=== PATIENT | male | born 1960 | race Hispanic/Latino ===

== ENCOUNTER 2018-08-02 15:19 | Emergency (ER) | payer BC ==
[2018-08-02] MEDS ORDERED: Ketorolac Tromethamine 30 MG/ML VIAL ONE (16:12)
[2018-08-02 16:43] LABS: #Eosinphils 0.1 thou/uL (0.0-0.7); #Lymphocytes 1.2 thou/uL (1.20-3.40); #Monocytes 0.7 thou/uL (0.11-0.59); #Neutrophils 8.4 thou/uL (1.40-6.50); %Basophils 0.1 % (0.0-1.0); %Lymphocytes 11.5 % (21.0-51.0); %Monocytes 6.5 % (0.0-10.0); %Neutrophils 80.9 % (42.0-75.0); Hemoglobin 13.2 g/dL (14.0-18.0); Mean Corpuscular HGB CONC 32.8 g/dL (32.0-36.0); Mean Corpuscular Hemoglobin 28.1 pg (27.0-31.0); Mean Corpuscular Volume 85.8 fL (78.0-98.0); Mean Platelet Volume 7.9 fL (7.4-10.4); Platelet Count 251 thou/uL (130-400); RBC Distribution Width 14.3 % (11.5-14.5); White Blood Cell (WBC) Count 10.4 thou/uL (4.8-10.8)
[2018-08-02 17:05] LABS: ALT (SGPT) 15 U/L (8-55); AST (SGOT) 19 U/L (5-34); Albumin 4.5 g/dL (3.5-5.0); Alkaline Phosphatase 66 U/L (40-150); Anion Gap 15 mmol/L (10-20); BUN (Urea Nitrogen) 20 mg/dL (8.4-25.7); Bilirubin, Total 0.8 mg/dL (0.2-1.2); CK (CPK) 136 U/L (30-200); Calc. Creatinine Clearance 0 mL/min (70-130); Calcium 9.5 mg/dL (7.8-10.44); Carbon Dioxide 22 mmol/L (22-29); Chloride 102 mmol/L (98-107); Estimated GFR-MDRD 44; Globulin 3.3 g/dL (2.4-3.5); Glucose 175 mg/dL (70-105); Protein, Total 7.8 g/dL (6.0-8.3); Sodium 134 mmol/L (136-145)
== END 2018-08-02 19:10 | disposition home or self-care (01) ==
LOC: ERS 15:19
DX: E86.0 Dehydration (principal); R25.2 Cramp and spasm; E11.9 Type 2 diabetes mellitus without complications; I10 Essential (primary) hypertension; Z79.899 Other long term (current) drug therapy; E78.00 Pure hypercholesterolemia, unspecified
CPT/HCPCS: 80053; 82550; 83605; 85025; 96361; 96374; J1885

== ENCOUNTER 2020-02-11 09:40 | Inpatient (IN) | payer BC ==
[2020-02-11] MEDS ORDERED: Dexamethasone 4 mg/ml Vial ONE (10:17)
[2020-02-11] MEDS ORDERED: Acetaminophen 500 MG TAB ONE (10:17)
[2020-02-11] MEDS ORDERED: Azithromycin 500 MG VIAL ONE (10:17)
[2020-02-11 10:29] LABS: #Monocytes 0.4 thou/uL (0.11-0.59); #Neutrophils 7.6 thou/uL (1.40-6.50); %Basophils 0.1 % (0.0-1.0); %Eosinophils 0.1 % (0.0-10.0); %Lymphocytes 10.9 % (21.0-51.0); %Monocytes 4.9 % (0.0-10.0); Hemoglobin 14.7 g/dL (14.0-18.0); Mean Corpuscular HGB CONC 30.6 g/dL (32.0-36.0); Mean Corpuscular Hemoglobin 26.5 pg (27.0-31.0); Mean Corpuscular Volume 86.4 fL (78.0-98.0); Mean Platelet Volume 8.3 fL (7.4-10.4); Platelet Count 301 thou/uL (130-400); RBC Distribution Width 14.2 % (11.5-14.5); Red Blood Cell (RBC) Count 5.57 mill/uL (4.70-6.10)
[2020-02-11 10:43] LABS: Actual Bicarbonate (HCO3a) 14.9 mEq/L (22-28); Analyzer IN Cardio ER; Base Excess (BEa) -7.2 mEq/L (-2.0 to +3.0); Calcium, Ionized (arterial) 1.12 mmol/L (1.12-1.30); Carboxyhemoglobin (COHb) 0.5 gm% (0.0-3.0); Hemoglobin (Hb) 13.7 g/dL (14.0-18.0); O2 Tension (PaO2), arterial 69.9 mmHg (> 80.0); Potassium - ABG Lab 4.01 mmol/L (3.70-5.30); pH, Arterial 7.44 (7.35-7.45)
[2020-02-11] MEDS ORDERED: Diltiazem 125 MG in Sodium Chloride 0.9% 100 ML IVPB SCH ×2 (10:45→15:30)
[2020-02-11 10:48] LABS: CO2 Tension 22.6 mmHg (35.0-45.0)
[2020-02-11 10:49] LABS: Puncture Site RRA
[2020-02-11 11:00] LABS: ALT (SGPT) 29 U/L (8-55); AST (SGOT) 27 U/L (5-34); Albumin 4.4 g/dL (3.4-4.8); Alkaline Phosphatase 65 U/L (40-110); Anion Gap 23 mmol/L (10-20); BUN (Urea Nitrogen) 26 mg/dL (8.4-25.7); Calc. Creatinine Clearance 0 mL/min (70-130); Calcium 9.6 mg/dL (7.8-10.44); Carbon Dioxide 19 mmol/L (23-31); Chloride 95 mmol/L (98-107); Globulin 4.3 g/dL (2.4-3.5); Glucose 174 mg/dL (80-115); Potassium 4.3 mmol/L (3.5-5.1); Protein, Total 8.7 g/dL (5.8-8.1); Sodium 133 mmol/L (136-145)
--- NOTE | 2020-02-11 11:06 | RAD ---
XR Chest 1 View Portable History: Chest pain Comparison: None. Findings: Scattered perihilar and peripheral airspace opacities. No pneumothorax. No effusion. Heart size upper limits of normal. No acute osseous abnormality. Impression: Commonly reported imaging findings of COVID-19 pneumonia.
[2020-02-11 13:45] LABS: Lactic Acid 1.1 mmol/L (0.5-2.2)
[2020-02-11 13:54] LABS: Troponin I 0.021 ng/mL (< 0.028)
[2020-02-11] MEDS ORDERED: Ondansetron PF 4 MG/2 ML Vial IVP PRN (15:29)
[2020-02-11] MEDS ORDERED: HYDROcodone/Acetaminophen 5/325 mg Tablet PO PRN ×2 (15:29)
[2020-02-11] MEDS ORDERED: Ondansetron ODT 4 MG TAB PO PRN (15:29)
[2020-02-11] MEDS ORDERED: Senokot S 8.6-50 MG TAB PO PRN (15:29)
[2020-02-11] MEDS ORDERED: Acetaminophen 650 MG Suppository PR PRN (15:29)
[2020-02-11] MEDS ORDERED: Dextrose 5% in Water 1,000 ML IV PRN (15:36)
[2020-02-11] MEDS ORDERED: Dextrose 50% Abboject 50 ML SYRINGE SLOW IVP PRN (15:36)
[2020-02-11] MEDS: Sodium Chloride 0.9% 1,000 ML IV SCH (16:12)
[2020-02-11] MEDS ORDERED: REMDESIVIR (EUA) 200 MG in Sodium Chloride 0.9% 250 ML 210 ML IV SCH (16:30)
[2020-02-11 16:40] LABS: Troponin I Less than 0.010 ng/mL (< 0.028)
[2020-02-11] MEDS: HumaLOG 300 UNITS/3 ML VIAL SC PRN ×2 (16:46→20:38)
--- NOTE | 2020-02-11 17:12 | HP ---
PRIMARY CARE PHYSICIAN: Tres Piper MD CHIEF COMPLAINT: Cough and muscle cramps of the chest and abdomen. HISTORY OF PRESENT ILLNESS: This is a 59-year-old male, mostly English-speaking. I did interview using the motorized squad captain phone. The patient reports that for the past 8 to 10 days he has had cough and fever. Eight days ago, he was seen at an outside emergency room and reports having a positive COVID test. He reports the cough has been progressive since then, not productive. He has been having spasms and cramps of his lower rib cage and his abdomen. This eventually got so bad he came to the emergency room. In the ER, he was found to be in severe respiratory distress with O2 saturations in 80s. He was put on oxygen at first and later increased to high-flow oxygen with good response of his O2 saturations. He was also found to be severely tachycardic, heart rate of 150. EKG was done showing sinus tachycardia. He was given a liter of fluid and then eventually given some diltiazem, which improved his rate down to the low 100s running about 100 right now. Repeat EKG did confirm sinus tachycardia. The patient did have an elevated lactic acid. This resolved after his fluids given in the emergency room. He has also had noted to have acute kidney failure with a creatinine of 1.5. The patient is now on the floor and with stabilized vital signs, currently on a Cardizem drip at 10 mg/hour. REVIEW OF SYSTEMS: CONSTITUTIONAL: See HPI. EYES: No double vision or blurred vision. ENT: No congestion, drainage, or sore throat. CARDIOVASCULAR: No chest pain. No palpitations or racing heart. PULMONARY: See HPI. No wheezing or chest tightness. He denies any shortness of breath in spite of having an objectively visualized respiratory distress on arrival in the emergency room. Currently, he is breathing easily on high-flow oxygen. GASTROINTESTINAL: Abdominal cramps as per HPI. No other abdominal pain. No nausea or vomiting. No diarrhea or constipation. GENITOURINARY: No dysuria or hematuria. MUSCULOSKELETAL: See HPI. No extremity muscle aches or joint pains. SKIN: No rashes or lesions noted. NEUROLOGIC: No numbness, tingling, or focal weakness. PAST MEDICAL HISTORY: 1. Diabetes mellitus type 2, on oral hypoglycemics only. 2. Hypertension. 3. Hyperlipidemia. PAST SURGICAL HISTORY: None. SOCIAL HISTORY: No tobacco, alcohol, or illicit drug use. He does live with his and children. He is a full code. Should he be incapacitated, his would be his medical decision maker. FAMILY HISTORY: No significant family medical history per the patient. ALLERGIES: NO KNOWN DRUG ALLERGIES. CURRENT MEDICATIONS: Obtained from patient's by the nurse. 1. Simvastatin 20 mg at night. 2. Aspirin 325 mg daily. 3. Lisinopril 10 mg daily. 4. Pioglitazone/metformin 15/850 mg one tablet twice a day. PHYSICAL EXAMINATION: VITAL SIGNS: Blood pressure 120/65, pulse 110, respirations about 25 breaths per minute on my exam, O2 saturation 98% on high-flow O2, 34% FiO2 at 35 L/min, temperature 98.8. GENERAL: This is a well-developed, well-nourished male, in no acute distress. HEENT: Pupils equal, round, and reactive to light. Oropharynx clear without lesions, erythema, or exudate. NECK: Supple. No lymphadenopathy. No thyroid nodules or enlargement. No JVD. HEART: Mildly tachycardic, regular rhythm. No murmurs, rubs, or gallops. LUNGS: Clear to auscultation bilaterally. No wheezes, crackles, or rhonchi. No increased work of breathing. Mild tachypnea. ABDOMEN: Soft, nontender to palpation. Normoactive bowel sounds. No hepatosplenomegaly or other masses. EXTREMITIES: No clubbing, cyanosis, or edema. SKIN: No rashes or lesions noted. NEUROLOGIC: The patient moves all extremities equally. No facial droop. PSYCHIATRIC: Alert and oriented x3. Normal mood and affect. LABORATORY DATA: CBC within normal limits. Arterial blood gas initially showed a pH of 7.44, pCO2 of 22, and PO2 of 69. Complete metabolic panel is notable for a sodium of 133, chloride of 95, carbon dioxide of 19, anion gap 23, BUN of 26, creatinine of 1.51, glucose of 174; the rest was normal. Lactic acid was initially 3.6, down to 1.1 after a liter of fluids. Troponin was negative x2. Third one pending. Brain natriuretic peptide was less than 10. IMAGING DATA: Chest x-ray, I did review the chest x-ray done in the emergency room along with the radiologist's report. It does show bilateral perihilar and peripheral interstitial infiltrates consistent with a COVID pneumonia picture. EKG, I did review the EKGs done in the emergency room. They did show sinus tachycardia initially 150 beats per minute down to 110 milliseconds with left axis deviation, no other significant abnormalities. ASSESSMENT: 1. COVID pneumonia. We will put the patient on dexamethasone 6 mg daily for at least 10 days. We will also put him on twice a day Lovenox and will start remdesivir due to his comorbidities and severity of his infection. His creatinine should be adequate for tolerate the remdesivir, especially now that he has had hydration. 2. Acute respiratory failure with hypoxia. We will continue high-flow oxygen and titrate as needed. 3. Diabetes mellitus type 2. We will resume the patient's home medications and will put on a mild sliding scale with fingerstick blood sugars before breakfast and at bedtime. We can start him on some long-acting insulin if should he need it once he is on the steroids. 4. Hypertension, resume the patient's home blood pressure medications. 5. Sinus tachycardia. The patient currently on diltiazem drip. We will see if we can decrease this once he is well hydrated enough, this is likely a response to his hypoxia and significant infection. Should it persist in spite of good hydration and fever control. We will need to get Cardiology involved. We will reassess that in the morning. 6. Acute renal failure. We will recheck after fluids. We will put him on 100 mL of normal saline for hour right now. 7. Deep venous thrombosis prophylaxis. The patient is on Lovenox. 8. Gastrointestinal prophylaxis. The patient on Pepcid twice a day. 9. Hyperlipidemia. We will start the patient on atorvastatin daily. 10. Code status. The patient is a full code. Should he incapacitated, his would be his medical decision maker. Job ID: [id number]
[2020-02-11] MEDS: Enoxaparin Sodium 40 MG/0.4 ML SYRINGE SC SCH (20:24)
[2020-02-11] MEDS: metFORMIN 850 MG TAB PO SCH (20:25)
[2020-02-11] MEDS: Famotidine 20 MG TAB PO SCH (20:25)
[2020-02-11] MEDS: Atorvastatin Calcium 10 MG TAB PO SCH (20:25)
[2020-02-11] MEDS: Pioglitazone HCl 15 MG TAB PO SCH (20:25)
[2020-02-12] MEDS: Sodium Chloride 0.9% 1,000 ML IV SCH ×3 (02:38→21:34)
[2020-02-12 05:22] LABS: #Lymphocytes 0.8 thou/uL (1.20-3.40); #Monocytes 0.7 thou/uL (0.11-0.59); #Neutrophils 8.4 thou/uL (1.40-6.50); %Basophils 0.2 % (0.0-1.0); %Lymphocytes 7.9 % (21.0-51.0); %Monocytes 7.5 % (0.0-10.0); %Neutrophils 84.4 % (42.0-75.0); Hemoglobin 12.6 g/dL (14.0-18.0); Mean Corpuscular HGB CONC 33.2 g/dL (32.0-36.0); Mean Corpuscular Hemoglobin 28.1 pg (27.0-31.0); Mean Corpuscular Volume 84.6 fL (78.0-98.0); Mean Platelet Volume 8.4 fL (7.4-10.4); Platelet Count 271 thou/uL (130-400); White Blood Cell (WBC) Count 9.9 thou/uL (4.8-10.8)
[2020-02-12 05:44] LABS: ALT (SGPT) 24 U/L (8-55); AST (SGOT) 23 U/L (5-34); Albumin 3.3 g/dL (3.4-4.8); Alkaline Phosphatase 51 U/L (40-110); Anion Gap 17 mmol/L (10-20); BUN (Urea Nitrogen) 24 mg/dL (8.4-25.7); Bilirubin, Total 0.6 mg/dL (0.2-1.2); Calc. Creatinine Clearance 102 mL/min (70-130); Calcium 8.5 mg/dL (7.8-10.44); Carbon Dioxide 18 mmol/L (23-31); Chloride 107 mmol/L (98-107); Globulin 3.3 g/dL (2.4-3.5); Glucose 160 mg/dL (80-115); Potassium 4.5 mmol/L (3.5-5.1); Protein, Total 6.6 g/dL (5.8-8.1); Sodium 137 mmol/L (136-145)
--- NOTE | 2020-02-12 07:41 | PDOC.HOSPP ---
- Subjective Encounter Date: 02/12/20 Encounter Time: 09:50 Subjective: Patient with some cramps of chest and abdominal wall earlier that caused him to pause breathing and sats went down to 80s, but quickly back up once cramp resolved. Sating well on 5L O2 this AM, off the high flow. Persistent cough. - Objective Vital Signs & Weight: Vital Signs (12 hours) Temp Pulse Resp BP Pulse Ox 02/12/20 04:17 97.8 F 86 28 H 126/60 92 L 02/12/20 04:00 98.3 F 90 20 120/71 95 02/12/20 03:21 95 02/12/20 00:42 98.0 F 78 22 H 122/62 95 02/11/20 20:01 100 02/11/20 20:00 98.9 F 93 20 107/55 L 100 Weight Weight 176 lb 8 oz I&O: 02/11/20 02/12/20 02/13/20 06:59 06:59 06:59 Intake Total 2075 Output Total 1700 Balance 375 Result Diagrams: 02/12/20 04:49 02/12/20 04:49 Additional Labs: Accuchecks 02/11/20 02/11/20 20:30 16:21 POC Glucose 255 H 211 H Hospitalist ROS - Review of Systems Constitutional: denies: fever, chills Respiratory: reports: cough. denies: shortness of breath Cardiovascular: denies: chest pain, palpitations Gastrointestinal: denies: nausea, vomiting, abdominal pain - Medication Medications: Active Medications Generic Name Dose Route Start Last Admin Trade Name Freq PRN Reason Stop Dose Admin Atorvastatin Calcium 10 mg 02/11/20 21:00 02/11/20 20:25 Atorvastatin Calcium 10 Mg Tab PO 10 mg HS EMELI Administration Enoxaparin Sodium 40 mg 02/11/20 21:00 02/11/20 20:24 Enoxaparin Sodium 40 Mg/0.4 Ml Syringe SC 40 mg 0900,2100 EMELI Administration Famotidine 20 mg 02/11/20 21:00 02/11/20 20:25 Famotidine 20 Mg Tab PO 20 mg BID EMELI Administration Diltiazem HCl 125 mg/ Sodium 125 mls @ 10 mls/hr 02/11/20 15:30 02/11/20 22:09 Chloride IVPB 125 mls INF EMELI Administration Protocol 10 MG/HR Sodium Chloride 1,000 mls @ 100 mls/hr 02/11/20 15:45 02/12/20 02:38 Normal Saline 0.9% IV 1,000 mls .Q10H EMELI Administration Insulin Human Lispro 0 units 02/11/20 15:36 02/11/20 16:46 Humalog 300 Units/3 Ml Vial SC 3 units .MILD SLIDING SCALE PRN Administration Mild Correctional Scale Insulin Human Lispro 0 units 02/11/20 15:36 02/11/20 20:38 Humalog 300 Units/3 Ml Vial SC 3 unit .BEDTIME SLIDING SC PRN Administration Bedtime Correctional Scale Metformin HCl 850 mg 02/11/20 21:00 02/11/20 20:25 Metformin 850 Mg Tab PO 850 mg BID EMELI Administration Pioglitazone HCl 15 mg 02/11/20 21:00 02/11/20 20:25 Pioglitazone Hcl 15 Mg Tab PO 15 mg BID EMELI Administration - Exam General Appearance: NAD, awake alert ENT: moist mucosa Heart: RRR, no murmur, no gallops, no rubs Respiratory: no wheezes, no ronchi, normal chest expansion, no tachypnea Respiratory - other findings: rales worse on right than left Gastrointestinal: soft, non-tender, non-distended, normal bowel sounds Psychiatric: normal affect, normal behavior, A&O x 3 Hosp A/P (1) Pneumonia due to COVID-19 virus Code(s): U07.1 - COVID-19; J12.89 - OTHER VIRAL PNEUMONIA Status: Acute (2) Acute respiratory failure with hypoxia Code(s): J96.01 - ACUTE RESPIRATORY FAILURE WITH HYPOXIA Status: Acute (3) Sinus tachycardia Code(s): R00.0 - TACHYCARDIA, UNSPECIFIED Status: Acute (4) Diabetes mellitus type 2 in nonobese Code(s): E11.9 - TYPE 2 DIABETES MELLITUS WITHOUT COMPLICATIONS Status: Chronic (5) Acute renal failure Status: Resolved (6) HTN (hypertension) Code(s): I10 - ESSENTIAL (PRIMARY) HYPERTENSION Status: Chronic - Plan Patient on dexamethasone 6mg daily, Remdesivir, Lovenox BID since 02/11/2020. Off the high flow oxygen this morning. Blood sugars running a bit high on the steroids. Will add small amount of daily long acting insulin if sliding scale not adequate to keep under control. Sinus tachycardia controlled with diltiazem drip. No other arrhythmias. Will try converting to oral medication. Give dose of Metoprolol and decrease drip 30 minutes later. DVT Proph: Lovenox BID GI Proph: Pepcid BID
[2020-02-12] MEDS: Pioglitazone HCl 15 MG TAB PO SCH ×2 (09:49→21:12)
[2020-02-12] MEDS: Famotidine 20 MG TAB PO SCH ×2 (09:49→21:12)
[2020-02-12] MEDS: Aspirin 325 MG TAB PO SCH (09:49)
[2020-02-12] MEDS: metFORMIN 850 MG TAB PO SCH ×2 (09:49→21:12)
[2020-02-12] MEDS: Lisinopril 10 MG TAB PO SCH (09:49)
[2020-02-12] MEDS: Dexamethasone 4 MG TAB PO SCH (09:50)
[2020-02-12] MEDS: Enoxaparin Sodium 40 MG/0.4 ML SYRINGE SC SCH ×2 (09:52→21:13)
[2020-02-12] MEDS ORDERED: Metoprolol Tartrate 25 MG TAB PO SCH (10:00)
[2020-02-12] MEDS: REMDESIVIR (EUA) 100 MG in Sodium Chloride 0.9% 250 ML 230 ML IV SCH (16:47)
[2020-02-12] MEDS: HumaLOG 300 UNITS/3 ML VIAL SC PRN ×2 (16:47→21:15)
[2020-02-12] MEDS ORDERED: Albuterol Sulfate 1.25 MG/3 ML NEB NEB PRN (19:25)
[2020-02-12] MEDS: Metoprolol Tartrate 25 MG TAB PO SCH (21:12)
[2020-02-12] MEDS: Atorvastatin Calcium 10 MG TAB PO SCH (21:13)
[2020-02-12] MEDS: Guaifenesin DM 100-10/5 ML UDCUP PO PRN (21:32)
[2020-02-13] MEDS: Guaifenesin DM 100-10/5 ML UDCUP PO PRN ×2 (04:03→21:10)
[2020-02-13] MEDS: Albuterol 200 PUFF (6.7GM INHALER) INH PRN ×2 (04:04→21:24)
[2020-02-13 04:39] LABS: #Lymphocytes 0.9 thou/uL (1.20-3.40); #Monocytes 0.9 thou/uL (0.11-0.59); #Neutrophils 12.9 thou/uL (1.40-6.50); %Basophils 0.1 % (0.0-1.0); %Eosinophils 0.1 % (0.0-10.0); %Neutrophils 87.8 % (42.0-75.0); Hemoglobin 13.3 g/dL (14.0-18.0); Mean Corpuscular HGB CONC 32.1 g/dL (32.0-36.0); Mean Corpuscular Hemoglobin 27.7 pg (27.0-31.0); Mean Corpuscular Volume 86.4 fL (78.0-98.0); Mean Platelet Volume 8.1 fL (7.4-10.4); Platelet Count 347 thou/uL (130-400); RBC Distribution Width 14.3 % (11.5-14.5); White Blood Cell (WBC) Count 14.7 thou/uL (4.8-10.8)
[2020-02-13] MEDS ORDERED: ALPRAZolam 0.5 MG TAB PO SCH (05:00)
[2020-02-13 05:08] LABS: Anion Gap 16 mmol/L (10-20); BUN (Urea Nitrogen) 24 mg/dL (8.4-25.7); Calc. Creatinine Clearance 105 mL/min (70-130); Calcium 8.7 mg/dL (7.8-10.44); Carbon Dioxide 15 mmol/L (23-31); Chloride 111 mmol/L (98-107); Glucose 190 mg/dL (80-115); Potassium 4.8 mmol/L (3.5-5.1); Sodium 137 mmol/L (136-145)
[2020-02-13] MEDS: HumaLOG 300 UNITS/3 ML VIAL SC PRN ×3 (07:00→21:25)
[2020-02-13] MEDS: Metoprolol Tartrate 25 MG TAB PO SCH ×2 (08:35→20:59)
[2020-02-13] MEDS: Famotidine 20 MG TAB PO SCH ×2 (08:35→20:57)
[2020-02-13] MEDS: metFORMIN 850 MG TAB PO SCH ×2 (08:35→20:58)
[2020-02-13] MEDS: Dexamethasone 4 MG TAB PO SCH (08:36)
[2020-02-13] MEDS: Pioglitazone HCl 15 MG TAB PO SCH ×2 (08:36→20:57)
[2020-02-13] MEDS: Lisinopril 10 MG TAB PO SCH (08:36)
[2020-02-13] MEDS: Aspirin 325 MG TAB PO SCH (08:36)
[2020-02-13] MEDS: Enoxaparin Sodium 40 MG/0.4 ML SYRINGE SC SCH ×2 (08:37→20:59)
[2020-02-13] MEDS: Sodium Chloride 0.9% 1,000 ML IV SCH (08:54)
[2020-02-13 11:18] LABS: ALT (SGPT) 22 U/L (8-55); AST (SGOT) 27 U/L (5-34); Albumin 3.3 g/dL (3.4-4.8); Alkaline Phosphatase 60 U/L (40-110); Bilirubin, Direct 0.2 mg/dL (0.1-0.3); Bilirubin, Total 0.5 mg/dL (0.2-1.2); Protein, Total 6.5 g/dL (5.8-8.1)
--- NOTE | 2020-02-13 11:27 | PDOC.HOSPP ---
- Subjective Encounter Date: 02/13/20 Encounter Time: 08:15 Subjective: Last night patient was saturating low, he was started on high flow oxygen, otherwise patient is doing okay, with exertion his oxygen saturation drops, he has no fever, - Objective Vital Signs & Weight: Vital Signs (12 hours) Temp Pulse Resp BP Pulse Ox 02/13/20 08:00 98.5 F 74 28 H 145/78 H 100 02/13/20 03:21 98.0 F 80 30 H 144/74 H 90 L 02/12/20 23:43 98.3 F 72 20 149/78 H 92 L Weight Admit Weight 176 lb 8 oz Weight 176 lb 8 oz I&O: 02/12/20 02/13/20 02/14/20 06:59 06:59 06:59 Intake Total 2075 1950 Output Total 1700 1190 Balance 375 760 Result Diagrams: 02/13/20 04:23 02/13/20 04:23 Additional Labs: Accuchecks 02/13/20 02/12/20 02/12/20 06:00 21:02 16:34 POC Glucose 209 H 295 H 254 H 02/12/20 11:30 POC Glucose 136 H EKG Reviewed by me: Yes Hospitalist ROS - Review of Systems ENT: denies: ear pain, ear discharge, nose pain, nose discharge, nose congestion, mouth pain, mouth swelling, throat pain, throat swelling, other Respiratory: reports: shortness of breath, SOB with excertion. denies: cough, dry, hemoptysis, pleuritic pain, sputum, wheezing, other Cardiovascular: denies: chest pain, palpitations, orthopnea, paroxysmal noc. dyspnea, edema, light headedness, other Gastrointestinal: denies: nausea, vomiting, abdominal pain, diarrhea, constipation, melena, hematochezia, other Genitourinary: denies: dysuria, frequency, incontinence, hematuria, retention, other Musculoskeletal: denies: neck pain, shoulder pain, arm pain, back pain, hand pain, leg pain, foot pain, other - Medication Medications: Active Medications Generic Name Dose Route Start Last Admin Trade Name Freq PRN Reason Stop Dose Admin Albuterol Sulfate 1 puff 02/12/20 19:42 02/13/20 04:04 Albuterol 200 Puff (6.7gm Inhaler) INH 1 puff Q8H PRN Administration Wheezing Aspirin 325 mg 02/12/20 09:00 02/13/20 08:36 Aspirin 325 Mg Tab PO 325 mg DAILY EMELI Administration Atorvastatin Calcium 10 mg 02/11/20 21:00 02/12/20 21:13 Atorvastatin Calcium 10 Mg Tab PO 10 mg HS EMELI Administration Dexamethasone 6 mg 02/12/20 08:00 02/13/20 08:36 Dexamethasone 4 Mg Tab PO 6 mg QAM-WM EMELI Administration Enoxaparin Sodium 40 mg 02/11/20 21:00 02/13/20 08:37 Enoxaparin Sodium 40 Mg/0.4 Ml Syringe SC 40 mg 0900,2100 EMELI Administration Famotidine 20 mg 02/11/20 21:00 02/13/20 08:35 Famotidine 20 Mg Tab PO 20 mg BID EMELI Administration Guaifenesin/Dextromethorphan 15 ml 02/11/20 15:29 02/13/20 04:03 Guaifenesin Dm 100-10/5 Ml Udcup PO 15 ml Q4H PRN Administration Cough Sodium Chloride 1,000 mls @ 100 mls/hr 02/11/20 15:45 02/13/20 08:54 Normal Saline 0.9% IV 1,000 mls .Q10H EMELI Administration Remdesivir 100 mg/ Sodium 250 mls @ 250 mls/hr 02/12/20 16:00 02/12/20 16:47 Chloride IV 02/15/20 16:59 250 mls 1600 EMELI Administration Insulin Human Lispro 0 units 02/11/20 15:36 02/13/20 07:00 Humalog 300 Units/3 Ml Vial SC 3 units .MILD SLIDING SCALE PRN Administration Mild Correctional Scale Insulin Human Lispro 0 units 02/11/20 15:36 02/12/20 21:15 Humalog 300 Units/3 Ml Vial SC 3 unit .BEDTIME SLIDING SC PRN Administration Bedtime Correctional Scale Lisinopril 10 mg 02/12/20 09:00 02/13/20 08:36 Lisinopril 10 Mg Tab PO 10 mg DAILY EMELI Administration Metformin HCl 850 mg 02/11/20 21:00 02/13/20 08:35 Metformin 850 Mg Tab PO 850 mg BID EMELI Administration Metoprolol Tartrate 25 mg 02/12/20 21:00 02/13/20 08:35 Metoprolol Tartrate 25 Mg Tab PO 25 mg BID EMELI Administration Pioglitazone HCl 15 mg 02/11/20 21:00 02/13/20 08:36 Pioglitazone Hcl 15 Mg Tab PO 15 mg BID EMELI Administration - Exam General Appearance: NAD, awake alert Eye: PERRL, anicteric sclera ENT: normocephalic atraumatic, no oropharyngeal lesions Neck: supple, symmetric, no JVD Heart: RRR, no murmur, no gallops, no rubs Respiratory: no wheezes, no ronchi Respiratory - other findings: Coarse basilar rales Gastrointestinal: soft, non-tender, non-distended, normal bowel sounds Extremities: no cyanosis, no clubbing, no edema Skin: normal turgor, no lesions Neurological: no focal deficits Musculoskeletal: normal tone, normal strength Psychiatric: normal affect, normal behavior Hosp A/P (1) Acute respiratory failure with hypoxia Code(s): J96.01 - ACUTE RESPIRATORY FAILURE WITH HYPOXIA Status: Acute (2) Pneumonia due to COVID-19 virus Code(s): U07.1 - COVID-19; J12.89 - OTHER VIRAL PNEUMONIA Status: Acute (3) Sinus tachycardia Code(s): R00.0 - TACHYCARDIA, UNSPECIFIED Status: Acute (4) Diabetes mellitus type 2 in nonobese Code(s): E11.9 - TYPE 2 DIABETES MELLITUS WITHOUT COMPLICATIONS Status: Chronic (5) HTN (hypertension) Code(s): I10 - ESSENTIAL (PRIMARY) HYPERTENSION Status: Chronic (6) Acute renal failure Status: Resolved - Plan old records reviewed/req, respiratory therapy, DVT proph w/lovenox Discontinue IV fluid Give Lasix 40 mg IV one-time dose Continue remdesivir to finish complete course Medication reviewed and continue provide symptomatic and supportive care Wean off high flow oxygen as tolerated
[2020-02-13] MEDS ORDERED: Zolpidem Tartrate 5 MG TAB PO PRN (11:28)
[2020-02-13] MEDS ORDERED: Labetalol HCl 100 MG/20 ML VIAL SLOW IVP PRN (11:28)
[2020-02-13] MEDS ORDERED: Loperamide HCl 2 MG CAP PO PRN (11:28)
[2020-02-13] MEDS ORDERED: Cepastat Lozenges 1 LOZ PO PRN (11:28)
[2020-02-13] MEDS ORDERED: Sodium Chloride 0.65% Nasal 44 ML BOT EA NARE PRN (11:28)
[2020-02-13] MEDS ORDERED: Loratadine 10 MG TAB PO PRN (11:28)
[2020-02-13] MEDS ORDERED: Calcium Carbonate 500 MG ChewTAB PO PRN (11:28)
[2020-02-13] MEDS ORDERED: GUAIFENESIN SF SOLN 200 MG/10 ML UDCUP PO PRN (11:28)
[2020-02-13] MEDS ORDERED: Bisacodyl 10 MG SUPP PR PRN (11:28)
[2020-02-13] MEDS ORDERED: Furosemide 40 MG/4 ML VIAL SLOW IVP SCH (11:30)
[2020-02-13] MEDS: Benzonatate 100 MG CAP PO PRN (12:59)
[2020-02-13] MEDS: REMDESIVIR (EUA) 100 MG in Sodium Chloride 0.9% 250 ML 230 ML IV SCH (15:56)
[2020-02-13] MEDS: Atorvastatin Calcium 10 MG TAB PO SCH ×3 (20:59→21:05)
[2020-02-14 04:58] LABS: #Lymphocytes 0.6 thou/uL (1.20-3.40); #Monocytes 0.8 thou/uL (0.11-0.59); #Neutrophils 11.3 thou/uL (1.40-6.50); %Eosinophils 0.1 % (0.0-10.0); %Lymphocytes 4.9 % (21.0-51.0); Hemoglobin 12.8 g/dL (14.0-18.0); Mean Corpuscular HGB CONC 32.7 g/dL (32.0-36.0); Mean Corpuscular Hemoglobin 27.7 pg (27.0-31.0); Mean Corpuscular Volume 84.8 fL (78.0-98.0); Platelet Count 353 thou/uL (130-400); RBC Distribution Width 14.1 % (11.5-14.5); White Blood Cell (WBC) Count 12.7 thou/uL (4.8-10.8)
[2020-02-14 05:23] LABS: ALT (SGPT) 22 U/L (8-55); AST (SGOT) 21 U/L (5-34); Albumin 3.1 g/dL (3.4-4.8); Alkaline Phosphatase 55 U/L (40-110); Anion Gap 16 mmol/L (10-20); BUN (Urea Nitrogen) 32 mg/dL (8.4-25.7); Bilirubin, Total 0.5 mg/dL (0.2-1.2); CRP (Inflammatory) 5.79 mg/dL (= or < 0.5); Calc. Creatinine Clearance 84 mL/min (70-130); Calcium 8.7 mg/dL (7.8-10.44); Carbon Dioxide 20 mmol/L (23-31); Chloride 106 mmol/L (98-107); Globulin 3.3 g/dL (2.4-3.5); Glucose 223 mg/dL (80-115); Potassium 4.5 mmol/L (3.5-5.1); Protein, Total 6.4 g/dL (5.8-8.1); Sodium 137 mmol/L (136-145)
[2020-02-14] MEDS: HumaLOG 300 UNITS/3 ML VIAL SC PRN ×4 (06:22→21:11)
[2020-02-14] MEDS: Enoxaparin Sodium 40 MG/0.4 ML SYRINGE SC SCH ×2 (09:08→21:03)
[2020-02-14] MEDS: Famotidine 20 MG TAB PO SCH ×2 (09:09→21:02)
[2020-02-14] MEDS: Pioglitazone HCl 15 MG TAB PO SCH ×2 (09:09→21:02)
[2020-02-14] MEDS: Aspirin 325 MG TAB PO SCH (09:09)
[2020-02-14] MEDS: Metoprolol Tartrate 25 MG TAB PO SCH ×2 (09:09→21:02)
[2020-02-14] MEDS: Dexamethasone 4 MG TAB PO SCH (09:09)
[2020-02-14] MEDS: Lisinopril 10 MG TAB PO SCH (09:09)
[2020-02-14] MEDS: Albuterol 200 PUFF (6.7GM INHALER) INH PRN (09:44)
--- NOTE | 2020-02-14 10:10 | PDOC.HOSPP ---
- Subjective Encounter Date: 02/14/20 Encounter Time: 07:00 Subjective: Patient seen and examined bedside today, I spoke with the patient by using language line phone and plan of care discussed with the patient in detail and answered all his questions, patient is still on high flow oxygen, patient does not have any particular symptoms like nausea vomiting but he feels shortness of breath and weakness whenever he exerts himself. - Objective Vital Signs & Weight: Vital Signs (12 hours) Temp Pulse Resp BP Pulse Ox 02/14/20 09:15 98.6 F 82 22 H 143/79 H 94 L 02/14/20 04:53 98.1 F 71 42 H 130/64 91 L 02/14/20 01:24 97.8 F 71 27 H 133/74 100 Weight Admit Weight 176 lb 8 oz Weight 176 lb 8 oz I&O: 02/13/20 02/14/20 02/15/20 06:59 06:59 06:59 Intake Total 1950 650 Output Total 1190 2100 Balance 760 -1450 Result Diagrams: 02/14/20 04:41 02/14/20 04:41 Additional Labs: Accuchecks 02/13/20 02/13/20 02/13/20 19:49 16:01 11:35 POC Glucose 339 H 343 H 175 H EKG Reviewed by me: Yes Hospitalist ROS - Review of Systems Constitutional: reports: weakness, malaise Eyes: denies: pain, vision change, conjunctivae inflammation, eyelid inflammation, redness, other ENT: denies: ear pain, ear discharge, nose pain, nose discharge, nose congestion, mouth pain, mouth swelling, throat pain, throat swelling, other Respiratory: reports: shortness of breath, SOB with excertion. denies: cough, dry, hemoptysis, pleuritic pain, sputum, wheezing, other Cardiovascular: denies: chest pain, palpitations, orthopnea, paroxysmal noc. dyspnea, edema, light headedness, other Gastrointestinal: denies: nausea, vomiting, abdominal pain, diarrhea, constipation, melena, hematochezia, other Genitourinary: denies: dysuria, frequency, incontinence, hematuria, retention, other Musculoskeletal: denies: neck pain, shoulder pain, arm pain, back pain, hand pain, leg pain, foot pain, other - Medication Medications: Active Medications Generic Name Dose Route Start Last Admin Trade Name Freq PRN Reason Stop Dose Admin Albuterol Sulfate 1 puff 02/12/20 19:42 02/14/20 09:44 Albuterol 200 Puff (6.7gm Inhaler) INH 1 puff Q8H PRN Administration Wheezing Aspirin 325 mg 02/12/20 09:00 02/14/20 09:09 Aspirin 325 Mg Tab PO 325 mg DAILY EMELI Administration Atorvastatin Calcium 10 mg 02/11/20 21:00 02/13/20 20:59 Atorvastatin Calcium 10 Mg Tab PO 10 mg HS EMELI Administration Atorvastatin Calcium 10 mg 02/13/20 21:00 02/13/20 21:05 Atorvastatin Calcium 10 Mg Tab PO Not Given HS EMELI Benzonatate 100 mg 02/13/20 11:28 02/13/20 12:59 Benzonatate 100 Mg Cap PO 100 mg Q6H PRN Administration Cough Dexamethasone 6 mg 02/12/20 08:00 02/14/20 09:09 Dexamethasone 4 Mg Tab PO 6 mg QAM-WM EMELI Administration Enoxaparin Sodium 40 mg 02/11/20 21:00 02/14/20 09:08 Enoxaparin Sodium 40 Mg/0.4 Ml Syringe SC 40 mg 0900,2100 EMELI Administration Famotidine 20 mg 02/11/20 21:00 02/14/20 09:09 Famotidine 20 Mg Tab PO 20 mg BID MEELI Administration Guaifenesin/Dextromethorphan 15 ml 02/11/20 15:29 02/13/20 21:10 Guaifenesin Dm 100-10/5 Ml Udcup PO 15 ml Q4H PRN Administration Cough Remdesivir 100 mg/ Sodium 250 mls @ 250 mls/hr 02/12/20 16:00 02/13/20 15:56 Chloride IV 02/15/20 16:59 250 mls 1600 EMELI Administration Insulin Human Lispro 0 units 02/11/20 15:36 02/14/20 06:22 Humalog 300 Units/3 Ml Vial SC 3 units .MILD SLIDING SCALE PRN Administration Mild Correctional Scale Insulin Human Lispro 0 units 02/11/20 15:36 02/13/20 21:25 Humalog 300 Units/3 Ml Vial SC 4 unit .BEDTIME SLIDING SC PRN Administration Bedtime Correctional Scale Lisinopril 10 mg 02/12/20 09:00 02/14/20 09:09 Lisinopril 10 Mg Tab PO 10 mg DAILY EMELI Administration Metformin HCl 850 mg 02/11/20 21:00 02/13/20 20:58 Metformin 850 Mg Tab PO 850 mg BID EMELI Administration Metoprolol Tartrate 25 mg 02/12/20 21:00 02/14/20 09:09 Metoprolol Tartrate 25 Mg Tab PO 25 mg BID EMELI Administration Pioglitazone HCl 15 mg 02/11/20 21:00 02/14/20 09:09 Pioglitazone Hcl 15 Mg Tab PO 15 mg BID EMELI Administration - Exam General Appearance: NAD, awake alert Eye: PERRL, anicteric sclera ENT: normocephalic atraumatic, no oropharyngeal lesions, moist mucosa Neck: supple, symmetric, no JVD, no thyromegaly Heart: RRR, no murmur, no gallops, no rubs Respiratory: no tachypnea Respiratory - other findings: Slightly reduced air entry but no obvious rales or wheezing Gastrointestinal: soft, non-tender, non-distended, normal bowel sounds Extremities: no clubbing, no edema Skin: normal turgor, no lesions Neurological: no focal deficits Musculoskeletal: normal tone, normal strength Psychiatric: normal affect, normal behavior, A&O x 3 Hosp A/P (1) Acute respiratory failure with hypoxia Code(s): J96.01 - ACUTE RESPIRATORY FAILURE WITH HYPOXIA Status: Acute (2) Pneumonia due to COVID-19 virus Code(s): U07.1 - COVID-19; J12.89 - OTHER VIRAL PNEUMONIA Status: Acute (3) Sinus tachycardia Code(s): R00.0 - TACHYCARDIA, UNSPECIFIED Status: Resolved (4) Diabetes mellitus type 2 in nonobese Code(s): E11.9 - TYPE 2 DIABETES MELLITUS WITHOUT COMPLICATIONS Status: Chronic (5) HTN (hypertension) Code(s): I10 - ESSENTIAL (PRIMARY) HYPERTENSION Status: Chronic (6) Acute renal failure Status: Resolved - Plan old records reviewed/req, respiratory therapy, DVT proph w/lovenox Overall patient is doing better, continue high flow oxygen and every day try to make him sit in chair and try to wean off oxygen as tolerated, his inflammatory markers gradually improving, his blood sugar is elevated that is related with the steroid, will continue insulin as per sliding scale, patient will finish complete course of remdesivir therapy, his vitals are stable, I have reviewed his medication and continue provide symptomatic and supportive care
[2020-02-14] MEDS: Benzonatate 100 MG CAP PO PRN ×2 (12:30→21:02)
[2020-02-14] MEDS: metFORMIN 850 MG TAB PO SCH ×2 (12:30→21:03)
[2020-02-14] MEDS: REMDESIVIR (EUA) 100 MG in Sodium Chloride 0.9% 250 ML 230 ML IV SCH (16:47)
[2020-02-14] MEDS: Atorvastatin Calcium 10 MG TAB PO SCH (21:02)
[2020-02-15] MEDS: Atorvastatin Calcium 10 MG TAB PO SCH ×2 (05:10→20:01)
[2020-02-15] MEDS: HumaLOG 300 UNITS/3 ML VIAL SC PRN ×4 (06:22→20:09)
[2020-02-15] MEDS: Dexamethasone 4 MG TAB PO SCH (08:00)
[2020-02-15] MEDS: Lisinopril 10 MG TAB PO SCH (08:01)
[2020-02-15] MEDS: Famotidine 20 MG TAB PO SCH ×2 (08:01→20:00)
[2020-02-15] MEDS: Aspirin 325 MG TAB PO SCH (08:01)
[2020-02-15] MEDS: Pioglitazone HCl 15 MG TAB PO SCH ×2 (08:01→20:00)
[2020-02-15] MEDS: Metoprolol Tartrate 25 MG TAB PO SCH ×2 (08:01→20:00)
[2020-02-15] MEDS: metFORMIN 850 MG TAB PO SCH ×2 (08:01→20:00)
[2020-02-15] MEDS: Enoxaparin Sodium 40 MG/0.4 ML SYRINGE SC SCH ×2 (08:02→20:01)
--- NOTE | 2020-02-15 09:19 | PDOC.HOSPP ---
- Subjective Encounter Date: 02/15/20 Encounter Time: 07:00 Subjective: Patient seen and examined bedside today, patient is still on high flow oxygen, patient will finish his remdesivir therapy today, no fever, on exertion his oxygen saturation drops, - Objective Vital Signs & Weight: Vital Signs (12 hours) Temp Pulse Resp BP BP Pulse Ox 02/15/20 08:00 98.4 F 78 32 H 131/73 95 02/15/20 04:36 94 L 02/15/20 03:54 98.0 F 72 148/79 H 02/14/20 23:42 98.5 F 75 28 H 131/77 94 L Weight Admit Weight 176 lb 8 oz Weight 176 lb 8 oz I&O: 02/14/20 02/15/20 02/16/20 06:59 06:59 06:59 Intake Total 650 1000 Output Total 2100 1052 Balance -1450 -52 Result Diagrams: 02/14/20 04:41 02/14/20 04:41 Additional Labs: Accuchecks 02/15/20 02/14/20 02/14/20 06:04 19:40 16:53 POC Glucose 220 H 275 H 273 H 02/14/20 11:18 POC Glucose 202 H EKG Reviewed by me: Yes Hospitalist ROS - Review of Systems Constitutional: reports: weakness Eyes: denies: pain, vision change, conjunctivae inflammation, eyelid inflammation, redness, other ENT: denies: ear pain, ear discharge, nose pain, nose discharge, nose congestion, mouth pain, mouth swelling, throat pain, throat swelling, other Respiratory: reports: cough, shortness of breath, SOB with excertion. denies: dry, hemoptysis, pleuritic pain, sputum, wheezing, other Cardiovascular: denies: chest pain, palpitations, orthopnea, paroxysmal noc. dyspnea, edema, light headedness, other Gastrointestinal: denies: nausea, vomiting, abdominal pain, diarrhea, constipation, melena, hematochezia, other Genitourinary: denies: dysuria, frequency, incontinence, hematuria, retention, other Musculoskeletal: denies: neck pain, shoulder pain, arm pain, back pain, hand pain, leg pain, foot pain, other - Medication Medications: Active Medications Generic Name Dose Route Start Last Admin Trade Name Freq PRN Reason Stop Dose Admin Hydrocodone Bitart/Acetaminophen 1 tab 02/11/20 15:29 02/15/20 04:20 Hydrocodone/Acetaminophen 5/325 Mg Tablet PO 1 tab Q4H PRN Administration Moderate Pain (4-6) Albuterol Sulfate 1 puff 02/12/20 19:42 02/14/20 09:44 Albuterol 200 Puff (6.7gm Inhaler) INH 1 puff Q8H PRN Administration Wheezing Aspirin 325 mg 02/12/20 09:00 02/15/20 08:01 Aspirin 325 Mg Tab PO 325 mg DAILY EMELI Administration Atorvastatin Calcium 10 mg 02/13/20 21:00 02/15/20 05:10 Atorvastatin Calcium 10 Mg Tab PO Not Given HS EMELI Benzonatate 100 mg 02/13/20 11:28 02/14/20 21:02 Benzonatate 100 Mg Cap PO 100 mg Q6H PRN Administration Cough Dexamethasone 6 mg 02/12/20 08:00 02/15/20 08:00 Dexamethasone 4 Mg Tab PO 6 mg QAM-WM EMELI Administration Enoxaparin Sodium 40 mg 02/11/20 21:00 02/15/20 08:02 Enoxaparin Sodium 40 Mg/0.4 Ml Syringe SC 40 mg 0900,2100 EMELI Administration Famotidine 20 mg 02/11/20 21:00 02/15/20 08:01 Famotidine 20 Mg Tab PO 20 mg BID EMELI Administration Guaifenesin 200 mg 02/13/20 11:28 02/14/20 21:04 Diabetic Tussin 200 Mg/10 Ml Udcup PO 200 mg Q4H PRN Administration Cough Guaifenesin/Dextromethorphan 15 ml 02/11/20 15:29 02/13/20 21:10 Guaifenesin Dm 100-10/5 Ml Udcup PO 15 ml Q4H PRN Administration Cough Remdesivir 100 mg/ Sodium 250 mls @ 250 mls/hr 02/12/20 16:00 02/14/20 16:47 Chloride IV 02/15/20 16:59 250 mls 1600 EMELI Administration Insulin Human Lispro 0 units 02/11/20 15:36 02/15/20 06:22 Humalog 300 Units/3 Ml Vial SC 3 units .MILD SLIDING SCALE PRN Administration Mild Correctional Scale Insulin Human Lispro 0 units 02/11/20 15:36 02/13/20 21:25 Humalog 300 Units/3 Ml Vial SC 4 unit .BEDTIME SLIDING SC PRN Administration Bedtime Correctional Scale Lisinopril 10 mg 02/12/20 09:00 02/15/20 08:01 Lisinopril 10 Mg Tab PO 10 mg DAILY EMELI Administration Metformin HCl 850 mg 02/11/20 21:00 02/15/20 08:01 Metformin 850 Mg Tab PO 850 mg BID EMELI Administration Metoprolol Tartrate 25 mg 02/12/20 21:00 02/15/20 08:01 Metoprolol Tartrate 25 Mg Tab PO 25 mg BID EMELI Administration Pioglitazone HCl 15 mg 02/11/20 21:00 02/15/20 08:01 Pioglitazone Hcl 15 Mg Tab PO 15 mg BID EMELI Administration - Exam General Appearance: NAD, awake alert Eye: PERRL, anicteric sclera ENT: normocephalic atraumatic, no oropharyngeal lesions Neck: supple, symmetric, no JVD, no thyromegaly Heart: RRR, no murmur, no gallops, no rubs Respiratory: no wheezes, no rales, no ronchi Respiratory - other findings: Air entry reduced at base but no obvious rhonchi or rales Gastrointestinal: soft, non-tender, non-distended, normal bowel sounds Extremities: no clubbing, no edema Skin: normal turgor, no lesions Neurological: no focal deficits Musculoskeletal: normal tone, normal strength Psychiatric: normal affect, normal behavior Hosp A/P (1) Acute respiratory failure with hypoxia Code(s): J96.01 - ACUTE RESPIRATORY FAILURE WITH HYPOXIA Status: Acute (2) Pneumonia due to COVID-19 virus Code(s): U07.1 - COVID-19; J12.89 - OTHER VIRAL PNEUMONIA Status: Acute (3) Sinus tachycardia Code(s): R00.0 - TACHYCARDIA, UNSPECIFIED Status: Resolved (4) Diabetes mellitus type 2 in nonobese Code(s): E11.9 - TYPE 2 DIABETES MELLITUS WITHOUT COMPLICATIONS Status: Chronic (5) HTN (hypertension) Code(s): I10 - ESSENTIAL (PRIMARY) HYPERTENSION Status: Chronic (6) Acute renal failure Status: Resolved - Plan old records reviewed/req, plan discussed w/ family, respiratory therapy, DVT proph w/lovenox Today patient will finish his remdesivir therapy, will try to wean off oxygen as tolerated, ambulate as tolerated, make him sit in chair every day, tomorrow we will repeat routine laboratory parameters, medication reviewed and continue provide symptomatic and supportive care, plan of care addressed with language line. Discussed with the patient's daughter and updated about current condition
[2020-02-15] MEDS: Benzonatate 100 MG CAP PO PRN (11:45)
[2020-02-15] MEDS: REMDESIVIR (EUA) 100 MG in Sodium Chloride 0.9% 250 ML 230 ML IV SCH (16:27)
[2020-02-16 05:06] LABS: #Lymphocytes 0.9 thou/uL (1.20-3.40); #Monocytes 0.8 thou/uL (0.11-0.59); #Neutrophils 12.9 thou/uL (1.40-6.50); %Basophils 0.1 % (0.0-1.0); %Eosinophils 0.2 % (0.0-10.0); %Lymphocytes 6.2 % (21.0-51.0); %Monocytes 5.5 % (0.0-10.0); Hemoglobin 13.4 g/dL (14.0-18.0); Mean Corpuscular HGB CONC 32.2 g/dL (32.0-36.0); Mean Corpuscular Volume 83.9 fL (78.0-98.0); Mean Platelet Volume 8.1 fL (7.4-10.4); Platelet Count 450 thou/uL (130-400); Red Blood Cell (RBC) Count 4.97 mill/uL (4.70-6.10); White Blood Cell (WBC) Count 14.7 thou/uL (4.8-10.8)
[2020-02-16 05:30] LABS: ALT (SGPT) 80 U/L (8-55); AST (SGOT) 31 U/L (5-34); Albumin 3.2 g/dL (3.4-4.8); Alkaline Phosphatase 71 U/L (40-110); Anion Gap 19 mmol/L (10-20); BUN (Urea Nitrogen) 32 mg/dL (8.4-25.7); Bilirubin, Total 0.7 mg/dL (0.2-1.2); CRP (Inflammatory) 2.28 mg/dL (= or < 0.5); Calc. Creatinine Clearance 91 mL/min (70-130); Calcium 8.7 mg/dL (7.8-10.44); Carbon Dioxide 18 mmol/L (23-31); Chloride 103 mmol/L (98-107); Globulin 3.3 g/dL (2.4-3.5); Glucose 215 mg/dL (80-115); Potassium 4.9 mmol/L (3.5-5.1); Protein, Total 6.5 g/dL (5.8-8.1); Sodium 135 mmol/L (136-145)
[2020-02-16] MEDS: HumaLOG 300 UNITS/3 ML VIAL SC PRN ×4 (06:05→21:03)
[2020-02-16] MEDS: Dexamethasone 4 MG TAB PO SCH (09:33)
[2020-02-16] MEDS: Enoxaparin Sodium 40 MG/0.4 ML SYRINGE SC SCH ×2 (09:34→21:04)
[2020-02-16] MEDS: Famotidine 20 MG TAB PO SCH ×2 (09:34→21:02)
[2020-02-16] MEDS: Aspirin 325 MG TAB PO SCH (09:34)
[2020-02-16] MEDS: Lisinopril 10 MG TAB PO SCH (09:34)
[2020-02-16] MEDS: metFORMIN 850 MG TAB PO SCH ×2 (09:35→21:03)
[2020-02-16] MEDS: Pioglitazone HCl 15 MG TAB PO SCH ×2 (09:35→21:02)
[2020-02-16] MEDS: Metoprolol Tartrate 25 MG TAB PO SCH ×2 (09:35→21:02)
[2020-02-16] MEDS: Acetaminophen 325 MG TAB PO PRN ×2 (10:07→15:47)
--- NOTE | 2020-02-16 10:30 | RAD ---
PORTABLE CHEST: HISTORY: Followup COVID pneumonia. COMPARISON: 02/11/2020 exam. FINDINGS: Bilateral lung infiltrates are again noted. Changes appear slightly more confluent. IMPRESSION: Worsening bilateral lung infiltrates. POS: HAY
--- NOTE | 2020-02-16 10:49 | EKG ---
Test Reason : Blood Pressure : / mmHG Vent. Rate : 151 BPM Atrial Rate : 151 BPM P-R Int : 138 ms QRS Dur : 068 ms QT Int : 244 ms P-R-T Axes : 034 -65 054 degrees QTc Int : 386 ms Sinus tachycardia Left axis deviation Inferior infarct , age undetermined Anterolateral infarct , age undetermined Abnormal ECG Confirmed by BLAISE GUIDRY, VANDA Gonzalez ([id number]), material expeditor ETTA MAKI ([id number] on 02/16/2020 10:49:12 AM Referred By: Confirmed By:VANDA WELSH MD
--- NOTE | 2020-02-16 10:49 | EKG ---
Test Reason : Blood Pressure : / mmHG Vent. Rate : 112 BPM Atrial Rate : 112 BPM P-R Int : 138 ms QRS Dur : 070 ms QT Int : 326 ms P-R-T Axes : 020 -46 027 degrees QTc Int : 444 ms Sinus tachycardia Left axis deviation Inferior infarct , age undetermined Abnormal ECG #2 Confirmed by BLAISE GUIDRY, VANDA Gonzalez ([id number]), health editor ETTA MAKI ([id number]) on 02/16/2020 10:49:39 AM Referred By: Confirmed By:VANDA WELSH MD
[2020-02-16] MEDS ORDERED: Dexamethasone 4 mg/ml Vial SLOW IVP SCH (13:00)
[2020-02-16] MEDS: Vancomycin 1 GM in Premix Bag 1 BAG IVPB SCH (13:35)
[2020-02-16] MEDS ORDERED: Piperacillin/Tazobactam 3.375 GM in Sodium Chloride 0.9% 100 ML IVPB SCH (14:00)
[2020-02-16] MEDS: Piperacillin/Tazobactam 3.375 GM in Sodium Chloride 0.9% 100 ML IVPB SCH ×2 (15:41→21:00)
[2020-02-16] MEDS: Albuterol 200 PUFF (6.7GM INHALER) INH PRN (15:42)
[2020-02-16] MEDS: Guaifenesin DM 100-10/5 ML UDCUP PO PRN (15:47)
--- NOTE | 2020-02-16 20:19 | PDOC.HOSPP ---
- Subjective Encounter Date: 02/16/20 Encounter Time: 14:00 Subjective: F/u: COVID The patient states he still has a cough. It is yellow in color. He states he has a little cough, no chest pain. He still feels short of breath ambulating - Objective Vital Signs & Weight: Vital Signs (12 hours) Temp Pulse Resp BP Pulse Ox 02/16/20 12:07 95 02/16/20 11:16 98.3 F 94 28 H 112/72 99 Weight Admit Weight 176 lb 8 oz Weight 176 lb 8 oz I&O: 02/15/20 02/16/20 02/17/20 06:59 06:59 06:59 Intake Total 1000 400 Output Total 1052 1400 Balance -52 -1000 Result Diagrams: 02/16/20 04:48 02/16/20 04:48 Additional Labs: Accuchecks 02/16/20 02/16/20 02/16/20 17:43 11:14 05:43 POC Glucose 380 H 178 H 204 H Hospitalist ROS - Review of Systems Constitutional: denies: chills - Medication Medications: Active Medications Generic Name Dose Route Start Last Admin Trade Name Freq PRN Reason Stop Dose Admin Acetaminophen 650 mg 02/11/20 15:29 02/16/20 15:47 Acetaminophen 325 Mg Tab PO 650 mg Q4H PRN Administration Headache/Fever/Mild Pain (1-3) Hydrocodone Bitart/Acetaminophen 1 tab 02/11/20 15:29 02/15/20 04:20 Hydrocodone/Acetaminophen 5/325 Mg Tablet PO 1 tab Q4H PRN Administration Moderate Pain (4-6) Albuterol Sulfate 1 puff 02/12/20 19:42 02/16/20 15:42 Albuterol 200 Puff (6.7gm Inhaler) INH 1 puff Q8H PRN Administration Wheezing Aspirin 325 mg 02/12/20 09:00 02/16/20 09:34 Aspirin 325 Mg Tab PO 325 mg DAILY EMELI Administration Atorvastatin Calcium 10 mg 02/13/20 21:00 02/15/20 20:01 Atorvastatin Calcium 10 Mg Tab PO 10 mg HS EMELI Administration Benzonatate 100 mg 02/13/20 11:28 02/15/20 11:45 Benzonatate 100 Mg Cap PO 100 mg Q6H PRN Administration Cough Enoxaparin Sodium 40 mg 02/11/20 21:00 02/16/20 09:34 Enoxaparin Sodium 40 Mg/0.4 Ml Syringe SC 40 mg 0900,2100 EMELI Administration Famotidine 20 mg 02/11/20 21:00 02/16/20 09:34 Famotidine 20 Mg Tab PO 20 mg BID EMELI Administration Guaifenesin 200 mg 02/13/20 11:28 02/14/20 21:04 Diabetic Tussin 200 Mg/10 Ml Udcup PO 200 mg Q4H PRN Administration Cough Guaifenesin/Dextromethorphan 15 ml 02/11/20 15:29 02/16/20 15:47 Guaifenesin Dm 100-10/5 Ml Udcup PO 15 ml Q4H PRN Administration Cough Vancomycin HCl 1 gm/ Device 200 mls @ 200 mls/hr 02/16/20 13:00 02/16/20 13:35 IVPB 200 mls 0100,1300 EMELI Administration Piperacillin Sod/Tazobactam 100 mls @ 200 mls/hr 02/16/20 15:00 02/16/20 15:41 Sod 3.375 gm/ Sodium Chloride IVPB 100 mls 0300,0900,1500,2100 EMELI Administration Insulin Human Lispro 0 units 02/11/20 15:36 02/16/20 18:47 Humalog 300 Units/3 Ml Vial SC 6 units .MILD SLIDING SCALE PRN Administration Mild Correctional Scale Insulin Human Lispro 0 units 02/11/20 15:36 02/15/20 20:09 Humalog 300 Units/3 Ml Vial SC 3 unit .BEDTIME SLIDING SC PRN Administration Bedtime Correctional Scale Lisinopril 10 mg 02/12/20 09:00 02/16/20 09:34 Lisinopril 10 Mg Tab PO 10 mg DAILY EMELI Administration Metformin HCl 850 mg 02/11/20 21:00 02/16/20 09:35 Metformin 850 Mg Tab PO 850 mg BID EMELI Administration Metoprolol Tartrate 25 mg 02/12/20 21:00 02/16/20 09:35 Metoprolol Tartrate 25 Mg Tab PO 25 mg BID EMELI Administration Pioglitazone HCl 15 mg 02/11/20 21:00 02/16/20 09:35 Pioglitazone Hcl 15 Mg Tab PO 15 mg BID EMELI Administration - Exam General Appearance: NAD, awake alert Eye: PERRL, anicteric sclera ENT: normocephalic atraumatic, no oropharyngeal lesions Neck: no JVD Heart: RRR, no murmur, no gallops, no rubs Respiratory - other findings: diminished lungs bilaterally Gastrointestinal: soft, non-tender, non-distended, normal bowel sounds, no palpable masses, no hepatomegaly, no splenomegaly, no bruit Extremities: no cyanosis, no clubbing, no edema Skin: normal turgor, no lesions, no rashes Hosp A/P - Plan Chest X ray 02/10: Scattered peripheral and perihilar opacities. Chest Xray 02/15: worsening bilateral lung infiltrates This 59-year-old male with a past medical history of diabetes who presented with fever, tachycardia, shortness of breath. He was found to have bilateral opacities consistent with Covid pneumonia. Acute hypoxic respiratory failure secondary to Covid pneumonia - the patient is still on high flow oxygen. Chest X ray today shows worsening pneumonia and WBC increased to 14. Will order vancomycin and zosyn - patient has been here for five days. Will order remdesivir due to normal k idney and liver function. Will order convalescent plasma as well - continue IV steroids Type II diabetes - continue home meds. Will order lantus 8 units qhs since blood sugar > 300 Hypertension - controlled - continue lisinopril Anemia - Hb 13. 4, will monitor
[2020-02-16] MEDS: Dexamethasone 4 mg/ml Vial SLOW IVP SCH (21:01)
[2020-02-16] MEDS: Atorvastatin Calcium 10 MG TAB PO SCH (21:02)
[2020-02-16] MEDS: Insulin Glargine 8 UNITS in Pre-Filled Syringe 1 EACH SC SCH (21:03)
[2020-02-16] MEDS ORDERED: REMDESIVIR (EUA) 200 MG in Sodium Chloride 0.9% 250 ML 210 ML IV SCH (22:00)
[2020-02-17] MEDS: Vancomycin 1 GM in Premix Bag 1 BAG IVPB SCH ×2 (00:38→12:58)
[2020-02-17] MEDS: Piperacillin/Tazobactam 3.375 GM in Sodium Chloride 0.9% 100 ML IVPB SCH ×4 (03:21→21:55)
[2020-02-17] MEDS: HumaLOG 300 UNITS/3 ML VIAL SC PRN ×4 (05:45→21:55)
[2020-02-17] MEDS: Aspirin 325 MG TAB PO SCH (08:05)
[2020-02-17] MEDS: Enoxaparin Sodium 40 MG/0.4 ML SYRINGE SC SCH ×2 (08:06→21:54)
[2020-02-17] MEDS: Famotidine 20 MG TAB PO SCH ×2 (08:06→21:54)
[2020-02-17] MEDS: Lisinopril 10 MG TAB PO SCH (08:06)
[2020-02-17] MEDS: metFORMIN 850 MG TAB PO SCH ×2 (08:06→21:54)
[2020-02-17] MEDS: Metoprolol Tartrate 25 MG TAB PO SCH ×2 (08:07→21:54)
[2020-02-17] MEDS: Pioglitazone HCl 15 MG TAB PO SCH ×2 (08:07→21:54)
[2020-02-17] MEDS: Acetaminophen 325 MG TAB PO PRN (08:08)
[2020-02-17] MEDS: Guaifenesin DM 100-10/5 ML UDCUP PO PRN (08:09)
[2020-02-17 09:42] LABS: Hemoglobin 12.8 g/dL (14.0-18.0); Mean Corpuscular HGB CONC 33.5 g/dL (32.0-36.0); Mean Corpuscular Hemoglobin 28.2 pg (27.0-31.0); Mean Platelet Volume 8.1 fL (7.4-10.4); Platelet Count 449 thou/uL (130-400); RBC Distribution Width 13.9 % (11.5-14.5); Red Blood Cell (RBC) Count 4.54 mill/uL (4.70-6.10)
--- NOTE | 2020-02-17 12:42 | PDOC.HOSPP ---
- Subjective Encounter Date: 02/17/20 Encounter Time: 11:30 Subjective: F/u:COVID The patient still has fatigue ambulating but slightly improved. His cough has improved slightly. It is still slightly productive. No chest pain - Objective Vital Signs & Weight: Vital Signs (12 hours) Temp Pulse Pulse Resp BP BP Pulse Ox 02/17/20 12:00 98 F 83 24 H 113/61 100 02/17/20 08:09 97.7 F 89 22 H 131/75 93 L 02/17/20 04:00 94 L 02/17/20 03:15 96.9 F L 78 22 H 107/59 L 02/17/20 02:20 97.6 F 79 22 H 117/59 L 02/17/20 02:05 97.6 F 71 20 111/57 L Weight Admit Weight 176 lb 8 oz Weight 176 lb 8 oz I&O: 02/16/20 02/17/20 02/18/20 06:59 06:59 06:59 Intake Total 400 800 Output Total 1400 450 Balance -1000 350 Result Diagrams: 02/17/20 09:34 02/16/20 04:48 Additional Labs: Accuchecks 02/17/20 02/16/20 02/16/20 04:30 20:54 17:43 POC Glucose 246 H 312 H 380 H Hospitalist ROS - Review of Systems Constitutional: denies: fever, chills - Medication Medications: Active Medications Generic Name Dose Route Start Last Admin Trade Name Freq PRN Reason Stop Dose Admin Acetaminophen 650 mg 02/11/20 15:29 02/17/20 08:08 Acetaminophen 325 Mg Tab PO 650 mg Q4H PRN Administration Headache/Fever/Mild Pain (1-3) Hydrocodone Bitart/Acetaminophen 1 tab 02/11/20 15:29 02/15/20 04:20 Hydrocodone/Acetaminophen 5/325 Mg Tablet PO 1 tab Q4H PRN Administration Moderate Pain (4-6) Albuterol Sulfate 1 puff 02/12/20 19:42 02/16/20 15:42 Albuterol 200 Puff (6.7gm Inhaler) INH 1 puff Q8H PRN Administration Wheezing Aspirin 325 mg 02/12/20 09:00 02/17/20 08:05 Aspirin 325 Mg Tab PO 325 mg DAILY EMELI Administration Atorvastatin Calcium 10 mg 02/13/20 21:00 12/19/20 21:02 Atorvastatin Calcium 10 Mg Tab PO 10 mg HS EMELI Administration Benzonatate 100 mg 02/13/20 11:28 02/15/20 11:45 Benzonatate 100 Mg Cap PO 100 mg Q6H PRN Administration Cough Dexamethasone 6 mg 02/16/20 21:00 02/16/20 21:01 Dexamethasone 4 Mg/Ml Vial SLOW IVP 6 mg 2099 EMELI Administration Enoxaparin Sodium 40 mg 02/11/20 21:00 02/17/20 08:06 Enoxaparin Sodium 40 Mg/0.4 Ml Syringe SC 40 mg 0900,2099 EMELI Administration Famotidine 20 mg 02/11/20 21:00 02/17/20 08:06 Famotidine 20 Mg Tab PO 20 mg BID EMELI Administration Guaifenesin 200 mg 02/13/20 11:28 02/14/20 21:04 Diabetic Tussin 200 Mg/10 Ml Udcup PO 200 mg Q4H PRN Administration Cough Guaifenesin/Dextromethorphan 15 ml 02/11/20 15:29 02/17/20 08:09 Guaifenesin Dm 100-10/5 Ml Udcup PO 15 ml Q4H PRN Administration Cough Vancomycin HCl 1 gm/ Device 200 mls @ 200 mls/hr 02/16/20 13:00 02/17/20 00:38 IVPB 200 mls 0100,1300 EMELI Administration Piperacillin Sod/Tazobactam 100 mls @ 200 mls/hr 02/16/20 15:00 02/17/20 08:07 Sod 3.375 gm/ Sodium Chloride IVPB 100 mls 0300,0900,1500,2100 EMELI Administration Insulin Glargine 8 units/ 0.08 mls @ 0 mls/hr 02/16/20 21:00 02/16/20 21:03 Miscellaneous Medication SC 0.08 mls HS EMELI Administration Insulin Human Lispro 0 units 02/11/20 15:36 02/17/20 05:45 Humalog 300 Units/3 Ml Vial SC 3 units .MILD SLIDING SCALE PRN Administration Mild Correctional Scale Insulin Human Lispro 0 units 02/11/20 15:36 02/16/20 21:03 Humalog 300 Units/3 Ml Vial SC 4 unit .BEDTIME SLIDING SC PRN Administration Bedtime Correctional Scale Lisinopril 10 mg 02/12/20 09:00 02/17/20 08:06 Lisinopril 10 Mg Tab PO 10 mg DAILY EMELI Administration Metformin HCl 850 mg 02/11/20 21:00 02/17/20 08:06 Metformin 850 Mg Tab PO 850 mg BID EMELI Administration Metoprolol Tartrate 25 mg 02/12/20 21:00 02/17/20 08:07 Metoprolol Tartrate 25 Mg Tab PO 25 mg BID EMELI Administration Pioglitazone HCl 15 mg 02/11/20 21:00 02/17/20 08:07 Pioglitazone Hcl 15 Mg Tab PO 15 mg BID EMELI Administration - Exam General Appearance: NAD, awake alert Eye: PERRL, anicteric sclera ENT: normocephalic atraumatic, no oropharyngeal lesions Neck: no JVD Heart: RRR, no murmur, no gallops, no rubs Respiratory: no wheezes, no rales, no ronchi Respiratory - other findings: diminished breath sounds. Excessive cough while taking a deep breath Gastrointestinal: soft, non-tender, non-distended, normal bowel sounds Extremities: no cyanosis, no clubbing, no edema Skin: normal turgor, no lesions, no rashes Hosp A/P - Plan Chest X ray 02/10: Scattered peripheral and perihilar opacities. Chest Xray 02/15: worsening bilateral lung infiltrates This 59-year-old male with a past medical history of diabetes who presented with fever, tachycardia, shortness of breath. He was found to have bilateral opacities consistent with Covid pneumonia. Acute hypoxic respiratory failure secondary to Covid pneumonia - the patient is still on high flow oxygen. Chest X ray today shows worsening pneumonia and WBC increased to 18. Continue vanc and zosyn and steroids - obtain sputum culture. Check CTA chest - patient completed five days of remdesivir and received plasma yesterday. Will repeat chest Xray tomorrow Leukocytosis - worsening up to 18. Continue vanc and zosyn. Check sputum culture and CT chest Type II diabetes - continue lantus Hypertension - controlled - continue lisinopril Anemia - Hb 12. 8, will monitor
[2020-02-17] MEDS ORDERED: Furosemide 40 MG/4 ML VIAL SLOW IVP SCH (14:30)
[2020-02-17] MEDS ORDERED: REMDESIVIR (EUA) 100 MG in Sodium Chloride 0.9% 250 ML 230 ML IV SCH (21:15)
[2020-02-17] MEDS: Dexamethasone 4 mg/ml Vial SLOW IVP SCH (21:53)
[2020-02-17] MEDS: Atorvastatin Calcium 10 MG TAB PO SCH (21:54)
[2020-02-17] MEDS: Insulin Glargine 8 UNITS in Pre-Filled Syringe 1 EACH SC SCH (21:55)
[2020-02-18] MEDS: Vancomycin 1 GM in Premix Bag 1 BAG IVPB SCH ×2 (01:12→12:29)
[2020-02-18] MEDS: Piperacillin/Tazobactam 3.375 GM in Sodium Chloride 0.9% 100 ML IVPB SCH ×4 (03:34→21:50)
[2020-02-18 04:48] LABS: Mean Corpuscular HGB CONC 31.2 g/dL (32.0-36.0); Mean Corpuscular Hemoglobin 26.3 pg (27.0-31.0); Mean Corpuscular Volume 84.5 fL (78.0-98.0); Platelet Count 465 thou/uL (130-400); RBC Distribution Width 14.3 % (11.5-14.5); Red Blood Cell (RBC) Count 4.95 mill/uL (4.70-6.10); White Blood Cell (WBC) Count 13.4 thou/uL (4.8-10.8)
[2020-02-18 05:07] LABS: Anion Gap 18 mmol/L (10-20); BUN (Urea Nitrogen) 29 mg/dL (8.4-25.7); Calc. Creatinine Clearance 84 mL/min (70-130); Calcium 8.7 mg/dL (7.8-10.44); Carbon Dioxide 18 mmol/L (23-31); Chloride 101 mmol/L (98-107); Glucose 295 mg/dL (80-115); Potassium 5.3 mmol/L (3.5-5.1); Sodium 132 mmol/L (136-145)
[2020-02-18] MEDS: HumaLOG 300 UNITS/3 ML VIAL SC PRN ×4 (05:35→21:42)
[2020-02-18] MEDS: Aspirin 325 MG TAB PO SCH (08:22)
[2020-02-18] MEDS: Enoxaparin Sodium 40 MG/0.4 ML SYRINGE SC SCH ×2 (08:22→21:52)
[2020-02-18] MEDS: Famotidine 20 MG TAB PO SCH ×2 (08:23→21:51)
[2020-02-18] MEDS: Lisinopril 10 MG TAB PO SCH (08:23)
[2020-02-18] MEDS: Pioglitazone HCl 15 MG TAB PO SCH ×2 (08:24→21:51)
[2020-02-18] MEDS: Acetaminophen 325 MG TAB PO PRN (08:24)
[2020-02-18] MEDS: metFORMIN 850 MG TAB PO SCH ×2 (08:24→21:51)
[2020-02-18] MEDS: Metoprolol Tartrate 25 MG TAB PO SCH ×2 (08:24→21:51)
[2020-02-18] MEDS: Guaifenesin DM 100-10/5 ML UDCUP PO PRN (08:25)
[2020-02-18] MEDS: Albuterol 200 PUFF (6.7GM INHALER) INH PRN (09:05)
--- NOTE | 2020-02-18 13:52 | PDOC.HOSPP ---
- Subjective Encounter Date: 02/18/20 Encounter Time: 09:45 Subjective: F/u : COVID The patient is still short of breath and has a mild cough. He is still on high flow nasal cannula saturating 100% - Objective Vital Signs & Weight: Vital Signs (12 hours) Temp Pulse Resp BP BP Pulse Ox 02/18/20 11:04 97.6 F 77 20 113/65 100 02/18/20 07:46 100 02/18/20 04:00 92 28 H 119/72 100 02/18/20 01:58 92 30 H 100 Weight Admit Weight 176 lb 8 oz Weight 176 lb 8 oz I&O: 02/17/20 02/18/20 02/19/20 06:59 06:59 06:59 Intake Total 800 700 Output Total 450 700 Balance 350 0 Result Diagrams: 02/18/20 04:21 02/18/20 04:21 Additional Labs: Accuchecks 02/18/20 02/17/20 02/17/20 11:02 20:49 16:21 POC Glucose 223 H 260 H 252 H 02/17/20 02/15/20 10:55 20:08 POC Glucose 209 H 299 H Hospitalist ROS - Review of Systems Constitutional: denies: fever, chills - Medication Medications: Active Medications Generic Name Dose Route Start Last Admin Trade Name Freq PRN Reason Stop Dose Admin Acetaminophen 650 mg 02/11/20 15:29 02/18/20 08:24 Acetaminophen 325 Mg Tab PO 650 mg Q4H PRN Administration Headache/Fever/Mild Pain (1-3) Hydrocodone Bitart/Acetaminophen 1 tab 02/11/20 15:29 02/15/20 04:20 Hydrocodone/Acetaminophen 5/325 Mg Tablet PO 1 tab Q4H PRN Administration Moderate Pain (4-6) Albuterol Sulfate 1 puff 02/12/20 19:42 02/18/20 09:05 Albuterol 200 Puff (6.7gm Inhaler) INH 1 puff Q8H PRN Administration Wheezing Aspirin 325 mg 02/12/20 09:00 02/18/20 08:22 Aspirin 325 Mg Tab PO 325 mg DAILY EMELI Administration Atorvastatin Calcium 10 mg 02/13/20 21:00 02/17/20 21:54 Atorvastatin Calcium 10 Mg Tab PO 10 mg HS EMELI Administration Benzonatate 100 mg 02/13/20 11:28 02/15/20 11:45 Benzonatate 100 Mg Cap PO 100 mg Q6H PRN Administration Cough Dexamethasone 6 mg 02/16/20 21:00 02/17/20 21:53 Dexamethasone 4 Mg/Ml Vial SLOW IVP 6 mg 2100 EMELI Administration Enoxaparin Sodium 40 mg 02/11/20 21:00 02/18/20 08:22 Enoxaparin Sodium 40 Mg/0.4 Ml Syringe SC 40 mg 0900,2100 EMELI Administration Famotidine 20 mg 02/11/20 21:00 02/18/20 08:23 Famotidine 20 Mg Tab PO 20 mg BID EMELI Administration Guaifenesin 200 mg 02/13/20 11:28 02/14/20 21:04 Diabetic Tussin 200 Mg/10 Ml Udcup PO 200 mg Q4H PRN Administration Cough Guaifenesin/Dextromethorphan 15 ml 02/11/20 15:29 02/18/20 08:25 Guaifenesin Dm 100-10/5 Ml Udcup PO 15 ml Q4H PRN Administration Cough Vancomycin HCl 1 gm/ Device 200 mls @ 200 mls/hr 02/16/20 13:00 02/18/20 12:29 IVPB 200 mls 0100,1300 EMELI Administration Piperacillin Sod/Tazobactam 100 mls @ 200 mls/hr 02/16/20 15:00 02/18/20 08:24 Sod 3.375 gm/ Sodium Chloride IVPB 100 mls 0300,0900,1500,2100 EMELI Administration Insulin Glargine 8 units/ 0.08 mls @ 0 mls/hr 02/16/20 21:00 02/17/20 21:55 Miscellaneous Medication SC 0.08 mls HS EMELI Administration Insulin Human Lispro 0 units 02/11/20 15:36 02/18/20 12:30 Humalog 300 Units/3 Ml Vial SC 3 units .MILD SLIDING SCALE PRN Administration Mild Correctional Scale Insulin Human Lispro 0 units 02/11/20 15:36 02/17/20 21:55 Humalog 300 Units/3 Ml Vial SC 3 unit .BEDTIME SLIDING SC PRN Administration Bedtime Correctional Scale Metformin HCl 850 mg 02/11/20 21:00 02/18/20 08:24 Metformin 850 Mg Tab PO 850 mg BID EMELI Administration Metoprolol Tartrate 25 mg 02/12/20 21:00 02/18/20 08:24 Metoprolol Tartrate 25 Mg Tab PO 25 mg BID EMELI Administration Pioglitazone HCl 15 mg 02/11/20 21:00 02/18/20 08:24 Pioglitazone Hcl 15 Mg Tab PO 15 mg BID EMELI Administration - Exam General Appearance: NAD, awake alert Eye: PERRL, anicteric sclera ENT: normocephalic atraumatic, no oropharyngeal lesions Neck: no JVD Heart: RRR, no murmur, no gallops, no rubs Respiratory: CTAB, no wheezes, no rales, no ronchi Gastrointestinal: soft, non-tender, non-distended, normal bowel sounds Extremities: no cyanosis, no clubbing, no edema Skin: normal turgor, no lesions, no rashes Neurological: cranial nerve grossly intact, normal sensation to touch, no weakness Hosp A/P - Plan Chest X ray 02/10: Scattered peripheral and perihilar opacities. Chest Xray 02/15: worsening bilateral lung infiltrates Sputum culture: saliva culture This 59-year-old male with a past medical history of diabetes who presented with fever, tachycardia, shortness of breath. He was found to have bilateral opacities consistent with Covid pneumonia. Acute hypoxic respiratory failure secondary to Covid pneumonia - the patient is still on high flow oxygen. Chest X ray today shows worsening pneumonia and WBC increased to 18. He was started on vancomycin and zosyn and WBC has improved to 13. He was given IV lasix 02/16. He received convalescent plasma 02/15 and finished a course of remdesivir - will repeat chest X ray today to evaluate for improvement. Hyponatremia - sodium down to 132. Possibly was from lasix. Will repeat BMP Hyperkalemia - potassium 5.3, will discontinue lisinopril and give kayexelate and repeat BMP Protein Calorie Malnutrition - will order PPN per dietary recommendations Hypertension - continue metoprolol , hold lisinopril due to hyperkalemia Anemia - Hb 13.0
--- NOTE | 2020-02-18 14:18 | RAD ---
Portable frontal chest radiograph: 02/18/2020 COMPARISON: 02/16/2020 HISTORY: Covid pneumonia FINDINGS: There is no pneumothorax seen. There is stable extensive interstitial opacity with superimp osed groundglass alveolar opacity with a perihilar/bibasilar predominance, left greater than right. Heart and mediastinal contours are stable. IMPRESSION: Stable interstitial and alveolar opacity as above.
[2020-02-18] MEDS ORDERED: Amino Acids 4.25 %/Dextrose 5% 2,000 ML IV SCH (15:30)
[2020-02-18 17:02] LABS: Anion Gap 16 mmol/L (10-20); BUN (Urea Nitrogen) 33 mg/dL (8.4-25.7); Calc. Creatinine Clearance 92 mL/min (70-130); Calcium 8.7 mg/dL (7.8-10.44); Carbon Dioxide 20 mmol/L (23-31); Chloride 102 mmol/L (98-107); Glucose 171 mg/dL (80-115); Potassium 4.3 mmol/L (3.5-5.1); Sodium 134 mmol/L (136-145)
[2020-02-18] MEDS: Insulin Glargine 8 UNITS in Pre-Filled Syringe 1 EACH SC SCH (21:42)
[2020-02-18] MEDS: Atorvastatin Calcium 10 MG TAB PO SCH (21:51)
[2020-02-18] MEDS: Dexamethasone 4 mg/ml Vial SLOW IVP SCH (21:52)
[2020-02-19 01:27] LABS: Vancomycin, Trough 10.9 ug/mL
[2020-02-19] MEDS: Vancomycin 1 GM in Premix Bag 1 BAG IVPB SCH (01:32)
[2020-02-19] MEDS: Piperacillin/Tazobactam 3.375 GM in Sodium Chloride 0.9% 100 ML IVPB SCH ×4 (02:35→21:09)
[2020-02-19 05:13] LABS: Hemoglobin 12.7 g/dL (14.0-18.0); Mean Corpuscular HGB CONC 33.4 g/dL (32.0-36.0); Mean Corpuscular Hemoglobin 28.7 pg (27.0-31.0); Mean Corpuscular Volume 85.8 fL (78.0-98.0); Mean Platelet Volume 8.2 fL (7.4-10.4); Platelet Count 392 thou/uL (130-400); RBC Distribution Width 13.9 % (11.5-14.5); Red Blood Cell (RBC) Count 4.43 mill/uL (4.70-6.10); White Blood Cell (WBC) Count 10.3 thou/uL (4.8-10.8)
[2020-02-19 05:35] LABS: Anion Gap 16 mmol/L (10-20); BUN (Urea Nitrogen) 29 mg/dL (8.4-25.7); Calc. Creatinine Clearance 97 mL/min (70-130); Calcium 8.5 mg/dL (7.8-10.44); Carbon Dioxide 19 mmol/L (23-31); Chloride 99 mmol/L (98-107); Glucose 334 mg/dL (80-115); Potassium 5.3 mmol/L (3.5-5.1); Sodium 129 mmol/L (136-145)
[2020-02-19] MEDS: HumaLOG 300 UNITS/3 ML VIAL SC PRN ×2 (05:54→12:47)
[2020-02-19] MEDS: Sodium Chloride 0.9% 1,000 ML IV SCH ×2 (09:04→21:30)
[2020-02-19] MEDS: metFORMIN 850 MG TAB PO SCH ×2 (09:05→21:09)
[2020-02-19] MEDS: Enoxaparin Sodium 40 MG/0.4 ML SYRINGE SC SCH ×2 (09:05→21:08)
[2020-02-19] MEDS: Metoprolol Tartrate 25 MG TAB PO SCH ×2 (09:05→21:09)
[2020-02-19] MEDS: Pioglitazone HCl 15 MG TAB PO SCH ×2 (09:05→21:09)
[2020-02-19] MEDS: Aspirin 325 MG TAB PO SCH (09:05)
[2020-02-19] MEDS: Famotidine 20 MG TAB PO SCH ×2 (09:05→21:08)
[2020-02-19] MEDS: Vancomycin HCl 1.25 GM in Sodium Chloride 0.9% 250 ML 250 ML IVPB SCH (12:46)
--- NOTE | 2020-02-19 14:40 | PDOC.HOSPP ---
- Subjective Encounter Date: 02/19/20 Encounter Time: 10:00 Subjective: F/u: COVID THe patient still is short of breath and weak. Physical therapy worked with him and he desaturated to 87% while standing on the high flow nasal cannula Hyponatremia -sodium was 129. The patient stated he was hungry. Apparently he did not have a diet ordered. He denied nausea/vomiting or diarrhea - Objective Vital Signs & Weight: Vital Signs (12 hours) Temp Pulse Pulse Pulse Resp BP BP 02/19/20 11:57 97.6 F 80 30 H 02/19/20 10:35 75 74 126/73 123/68 02/19/20 09:18 98.6 F 83 24 H 02/19/20 03:08 97.9 F 87 24 H BP BP Pulse Ox Pulse Ox Pulse Ox 02/19/20 11:57 121/62 97 02/19/20 10:35 98 94 L 02/19/20 09:18 115/72 92 L 02/19/20 03:08 110/61 98 Weight Admit Weight 176 lb 8 oz Weight 176 lb 8 oz I&O: 02/18/20 02/19/20 02/20/20 06:59 06:59 06:59 Intake Total 700 2290 Output Total 700 1400 Balance 0 890 Result Diagrams: 02/19/20 04:27 02/19/20 04:27 Additional Labs: Accuchecks 02/19/20 02/18/20 02/18/20 11:56 21:30 17:21 POC Glucose 213 H 254 H 206 H Hospitalist ROS - Review of Systems Constitutional: denies: fever, chills - Medication Medications: Active Medications Generic Name Dose Route Start Last Admin Trade Name Freq PRN Reason Stop Dose Admin Acetaminophen 650 mg 02/11/20 15:29 02/18/20 08:24 Acetaminophen 325 Mg Tab PO 650 mg Q4H PRN Administration Headache/Fever/Mild Pain (1-3) Hydrocodone Bitart/Acetaminophen 1 tab 02/11/20 15:29 02/15/20 04:20 Hydrocodone/Acetaminophen 5/325 Mg Tablet PO 1 tab Q4H PRN Administration Moderate Pain (4-6) Albuterol Sulfate 1 puff 02/12/20 19:42 02/18/20 09:05 Albuterol 200 Puff (6.7gm Inhaler) INH 1 puff Q8H PRN Administration Wheezing Aspirin 325 mg 02/12/20 09:00 02/19/20 09:05 Aspirin 325 Mg Tab PO 325 mg DAILY EMELI Administration Atorvastatin Calcium 10 mg 02/13/20 21:00 02/18/20 21:51 Atorvastatin Calcium 10 Mg Tab PO 10 mg HS EMELI Administration Benzonatate 100 mg 02/13/20 11:28 02/15/20 11:45 Benzonatate 100 Mg Cap PO 100 mg Q6H PRN Administration Cough Dexamethasone 6 mg 02/16/20 21:00 02/18/20 21:52 Dexamethasone 4 Mg/Ml Vial SLOW IVP 6 mg 2099 EMELI Administration Enoxaparin Sodium 40 mg 02/11/20 21:00 02/19/20 09:05 Enoxaparin Sodium 40 Mg/0.4 Ml Syringe SC 40 mg 0900,2099 EMELI Administration Famotidine 20 mg 02/11/20 21:00 02/19/20 09:05 Famotidine 20 Mg Tab PO 20 mg BID EMELI Administration Guaifenesin 200 mg 02/13/20 11:28 02/14/20 21:04 Diabetic Tussin 200 Mg/10 Ml Udcup PO 200 mg Q4H PRN Administration Cough Guaifenesin/Dextromethorphan 15 ml 02/11/20 15:29 02/18/20 08:25 Guaifenesin Dm 100-10/5 Ml Udcup PO 15 ml Q4H PRN Administration Cough Piperacillin Sod/Tazobactam 100 mls @ 200 mls/hr 02/16/20 15:00 02/19/20 09:03 Sod 3.375 gm/ Sodium Chloride IVPB 100 mls 0300,0900,1500,2100 EMELI Administration Insulin Glargine 8 units/ 0.08 mls @ 0 mls/hr 02/16/20 21:00 02/18/20 21:42 Miscellaneous Medication SC 0.08 mls HS EMELI Administration Amino Acids/Dextrose 2,000 mls @ 75 mls/hr 02/18/20 15:30 02/18/20 15:55 Clinimix 4.25%-5% IV 2,000 mls INF EMELI Administration Vancomycin HCl 1.25 gm/ Sodium 250 mls @ 166.667 mls/hr 02/19/20 13:00 02/19/20 12:46 Chloride IVPB 250 mls 0100,1300 EMELI Administration Sodium Chloride 1,000 mls @ 75 mls/hr 02/19/20 08:15 02/19/20 09:04 Normal Saline 0.9% IV 1,000 mls .[id number] EMELI Administration Insulin Human Lispro 0 units 02/11/20 15:36 02/19/20 12:47 Humalog 300 Units/3 Ml Vial SC 3 units .MILD SLIDING SCALE PRN Administration Mild Correctional Scale Insulin Human Lispro 0 units 02/11/20 15:36 02/18/20 21:42 Humalog 300 Units/3 Ml Vial SC 3 unit .BEDTIME SLIDING SC PRN Administration Bedtime Correctional Scale Metformin HCl 850 mg 02/11/20 21:00 02/19/20 09:05 Metformin 850 Mg Tab PO 850 mg BID EMELI Administration Metoprolol Tartrate 25 mg 02/12/20 21:00 02/19/20 09:05 Metoprolol Tartrate 25 Mg Tab PO 25 mg BID EMELI Administration Pioglitazone HCl 15 mg 02/11/20 21:00 02/19/20 09:05 Pioglitazone Hcl 15 Mg Tab PO 15 mg BID EMELI Administration - Exam General Appearance: NAD, awake alert Eye: PERRL, anicteric sclera ENT: normocephalic atraumatic, no oropharyngeal lesions Neck: no JVD Heart: RRR, no murmur, no gallops, no rubs Respiratory - other findings: diminished breath sounds bilaterally Gastrointestinal: soft, non-tender, non-distended, normal bowel sounds, no palpable masses Extremities: no cyanosis, no clubbing, no edema Hosp A/P - Plan Chest X ray 02/10: Scattered peripheral and perihilar opacities. Chest Xray 02/15: worsening bilateral lung infiltrates Sputum culture: saliva culture Chest Xray 02/17: stable bilateral opacities This 59-year-old male with a past medical history of diabetes who presented with fever, tachycardia, shortness of breath. He was found to have bilateral opacities consistent with Covid pneumonia. Acute hypoxic respiratory failure secondary to Covid pneumonia - the patient is still on high flow oxygen. Chest X ray today shows worsening pneumonia and WBC increased to 18. He was started on vancomycin and zosyn and WBC has improved to 10. He was given IV lasix 02/16. He received convalescent plasma 02/15 and finished a course of remdesivir - repeat chest X ray 02/17 is stable - continue supportive care and IV vancomycin and zosyn Hyponatremia - sodium down to 129. Started diet. Started IV fluids Hyperkalemia - potassium 5.3 still. Hydrate with fluids and order diet and recheck BMP in am . Lisinopril was discontinued Protein Calorie Malnutrition - continue PPn Hypertension - continue metoprolol , hold lisinopril due to hyperkalemia Anemia - Hb 13.0
[2020-02-19 20:31] LABS: Actual Bicarbonate (HCO3a) 17.8 mEq/L (22-28); Base Excess (BEa) -4.4 mEq/L (-2.0 to +3.0); CO2 Tension 26.3 mmHg (35.0-45.0); Calcium, Ionized (arterial) 1.21 mmol/L (1.12-1.30); Carboxyhemoglobin (COHb) 1.1 gm% (0.0-3.0); Hemoglobin (Hb) 14.9 g/dL (14.0-18.0); Potassium - ABG Lab 3.91 mmol/L (3.70-5.30); pH, Arterial 7.45 (7.35-7.45)
[2020-02-19 20:34] LABS: O2 Tension (PaO2), arterial 47.8 mmHg (> 80.0)
[2020-02-19 20:35] LABS: ALV-art Gradient 575.285 mmHg (0-20); Puncture Site RRA
--- NOTE | 2020-02-19 20:46 | PDOC.EVN ---
Event Note - Event Note Event Note: Nursing called. Patient tachycardic 140s, tachypneic 40s, hypoxic mid 80s on High flow NC. Appears more somnolent. He is on LMWH. Ordered EKG, ABG stat. Likely need Bipap.
[2020-02-19] MEDS: Atorvastatin Calcium 10 MG TAB PO SCH (21:08)
[2020-02-19] MEDS: Dexamethasone 4 mg/ml Vial SLOW IVP SCH (21:08)
[2020-02-19] MEDS: Insulin Glargine 8 UNITS in Pre-Filled Syringe 1 EACH SC SCH (21:10)
[2020-02-19] MEDS ORDERED: Lorazepam 2 MG/ML VIAL SLOW IVP SCH (23:00)
[2020-02-20] MEDS: Vancomycin HCl 1.25 GM in Sodium Chloride 0.9% 250 ML 250 ML IVPB SCH ×2 (00:09→12:29)
[2020-02-20] MEDS: Piperacillin/Tazobactam 3.375 GM in Sodium Chloride 0.9% 100 ML IVPB SCH ×4 (02:26→20:29)
[2020-02-20 04:06] LABS: Anion Gap 15 mmol/L (10-20); BUN (Urea Nitrogen) 21 mg/dL (8.4-25.7); Calc. Creatinine Clearance 105 mL/min (70-130); Calcium 8.2 mg/dL (7.8-10.44); Carbon Dioxide 16 mmol/L (23-31); Chloride 105 mmol/L (98-107); Glucose 229 mg/dL (80-115); Potassium 5.2 mmol/L (3.5-5.1); Sodium 131 mmol/L (136-145)
[2020-02-20] MEDS: HumaLOG 300 UNITS/3 ML VIAL SC PRN ×2 (06:35→09:30)
[2020-02-20] MEDS: Enoxaparin Sodium 40 MG/0.4 ML SYRINGE SC SCH ×2 (07:55→20:30)
[2020-02-20] MEDS: Aspirin 325 MG TAB PO SCH (07:55)
[2020-02-20] MEDS: Famotidine 20 MG TAB PO SCH ×2 (07:55→20:29)
[2020-02-20] MEDS: Metoprolol Tartrate 25 MG TAB PO SCH ×2 (07:55→20:30)
[2020-02-20] MEDS: Pioglitazone HCl 15 MG TAB PO SCH ×2 (07:55→20:29)
[2020-02-20] MEDS: metFORMIN 850 MG TAB PO SCH ×2 (09:16→20:30)
[2020-02-20 10:13] LABS: Hemoglobin 11.1 g/dL (14.0-18.0); Mean Corpuscular HGB CONC 32.2 g/dL (32.0-36.0); Mean Corpuscular Hemoglobin 27.8 pg (27.0-31.0); Mean Corpuscular Volume 86.2 fL (78.0-98.0); Mean Platelet Volume 7.7 fL (7.4-10.4); Platelet Count 351 thou/uL (130-400); RBC Distribution Width 13.8 % (11.5-14.5); Red Blood Cell (RBC) Count 3.99 mill/uL (4.70-6.10); White Blood Cell (WBC) Count 13.1 thou/uL (4.8-10.8)
[2020-02-20] MEDS: Sodium Chloride 0.9% 1,000 ML IV SCH (12:29)
--- NOTE | 2020-02-20 15:37 | PDOC.HOSPP ---
- Subjective Encounter Date: 02/20/20 Encounter Time: 12:30 Subjective: F/u: COVID The patient was transferred to the ICU. He was placed on BIPAP overnight. He has no change in his symptoms, cough is the same amount. He is comfortably laying in be. He has diminished appetite. Denies diarrhea - Objective Vital Signs & Weight: Vital Signs (12 hours) Temp Pulse Resp Pulse Ox 02/20/20 15:25 78 21 H 99 02/20/20 08:10 71 22 H 99 02/20/20 07:44 97 02/20/20 07:00 99.8 F H 02/20/20 04:00 98.0 F Weight Admit Weight 176 lb 8 oz Weight 176 lb 8 oz Most Recent Monitor Data Heart Rate from ECG 77 NIBP 117/62 NIBP BP-Mean 80 Respiration from ECG 22 SpO2 98 I&O: 02/19/20 02/20/20 02/21/20 06:59 06:59 06:59 Intake Total 2290 2485.25 340 Output Total 1400 1400 200 Balance 890 1085.25 140 Result Diagrams: 02/20/20 09:59 02/20/20 03:17 Additional Labs: Accuchecks 02/20/20 02/20/20 02/19/20 09:24 06:23 21:19 POC Glucose 220 H 240 H 202 H 02/19/20 16:27 POC Glucose 168 H Hospitalist ROS - Medication Medications: Active Medications Generic Name Dose Route Start Last Admin Trade Name Freq PRN Reason Stop Dose Admin Acetaminophen 650 mg 02/11/20 15:29 02/18/20 08:24 Acetaminophen 325 Mg Tab PO 650 mg Q4H PRN Administration Headache/Fever/Mild Pain (1-3) Hydrocodone Bitart/Acetaminophen 1 tab 02/11/20 15:29 02/15/20 04:20 Hydrocodone/Acetaminophen 5/325 Mg Tablet PO 1 tab Q4H PRN Administration Moderate Pain (4-6) Albuterol Sulfate 1 puff 02/12/20 19:42 02/18/20 09:05 Albuterol 200 Puff (6.7gm Inhaler) INH 1 puff Q8H PRN Administration Wheezing Aspirin 325 mg 02/12/20 09:00 02/20/20 07:55 Aspirin 325 Mg Tab PO 325 mg DAILY EMELI Administration Atorvastatin Calcium 10 mg 02/13/20 21:00 02/19/20 21:08 Atorvastatin Calcium 10 Mg Tab PO 10 mg HS EMELI Administration Benzonatate 100 mg 02/13/20 11:28 02/15/20 11:45 Benzonatate 100 Mg Cap PO 100 mg Q6H PRN Administration Cough Dexamethasone 6 mg 02/16/20 21:00 02/19/20 21:08 Dexamethasone 4 Mg/Ml Vial SLOW IVP 6 mg 2100 EMELI Administration Enoxaparin Sodium 40 mg 02/11/20 21:00 02/20/20 07:55 Enoxaparin Sodium 40 Mg/0.4 Ml Syringe SC 40 mg 0900,2100 EMELI Administration Famotidine 20 mg 02/11/20 21:00 02/20/20 07:55 Famotidine 20 Mg Tab PO 20 mg BID EMELI Administration Guaifenesin 200 mg 02/13/20 11:28 02/14/20 21:04 Diabetic Tussin 200 Mg/10 Ml Udcup PO 200 mg Q4H PRN Administration Cough Guaifenesin/Dextromethorphan 15 ml 02/11/20 15:29 02/18/20 08:25 Guaifenesin Dm 100-10/5 Ml Udcup PO 15 ml Q4H PRN Administration Cough Piperacillin Sod/Tazobactam 100 mls @ 200 mls/hr 02/16/20 15:00 02/20/20 13:48 Sod 3.375 gm/ Sodium Chloride IVPB 100 mls 0300,0900,1500,2100 EMELI Administration Amino Acids/Dextrose 2,000 mls @ 75 mls/hr 02/18/20 15:30 02/18/20 15:55 Clinimix 4.25%-5% IV 2,000 mls INF EMELI Administration Vancomycin HCl 1.25 gm/ Sodium 250 mls @ 166.667 mls/hr 02/19/20 13:00 02/20/20 12:29 Chloride IVPB 250 mls 0100,1300 EMELI Administration Sodium Chloride 1,000 mls @ 75 mls/hr 02/19/20 08:15 02/20/20 12:29 Normal Saline 0.9% IV 1,000 mls .[id number] EMELI Administration Insulin Human Lispro 0 units 02/11/20 15:36 02/20/20 09:30 Humalog 300 Units/3 Ml Vial SC 3 units .MILD SLIDING SCALE PRN Administration Mild Correctional Scale Insulin Human Lispro 0 units 02/11/20 15:36 02/18/20 21:42 Humalog 300 Units/3 Ml Vial SC 3 unit .BEDTIME SLIDING SC PRN Administration Bedtime Correctional Scale Metformin HCl 850 mg 02/11/20 21:00 02/20/20 09:16 Metformin 850 Mg Tab PO 850 mg BID EMELI Administration Metoprolol Tartrate 25 mg 02/12/20 21:00 02/20/20 07:55 Metoprolol Tartrate 25 Mg Tab PO 25 mg BID EMELI Administration Pioglitazone HCl 15 mg 02/11/20 21:00 02/20/20 07:55 Pioglitazone Hcl 15 Mg Tab PO 15 mg BID EMELI Administration - Exam General Appearance: NAD, awake alert Eye: PERRL, anicteric sclera ENT: normocephalic atraumatic, no oropharyngeal lesions Neck: no JVD Heart: RRR, no murmur, no gallops, no rubs Respiratory: CTAB, no wheezes, no rales, no ronchi Respiratory - other findings: on BIPAP Gastrointestinal: soft, non-tender, non-distended, normal bowel sounds Extremities: no cyanosis, no clubbing, no edema Skin: normal turgor, no lesions, no rashes Neurological: cranial nerve grossly intact, normal sensation to touch, no weakness Musculoskeletal: normal tone, normal strength, no muscle wasting Psychiatric: normal affect, normal behavior, A&O x 3 Hosp A/P - Plan Chest X ray 02/10: Scattered peripheral and perihilar opacities. Chest Xray 02/15: worsening bilateral lung infiltrates Sputum culture: saliva culture Chest Xray 02/17: stable bilateral opacities This 59-year-old male with a past medical history of diabetes who presented with fever, tachycardia, shortness of breath. He was found to have bilateral opacities consistent with Covid pneumonia. Acute hypoxic respiratory failure secondary to Covid pneumonia - the patient is now on BIPAP. He received remdesivir and convalescent plasma 02/15. Started on Iv vanc and zosyn 02/15 due to worsening bilateral pneumonia noted on chest Xray 02/15 - repeat chest Xray 02/17 is stable. Will repeat chest Xray today since WBC up to 13.1 Hyponatremia - sodium improved to 131. Continue IV fluids Hyperkalemia - potassium improved to 5.2. Continue IV fluids, likely dehydration Protein Calorie Malnutrition - discontinued PPN since started on a diet Hypertension - continue metoprolol , hold lisinopril due to hyperkalemia Anemia - Hb 11.1
--- NOTE | 2020-02-20 17:43 | CON ---
DATE OF CONSULTATION: 02/20/2020 HISTORY OF PRESENT ILLNESS: Mr. Garrison is Croatian-speaking male who presented on 02/10 with 7 to 10 days of cough and fever. Eight days prior to admission, he had a positive COVID test, which had been on 02 of February. He subsequently was admitted here on the . He was transferred to the ICU with BiPAP apparently yesterday evening. We were consulted this morning. PAST MEDICAL HISTORY: Obtained from medical records since he has BiPAP on and is a Croatian-speaking. 1. He has history of diabetes. 2. Hypertension. 3. Lipid disorder. SOCIAL HISTORY: He is a nonsmoker and nondrinker. Does not use drugs. FAMILY HISTORY: Negative for lung disease in early age. REVIEW OF SYSTEMS: Cannot really accurately be obtained at this time. PHYSICAL EXAMINATION: VITAL SIGNS: Heart rates in the 70s, blood pressure 97/64, respiratory rates in the 20s, and oximetry in the high 90s. HEENT: Pupils are reactive. Sclerae are anicteric. NECK: Without lymphadenopathy. LUNGS: Clear anteriorly. HEART: Regular rhythm. ABDOMEN: Soft. EXTREMITIES: Without edema. NEUROLOGIC: Grossly nonfocal. DIAGNOSTIC STUDIES: Chest x-ray shows bilateral infiltrates, consistent with COVID pneumonia. IMPRESSION: Pneumonia. PLAN: Continue supportive care. TIME SPENT: 70-minute consult, 50% of the time was spent on the unit coordinating care. Job ID: [id number] MTDD
[2020-02-20] MEDS: Atorvastatin Calcium 10 MG TAB PO SCH (20:29)
[2020-02-20] MEDS: Dexamethasone 4 mg/ml Vial SLOW IVP SCH (20:30)
[2020-02-20] MEDS: Insulin Glargine 11 UNITS in Pre-Filled Syringe 1 EACH SC SCH (20:31)
--- NOTE | 2020-02-20 20:32 | EKG ---
Test Reason : TACHY Blood Pressure : / mmHG Vent. Rate : 142 BPM Atrial Rate : 142 BPM P-R Int : 136 ms QRS Dur : 076 ms QT Int : 258 ms P-R-T Axes : 037 031 045 degrees QTc Int : 396 ms Sinus tachycardia Anterolateral infarct , age undetermined Abnormal ECG When compared with ECG of 11-FEB-2020 11:36, QRS axis Shifted right Anterior infarct is now Present Anterolateral infarct is now Present Criteria for Inferior infarct are no longer Present Confirmed by AVE GUIDRY, DR. Jovel ([id number]) on 02/20/2020 8:32:29 PM Referred By: ELLIOTT Confirmed By:DR. Med DORADO MD
[2020-02-21 00:37] LABS: Vancomycin, Trough 11.7 ug/mL
[2020-02-21] MEDS: Vancomycin 1.5 GRAM/300 ML BAG 1.5 GM in Premix Bag 1 BAG IVPB SCH ×2 (01:23→12:06)
[2020-02-21] MEDS: Piperacillin/Tazobactam 3.375 GM in Sodium Chloride 0.9% 100 ML IVPB SCH ×4 (03:32→22:05)
[2020-02-21 03:51] LABS: Hemoglobin 11.1 g/dL (14.0-18.0); Mean Corpuscular HGB CONC 33.4 g/dL (32.0-36.0); Mean Corpuscular Hemoglobin 28.2 pg (27.0-31.0); Mean Corpuscular Volume 84.4 fL (78.0-98.0); Mean Platelet Volume 7.6 fL (7.4-10.4); Platelet Count 332 thou/uL (130-400); RBC Distribution Width 13.9 % (11.5-14.5); Red Blood Cell (RBC) Count 3.94 mill/uL (4.70-6.10); White Blood Cell (WBC) Count 14.3 thou/uL (4.8-10.8)
[2020-02-21 04:14] LABS: Anion Gap 14 mmol/L (10-20); BUN (Urea Nitrogen) 17 mg/dL (8.4-25.7); Calc. Creatinine Clearance 108 mL/min (70-130); Calcium 8.3 mg/dL (7.8-10.44); Carbon Dioxide 19 mmol/L (23-31); Chloride 106 mmol/L (98-107); Glucose 135 mg/dL (80-115); Potassium 4.8 mmol/L (3.5-5.1); Sodium 134 mmol/L (136-145)
[2020-02-21] MEDS: Aspirin 325 MG TAB PO SCH (07:38)
[2020-02-21] MEDS: Famotidine 20 MG TAB PO SCH ×2 (07:38→20:03)
[2020-02-21] MEDS: Pioglitazone HCl 15 MG TAB PO SCH ×2 (07:38→20:04)
[2020-02-21] MEDS: Metoprolol Tartrate 25 MG TAB PO SCH ×2 (07:38→20:04)
[2020-02-21] MEDS: Enoxaparin Sodium 40 MG/0.4 ML SYRINGE SC SCH ×2 (07:42→20:04)
[2020-02-21] MEDS: Sodium Chloride 0.9% 1,000 ML IV SCH ×2 (07:43→14:58)
--- NOTE | 2020-02-21 07:53 | RAD ---
Portable frontal chest radiograph: 02/21/2020 COMPARISON: 02/18/2020 HISTORY: Evaluate for improvement in pneumonia, evaluate pulmonary status, Covid pneumonia FINDINGS: There is extensive prominent interstitial and alveolar opacities bilaterally, most prominen t within the lung bases, left greater than right. No pneumothorax is evident. Heart and mediastinal contours are stable. IMPRESSION: Extensive interstitial and alveolar/groundglass opacities, consistent with Covid pneumoni a, not significantly changed.
[2020-02-21] MEDS: metFORMIN 850 MG TAB PO SCH ×2 (08:51→22:02)
--- NOTE | 2020-02-21 11:29 | PRG ---
DATE OF SERVICE: 02/21/2020 SUBJECTIVE: The patient remains on BiPAP. He is calm, had no acute complaints. OBJECTIVE: VITAL SIGNS: Temperature is 99.6 with no fever overnight, pulse 68, blood pressure 108/60, and O2 saturation 99% on 70% oxygen through the BiPAP. Total intake was 2079, output 2100. HEENT: Unremarkable. NECK: No adenopathy or JVD. LUNGS: Poor air movement. CARDIAC: S1 and S2 regular. ABDOMEN: Soft and obese. EXTREMITIES: No edema. LABORATORY DATA: White blood cell count 14.3, hematocrit 33.2, and platelet count 332. D-dimer 0.8. Sodium 134, potassium 4.8, chloride 106, CO2 of 19, BUN 17, creatinine 0.8, and glucose 135. IMAGING DATA: His chest x-ray shows bilateral infiltrates. ASSESSMENT: 1. COVID-19 pneumonia. 2. Acute hypoxic respiratory failure requiring BiPAP. PLAN: 1. Continue BiPAP and wean FiO2 as tolerated. 2. The patient has been placed on empiric antibiotics by the Hospitalist Group. I would not run these any more than seven days. 3. The patient is continuing dexamethasone and anticoagulation. We will continue to follow with you. Job ID: [id number]
--- NOTE | 2020-02-21 16:43 | PDOC.HOSPP ---
- Subjective Encounter Date: 02/21/20 Encounter Time: 12:00 Subjective: F/u: COVID The patient has been wearing his BIPAP he states since yesterday and has not eaten since yesterday. He has no change in symptoms, reports dry cough His FiO2 is being gradually weaned by the nursing - Objective Vital Signs & Weight: Vital Signs (12 hours) Temp Pulse Resp Pulse Ox 02/21/20 07:59 76 25 H 99 02/21/20 07:08 96 02/21/20 07:00 99.6 F Weight Admit Weight 176 lb 8 oz Weight 176 lb 8 oz Most Recent Monitor Data Heart Rate from ECG 73 NIBP 120/66 NIBP BP-Mean 84 Respiration from ECG 28 SpO2 93 I&O: 02/20/20 02/21/20 02/22/20 06:59 06:59 06:59 Intake Total 2485.25 2789 250 Output Total 1400 2100 800 Balance 1085.25 689 550 Result Diagrams: 02/21/20 03:41 02/21/20 03:41 Additional Labs: Accuchecks 02/21/20 02/21/20 02/20/20 15:04 09:51 20:51 POC Glucose 108 H 165 H 104 H 02/20/20 02/20/20 14:24 14:22 POC Glucose 69 L 68 L Hospitalist ROS - Review of Systems Constitutional: denies: fever, chills - Medication Medications: Active Medications Generic Name Dose Route Start Last Admin Trade Name Freq PRN Reason Stop Dose Admin Acetaminophen 650 mg 02/11/20 15:29 02/18/20 08:24 Acetaminophen 325 Mg Tab PO 650 mg Q4H PRN Administration Headache/Fever/Mild Pain (1-3) Albuterol Sulfate 1 puff 02/12/20 19:42 02/18/20 09:05 Albuterol 200 Puff (6.7gm Inhaler) INH 1 puff Q8H PRN Administration Wheezing Aspirin 325 mg 02/12/20 09:00 02/21/20 07:38 Aspirin 325 Mg Tab PO 325 mg DAILY EMELI Administration Atorvastatin Calcium 10 mg 02/13/20 21:00 02/20/20 20:29 Atorvastatin Calcium 10 Mg Tab PO 10 mg HS EMELI Administration Benzonatate 100 mg 02/13/20 11:28 02/15/20 11:45 Benzonatate 100 Mg Cap PO 100 mg Q6H PRN Administration Cough Dexamethasone 6 mg 02/16/20 21:00 02/20/20 20:30 Dexamethasone 4 Mg/Ml Vial SLOW IVP 6 mg 2100 EMELI Administration Enoxaparin Sodium 40 mg 02/11/20 21:00 02/21/20 07:42 Enoxaparin Sodium 40 Mg/0.4 Ml Syringe SC 40 mg 0900,2100 EMELI Administration Famotidine 20 mg 02/11/20 21:00 02/21/20 07:38 Famotidine 20 Mg Tab PO 20 mg BID EMELI Administration Guaifenesin 200 mg 02/13/20 11:28 02/14/20 21:04 Diabetic Tussin 200 Mg/10 Ml Udcup PO 200 mg Q4H PRN Administration Cough Guaifenesin/Dextromethorphan 15 ml 02/11/20 15:29 02/18/20 08:25 Guaifenesin Dm 100-10/5 Ml Udcup PO 15 ml Q4H PRN Administration Cough Piperacillin Sod/Tazobactam 100 mls @ 200 mls/hr 02/16/20 15:00 02/21/20 15:00 Sod 3.375 gm/ Sodium Chloride IVPB 100 mls 0300,0900,1500,2100 EMELI Administration Amino Acids/Dextrose 2,000 mls @ 75 mls/hr 02/18/20 15:30 02/18/20 15:55 Clinimix 4.25%-5% IV 2,000 mls INF EMELI Administration Sodium Chloride 1,000 mls @ 75 mls/hr 02/19/20 08:15 02/21/20 14:58 Normal Saline 0.9% IV 1,000 mls .[id number] EMELI Administration Insulin Glargine 11 units/ 0.11 mls @ 0 mls/hr 02/20/20 21:00 02/20/20 20:31 Miscellaneous Medication SC 0.11 mls HS EMELI Administration Vancomycin HCl 1.5 gm/ Device 300 mls @ 200 mls/hr 02/21/20 01:00 02/21/20 12:06 IVPB 300 mls 0100,1300 EMELI Administration Insulin Human Lispro 0 units 02/11/20 15:36 02/20/20 09:30 Humalog 300 Units/3 Ml Vial SC 3 units .MILD SLIDING SCALE PRN Administration Mild Correctional Scale Insulin Human Lispro 0 units 02/11/20 15:36 02/18/20 21:42 Humalog 300 Units/3 Ml Vial SC 3 unit .BEDTIME SLIDING SC PRN Administration Bedtime Correctional Scale Metformin HCl 850 mg 02/11/20 21:00 02/21/20 08:51 Metformin 850 Mg Tab PO 850 mg BID EMELI Administration Metoprolol Tartrate 25 mg 02/12/20 21:00 02/21/20 07:38 Metoprolol Tartrate 25 Mg Tab PO 25 mg BID EMELI Administration Pioglitazone HCl 15 mg 02/11/20 21:00 02/21/20 07:38 Pioglitazone Hcl 15 Mg Tab PO 15 mg BID EMELI Administration - Exam General Appearance: NAD, awake alert General - other findings: on BIPAP Eye: PERRL, anicteric sclera ENT: normocephalic atraumatic, no oropharyngeal lesions Neck: no JVD Heart: RRR, no murmur, no gallops, no rubs Respiratory: CTAB, no wheezes, no rales, no ronchi Gastrointestinal: soft, non-tender, non-distended, normal bowel sounds Extremities: no cyanosis, no clubbing, no edema Skin: normal turgor, no lesions, no rashes Hosp A/P - Plan Chest X ray 02/10: Scattered peripheral and perihilar opacities. Chest Xray 02/15: worsening bilateral lung infiltrates Sputum culture: saliva culture Chest Xray 02/17: stable bilateral opacities Chest X ray 02/19: bilateral opacities This 59-year-old male with a past medical history of diabetes who presented with fever, tachycardia, shortness of breath. He was found to have bilateral opacities consistent with Covid pneumonia. Acute hypoxic respiratory failure secondary to Covid pneumonia - the patient is now on BIPAP. He received remdesivir and convalescent plasma 02/15. Started on Iv vanc and zosyn 02/15 due to worsening bilateral pneumonia noted on chest Xray 02/15 - WBC is up to 14. Repeat chest Xray 02/19 showed no change. His FiO2 is being weaned gradually Hyponatremia - sodium is up to 134. Will d/c IV fluids Hyperkalemia - resolved Protein Calorie Malnutrition - discontinued PPN since started on a diet Hypertension - continue metoprolol , hold lisinopril due to hyperkalemia Anemia - Hb 11.1
[2020-02-21] MEDS: Atorvastatin Calcium 10 MG TAB PO SCH (20:04)
[2020-02-21] MEDS: Dexamethasone 4 mg/ml Vial SLOW IVP SCH (20:04)
[2020-02-21] MEDS: Insulin Glargine 11 UNITS in Pre-Filled Syringe 1 EACH SC SCH (22:03)
[2020-02-21] MEDS ORDERED: Morphine 2 MG/ML VIAL SLOW IVP SCH (22:15)
[2020-02-21] MEDS: Acetaminophen 325 MG TAB PO PRN (23:04)
[2020-02-22] MEDS: Vancomycin 1.5 GRAM/300 ML BAG 1.5 GM in Premix Bag 1 BAG IVPB SCH ×2 (01:20→11:40)
[2020-02-22 03:59] LABS: Hemoglobin 10.5 g/dL (14.0-18.0); Mean Corpuscular HGB CONC 27.2 g/dL (32.0-36.0); Mean Corpuscular Hemoglobin 23.2 pg (27.0-31.0); Mean Corpuscular Volume 85.3 fL (78.0-98.0); Mean Platelet Volume 7.9 fL (7.4-10.4); Platelet Count 404 thou/uL (130-400); RBC Distribution Width 14.1 % (11.5-14.5); Red Blood Cell (RBC) Count 4.52 mill/uL (4.70-6.10); White Blood Cell (WBC) Count 15.8 thou/uL (4.8-10.8)
[2020-02-22] MEDS: Piperacillin/Tazobactam 3.375 GM in Sodium Chloride 0.9% 100 ML IVPB SCH ×3 (04:21→14:17)
[2020-02-22] MEDS: HumaLOG 300 UNITS/3 ML VIAL SC PRN ×2 (06:43→12:19)
[2020-02-22] MEDS: metFORMIN 850 MG TAB PO SCH ×2 (08:37→20:39)
[2020-02-22] MEDS: Acetaminophen 325 MG TAB PO PRN (08:38)
[2020-02-22] MEDS: Aspirin 325 MG TAB PO SCH (08:39)
[2020-02-22] MEDS: Famotidine 20 MG TAB PO SCH ×2 (08:39→20:40)
[2020-02-22] MEDS: Metoprolol Tartrate 25 MG TAB PO SCH ×2 (08:39→20:40)
[2020-02-22] MEDS: Enoxaparin Sodium 40 MG/0.4 ML SYRINGE SC SCH ×2 (08:39→20:39)
[2020-02-22] MEDS: Pioglitazone HCl 15 MG TAB PO SCH ×2 (08:39→20:39)
[2020-02-22 12:25] LABS: Vancomycin, Trough 18.3 ug/mL
--- NOTE | 2020-02-22 15:48 | PDOC.HOSPP ---
- Subjective Encounter Date: 02/22/20 Encounter Time: 17:00 Subjective: F/u: COVID THe patient has no new complaints. He has not walked much due to significant shortness of breath. He denies diarrhea/nausea or vomiting. He has diminished appetite still Per nursing, he is on BIPAP in between meals, but on high flow his respiratory rate sometimes gets to 40. WBC is still increasing to 15 - Objective Vital Signs & Weight: Vital Signs (12 hours) Temp Pulse Resp Pulse Ox 02/22/20 11:08 83 29 H 95 02/22/20 08:00 97 02/22/20 07:46 65 27 H 95 02/22/20 07:00 99.3 F 02/22/20 04:00 98.7 F Weight Admit Weight 176 lb 8 oz Weight 176 lb 8 oz Most Recent Monitor Data Heart Rate from ECG 88 NIBP 133/67 NIBP BP-Mean 89 Respiration from ECG 39 SpO2 95 I&O: 02/21/20 02/22/20 02/23/20 06:59 06:59 06:59 Intake Total 2789 2220 Output Total 2100 1900 Balance 689 320 Result Diagrams: 02/22/20 03:21 02/21/20 03:41 Additional Labs: Accuchecks 02/22/20 02/22/20 02/21/20 11:54 06:35 22:49 POC Glucose 186 H 201 H 144 H 02/21/20 20:11 POC Glucose 110 H Hospitalist ROS - Medication Medications: Active Medications Generic Name Dose Route Start Last Admin Trade Name Freq PRN Reason Stop Dose Admin Acetaminophen 650 mg 02/11/20 15:29 02/22/20 08:38 Acetaminophen 325 Mg Tab PO 650 mg Q4H PRN Administration Headache/Fever/Mild Pain (1-3) Albuterol Sulfate 1 puff 02/12/20 19:42 02/18/20 09:05 Albuterol 200 Puff (6.7gm Inhaler) INH 1 puff Q8H PRN Administration Wheezing Aspirin 325 mg 02/12/20 09:00 02/22/20 08:39 Aspirin 325 Mg Tab PO 325 mg DAILY EMELI Administration Atorvastatin Calcium 10 mg 02/13/20 21:00 02/21/20 20:04 Atorvastatin Calcium 10 Mg Tab PO 10 mg HS EMELI Administration Benzonatate 100 mg 02/13/20 11:28 02/15/20 11:45 Benzonatate 100 Mg Cap PO 100 mg Q6H PRN Administration Cough Dexamethasone 6 mg 02/16/20 21:00 02/21/20 20:04 Dexamethasone 4 Mg/Ml Vial SLOW IVP 6 mg 2100 EMELI Administration Enoxaparin Sodium 40 mg 02/11/20 21:00 02/22/20 08:39 Enoxaparin Sodium 40 Mg/0.4 Ml Syringe SC 40 mg 0900,2100 EMELI Administration Famotidine 20 mg 02/11/20 21:00 02/22/20 08:39 Famotidine 20 Mg Tab PO 20 mg BID EMELI Administration Guaifenesin 200 mg 02/13/20 11:28 02/14/20 21:04 Diabetic Tussin 200 Mg/10 Ml Udcup PO 200 mg Q4H PRN Administration Cough Guaifenesin/Dextromethorphan 15 ml 02/11/20 15:29 02/18/20 08:25 Guaifenesin Dm 100-10/5 Ml Udcup PO 15 ml Q4H PRN Administration Cough Piperacillin Sod/Tazobactam 100 mls @ 200 mls/hr 02/16/20 15:00 02/22/20 14:17 Sod 3.375 gm/ Sodium Chloride IVPB 100 mls 0300,0900,1500,2100 [facility] Administration Amino Acids/Dextrose 2,000 mls @ 75 mls/hr 02/18/20 15:30 02/18/20 15:55 Clinimix 4.25%-5% IV 2,000 mls INF [facility] Administration Insulin Glargine 11 units/ 0.11 mls @ 0 mls/hr 02/20/20 21:00 02/21/20 22:03 Miscellaneous Medication SC Not Given [facility] Vancomycin HCl 1.5 gm/ Device 300 mls @ 200 mls/hr 02/21/20 01:00 02/22/20 11:40 IVPB 300 mls 0100,1300 EMELI Administration Insulin Human Lispro 0 units 02/11/20 15:36 02/22/20 12:19 Humalog 300 Units/3 Ml Vial SC 2 units .MILD SLIDING SCALE PRN Administration Mild Correctional Scale Insulin Human Lispro 0 units 02/11/20 15:36 02/18/20 21:42 Humalog 300 Units/3 Ml Vial SC 3 unit .BEDTIME SLIDING SC PRN Administration Bedtime Correctional Scale Metformin HCl 850 mg 02/11/20 21:00 02/22/20 08:37 Metformin 850 Mg Tab PO 850 mg BID EMELI Administration Metoprolol Tartrate 25 mg 02/12/20 21:00 02/22/20 08:39 Metoprolol Tartrate 25 Mg Tab PO 25 mg BID EMELI Administration Pioglitazone HCl 15 mg 02/11/20 21:00 02/22/20 08:39 Pioglitazone Hcl 15 Mg Tab PO 15 mg BID EMELI Administration - Exam General Appearance: NAD, awake alert Eye: PERRL, anicteric sclera ENT: normocephalic atraumatic, no oropharyngeal lesions Neck: no JVD Heart: RRR, no murmur, no gallops, no rubs Respiratory: CTAB, no wheezes, no rales, no ronchi Gastrointestinal: soft, non-tender, non-distended, normal bowel sounds Extremities: no cyanosis, no clubbing, no edema Skin: normal turgor, no lesions, no rashes Neurological: cranial nerve grossly intact, normal sensation to touch, no weakness Musculoskeletal: normal tone, normal strength, no muscle wasting Psychiatric: normal affect, normal behavior, A&O x 3, oriented to person Hosp A/P - Plan Chest X ray 02/10: Scattered peripheral and perihilar opacities. Chest Xray 02/15: worsening bilateral lung infiltrates Sputum culture: saliva culture Chest Xray 02/17: stable bilateral opacities Chest X ray 02/19: bilateral opacities Chest X ray 02/20: bilateral opacities unchanged This 59-year-old male with a past medical history of diabetes who presented with fever, tachycardia, shortness of breath. He was found to have bilateral opacities consistent with Covid pneumonia. Acute hypoxic respiratory failure secondary to Covid pneumonia - the patient is now on BIPAP. He received remdesivir and convalescent plasma 02/15. Started on Iv vanc and zosyn 02/15 due to worsening bilateral pneumonia noted on chest Xray 02/15. His WBC has continued to increase to 15. Will continue vancomycin, d/c zosyn and switch to cefepime. Repeat chest X ray 02/20 showed no significant c hange - continue with physical therapy Hyponatremia - sodium is up to 134. Recheck BMP tomorrow Hyperkalemia - resolved Protein Calorie Malnutrition - continue ensure supplementation Hypertension - continue metoprolol , hold lisinopril due to hyperkalemia Anemia - Hb 11.1
[2020-02-22] MEDS: Sodium Chloride 0.9% 1,000 ML IV SCH (19:31)
[2020-02-22] MEDS: Cefepime 2 GM in Sodium Chloride 0.9% 100 ML IVPB SCH (20:38)
[2020-02-22] MEDS: Atorvastatin Calcium 10 MG TAB PO SCH (20:39)
[2020-02-22] MEDS: Dexamethasone 4 mg/ml Vial SLOW IVP SCH (20:40)
[2020-02-22] MEDS: Insulin Glargine 11 UNITS in Pre-Filled Syringe 1 EACH SC SCH (21:10)
[2020-02-23] MEDS: Vancomycin 1.5 GRAM/300 ML BAG 1.5 GM in Premix Bag 1 BAG IVPB SCH ×2 (01:17→12:45)
[2020-02-23] MEDS: Acetaminophen 325 MG TAB PO PRN ×3 (01:48→20:27)
[2020-02-23 04:06] LABS: Hemoglobin 11.3 g/dL (14.0-18.0); Mean Corpuscular Hemoglobin 27.8 pg (27.0-31.0); Mean Corpuscular Volume 84.3 fL (78.0-98.0); Mean Platelet Volume 7.8 fL (7.4-10.4); Platelet Count 347 thou/uL (130-400); Red Blood Cell (RBC) Count 4.08 mill/uL (4.70-6.10); White Blood Cell (WBC) Count 18.8 thou/uL (4.8-10.8)
[2020-02-23 04:28] LABS: Anion Gap 18 mmol/L (10-20); BUN (Urea Nitrogen) 20 mg/dL (8.4-25.7); Calc. Creatinine Clearance 110 mL/min (70-130); Calcium 8.9 mg/dL (7.8-10.44); Carbon Dioxide 17 mmol/L (23-31); Chloride 105 mmol/L (98-107); Glucose 240 mg/dL (80-115); Magnesium 1.8 mg/dL (1.6-2.6); Phosphorus 3.1 mg/dL (2.3-4.7); Potassium 4.9 mmol/L (3.5-5.1); Sodium 135 mmol/L (136-145)
[2020-02-23] MEDS: HumaLOG 300 UNITS/3 ML VIAL SC PRN ×2 (06:33→12:45)
[2020-02-23] MEDS: Cefepime 2 GM in Sodium Chloride 0.9% 100 ML IVPB SCH ×2 (09:54→20:28)
[2020-02-23] MEDS: Enoxaparin Sodium 40 MG/0.4 ML SYRINGE SC SCH ×2 (09:55→20:27)
[2020-02-23] MEDS: Pioglitazone HCl 15 MG TAB PO SCH ×2 (09:57→20:26)
[2020-02-23] MEDS: Famotidine 20 MG TAB PO SCH ×2 (09:58→20:26)
[2020-02-23] MEDS: metFORMIN 850 MG TAB PO SCH ×2 (09:58→20:27)
[2020-02-23] MEDS: Aspirin 325 MG TAB PO SCH (09:58)
[2020-02-23] MEDS: Metoprolol Tartrate 25 MG TAB PO SCH ×2 (09:59→20:26)
[2020-02-23] MEDS: Benzonatate 100 MG CAP PO PRN (12:45)
--- NOTE | 2020-02-23 12:58 | PDOC.HOSPP ---
- Subjective Encounter Date: 02/23/20 Encounter Time: 11:20 Subjective: The patient in the Covid room. He is on BiPAP at 60% FiO2. He is breathing quite hard with the rate of around 35. He is able to understand Me and states that he is doing okay. I discussed with RN. We will hold physical therapy evaluation and treatment until he is more stable. - Objective Vital Signs & Weight: Vital Signs (12 hours) Temp Pulse Resp Pulse Ox 02/23/20 11:55 86 34 H 97 02/23/20 08:00 96 02/23/20 05:00 98.3 F 02/23/20 04:38 85 33 H 97 02/23/20 01:51 100 41 H 99 02/23/20 01:00 99.5 F Weight Admit Weight 176 lb 8 oz Weight 176 lb 8 oz Most Recent Monitor Data Heart Rate from ECG 87 NIBP 137/76 NIBP BP-Mean 96 Respiration from ECG 26 SpO2 96 I&O: 02/22/20 02/23/20 02/24/20 06:59 06:59 06:59 Intake Total 2220 1850 Output Total 1900 930 Balance 320 920 Result Diagrams: 02/23/20 03:54 02/23/20 03:54 Additional Labs: Accuchecks 02/23/20 02/23/20 02/22/20 10:27 05:55 20:52 POC Glucose 162 H 235 H 177 H 02/22/20 16:59 POC Glucose 156 H Hospitalist ROS - Medication Medications: Active Medications Generic Name Dose Route Start Last Admin Trade Name Freq PRN Reason Stop Dose Admin Acetaminophen 650 mg 02/11/20 15:29 02/23/20 09:58 Acetaminophen 325 Mg Tab PO 650 mg Q4H PRN Administration Headache/Fever/Mild Pain (1-3) Albuterol Sulfate 1 puff 02/12/20 19:42 02/18/20 09:05 Albuterol 200 Puff (6.7gm Inhaler) INH 1 puff Q8H PRN Administration Wheezing Aspirin 325 mg 02/12/20 09:00 02/23/20 09:58 Aspirin 325 Mg Tab PO 325 mg DAILY EMELI Administration Atorvastatin Calcium 10 mg 02/13/20 21:00 02/22/20 20:39 Atorvastatin Calcium 10 Mg Tab PO 10 mg HS EMELI Administration Benzonatate 100 mg 02/13/20 11:28 02/15/20 11:45 Benzonatate 100 Mg Cap PO 100 mg Q6H PRN Administration Cough Dexamethasone 6 mg 02/16/20 21:00 02/22/20 20:40 Dexamethasone 4 Mg/Ml Vial SLOW IVP 6 mg 2100 EMELI Administration Enoxaparin Sodium 40 mg 02/11/20 21:00 02/23/20 09:55 Enoxaparin Sodium 40 Mg/0.4 Ml Syringe SC 40 mg 0900,2099 EMELI Administration Famotidine 20 mg 02/11/20 21:00 02/23/20 09:58 Famotidine 20 Mg Tab PO 20 mg BID EMELI Administration Guaifenesin 200 mg 02/13/20 11:28 02/14/20 21:04 Diabetic Tussin 200 Mg/10 Ml Udcup PO 200 mg Q4H PRN Administration Cough Guaifenesin/Dextromethorphan 15 ml 02/11/20 15:29 02/18/20 08:25 Guaifenesin Dm 100-10/5 Ml Udcup PO 15 ml Q4H PRN Administration Cough Amino Acids/Dextrose 2,000 mls @ 75 mls/hr 02/18/20 15:30 02/18/20 15:55 Clinimix 4.25%-5% IV 2,000 mls INF EMELI Administration Insulin Glargine 11 units/ 0.11 mls @ 0 mls/hr 02/20/20 21:00 02/22/20 21:10 Miscellaneous Medication SC 0.11 mls HS EMELI Administration Vancomycin HCl 1.5 gm/ Device 300 mls @ 200 mls/hr 02/21/20 01:00 02/23/20 01:17 IVPB 02/24/20 23:59 300 mls 0100,1300 EMELI Administration Cefepime HCl 2 gm/ Sodium 100 mls @ 200 mls/hr 02/22/20 20:00 02/23/20 09:54 Chloride IVPB 02/24/20 23:59 100 mls 0800,2000 EMELI Administration Sodium Chloride 1,000 mls @ 25 mls/hr 02/22/20 17:45 02/22/20 19:31 Normal Saline 0.9% IV 1,000 mls .Q24H EMELI Administration Insulin Human Lispro 0 units 02/11/20 15:36 02/23/20 06:33 Humalog 300 Units/3 Ml Vial SC 3 units .MILD SLIDING SCALE PRN Administration Mild Correctional Scale Insulin Human Lispro 0 units 02/11/20 15:36 02/18/20 21:42 Humalog 300 Units/3 Ml Vial SC 3 unit .BEDTIME SLIDING SC PRN Administration Bedtime Correctional Scale Metformin HCl 850 mg 02/11/20 21:00 02/23/20 09:58 Metformin 850 Mg Tab PO 850 mg BID EMELI Administration Metoprolol Tartrate 25 mg 02/12/20 21:00 02/23/20 09:59 Metoprolol Tartrate 25 Mg Tab PO 25 mg BID EMELI Administration Pioglitazone HCl 15 mg 02/11/20 21:00 02/23/20 09:57 Pioglitazone Hcl 15 Mg Tab PO 15 mg BID EMELI Administration - Exam General Appearance: NAD, awake alert General - other findings: On BiPAP and bleeding with a rate of 30 to 40 Eye: PERRL ENT: normocephalic atraumatic Neck: supple Heart: RRR, normal peripheral pulses Respiratory: CTAB, normal chest expansion Gastrointestinal: soft, normal bowel sounds Extremities: 1+ LE edema Neurological: cranial nerve grossly intact, no focal deficits Musculoskeletal: generalized weakness Psychiatric: A&O x 3 Hosp A/P - Plan Acute hypoxic respiratory failure secondary to Covid pneumonia - the patient is now on BIPAP. Status post remdesivir and convalescent plasma 02/15. -Iv vanc and zosyn 02/15 due to worsening bilateral pneumonia noted on chest Xray 02/15. chest X ray 02/20 showed no significant c hange -We will DC the antibiotics tomorrow as it would be 7-day duration by then. I put stop ordered for tomorrow. Tachypnea -Due to Covid pneumonia -Probably also anxiety- will give him low-dose Ativan and see whether that will help to ease his anxiety and reduce his respiratory rate Hyponatremia- Improved Hyperkalemia - resolved Protein Calorie Malnutrition - continue ensure supplementation Hypertension - continue metoprolol , hold lisinopril due to hyperkalemia Anemia - Hb 11.1 Debilitation -We will hold with physical therapy treatment until he is off BiPAP.
[2020-02-23] MEDS ORDERED: Lorazepam 2 MG/ML VIAL SLOW IVP PRN (13:02)
--- NOTE | 2020-02-23 14:08 | PRG ---
DATE OF SERVICE: 02/23/2020 SUBJECTIVE: Josesito Garrison remains on BiPAP. His heart rate is in 80s, afebrile, respiratory rate is in the 30s, oximetry is in the high 90s. He still needs to be weaning FiO2 to goal sat 88% to 92%. He denies fatigue. He is otherwise unchanged. PLAN: We will continue . Job ID: [id number]
[2020-02-23] MEDS: Atorvastatin Calcium 10 MG TAB PO SCH (20:26)
[2020-02-23] MEDS: Dexamethasone 4 mg/ml Vial SLOW IVP SCH (20:27)
[2020-02-23] MEDS: Insulin Glargine 11 UNITS in Pre-Filled Syringe 1 EACH SC SCH (21:25)
[2020-02-23] MEDS: Sodium Chloride 0.9% 1,000 ML IV SCH (21:29)
[2020-02-24] MEDS: Vancomycin 1.5 GRAM/300 ML BAG 1.5 GM in Premix Bag 1 BAG IVPB SCH ×2 (00:53→11:46)
[2020-02-24] MEDS: HumaLOG 300 UNITS/3 ML VIAL SC PRN ×3 (06:21→17:40)
[2020-02-24] MEDS: Cefepime 2 GM in Sodium Chloride 0.9% 100 ML IVPB SCH ×2 (08:55→20:05)
[2020-02-24] MEDS: Famotidine 20 MG TAB PO SCH ×2 (08:57→20:04)
[2020-02-24] MEDS: Aspirin 325 MG TAB PO SCH (08:57)
[2020-02-24] MEDS: Pioglitazone HCl 15 MG TAB PO SCH ×2 (08:57→20:04)
[2020-02-24] MEDS: Acetaminophen 325 MG TAB PO PRN ×2 (08:57→20:03)
[2020-02-24] MEDS: Metoprolol Tartrate 25 MG TAB PO SCH ×2 (08:57→20:04)
[2020-02-24] MEDS: metFORMIN 850 MG TAB PO SCH ×2 (08:58→20:03)
[2020-02-24] MEDS: Benzonatate 100 MG CAP PO PRN (08:58)
[2020-02-24] MEDS: Enoxaparin Sodium 40 MG/0.4 ML SYRINGE SC SCH ×2 (09:02→20:04)
[2020-02-24 09:26] LABS: #Lymphocytes 0.4 thou/uL (1.20-3.40); #Monocytes 0.2 thou/uL (0.11-0.59); #Neutrophils 11.9 thou/uL (1.40-6.50); %Basophils 0.2 % (0.0-1.0); %Eosinophils 0.1 % (0.0-10.0); %Lymphocytes 3.1 % (21.0-51.0); %Monocytes 1.2 % (0.0-10.0); %Neutrophils 95.3 % (42.0-75.0); Hemoglobin 11.8 g/dL (14.0-18.0); Mean Corpuscular HGB CONC 32.7 g/dL (32.0-36.0); Mean Corpuscular Volume 85.7 fL (78.0-98.0); Mean Platelet Volume 7.9 fL (7.4-10.4); Platelet Count 325 thou/uL (130-400); RBC Distribution Width 14.4 % (11.5-14.5); Red Blood Cell (RBC) Count 4.21 mill/uL (4.70-6.10); White Blood Cell (WBC) Count 12.5 thou/uL (4.8-10.8)
[2020-02-24 09:45] LABS: Anion Gap 18 mmol/L (10-20); BUN (Urea Nitrogen) 21 mg/dL (8.4-25.7); Calc. Creatinine Clearance 114 mL/min (70-130); Carbon Dioxide 18 mmol/L (23-31); Chloride 106 mmol/L (98-107); Glucose 180 mg/dL (80-115); Potassium 4.4 mmol/L (3.5-5.1); Sodium 138 mmol/L (136-145)
[2020-02-24] MEDS: Sodium Chloride 0.9% 1,000 ML IV SCH (11:48)
[2020-02-24 12:44] LABS: Vancomycin, Trough 34.6 ug/mL
--- NOTE | 2020-02-24 13:40 | PDOC.HOSPP ---
- Subjective Encounter Date: 02/24/20 Encounter Time: 09:45 Subjective: Patient is off BiPAP for now he is having his morning breakfast. When he is off BiPAP he is not tolerating much his sats dropping. He has a low-grade temp of 99 his white count is around 12.5. - Objective Vital Signs & Weight: Vital Signs (12 hours) Temp Pulse Resp Pulse Ox 02/24/20 12:00 99.8 F H 94 L 02/24/20 10:00 88 L 02/24/20 08:00 98.8 F 02/24/20 07:54 90 L 02/24/20 05:51 86 29 H 94 L 02/24/20 05:00 98.4 F 02/24/20 03:45 98.9 F 02/24/20 03:41 87 30 H 91 L Weight Admit Weight 176 lb 8 oz Weight 176 lb 8 oz Most Recent Monitor Data Heart Rate from ECG 106 NIBP 131/74 NIBP BP-Mean 93 Respiration from ECG 29 SpO2 95 I&O: 02/23/20 02/24/20 02/25/20 06:59 06:59 06:59 Intake Total 1850 1550 Output Total 930 1500 Balance 920 50 Result Diagrams: 02/24/20 08:48 02/24/20 08:48 Additional Labs: Accuchecks 02/24/20 02/24/20 02/23/20 10:41 05:12 20:33 POC Glucose 188 H 200 H 129 H 02/23/20 17:03 POC Glucose 112 H Hospitalist ROS - Medication Medications: Active Medications Generic Name Dose Route Start Last Admin Trade Name Julioq PRN Reason Stop Dose Admin Acetaminophen 650 mg 02/11/20 15:29 02/24/20 08:57 Acetaminophen 325 Mg Tab PO 650 mg Q4H PRN Administration Headache/Fever/Mild Pain (1-3) Albuterol Sulfate 1 puff 02/12/20 19:42 02/18/20 09:05 Albuterol 200 Puff (6.7gm Inhaler) INH 1 puff Q8H PRN Administration Wheezing Aspirin 325 mg 02/12/20 09:00 02/24/20 08:57 Aspirin 325 Mg Tab PO 325 mg DAILY EMELI Administration Atorvastatin Calcium 10 mg 02/13/20 21:00 02/23/20 20:26 Atorvastatin Calcium 10 Mg Tab PO 10 mg HS EMELI Administration Benzonatate 100 mg 02/13/20 11:28 02/24/20 08:58 Benzonatate 100 Mg Cap PO 100 mg Q6H PRN Administration Cough Dexamethasone 6 mg 02/16/20 21:00 02/23/20 20:27 Dexamethasone 4 Mg/Ml Vial SLOW IVP 6 mg 2100 EMELI Administration Enoxaparin Sodium 40 mg 02/11/20 21:00 02/24/20 09:02 Enoxaparin Sodium 40 Mg/0.4 Ml Syringe SC 40 mg 0900,2100 EMELI Administration Famotidine 20 mg 02/11/20 21:00 02/24/20 08:57 Famotidine 20 Mg Tab PO 20 mg BID EMELI Administration Guaifenesin 200 mg 02/13/20 11:28 02/14/20 21:04 Diabetic Tussin 200 Mg/10 Ml Udcup PO 200 mg Q4H PRN Administration Cough Guaifenesin/Dextromethorphan 15 ml 02/11/20 15:29 02/18/20 08:25 Guaifenesin Dm 100-10/5 Ml Udcup PO 15 ml Q4H PRN Administration Cough Amino Acids/Dextrose 2,000 mls @ 75 mls/hr 02/18/20 15:30 02/18/20 15:55 Clinimix 4.25%-5% IV 2,000 mls INF EMELI Administration Insulin Glargine 11 units/ 0.11 mls @ 0 mls/hr 02/20/20 21:00 02/23/20 21:25 Miscellaneous Medication SC 0.11 mls HS EMELI Administration Vancomycin HCl 1.5 gm/ Device 300 mls @ 200 mls/hr 02/21/20 01:00 02/24/20 11:46 IVPB 02/24/20 23:59 300 mls 0100,1300 EMELI Administration Cefepime HCl 2 gm/ Sodium 100 mls @ 200 mls/hr 02/22/20 20:00 02/24/20 08:55 Chloride IVPB 02/24/20 23:59 100 mls 0800,2000 EMELI Administration Sodium Chloride 1,000 mls @ 25 mls/hr 02/22/20 17:45 02/24/20 11:48 Normal Saline 0.9% IV 1,000 mls .Q24H EMELI Administration Insulin Human Lispro 0 units 02/11/20 15:36 02/24/20 12:04 Humalog 300 Units/3 Ml Vial SC 2 units .MILD SLIDING SCALE PRN Administration Mild Correctional Scale Insulin Human Lispro 0 units 02/11/20 15:36 02/18/20 21:42 Humalog 300 Units/3 Ml Vial SC 3 unit .BEDTIME SLIDING SC PRN Administration Bedtime Correctional Scale Lorazepam 1 mg 02/23/20 13:02 02/24/20 08:58 Lorazepam 2 Mg/Ml Vial SLOW IVP 02/26/20 10:00 1 mg Q8H PRN Administration Seizures Metformin HCl 850 mg 02/11/20 21:00 02/24/20 08:58 Metformin 850 Mg Tab PO 850 mg BID EMELI Administration Metoprolol Tartrate 25 mg 02/12/20 21:00 02/24/20 08:57 Metoprolol Tartrate 25 Mg Tab PO 25 mg BID EMELI Administration Pioglitazone HCl 15 mg 02/11/20 21:00 02/24/20 08:57 Pioglitazone Hcl 15 Mg Tab PO 15 mg BID EMELI Administration - Exam General Appearance: NAD, awake alert General - other findings: On high flow oxygen while he is having his breakfast Eye: PERRL ENT: normocephalic atraumatic Neck: supple Heart: RRR, normal peripheral pulses Respiratory: CTAB, normal chest expansion Gastrointestinal: soft, normal bowel sounds Neurological: cranial nerve grossly intact, no focal deficits Psychiatric: A&O x 3 Hosp A/P - Plan Acute hypoxic respiratory failure secondary to Covid pneumonia - the patient is now on BIPAP. Status post remdesivir and convalescent plasma 02/15. -Iv vanc and zosyn 02/15 due to worsening bilateral pneumonia noted on chest Xray 02/15. chest X ray 02/20 showed no significant c hange -We will DC the antibiotics tomorrow as it would be 7-day duration by then. I put stop ordered for tomorrow. Tachypnea -Due to Covid pneumonia -Probably also anxiety- will give him low-dose Ativan and see whether that will help to ease his anxiety and reduce his respiratory rate Hyponatremia- Improved Hyperkalemia - resolved Protein Calorie Malnutrition - continue ensure supplementation Hypertension - continue metoprolol , hold lisinopril due to hyperkalemia Anemia - Hb 11.1 Debilitation -We will hold with physical therapy treatment until he is off BiPAP.
--- NOTE | 2020-02-24 17:21 | PRG ---
DATE OF SERVICE: 02/24/2020 SUBJECTIVE: Mr. Garrison is doing fine. He was on high-flow earlier today and said he was feeling better. Speaks very little Serbian. Did say he was a tiny bit better. OBJECTIVE: VITAL SIGNS: Heart rate is 99, blood pressure 131/84, respiratory rate is 28. LUNGS: Unchanged. HEART: Unchanged. ABDOMEN: Unchanged. LABORATORY DATA: White count 12.5, hemoglobin 11.8, platelets 325. Electrolytes are unremarkable. IMPRESSION: COVID pneumonia, slowly improving. Continue supportive care. Job ID: [id number]
[2020-02-24] MEDS: Atorvastatin Calcium 10 MG TAB PO SCH (20:04)
[2020-02-24] MEDS: Dexamethasone 4 mg/ml Vial SLOW IVP SCH (20:05)
[2020-02-24] MEDS: Insulin Glargine 11 UNITS in Pre-Filled Syringe 1 EACH SC SCH (20:26)
[2020-02-25 00:21] LABS: Vancomycin, Trough 22.6 ug/mL
[2020-02-25] MEDS ORDERED: Vancomycin 1.5 GRAM/300 ML BAG 1.5 GM in Premix Bag 1 BAG IVPB SCH (01:00)
[2020-02-25] MEDS: Vancomycin 1 GM in Premix Bag 1 BAG IVPB SCH ×2 (01:47→13:34)
[2020-02-25] MEDS: Metoprolol Tartrate 25 MG TAB PO SCH ×2 (08:29→19:51)
[2020-02-25] MEDS: Aspirin 325 MG TAB PO SCH (08:29)
[2020-02-25] MEDS: Famotidine 20 MG TAB PO SCH ×2 (08:29→19:51)
[2020-02-25] MEDS: Pioglitazone HCl 15 MG TAB PO SCH ×2 (08:29→19:51)
[2020-02-25] MEDS: Enoxaparin Sodium 40 MG/0.4 ML SYRINGE SC SCH ×2 (08:30→19:50)
[2020-02-25] MEDS: metFORMIN 850 MG TAB PO SCH ×2 (08:30→19:51)
--- NOTE | 2020-02-25 12:10 | PRG ---
DATE OF SERVICE: 02/25/2020 SUBJECTIVE: Josesito Garrison looks comfortable today. OBJECTIVE: VITAL SIGNS: Heart rates in the 70s, blood pressure 137/82, respiratory rates in the mid 20s, and oximetry is in the mid-to-high 90s. LUNGS: Unchanged. HEART: Unchanged. ABDOMEN: Unchanged. IMPRESSION: COVID pneumonia, making tiny amounts of progress each day. Need to continue to try to wean his FiO2 to a goal saturation of 88 to 92. Job ID: [id number]
--- NOTE | 2020-02-25 15:51 | PDOC.HOSPP ---
- Subjective Encounter Date: 02/25/20 Encounter Time: 09:58 Subjective: Patient is still on BiPAP. Afebrile normotensive and his white count remarkably coming down. - Objective Vital Signs & Weight: Vital Signs (12 hours) Temp 02/25/20 12:00 98.8 F 02/25/20 08:00 98.4 F 02/25/20 04:00 98.8 F Weight Admit Weight 176 lb 8 oz Weight 176 lb 8 oz Most Recent Monitor Data Heart Rate from ECG 89 NIBP 125/87 NIBP BP-Mean 99 Respiration from ECG 34 SpO2 91 I&O: 02/24/20 02/25/20 02/26/20 06:59 06:59 06:59 Intake Total 1550 2080 Output Total 1500 1450 250 Balance 50 630 -250 Result Diagrams: 02/24/20 08:48 02/24/20 08:48 Additional Labs: Accuchecks 02/25/20 02/24/20 02/24/20 05:02 20:11 16:17 POC Glucose 276 H 183 H 174 H Hospitalist ROS - Medication Medications: Active Medications Generic Name Dose Route Start Last Admin Trade Name Freq PRN Reason Stop Dose Admin Acetaminophen 650 mg 02/11/20 15:29 02/24/20 20:03 Acetaminophen 325 Mg Tab PO 650 mg Q4H PRN Administration Headache/Fever/Mild Pain (1-3) Albuterol Sulfate 1 puff 02/12/20 19:42 02/18/20 09:05 Albuterol 200 Puff (6.7gm Inhaler) INH 1 puff Q8H PRN Administration Wheezing Aspirin 325 mg 02/12/20 09:00 02/25/20 08:29 Aspirin 325 Mg Tab PO 325 mg DAILY EMELI Administration Atorvastatin Calcium 10 mg 02/13/20 21:00 02/24/20 20:04 Atorvastatin Calcium 10 Mg Tab PO 10 mg HS EMELI Administration Benzonatate 100 mg 02/13/20 11:28 02/24/20 08:58 Benzonatate 100 Mg Cap PO 100 mg Q6H PRN Administration Cough Dexamethasone 6 mg 02/16/20 21:00 02/24/20 20:05 Dexamethasone 4 Mg/Ml Vial SLOW IVP 6 mg 2100 EMELI Administration Enoxaparin Sodium 40 mg 02/11/20 21:00 02/25/20 08:30 Enoxaparin Sodium 40 Mg/0.4 Ml Syringe SC 40 mg 0900,2100 EMELI Administration Famotidine 20 mg 02/11/20 21:00 02/25/20 08:29 Famotidine 20 Mg Tab PO 20 mg BID EMELI Administration Guaifenesin 200 mg 02/13/20 11:28 02/14/20 21:04 Diabetic Tussin 200 Mg/10 Ml Udcup PO 200 mg Q4H PRN Administration Cough Guaifenesin/Dextromethorphan 15 ml 02/11/20 15:29 02/18/20 08:25 Guaifenesin Dm 100-10/5 Ml Udcup PO 15 ml Q4H PRN Administration Cough Amino Acids/Dextrose 2,000 mls @ 75 mls/hr 02/18/20 15:30 02/18/20 15:55 Clinimix 4.25%-5% IV 2,000 mls INF EMELI Administration Insulin Glargine 11 units/ 0.11 mls @ 0 mls/hr 02/20/20 21:00 02/24/20 20:26 Miscellaneous Medication SC 0.11 mls HS EMELI Administration Sodium Chloride 1,000 mls @ 25 mls/hr 02/22/20 17:45 02/24/20 11:48 Normal Saline 0.9% IV 1,000 mls .Q24H EMELI Administration Vancomycin HCl 1 gm/ Device 200 mls @ 200 mls/hr 02/25/20 02:00 02/25/20 13:34 IVPB 200 mls 0200,1400 EMELI Administration Insulin Human Lispro 0 units 02/11/20 15:36 02/24/20 17:40 Humalog 300 Units/3 Ml Vial SC 2 units .MILD SLIDING SCALE PRN Administration Mild Correctional Scale Insulin Human Lispro 0 units 02/11/20 15:36 02/18/20 21:42 Humalog 300 Units/3 Ml Vial SC 3 unit .BEDTIME SLIDING SC PRN Administration Bedtime Correctional Scale Lorazepam 1 mg 02/23/20 13:02 02/24/20 08:58 Lorazepam 2 Mg/Ml Vial SLOW IVP 02/26/20 10:00 1 mg Q8H PRN Administration Anxiety Metformin HCl 850 mg 02/11/20 21:00 02/25/20 08:30 Metformin 850 Mg Tab PO 850 mg BID EMELI Administration Metoprolol Tartrate 25 mg 02/12/20 21:00 02/25/20 08:29 Metoprolol Tartrate 25 Mg Tab PO 25 mg BID EMELI Administration Pioglitazone HCl 15 mg 02/11/20 21:00 02/25/20 08:29 Pioglitazone Hcl 15 Mg Tab PO 15 mg BID EMELI Administration - Exam General Appearance: awake alert General - other findings: On BiPAP. Eye: PERRL ENT: normocephalic atraumatic Neck: supple Heart: RRR, normal peripheral pulses Respiratory: normal chest expansion Extremities: no edema Neurological: no focal deficits Psychiatric: A&O x 3 Hosp A/P - Plan Acute hypoxic respiratory failure secondary to Covid pneumonia - the patient is now on BIPAP. Status post remdesivir and convalescent plasma 02/15. -Iv vanc and zosyn 02/15 due to worsening bilateral pneumonia noted on chest Xray 02/15. chest X ray 02/20 showed no significant c hange -We will DC the antibiotics tomorrow as it would be 7-day duration by then. I put stop ordered for tomorrow. Tachypnea -Due to Covid pneumonia -Probably also anxiety- will give him low-dose Ativan and see whether that will help to ease his anxiety and reduce his respiratory rate Hyponatremia- Improved Hyperkalemia - resolved Protein Calorie Malnutrition - continue ensure supplementation Hypertension - continue metoprolol , hold lisinopril due to hyperkalemia Anemia - Hb 11.1 Debilitation -We will hold on physical therapy treatment until he is off BiPAP.
[2020-02-25] MEDS: Sodium Chloride 0.9% 1,000 ML IV SCH (18:48)
[2020-02-25] MEDS: Atorvastatin Calcium 10 MG TAB PO SCH (19:51)
[2020-02-25] MEDS: Dexamethasone 4 mg/ml Vial SLOW IVP SCH (19:51)
[2020-02-25] MEDS: Insulin Glargine 11 UNITS in Pre-Filled Syringe 1 EACH SC SCH (20:08)
[2020-02-26] MEDS: Vancomycin 1 GM in Premix Bag 1 BAG IVPB SCH ×2 (01:18→16:00)
[2020-02-26 04:17] LABS: #Basophils 0.2 thou/uL (0.0-0.2); #Lymphocytes 0.4 thou/uL (1.20-3.40); #Monocytes 0.2 thou/uL (0.11-0.59); #Neutrophils 14.6 thou/uL (1.40-6.50); %Basophils 1.2 % (0.0-1.0); %Eosinophils 0.2 % (0.0-10.0); %Lymphocytes 2.7 % (21.0-51.0); %Monocytes 1.3 % (0.0-10.0); %Neutrophils 94.5 % (42.0-75.0); Hemoglobin 11.8 g/dL (14.0-18.0); Mean Corpuscular HGB CONC 33.7 g/dL (32.0-36.0); Mean Corpuscular Hemoglobin 28.8 pg (27.0-31.0); Mean Corpuscular Volume 85.2 fL (78.0-98.0); Mean Platelet Volume 8.1 fL (7.4-10.4); Platelet Count 306 thou/uL (130-400); RBC Distribution Width 14.2 % (11.5-14.5); Red Blood Cell (RBC) Count 4.11 mill/uL (4.70-6.10); White Blood Cell (WBC) Count 15.4 thou/uL (4.8-10.8)
[2020-02-26 04:24] LABS: Anion Gap 17 mmol/L (10-20); BUN (Urea Nitrogen) 22 mg/dL (8.4-25.7); Calc. Creatinine Clearance 114 mL/min (70-130); Calcium 8.9 mg/dL (7.8-10.44); Carbon Dioxide 19 mmol/L (23-31); Chloride 104 mmol/L (98-107); Glucose 255 mg/dL (80-115); Potassium 4.7 mmol/L (3.5-5.1); Sodium 135 mmol/L (136-145)
[2020-02-26] MEDS: HumaLOG 300 UNITS/3 ML VIAL SC PRN (06:01)
[2020-02-26] MEDS: Aspirin 325 MG TAB PO SCH (09:11)
[2020-02-26] MEDS: Metoprolol Tartrate 25 MG TAB PO SCH ×2 (09:11→20:52)
[2020-02-26] MEDS: metFORMIN 850 MG TAB PO SCH ×2 (09:11→20:53)
[2020-02-26] MEDS: Pioglitazone HCl 15 MG TAB PO SCH ×2 (09:11→20:51)
[2020-02-26] MEDS: Famotidine 20 MG TAB PO SCH ×2 (09:11→20:51)
[2020-02-26] MEDS: Enoxaparin Sodium 40 MG/0.4 ML SYRINGE SC SCH ×2 (09:11→20:52)
[2020-02-26 13:24] LABS: Vancomycin, Trough 18.3 ug/mL
--- NOTE | 2020-02-26 14:29 | PDOC.HOSPP ---
- Subjective Encounter Date: 02/26/20 Encounter Time: 10:00 Subjective: Patient currently on high flow oxygen. He is able to have some p.o. intake. Hopefully he will improve with his p.o. intake. Additional nutritional options are not necessary at this point. - Objective Vital Signs & Weight: Vital Signs (12 hours) Temp Pulse Resp Pulse Ox 02/26/20 09:45 99.1 F 02/26/20 03:53 97.8 F 02/26/20 03:13 88 25 H 93 L Weight Admit Weight 176 lb 8 oz Weight 176 lb 8 oz Most Recent Monitor Data Heart Rate from ECG 88 NIBP 148/80 NIBP BP-Mean 102 Respiration from ECG 27 SpO2 100 I&O: 02/25/20 02/26/20 02/27/20 06:59 06:59 06:59 Intake Total 2080 870 Output Total 1450 1075 Balance 630 -205 Result Diagrams: 02/26/20 03:25 02/26/20 03:25 Additional Labs: Accuchecks 02/26/20 02/26/20 02/25/20 12:42 05:54 19:55 POC Glucose 99 234 H 117 H 02/25/20 02/25/20 17:24 13:40 POC Glucose 108 H 104 H Hospitalist ROS - Medication Medications: Active Medications Generic Name Dose Route Start Last Admin Trade Name Freq PRN Reason Stop Dose Admin Acetaminophen 650 mg 02/11/20 15:29 02/24/20 20:03 Acetaminophen 325 Mg Tab PO 650 mg Q4H PRN Administration Headache/Fever/Mild Pain (1-3) Albuterol Sulfate 1 puff 02/12/20 19:42 02/18/20 09:05 Albuterol 200 Puff (6.7gm Inhaler) INH 1 puff Q8H PRN Administration Wheezing Aspirin 325 mg 02/12/20 09:00 02/26/20 09:11 Aspirin 325 Mg Tab PO 325 mg DAILY EMELI Administration Atorvastatin Calcium 10 mg 02/13/20 21:00 02/25/20 19:51 Atorvastatin Calcium 10 Mg Tab PO 10 mg HS EMELI Administration Benzonatate 100 mg 02/13/20 11:28 02/24/20 08:58 Benzonatate 100 Mg Cap PO 100 mg Q6H PRN Administration Cough Dexamethasone 6 mg 02/16/20 21:00 02/25/20 19:51 Dexamethasone 4 Mg/Ml Vial SLOW IVP 6 mg 2099 EMELI Administration Enoxaparin Sodium 40 mg 02/11/20 21:00 02/26/20 09:11 Enoxaparin Sodium 40 Mg/0.4 Ml Syringe SC 40 mg 0900,2099 EMELI Administration Famotidine 20 mg 02/11/20 21:00 02/26/20 09:11 Famotidine 20 Mg Tab PO 20 mg BID EMELI Administration Guaifenesin 200 mg 02/13/20 11:28 02/14/20 21:04 Diabetic Tussin 200 Mg/10 Ml Udcup PO 200 mg Q4H PRN Administration Cough Guaifenesin/Dextromethorphan 15 ml 02/11/20 15:29 02/18/20 08:25 Guaifenesin Dm 100-10/5 Ml Udcup PO 15 ml Q4H PRN Administration Cough Amino Acids/Dextrose 2,000 mls @ 75 mls/hr 02/18/20 15:30 02/18/20 15:55 Clinimix 4.25%-5% IV 2,000 mls INF EMELI Administration Insulin Glargine 11 units/ 0.11 mls @ 0 mls/hr 02/20/20 21:00 02/25/20 20:08 Miscellaneous Medication SC 0.11 mls HS EMELI Administration Sodium Chloride 1,000 mls @ 25 mls/hr 02/22/20 17:45 02/25/20 18:48 Normal Saline 0.9% IV Not Given .Q24H EMELI Vancomycin HCl 1 gm/ Device 200 mls @ 200 mls/hr 02/25/20 02:00 02/26/20 01:18 IVPB 200 mls 0200,1400 EMELI Administration Insulin Human Lispro 0 units 02/11/20 15:36 02/26/20 06:01 Humalog 300 Units/3 Ml Vial SC 3 units .MILD SLIDING SCALE PRN Administration Mild Correctional Scale Insulin Human Lispro 0 units 02/11/20 15:36 02/18/20 21:42 Humalog 300 Units/3 Ml Vial SC 3 unit .BEDTIME SLIDING SC PRN Administration Bedtime Correctional Scale Metformin HCl 850 mg 02/11/20 21:00 02/26/20 09:11 Metformin 850 Mg Tab PO 850 mg BID EMELI Administration Metoprolol Tartrate 25 mg 02/12/20 21:00 02/26/20 09:11 Metoprolol Tartrate 25 Mg Tab PO 25 mg BID EMELI Administration Pioglitazone HCl 15 mg 02/11/20 21:00 02/26/20 09:11 Pioglitazone Hcl 15 Mg Tab PO 15 mg BID EMELI Administration - Exam General Appearance: NAD, awake alert Eye: PERRL ENT: normocephalic atraumatic Neck: supple Heart: RRR Respiratory: CTAB, normal chest expansion Gastrointestinal: soft, normal bowel sounds Extremities: 1+ LE edema Neurological: cranial nerve grossly intact, no weakness Psychiatric: normal affect, normal behavior, A&O x 3 Hosp A/P - Plan Acute hypoxic respiratory failure secondary to Covid pneumonia - the patient is now on BIPAP. Status post remdesivir and convalescent plasma 02/15. -Iv vanc and zosyn 02/15 due to worsening bilateral pneumonia noted on chest Xray 02/15. chest X ray 02/20 showed no significant c hange -We will DC the antibiotics tomorrow as it would be 7-day duration by then. I put stop ordered for tomorrow. Tachypnea -Due to Covid pneumonia -Probably also anxiety- will give him low-dose Ativan and see whether that will help to ease his anxiety and reduce his respiratory rate Hyponatremia- Improved Hyperkalemia - resolved Protein Calorie Malnutrition - continue ensure supplementation Hypertension - continue metoprolol , hold lisinopril due to hyperkalemia Anemia - Hb 11.1 Debilitation - He is on high flow oxygen hopefully -His sats are 100%. We will give another day and if he did not need any further BiPAP, then will request physical therapy to evaluate and treat. If he continued to show improvement , likely transfer to the observation section tomorrow.
[2020-02-26] MEDS: Sodium Chloride 0.9% 1,000 ML IV SCH (18:17)
[2020-02-26] MEDS: Dexamethasone 4 mg/ml Vial SLOW IVP SCH (20:51)
[2020-02-26] MEDS: Atorvastatin Calcium 10 MG TAB PO SCH (20:52)
[2020-02-26] MEDS: Insulin Glargine 11 UNITS in Pre-Filled Syringe 1 EACH SC SCH (20:54)
[2020-02-27] MEDS: Vancomycin 1 GM in Premix Bag 1 BAG IVPB SCH (03:12)
[2020-02-27 05:07] LABS: #Lymphocytes 0.6 thou/uL (1.20-3.40); #Monocytes 0.2 thou/uL (0.11-0.59); #Neutrophils 11.2 thou/uL (1.40-6.50); %Basophils 0.1 % (0.0-1.0); %Eosinophils 0.2 % (0.0-10.0); %Lymphocytes 4.5 % (21.0-51.0); %Monocytes 1.6 % (0.0-10.0); %Neutrophils 93.6 % (42.0-75.0); Mean Corpuscular HGB CONC 32.5 g/dL (32.0-36.0); Mean Corpuscular Hemoglobin 27.4 pg (27.0-31.0); Mean Corpuscular Volume 84.3 fL (78.0-98.0); Mean Platelet Volume 7.9 fL (7.4-10.4); Platelet Count 312 thou/uL (130-400); RBC Distribution Width 14.4 % (11.5-14.5); Red Blood Cell (RBC) Count 4.38 mill/uL (4.70-6.10)
[2020-02-27 05:26] LABS: Anion Gap 17 mmol/L (10-20); BUN (Urea Nitrogen) 23 mg/dL (8.4-25.7); Calc. Creatinine Clearance 114 mL/min (70-130); Calcium 8.8 mg/dL (7.8-10.44); Carbon Dioxide 20 mmol/L (23-31); Chloride 103 mmol/L (98-107); Glucose 227 mg/dL (80-115); Potassium 4.6 mmol/L (3.5-5.1); Sodium 135 mmol/L (136-145)
[2020-02-27] MEDS: HumaLOG 300 UNITS/3 ML VIAL SC PRN (06:07)
[2020-02-27] MEDS: Enoxaparin Sodium 40 MG/0.4 ML SYRINGE SC SCH ×2 (08:40→21:03)
[2020-02-27] MEDS: Pioglitazone HCl 15 MG TAB PO SCH ×2 (08:40→21:05)
[2020-02-27] MEDS: metFORMIN 850 MG TAB PO SCH ×2 (08:40→21:05)
[2020-02-27] MEDS: Metoprolol Tartrate 25 MG TAB PO SCH ×2 (08:40→21:05)
[2020-02-27] MEDS: Famotidine 20 MG TAB PO SCH ×2 (08:40→21:05)
[2020-02-27] MEDS: Aspirin 325 MG TAB PO SCH (08:40)
--- NOTE | 2020-02-27 12:54 | PDOC.HOSPP ---
- Subjective Encounter Date: 02/27/20 Encounter Time: 12:48 Subjective: so-so, still sob. - Objective Vital Signs & Weight: Vital Signs (12 hours) Temp 02/27/20 08:00 97.8 F 02/27/20 03:59 98.1 F Weight Admit Weight 176 lb 8 oz Weight 176 lb 8 oz Most Recent Monitor Data Heart Rate from ECG 108 NIBP 126/73 NIBP BP-Mean 90 Respiration from ECG 36 SpO2 100 I&O: 02/26/20 02/27/20 02/28/20 06:59 06:59 06:59 Intake Total 870 500 Output Total 1075 850 Balance -205 -350 Result Diagrams: 02/27/20 04:32 02/27/20 04:32 Additional Labs: Accuchecks 02/27/20 02/27/20 02/26/20 10:42 05:45 20:22 POC Glucose 144 H 242 H 179 H 02/26/20 02/26/20 18:13 12:42 POC Glucose 126 H 99 Hospitalist ROS - Medication Medications: Active Medications Generic Name Dose Route Start Last Admin Trade Name Freq PRN Reason Stop Dose Admin Acetaminophen 650 mg 02/11/20 15:29 02/24/20 20:03 Acetaminophen 325 Mg Tab PO 650 mg Q4H PRN Administration Headache/Fever/Mild Pain (1-3) Albuterol Sulfate 1 puff 02/12/20 19:42 02/18/20 09:05 Albuterol 200 Puff (6.7gm Inhaler) INH 1 puff Q8H PRN Administration Wheezing Aspirin 325 mg 02/12/20 09:00 02/27/20 08:40 Aspirin 325 Mg Tab PO 325 mg DAILY EMLEI Administration Atorvastatin Calcium 10 mg 02/13/20 21:00 02/26/20 20:52 Atorvastatin Calcium 10 Mg Tab PO 10 mg HS EMELI Administration Benzonatate 100 mg 02/13/20 11:28 02/24/20 08:58 Benzonatate 100 Mg Cap PO 100 mg Q6H PRN Administration Cough Dexamethasone 6 mg 02/16/20 21:00 02/26/20 20:51 Dexamethasone 4 Mg/Ml Vial SLOW IVP 6 mg 2100 EMELI Administration Enoxaparin Sodium 40 mg 02/11/20 21:00 02/27/20 08:40 Enoxaparin Sodium 40 Mg/0.4 Ml Syringe SC 40 mg 0900,2100 EMELI Administration Famotidine 20 mg 02/11/20 21:00 02/27/20 08:40 Famotidine 20 Mg Tab PO 20 mg BID EMELI Administration Guaifenesin 200 mg 02/13/20 11:28 02/14/20 21:04 Diabetic Tussin 200 Mg/10 Ml Udcup PO 200 mg Q4H PRN Administration Cough Guaifenesin/Dextromethorphan 15 ml 02/11/20 15:29 02/18/20 08:25 Guaifenesin Dm 100-10/5 Ml Udcup PO 15 ml Q4H PRN Administration Cough Amino Acids/Dextrose 2,000 mls @ 75 mls/hr 02/18/20 15:30 02/18/20 15:55 Clinimix 4.25%-5% IV 2,000 mls INF EMELI Administration Insulin Glargine 11 units/ 0.11 mls @ 0 mls/hr 02/20/20 21:00 02/26/20 20:54 Miscellaneous Medication SC 0.11 mls HS EMELI Administration Sodium Chloride 1,000 mls @ 25 mls/hr 02/22/20 17:45 02/26/20 18:17 Normal Saline 0.9% IV Not Given .Q24H EMELI Vancomycin HCl 1 gm/ Device 200 mls @ 200 mls/hr 02/25/20 02:00 02/27/20 03:12 IVPB 200 mls 0200,1400 EMELI Administration Insulin Human Lispro 0 units 02/11/20 15:36 02/27/20 06:07 Humalog 300 Units/3 Ml Vial SC 3 units .MILD SLIDING SCALE PRN Administration Mild Correctional Scale Insulin Human Lispro 0 units 02/11/20 15:36 02/18/20 21:42 Humalog 300 Units/3 Ml Vial SC 3 unit .BEDTIME SLIDING SC PRN Administration Bedtime Correctional Scale Metformin HCl 850 mg 02/11/20 21:00 02/27/20 08:40 Metformin 850 Mg Tab PO 850 mg BID EMELI Administration Metoprolol Tartrate 25 mg 02/12/20 21:00 02/27/20 08:40 Metoprolol Tartrate 25 Mg Tab PO 25 mg BID EMELI Administration Pioglitazone HCl 15 mg 02/11/20 21:00 02/27/20 08:40 Pioglitazone Hcl 15 Mg Tab PO 15 mg BID EMELI Administration - Exam General Appearance: awake alert Neck: no JVD Heart: RRR, no murmur Respiratory - other findings: coarse BS, tachypneic, post fine rales Gastrointestinal: soft, non-tender, normal bowel sounds Extremities: no edema Hosp A/P (1) Acute respiratory failure with hypoxia Code(s): J96.01 - ACUTE RESPIRATORY FAILURE WITH HYPOXIA Status: Acute (2) Pneumonia due to COVID-19 virus Code(s): U07.1 - COVID-19; J12.89 - OTHER VIRAL PNEUMONIA Status: Acute (3) Diabetes mellitus type 2 in nonobese Code(s): E11.9 - TYPE 2 DIABETES MELLITUS WITHOUT COMPLICATIONS Status: Chronic (4) HTN (hypertension) Code(s): I10 - ESSENTIAL (PRIMARY) HYPERTENSION Status: Chronic Qualifiers: Hypertension type: essential hypertension Qualified Code(s): I10 - Essential (primary) hypertension - Plan on high flow O2 cxr still mdemonstrates high infiltrate load DC vanc and decadron review with balance wheel screw hole tapper
--- NOTE | 2020-02-27 14:31 | PRG ---
DATE OF SERVICE: 02/27/2020 Josesito Garrison appears to be comfortable. He is still on high-flow oxygen. Sats in the 100% range. Need to wean his FiO2. Lungs, heart, and abdomen are unchanged. IMPRESSION: COVID pneumonia, slowly improving. Job ID: [id number]
[2020-02-27] MEDS: Sodium Chloride 0.9% 1,000 ML IV SCH (18:31)
[2020-02-27] MEDS: Atorvastatin Calcium 10 MG TAB PO SCH (21:05)
[2020-02-27] MEDS: Insulin Glargine 11 UNITS in Pre-Filled Syringe 1 EACH SC SCH (21:24)
[2020-02-28 04:20] LABS: #Basophils 0.1 thou/uL (0.0-0.2); #Eosinphils 0.6 thou/uL (0.0-0.7); #Monocytes 0.3 thou/uL (0.11-0.59); #Neutrophils 8.9 thou/uL (1.40-6.50); %Basophils 0.5 % (0.0-1.0); %Eosinophils 5.1 % (0.0-10.0); %Lymphocytes 9.6 % (21.0-51.0); %Monocytes 2.8 % (0.0-10.0); Mean Corpuscular HGB CONC 30.8 g/dL (32.0-36.0); Mean Corpuscular Hemoglobin 26.2 pg (27.0-31.0); Mean Corpuscular Volume 85.1 fL (78.0-98.0); Mean Platelet Volume 7.6 fL (7.4-10.4); Platelet Count 320 thou/uL (130-400); RBC Distribution Width 14.7 % (11.5-14.5); Red Blood Cell (RBC) Count 4.57 mill/uL (4.70-6.10); White Blood Cell (WBC) Count 10.8 thou/uL (4.8-10.8)
[2020-02-28 04:34] LABS: Anion Gap 18 mmol/L (10-20); BUN (Urea Nitrogen) 17 mg/dL (8.4-25.7); Calc. Creatinine Clearance 124 mL/min (70-130); Calcium 8.5 mg/dL (7.8-10.44); Carbon Dioxide 17 mmol/L (23-31); Chloride 103 mmol/L (98-107); Glucose 126 mg/dL (80-115); Potassium 4.2 mmol/L (3.5-5.1); Sodium 134 mmol/L (136-145)
[2020-02-28] MEDS: Famotidine 20 MG TAB PO SCH ×2 (08:44→22:09)
[2020-02-28] MEDS: Enoxaparin Sodium 40 MG/0.4 ML SYRINGE SC SCH ×2 (08:44→22:08)
[2020-02-28] MEDS: metFORMIN 850 MG TAB PO SCH ×2 (08:44→22:09)
[2020-02-28] MEDS: Metoprolol Tartrate 25 MG TAB PO SCH (08:45)
[2020-02-28] MEDS: Pioglitazone HCl 15 MG TAB PO SCH ×2 (08:45→22:09)
[2020-02-28] MEDS: Aspirin 325 MG TAB PO SCH (08:45)
--- NOTE | 2020-02-28 11:46 | PDOC.HOSPP ---
- Subjective Encounter Date: 02/28/20 Encounter Time: 11:45 Subjective: comfortable. no resp distress - Objective Vital Signs & Weight: Vital Signs (12 hours) Temp Pulse Ox 02/28/20 09:36 96 02/28/20 08:00 98.9 F 02/28/20 04:30 94 L 02/28/20 03:32 97.6 F 02/28/20 00:08 98.6 F Weight Admit Weight 176 lb 8 oz Weight 176 lb 8 oz Most Recent Monitor Data Heart Rate from ECG 116 NIBP 121/76 NIBP BP-Mean 91 Respiration from ECG 43 SpO2 89 I&O: 02/27/20 02/28/20 02/29/20 06:59 06:59 06:59 Intake Total 500 660 Output Total 850 950 Balance -350 -290 Result Diagrams: 02/28/20 03:58 02/28/20 03:58 Additional Labs: Accuchecks 02/28/20 02/28/20 02/27/20 05:16 00:31 20:19 POC Glucose 135 H 130 H 109 H 02/27/20 17:20 POC Glucose 106 H Hospitalist ROS - Medication Medications: Active Medications Generic Name Dose Route Start Last Admin Trade Name Freq PRN Reason Stop Dose Admin Acetaminophen 650 mg 02/11/20 15:29 02/24/20 20:03 Acetaminophen 325 Mg Tab PO 650 mg Q4H PRN Administration Headache/Fever/Mild Pain (1-3) Albuterol Sulfate 1 puff 02/12/20 19:42 02/18/20 09:05 Albuterol 200 Puff (6.7gm Inhaler) INH 1 puff Q8H PRN Administration Wheezing Aspirin 325 mg 02/12/20 09:00 02/28/20 08:45 Aspirin 325 Mg Tab PO 325 mg DAILY EMELI Administration Atorvastatin Calcium 10 mg 02/13/20 21:00 02/27/20 21:05 Atorvastatin Calcium 10 Mg Tab PO 10 mg HS EMELI Administration Benzonatate 100 mg 02/13/20 11:28 02/24/20 08:58 Benzonatate 100 Mg Cap PO 100 mg Q6H PRN Administration Cough Enoxaparin Sodium 40 mg 02/11/20 21:00 02/28/20 08:44 Enoxaparin Sodium 40 Mg/0.4 Ml Syringe SC 40 mg 0900,2100 EMELI Administration Famotidine 20 mg 12/14/20 21:00 02/28/20 08:44 Famotidine 20 Mg Tab PO 20 mg BID EMELI Administration Guaifenesin 200 mg 02/13/20 11:28 02/14/20 21:04 Diabetic Tussin 200 Mg/10 Ml Udcup PO 200 mg Q4H PRN Administration Cough Guaifenesin/Dextromethorphan 15 ml 02/11/20 15:29 02/18/20 08:25 Guaifenesin Dm 100-10/5 Ml Udcup PO 15 ml Q4H PRN Administration Cough Amino Acids/Dextrose 2,000 mls @ 75 mls/hr 02/18/20 15:30 02/18/20 15:55 Clinimix 4.25%-5% IV 2,000 mls INF EMELI Administration Insulin Glargine 11 units/ 0.11 mls @ 0 mls/hr 02/20/20 21:00 02/27/20 21:24 Miscellaneous Medication SC Not Given HS EMELI Sodium Chloride 1,000 mls @ 25 mls/hr 02/22/20 17:45 02/27/20 18:31 Normal Saline 0.9% IV Not Given .Q24H EMELI Insulin Human Lispro 0 units 02/11/20 15:36 02/27/20 06:07 Humalog 300 Units/3 Ml Vial SC 3 units .MILD SLIDING SCALE PRN Administration Mild Correctional Scale Insulin Human Lispro 0 units 02/11/20 15:36 02/18/20 21:42 Humalog 300 Units/3 Ml Vial SC 3 unit .BEDTIME SLIDING SC PRN Administration Bedtime Correctional Scale Metformin HCl 850 mg 02/11/20 21:00 02/28/20 08:44 Metformin 850 Mg Tab PO 850 mg BID EMELI Administration Metoprolol Tartrate 25 mg 02/12/20 21:00 02/28/20 08:45 Metoprolol Tartrate 25 Mg Tab PO 25 mg BID EMELI Administration Pioglitazone HCl 15 mg 02/11/20 21:00 02/28/20 08:45 Pioglitazone Hcl 15 Mg Tab PO 15 mg BID EMELI Administration - Exam General Appearance: awake alert Heart: RRR, no murmur Respiratory - other findings: mildly coarsee with posr fine rales Gastrointestinal: soft, normal bowel sounds Extremities: no edema Hosp A/P (1) Acute respiratory failure with hypoxia Code(s): J96.01 - ACUTE RESPIRATORY FAILURE WITH HYPOXIA Status: Acute (2) Pneumonia due to COVID-19 virus Code(s): U07.1 - COVID-19; J12.89 - OTHER VIRAL PNEUMONIA Status: Acute (3) Diabetes mellitus type 2 in nonobese Code(s): E11.9 - TYPE 2 DIABETES MELLITUS WITHOUT COMPLICATIONS Status: Chronic (4) HTN (hypertension) Code(s): I10 - ESSENTIAL (PRIMARY) HYPERTENSION Status: Chronic Qualifiers: Hypertension type: essential hypertension Qualified Code(s): I10 - Essential (primary) hypertension - Plan on high flow O2,wean as possible cxr still mdemonstrates high infiltrate load DC vanc and decadron review with medical pathologist
[2020-02-28] MEDS: Sodium Chloride 0.9% 1,000 ML IV SCH (18:05)
--- NOTE | 2020-02-28 18:27 | PRG ---
DATE OF SERVICE: 02/28/2020 SUBJECTIVE: Mr. Garrison remains stable. He is 17 days into his hospitalization. He was sick for a week prior to coming to the hospital, so we will discontinue his isolation today. OBJECTIVE: VITAL SIGNS: He is afebrile. Blood pressure 133/84, heart rates in the 120 to 130 range, oximetry is 92, still on high-flow, appears reasonably comfortable. LUNGS: Unchanged. Heart: Unchanged. Abdomen: Unchanged. IMPRESSION: COVID pneumonia, still with relatively high oxygen requirements. Job ID: [id number]
[2020-02-28 19:12] LABS: Actual Bicarbonate (HCO3a) 18.4 mEq/L (22-28); Base Excess (BEa) -4.8 mEq/L (-2.0 to +3.0); CO2 Tension 29.2 mmHg (35.0-45.0); Calcium, Ionized (arterial) 1.19 mmol/L (1.12-1.30); Carboxyhemoglobin (COHb) 1.1 gm% (0.0-3.0); Hemoglobin (Hb) 13.3 g/dL (14.0-18.0); Potassium - ABG Lab 4.33 mmol/L (3.70-5.30); pH, Arterial 7.42 (7.35-7.45)
--- NOTE | 2020-02-28 19:14 | RAD ---
EXAM: CHEST ONE VIEW HISTORY: Shortness of breath. COMPARISON: 02/21/2020 FINDINGS: Cardiac silhouette is stable in size. Interstitial and alveolar opacities are again seen throughout t he lungs bilaterally not significantly changed allowing for differences in technique. No pneumothorax is seen. No other interval change. IMPRESSION: Overall stable extensive interstitial and alveolar/ground glass opacities within the lungs bilaterall y in a pattern suggestive of Covid pneumonia.
[2020-02-28] MEDS ORDERED: Rocuronium Bromide 10 MG/ML (10ML VIAL) ONE (19:17)
[2020-02-28] MEDS ORDERED: PROPOFOL 20 ML ONE (19:18)
--- NOTE | 2020-02-28 19:27 | PDOC.HOSPP ---
- Subjective Encounter Date: 02/28/20 Encounter Time: 19:25 Subjective: called for agitation, adverse hypoxia - Objective Vital Signs & Weight: Vital Signs (12 hours) Temp Pulse Ox 02/28/20 19:14 99 F 02/28/20 16:00 97.4 F L 02/28/20 12:00 98.6 F 02/28/20 09:36 96 02/28/20 08:00 98.9 F Weight Admit Weight 176 lb 8 oz Weight 176 lb 8 oz Most Recent Monitor Data Heart Rate from ECG 149 NIBP 138/77 NIBP BP-Mean 97 Respiration from ECG 48 SpO2 85 I&O: 02/27/20 02/28/20 02/29/20 06:59 06:59 06:59 Intake Total 500 660 Output Total 850 950 450 Balance -350 -290 -450 Result Diagrams: 02/28/20 03:58 02/28/20 03:58 Additional Labs: Accuchecks 02/28/20 02/28/20 02/28/20 12:00 05:16 00:31 POC Glucose 89 135 H 130 H 02/27/20 20:19 POC Glucose 109 H Hospitalist ROS - Medication Medications: Active Medications Generic Name Dose Route Start Last Admin Trade Name Freq PRN Reason Stop Dose Admin Acetaminophen 650 mg 02/11/20 15:29 02/24/20 20:03 Acetaminophen 325 Mg Tab PO 650 mg Q4H PRN Administration Headache/Fever/Mild Pain (1-3) Albuterol Sulfate 1 puff 02/12/20 19:42 02/18/20 09:05 Albuterol 200 Puff (6.7gm Inhaler) INH 1 puff Q8H PRN Administration Wheezing Aspirin 325 mg 02/12/20 09:00 02/28/20 08:45 Aspirin 325 Mg Tab PO 325 mg DAILY EMELI Administration Atorvastatin Calcium 10 mg 02/13/20 21:00 02/27/20 21:05 Atorvastatin Calcium 10 Mg Tab PO 10 mg HS EMELI Administration Benzonatate 100 mg 02/13/20 11:28 02/24/20 08:58 Benzonatate 100 Mg Cap PO 100 mg Q6H PRN Administration Cough Enoxaparin Sodium 40 mg 02/11/20 21:00 02/28/20 08:44 Enoxaparin Sodium 40 Mg/0.4 Ml Syringe SC 40 mg 0900,2100 EMELI Administration Famotidine 20 mg 02/11/20 21:00 02/28/20 08:44 Famotidine 20 Mg Tab PO 20 mg BID EMELI Administration Guaifenesin 200 mg 02/13/20 11:28 02/14/20 21:04 Diabetic Tussin 200 Mg/10 Ml Udcup PO 200 mg Q4H PRN Administration Cough Guaifenesin/Dextromethorphan 15 ml 02/11/20 15:29 02/18/20 08:25 Guaifenesin Dm 100-10/5 Ml Udcup PO 15 ml Q4H PRN Administration Cough Amino Acids/Dextrose 2,000 mls @ 75 mls/hr 02/18/20 15:30 02/18/20 15:55 Clinimix 4.25%-5% IV 2,000 mls INF EMELI Administration Insulin Glargine 11 units/ 0.11 mls @ 0 mls/hr 02/20/20 21:00 02/27/20 21:24 Miscellaneous Medication SC Not Given HS EMELI Sodium Chloride 1,000 mls @ 25 mls/hr 02/22/20 17:45 02/28/20 18:05 Normal Saline 0.9% IV Not Given .Q24H EMELI Insulin Human Lispro 0 units 02/11/20 15:36 02/27/20 06:07 Humalog 300 Units/3 Ml Vial SC 3 units .MILD SLIDING SCALE PRN Administration Mild Correctional Scale Insulin Human Lispro 0 units 02/11/20 15:36 02/18/20 21:42 Humalog 300 Units/3 Ml Vial SC 3 unit .BEDTIME SLIDING SC PRN Administration Bedtime Correctional Scale Metformin HCl 850 mg 02/11/20 21:00 02/28/20 08:44 Metformin 850 Mg Tab PO 850 mg BID EMELI Administration Metoprolol Tartrate 25 mg 02/12/20 21:00 02/28/20 08:45 Metoprolol Tartrate 25 Mg Tab PO 25 mg BID EMELI Administration Pioglitazone HCl 15 mg 02/11/20 21:00 02/28/20 08:45 Pioglitazone Hcl 15 Mg Tab PO 15 mg BID EMELI Administration - Exam General - other findings: tachypnic, anxious Neck: no JVD Heart: RRR, no murmur Heart - other findings: heart rate 150 Respiratory - other findings: coarse BS, fine rales Gastrointestinal: soft, non-tender, normal bowel sounds Extremities: no edema Hosp A/P (1) Acute respiratory failure with hypoxia Code(s): J96.01 - ACUTE RESPIRATORY FAILURE WITH HYPOXIA Status: Acute (2) Pneumonia due to COVID-19 virus Code(s): U07.1 - COVID-19; J12.89 - OTHER VIRAL PNEUMONIA Status: Acute (3) Diabetes mellitus type 2 in nonobese Code(s): E11.9 - TYPE 2 DIABETES MELLITUS WITHOUT COMPLICATIONS Status: Chr onic (4) HTN (hypertension) Code(s): I10 - ESSENTIAL (PRIMARY) HYPERTENSION Status: Chronic Qualifiers: Hypertension type: essential hypertension Qualified Code(s): I10 - E ssential (primary) hypertension - Plan ABG-pH 7.4, CO2 29, O2 44 CXR no change DX worsening respiratory failure with patient fatigue, etc discussed with candles pourer patient intubate, prone position, sedated, on vent O2 sat mid 90s, BP128/75 in person critical care 1844 to 1929
[2020-02-28] MEDS ORDERED: Propofol 1,000 MG/100 ML VIAL IV ONE (19:31)
[2020-02-28 19:41] LABS: O2 Tension (PaO2), arterial 43.9 mmHg (> 80.0)
[2020-02-28 19:43] LABS: Puncture Site LRA
[2020-02-28] MEDS ORDERED: Fentanyl BOLUS 250 ML IVPB PRN (20:15)
[2020-02-28] MEDS ORDERED: DISCONTINUE PREVIOUS NARCOTIC PAIN MEDICATIONS AND BENZODIAZEPINES FS SCH (20:15)
[2020-02-28] MEDS ORDERED: Propofol BOLUS 1,000 MG/100 ML VIAL IV PRN (20:15)
[2020-02-28] MEDS ORDERED: Morphine 2 MG/ML VIAL SLOW IVP PRN (20:15)
[2020-02-28] MEDS: Lorazepam 2 MG/ML VIAL SLOW IVP PRN (20:59)
[2020-02-28 21:22] LABS: Actual Bicarbonate (HCO3a) 15.4 mEq/L (22-28); Base Excess (BEa) -10.4 mEq/L (-2.0 to +3.0); CO2 Tension 34.3 mmHg (35.0-45.0); Calcium, Ionized (arterial) 1.18 mmol/L (1.12-1.30); Hemoglobin (Hb) 12.7 g/dL (14.0-18.0); Potassium - ABG Lab 4.27 mmol/L (3.70-5.30); pH, Arterial 7.27 (7.35-7.45)
[2020-02-28 21:26] LABS: Puncture Site LRA
[2020-02-28 21:27] LABS: ALV-art Gradient 608.125 mmHg (0-20)
[2020-02-28] MEDS: fentaNYL Citrate/PF 2,000 MCG in Sodium Chloride 0.9% 60 ML IV SCH (21:36)
[2020-02-28] MEDS ORDERED: Vecuronium 10 MG VIAL IV PRN (21:37)
[2020-02-28] MEDS ORDERED: Sterile Water 10 ML ONE (22:07)
[2020-02-28] MEDS: Insulin Glargine 11 UNITS in Pre-Filled Syringe 1 EACH SC SCH (22:11)
[2020-02-28] MEDS: Atorvastatin Calcium 10 MG TAB PO SCH (22:22)
[2020-02-29] MEDS: Metoprolol Tartrate 25 MG TAB PO SCH ×3 (00:12→21:06)
[2020-02-29] MEDS ORDERED: Sterile Water 10 ML ONE (03:23)
[2020-02-29] MEDS ORDERED: Vecuronium 10 MG VIAL ONE (03:23)
[2020-02-29] MEDS ORDERED: Sterile Water 10 ML VIAL FS PRN (03:33)
[2020-02-29] MEDS: Propofol 1,000 MG/100 ML VIAL IV PRN ×2 (03:57→14:20)
[2020-02-29] MEDS: HumaLOG 300 UNITS/3 ML VIAL SC PRN ×4 (06:16→21:05)
[2020-02-29] MEDS: Lorazepam 2 MG/ML VIAL SLOW IVP PRN ×3 (07:19→23:18)
[2020-02-29] MEDS: Vecuronium 10 MG VIAL IV PRN (07:24)
[2020-02-29] MEDS: fentaNYL Citrate/PF 2,000 MCG in Sodium Chloride 0.9% 60 ML IV SCH (08:07)
[2020-02-29 09:00] LABS: Actual Bicarbonate (HCO3a) 20.2 mEq/L (22-28); Analyzer IN Cardio ER; Base Excess (BEa) -7.9 mEq/L (-2.0 to +3.0); CO2 Tension 52.9 mmHg (35.0-45.0); Calcium, Ionized (arterial) 1.19 mmol/L (1.12-1.30); Carboxyhemoglobin (COHb) 0.6 gm% (0.0-3.0); O2 Tension (PaO2), arterial 74.5 mmHg (> 80.0)
[2020-02-29 09:12] LABS: ALV-art Gradient 422.645 mmHg (0-20); Puncture Site RRA
[2020-02-29] MEDS: Famotidine 20 MG TAB PO SCH ×2 (09:24→21:06)
[2020-02-29] MEDS: Enoxaparin Sodium 40 MG/0.4 ML SYRINGE SC SCH ×2 (09:24→21:06)
[2020-02-29] MEDS: Aspirin 325 MG TAB PO SCH (09:24)
--- NOTE | 2020-02-29 09:36 | RAD ---
Chest one view HISTORY: Dyspnea. COMPARISON: 02/28/2020. FINDINGS: Cardiac silhouette is magnified by projection and now more obscured by significant worsenin g of widespread interstitial infiltrate. Mediastinum is midline. Tip of an endotracheal catheter is just above the level of the bhavani. Nasogastric tube is coiled within the stomach. Pulmonary vasculature more engorged. Widespread air bronchograms. No evidence of pneumothorax. IMPRESSION : Endotracheal catheter is in good radiographic position. Significant interval worsening of widespread airspace and interstitial opacity and pulmonary edema.
[2020-02-29] MEDS: Pioglitazone HCl 15 MG TAB PO SCH ×2 (10:09→21:06)
[2020-02-29] MEDS: metFORMIN 850 MG TAB PO SCH ×2 (10:10→21:08)
--- NOTE | 2020-02-29 10:10 | PRG ---
DATE OF SERVICE: 02/29/2020 SUBJECTIVE: A 59-year-old gentleman, remains intubated in the vent, day #18. He is prone this morning. OBJECTIVE: VITAL SIGNS: Saturations are 94%, pulse 153, blood pressure 130/80, respirations 20. CHEST: Rhonchi, crackles. CARDIAC: Sinus tach. ABDOMEN: No masses. LABORATORY AND IMAGING STUDIES: X-ray shows diffuse infiltrates. His pO2 was 74, pCO2 of on a bilevel. ASSESSMENT: Arana positive pneumonia, respiratory failure, azotemia. PLAN: The patient is probably going to require trach and a PEG in the next several days. I am going to restart steroids on him. He is not weanable at this stage. One-half hour of critical time. Job ID: [id number]
[2020-02-29 11:58] LABS: Actual Bicarbonate (HCO3a) 12.4 mEq/L (22-28); Base Excess (BEa) -15.6 mEq/L (-2.0 to +3.0); Calcium, Ionized (arterial) 1.11 mmol/L (1.12-1.30); Carboxyhemoglobin (COHb) 0.6 gm% (0.0-3.0); Hemoglobin (Hb) 12.2 g/dL (14.0-18.0); Potassium - ABG Lab 7.59 mmol/L (3.70-5.30)
[2020-02-29 12:00] LABS: Puncture Site RFA; pH, Arterial 7.14 (7.35-7.45)
[2020-02-29] MEDS ORDERED: Dextrose 50% Abboject 50 ML SYRINGE ONE (12:02)
[2020-02-29] MEDS ORDERED: Albuterol Sulfate 2.5 mg/0.5 ml Neb ONE (12:03)
[2020-02-29] MEDS ORDERED: Insulin Regular 300 UNITS/3 ML VIAL ONE (12:03)
[2020-02-29] MEDS ORDERED: Norepinephrine 4 MG/4 ML VIAL ONE (12:36)
[2020-02-29] MEDS ORDERED: Norepinephrine 8 MG/0.9% NS 250 ML IVPB SCH (12:45)
[2020-02-29] MEDS: Norepinephrine 8 MG in Dextrose 5% in Water 242 ML IVPB SCH (13:00)
[2020-02-29] MEDS: Sodium Chloride 0.9% 1,000 ML IV SCH ×2 (13:00→18:49)
[2020-02-29] MEDS ORDERED: Norepinephrine 8 MG in Sodium Chloride 0.9% 250 ML 242 ML IVPB SCH (13:00)
[2020-02-29 13:41] LABS: Anion Gap 20 mmol/L (10-20); BUN (Urea Nitrogen) 28 mg/dL (8.4-25.7); Calc. Creatinine Clearance 61 mL/min (70-130); Calcium 8.4 mg/dL (7.8-10.44); Carbon Dioxide 16 mmol/L (23-31); Chloride 110 mmol/L (98-107); Glucose 286 mg/dL (80-115); Potassium 4.9 mmol/L (3.5-5.1); Sodium 141 mmol/L (136-145)
[2020-02-29 13:53] LABS: Actual Bicarbonate (HCO3a) 15.2 mEq/L (22-28); Base Excess (BEa) -8.7 mEq/L (-2.0 to +3.0); CO2 Tension 26.4 mmHg (35.0-45.0); Calcium, Ionized (arterial) 1.22 mmol/L (1.12-1.30); Carboxyhemoglobin (COHb) 0.3 gm% (0.0-3.0); Hemoglobin (Hb) 9.9 g/dL (14.0-18.0); O2 Tension (PaO2), arterial 70.9 mmHg (> 80.0); Potassium - ABG Lab 4.56 mmol/L (3.70-5.30); pH, Arterial 7.38 (7.35-7.45)
[2020-02-29 13:54] LABS: Puncture Site Arterial Line
--- NOTE | 2020-02-29 13:56 | PDOC.HOSPP ---
- Subjective Encounter Date: 02/29/20 Encounter Time: 13:55 Subjective: intubated, sedated - Objective Vital Signs & Weight: Vital Signs (12 hours) Temp Pulse Resp BP Pulse Ox 02/29/20 10:26 151 H 106/58 L 02/29/20 08:24 150 H 86/61 L 02/29/20 08:00 99.1 F 16 95 02/29/20 06:00 16 02/29/20 04:00 99.1 F 16 02/29/20 02:27 139 H 02/29/20 02:00 16 Weight Admit Weight 176 lb 8 oz Weight 176 lb 8 oz Most Recent Monitor Data Heart Rate from ECG 155 NIBP 92/59 NIBP BP-Mean 74 Respiration from ECG 20 SpO2 96 I&O: 02/28/20 02/29/20 03/01/20 06:59 06:59 06:59 Intake Total 660 2475.9 144.6 Output Total 950 880 235 Balance -290 1595.9 -90.4 Result Diagrams: 02/28/20 03:58 02/29/20 12:56 Additional Labs: Accuchecks 02/29/20 02/28/20 06:11 22:11 POC Glucose 253 H 211 H Radiology Reviewed by me: Yes (CXR- adverse infiltrates, ET tube) Hospitalist ROS - Medication Medications: Active Medications Generic Name Dose Route Start Last Admin Trade Name Freq PRN Reason Stop Dose Admin Acetaminophen 650 mg 02/11/20 15:29 02/24/20 20:03 Acetaminophen 325 Mg Tab PO 650 mg Q4H PRN Administration Headache/Fever/Mild Pain (1-3) Acetaminophen 650 mg 02/11/20 15:29 02/28/20 22:35 Acetaminophen 650 Mg Suppository [place] 650 mg Q4H PRN Administration Headache/Fever/Mild Pain (1-3) Albuterol Sulfate 1 puff 02/12/20 19:42 02/18/20 09:05 Albuterol 200 Puff (6.7gm Inhaler) INH 1 puff Q8H PRN Administration Wheezing Aspirin 325 mg 02/12/20 09:00 02/29/20 09:24 Aspirin 325 Mg Tab PO 325 mg DAILY EMELI Administration Atorvastatin Calcium 10 mg 02/13/20 21:00 02/28/20 22:22 Atorvastatin Calcium 10 Mg Tab PO 10 mg HS EMELI Administration Benzonatate 100 mg 02/13/20 11:28 02/24/20 08:58 Benzonatate 100 Mg Cap PO 100 mg Q6H PRN Administration Cough Enoxaparin Sodium 40 mg 02/11/20 21:00 02/29/20 09:24 Enoxaparin Sodium 40 Mg/0.4 Ml Syringe SC 40 mg 0900,2100 EMELI Administration Famotidine 20 mg 02/11/20 21:00 02/29/20 09:24 Famotidine 20 Mg Tab PO 20 mg BID EMELI Administration Guaifenesin 200 mg 02/13/20 11:28 02/14/20 21:04 Diabetic Tussin 200 Mg/10 Ml Udcup PO 200 mg Q4H PRN Administration Cough Guaifenesin/Dextromethorphan 15 ml 02/11/20 15:29 02/18/20 08:25 Guaifenesin Dm 100-10/5 Ml Udcup PO 15 ml Q4H PRN Administration Cough Amino Acids/Dextrose 2,000 mls @ 75 mls/hr 02/18/20 15:30 02/18/20 15:55 Clinimix 4.25%-5% IV 2,000 mls INF EMELI Administration Insulin Glargine 11 units/ 0.11 mls @ 0 mls/hr 02/20/20 21:00 02/28/20 22:11 Miscellaneous Medication SC 0.11 mls HS EMELI Administration Sodium Chloride 1,000 mls @ 25 mls/hr 02/22/20 17:45 02/28/20 18:05 Normal Saline 0.9% IV Not Given .Q24H EMELI Fentanyl Citrate 2,000 mcg/ 100 mls @ 0 mls/hr 02/28/20 20:15 02/29/20 08:07 Sodium Chloride IV 03/29/20 20:15 100 mls INF EMELI Administration Protocol Per Protocol Insulin Human Lispro 0 units 02/11/20 15:36 02/29/20 06:16 Humalog 300 Units/3 Ml Vial SC 3 units .MILD SLIDING SCALE PRN Administration Mild Correctional Scale Insulin Human Lispro 0 units 02/11/20 15:36 02/18/20 21:42 Humalog 300 Units/3 Ml Vial SC 3 unit .BEDTIME SLIDING SC PRN Administration Bedtime Correctional Scale Lorazepam 2 mg 02/28/20 20:15 02/29/20 07:19 Lorazepam 2 Mg/Ml Vial SLOW IVP 03/29/20 20:15 2 mg Q1H PRN Administration Breakthrough agitation Metformin HCl 850 mg 02/11/20 21:00 02/29/20 10:10 Metformin 850 Mg Tab PO 850 mg BID EMELI Administration Metoprolol Tartrate 25 mg 02/12/20 21:00 02/29/20 09:25 Metoprolol Tartrate 25 Mg Tab PO 25 mg BID EMELI Administration Pioglitazone HCl 15 mg 02/11/20 21:00 02/29/20 10:09 Pioglitazone Hcl 15 Mg Tab PO 15 mg BID EMELI Administration Propofol 1,000 mg 02/28/20 20:15 02/29/20 03:57 Propofol 1,000 Mg/100 Ml Vial IV 03/29/20 20:15 1,000 mg INF PRN Administration TO ACHIEVE GOAL RASS Protocol Sodium Chloride 10 ml 02/29/20 09:00 02/29/20 10:10 Flush - Normal Saline 10 Ml Syringe IVF 10 ml Q12HR EMELI Administration Vecuronium [place] 10 mg 02/29/20 03:31 02/29/20 07:24 Vecuronium 10 Mg Vial IV 10 mg Q1H PRN Administration PRONE - Exam Neck: no JVD Heart: RRR, no murmur Respiratory - other findings: coarse BS, non focal Gastrointestinal: soft, non-distended, normal bowel sounds Extremities: no edema Hosp A/P (1) Acute respiratory failure with hypoxia Code(s): J96.01 - ACUTE RESPIRATORY FAILURE WITH HYPOXIA Status: Acute (2) Pneumonia due to COVID-19 virus Code(s): U07.1 - COVID-19; J12.89 - OTHER VIRAL PNEUMONIA Status: Acute (3) Diabetes mellitus type 2 in nonobese Code(s): E11.9 - TYPE 2 DIABETES MELLITUS WITHOUT COMPLICATIONS Status: Chronic (4) HTN (hypertension) Code(s): I10 - ESSENTIAL (PRIMARY) HYPERTENSION Status: Chronic Qualifiers: Hypertension type: essential hypertension Qualified Code(s): I10 - Essential (primary) hypertension (5) Acute renal failure Status: Resolved (6) Sinus tachycardia Code(s): R00.0 - TACHYCARDIA, UNSPECIFIED Status: Resolved - Plan !. covid PNA-acute decompensation requiring intubation , ventilation 2. acute decompensation , see above 3. Acute renal failure 5. sinus tachycardia 6. ECHO, cardiology consult discussed with Pulmonology, prognosis guarded. spoke with family
[2020-02-29] MEDS: methylPREDNISolone Sod Succ 40 MG VIAL IVP SCH ×3 (13:59→23:18)
--- NOTE | 2020-02-29 14:00 | CON ---
DATE OF CONSULTATION: 02/29/2020 INDICATION FOR CONSULTATION: A 59-year-old patient with COVID pneumonia in the intensive care unit, who suddenly became hypotensive, had EKG changes, also had hyperkalemia, most likely due to hypoperfusion. At this time, he is in the intensive care unit on the ventilator. HISTORY OF PRESENT ILLNESS: This is a very unfortunate 59-year-old gentleman, had been sick for several days prior to be admitted to the hospital. He had tested positive about 8 days prior to his admission. He has been admitted to the hospital and has been medically managed since that time, but required intubation today. He also has multiple risk factors for coronary artery disease, which include diabetes, hypertension, and dyslipidemia. His family denies any previous history of coronary artery disease that they are aware of. At this time, he did undergo an echocardiogram, which shows initial report with ejection fraction about 40% to 45%, but he is tachycardic, sinus tach, heart rates in the 130s up to 150, where it makes it difficult to clearly interpret the echocardiogram. Blood pressure is slightly improved now that he has been placed on Levophed. We will try to give the patient some beta-blockers in order to decrease the heart rate. PAST MEDICAL HISTORY: Essentially positive for the diabetes, hypertension, and dyslipidemia. SOCIAL HISTORY: He has no history of alcohol or tobacco abuse. He is . He has children, who are alive and well. FAMILY HISTORY: Unremarkable. REVIEW OF SYSTEMS: The patient is on the ventilator. There are no complaints from the family that he has any significant review of system abnormalities. PHYSICAL EXAMINATION: GENERAL: Reveals an obviously ill-appearing gentleman. VITAL SIGNS: Blood pressure at this time 91/56, earlier it was in the 60s systolically. Heart rate is 135, it shows a sinus tachycardia. His arterial pressure actually is 95/56 after placement of arterial line. Respiratory rate is about 28. O2 saturation is about 98% on the ventilator. HEENT: Unremarkable. Carotid pulses are present. I did not hear any bruits. CHEST: Has diffuse rhonchi throughout. CARDIOVASCULAR: Reveals tachycardia. I did not hear any gross murmurs. ABDOMEN: Soft. EXTREMITIES: Show no clubbing, cyanosis, or edema. NEUROLOGIC: He is grossly intact. There are no gross focal motor deficits noted. However, again the patient is sedated and on the ventilator. LABORATORY DATA: His WBC is 10.8, hemoglobin is 12, platelet count is 320,000. His sodium is 134, potassium yesterday was 4.2. He did have a potassium elevated today. Today around 11:50 in the morning, his blood gases indicate potassium of 7.59, his pH was 7.14, PO2 was 82, O2 saturation was 93%, pCO2 was 37. His EKG prior to the events today showed sinus tachycardia with no acute abnormalities. Today when he had hyperkalemia and also the tachycardia and decrease in the blood pressure, the EKG did have some changes with some widening of the QRS complex and what appeared to be an atrial fibrillation with ST-segment changes, but this could all be due to the tachycardia with the hyperkalemia. Once the blood pressure stabilizes and the potassium, then most likely, these changes will improve. There is no indication that he has suffered a myocardial infarction. IMPRESSION: 1. A 59-year-old patient with severe COVID pneumonia, which has not responded to medical management. He is now on the ventilator and prognosis is very grave. 2. History of abnormal EKG with hyperkalemia and tachycardia. I have placed a central line in this patient and also an arterial line. We can probably monitor him better, but we will try to increase the blood pressure by giving him Levophed and then we will add beta blockers if his blood pressure tolerates in order to slow down the heart rate, it does appear to be a sinus tachycardia. We will continue to monitor the patient with you, but overall prognosis is actually very poor at this time in this very ill patient. Job ID: [id number] [facility], [place]
[2020-02-29] MEDS ORDERED: Calcium Chloride 1 GM/10 ML Abboject SYRINGE ONE (14:17)
[2020-02-29] MEDS ORDERED: Sodium Chloride 0.9% 1,000 ML IV SCH (14:45)
[2020-02-29] MEDS: Atorvastatin Calcium 10 MG TAB PO SCH (21:06)
[2020-02-29] MEDS: Insulin Glargine 11 UNITS in Pre-Filled Syringe 1 EACH SC SCH (21:06)
[2020-02-29] MEDS: Acetaminophen 325 MG TAB PO PRN (21:13)
[2020-03-01] MEDS: Sodium Chloride 0.9% 1,000 ML IV SCH ×3 (00:12→20:44)
[2020-03-01] MEDS: fentaNYL Citrate/PF 2,000 MCG in Sodium Chloride 0.9% 60 ML IV SCH ×2 (01:54→21:29)
[2020-03-01] MEDS: Lorazepam 2 MG/ML VIAL SLOW IVP PRN ×3 (03:00→10:22)
[2020-03-01] MEDS: HumaLOG 300 UNITS/3 ML VIAL SC PRN ×2 (04:01→18:07)
[2020-03-01 04:57] LABS: #Lymphocytes 0.6 thou/uL (1.20-3.40); #Monocytes 0.4 thou/uL (0.11-0.59); #Neutrophils 9.8 thou/uL (1.40-6.50); %Eosinophils 0.1 % (0.0-10.0); %Lymphocytes 5.3 % (21.0-51.0); %Monocytes 3.7 % (0.0-10.0); Hemoglobin 10.1 g/dL (14.0-18.0); Mean Corpuscular HGB CONC 32.1 g/dL (32.0-36.0); Mean Corpuscular Hemoglobin 27.7 pg (27.0-31.0); Mean Corpuscular Volume 86.3 fL (78.0-98.0); Mean Platelet Volume 8.6 fL (7.4-10.4); Platelet Count 269 thou/uL (130-400); RBC Distribution Width 14.6 % (11.5-14.5); Red Blood Cell (RBC) Count 3.63 mill/uL (4.70-6.10); White Blood Cell (WBC) Count 10.8 thou/uL (4.8-10.8)
[2020-03-01 05:12] LABS: Anion Gap 17 mmol/L (10-20); BUN (Urea Nitrogen) 33 mg/dL (8.4-25.7); Calc. Creatinine Clearance 53 mL/min (70-130); Calcium 7.7 mg/dL (7.8-10.44); Carbon Dioxide 17 mmol/L (23-31); Chloride 112 mmol/L (98-107); Glucose 210 mg/dL (80-115); Potassium 4.5 mmol/L (3.5-5.1); Sodium 141 mmol/L (136-145)
[2020-03-01] MEDS: Propofol 1,000 MG/100 ML VIAL IV PRN ×2 (05:34→21:15)
[2020-03-01] MEDS: methylPREDNISolone Sod Succ 40 MG VIAL IVP SCH ×3 (05:34→18:00)
[2020-03-01 08:13] LABS: Actual Bicarbonate (HCO3a) 17.3 mEq/L (22-28); Base Excess (BEa) -5.9 mEq/L (-2.0 to +3.0); CO2 Tension 26.5 mmHg (35.0-45.0); Calcium, Ionized (arterial) 1.18 mmol/L (1.12-1.30); Carboxyhemoglobin (COHb) 0.7 gm% (0.0-3.0); Hemoglobin (Hb) 10.1 g/dL (14.0-18.0); Potassium - ABG Lab 4.13 mmol/L (3.70-5.30); pH, Arterial 7.43 (7.35-7.45)
[2020-03-01 08:16] LABS: O2 Tension (PaO2), arterial 43.7 mmHg (> 80.0); Puncture Site RRA
[2020-03-01 08:17] LABS: ALV-art Gradient 457.925 mmHg (0-20)
[2020-03-01] MEDS: metFORMIN 850 MG TAB PO SCH ×2 (09:18→21:44)
[2020-03-01] MEDS: Aspirin 325 MG TAB PO SCH (09:18)
[2020-03-01] MEDS: Famotidine 20 MG TAB PO SCH ×2 (09:18→20:44)
[2020-03-01] MEDS: Enoxaparin Sodium 40 MG/0.4 ML SYRINGE SC SCH ×2 (09:18→20:43)
[2020-03-01] MEDS: Metoprolol Tartrate 25 MG TAB PO SCH ×2 (09:18→20:44)
[2020-03-01] MEDS: Pioglitazone HCl 15 MG TAB PO SCH ×2 (09:31→20:44)
--- NOTE | 2020-03-01 09:40 | RAD ---
EXAM: Chest one view: HISTORY: Respiratory insufficiency COMPARISON: 02/29/2020 FINDINGS: Endotracheal tube just above the level of the bhavani, stable. Heart size: Within normal limits. Lungs: Extensive bilateral interstitial, alveolar, and groundglass opacity changes evidence for exten sive stable bilateral Covid pneumonia. No pneumothorax. IMPRESSION: Extensive stable bilateral Covid pneumonia. Continued short-term follow-up.
[2020-03-01] MEDS: cefTRIAXone\\ROCEPHIN 1 GM in Sodium Chloride 0.9% 100 ML IVPB SCH (10:01)
--- NOTE | 2020-03-01 10:14 | PRG ---
DATE OF SERVICE: 03/01/2020 SUBJECTIVE: Josesito Garrison is a 59-year-old male, intubated, on the vent, with progressive respiratory failure. He is day #18 in the hospital now. Remains sedated. He had issues with cardiac arrhythmia yesterday, elevated potassium yesterday. OBJECTIVE: VITAL SIGNS: His temperature is 100.5, pulse 102, blood pressure 170/66, sats 98%. CHEST: Rhonchi and crackles. CARDIAC: Sinus tach. ABDOMEN: Soft. LABORATORY DATA: White count 10,000, H and H 10 and 31, platelet count is 269. His pO2 is 43, pCO2 of 27, pH 7.43, on a bilevel 37/5, PEEP of 5, pressure support of 10. Creatinine 1.6, BUN 33, potassium 4.5. X-ray still shows extensive diffuse haziness. IMPRESSION: 1. Respiratory failure. 2. Azotemia. 3. Cardiac arrhythmia. 4. Elevated potassium. 5. Arana positive status. PLAN: The patient, at this stage, is not weanable. He had issues with cardiac problems once he was proned. I keep him supine for the next 24 hours, may consider proning thereafter. In the meantime, steroids at high dose, empiric antibiotics, supportive care. One-half hour of critical care time. Job ID: [id number]
[2020-03-01] MEDS: Vecuronium 10 MG VIAL IV PRN ×2 (10:24→15:49)
--- NOTE | 2020-03-01 11:32 | PRG ---
DATE OF SERVICE: 03/01/2020 SUBJECTIVE: Mr. Garrison remains intubated on the ventilator, currently sedated. OBJECTIVE: VITAL SIGNS: Blood pressure 130/60, pulse is 120, sinus tachycardia. LUNGS: No wheezing or rales. ABDOMEN: Soft, nontender. ASSESSMENT: 1. COVID pneumonia. 2. Sinus tachycardia. The patient continues to not do well. Supportive therapy at this time. No other recommendations. Job ID: [id number]
[2020-03-01] MEDS: Norepinephrine 8 MG in Dextrose 5% in Water 242 ML IVPB SCH (13:50)
[2020-03-01] MEDS: Acetaminophen 325 MG TAB PO PRN ×2 (16:19→23:19)
--- NOTE | 2020-03-01 18:50 | PDOC.HOSPP ---
- Subjective Encounter Date: 03/01/20 non-verbal Subjective: Intubated, sedated. - Objective Vital Signs & Weight: Vital Signs (12 hours) Temp Pulse Resp BP Pulse Ox 03/01/20 18:33 119 H 03/01/20 18:00 98.8 F 03/01/20 17:59 98.8 F 03/01/20 16:19 101.0 F H 03/01/20 16:00 101.0 F H 03/01/20 15:41 115 H 114/56 L 03/01/20 14:00 20 03/01/20 12:00 99.9 F H 20 03/01/20 11:18 123 H 132/68 89 L 03/01/20 10:00 20 03/01/20 08:03 102 H 117/66 03/01/20 08:00 100.0 F H 25 H Weight Admit Weight 176 lb 8 oz Weight 176 lb 8 oz Most Recent Monitor Data Heart Rate from ECG 118 NIBP 112/70 NIBP BP-Mean 82 Respiration from ECG 20 SpO2 92 I&O: 02/29/20 03/01/20 03/02/20 06:59 06:59 06:59 Intake Total 2475.9 4295.6 1752 Output Total 880 945 667 Balance 1595.9 3350.6 1085 Result Diagrams: 03/01/20 03:55 03/01/20 03:55 Additional Labs: Accuchecks 03/01/20 03/01/20 03/01/20 18:03 12:43 03:57 POC Glucose 166 H 171 H 214 H 02/29/20 21:04 POC Glucose 222 H Hospitalist ROS - Medication Medications: Active Medications Generic Name Dose Route Start Last Admin Trade Name Freq PRN Reason Stop Dose Admin Acetaminophen 650 mg 02/11/20 15:29 03/01/20 16:19 Acetaminophen 325 Mg Tab PO 650 mg Q4H PRN Administration Headache/Fever/Mild Pain (1-3) Acetaminophen 650 mg 02/11/20 15:29 02/28/20 22:35 Acetaminophen 650 Mg Suppository [place] 650 mg Q4H PRN Administration Headache/Fever/Mild Pain (1-3) Albuterol Sulfate 1 puff 02/12/20 19:42 02/18/20 09:05 Albuterol 200 Puff (6.7gm Inhaler) INH 1 puff Q8H PRN Administration Wheezing Aspirin 325 mg 02/12/20 09:00 03/01/20 09:18 Aspirin 325 Mg Tab PO 325 mg DAILY EMELI Administration Atorvastatin Calcium 10 mg 02/13/20 21:00 02/29/20 21:06 Atorvastatin Calcium 10 Mg Tab PO 10 mg HS EMELI Administration Benzonatate 100 mg 02/13/20 11:28 02/24/20 08:58 Benzonatate 100 Mg Cap PO 100 mg Q6H PRN Administration Cough Enoxaparin Sodium 40 mg 02/11/20 21:00 03/01/20 09:18 Enoxaparin Sodium 40 Mg/0.4 Ml Syringe SC 40 mg 0900,2100 EMELI Administration Famotidine 20 mg 02/11/20 21:00 03/01/20 09:18 Famotidine 20 Mg Tab PO 20 mg BID EMELI Administration Guaifenesin 200 mg 02/13/20 11:28 02/14/20 21:04 Diabetic Tussin 200 Mg/10 Ml Udcup PO 200 mg Q4H PRN Administration Cough Guaifenesin/Dextromethorphan 15 ml 02/11/20 15:29 02/18/20 08:25 Guaifenesin Dm 100-10/5 Ml Udcup PO 15 ml Q4H PRN Administration Cough Amino Acids/Dextrose 2,000 mls @ 75 mls/hr 02/18/20 15:30 02/18/20 15:55 Clinimix 4.25%-5% IV 2,000 mls INF EMELI Administration Insulin Glargine 11 units/ 0.11 mls @ 0 mls/hr 02/20/20 21:00 02/29/20 21:06 Miscellaneous Medication SC 0.11 mls HS EMELI Administration Fentanyl Citrate 2,000 mcg/ 100 mls @ 0 mls/hr 02/28/20 20:15 03/01/20 01:54 Sodium Chloride IV 03/29/20 20:15 100 mls INF EMELI Administration Protocol Per Protocol Norepinephrine Bitartrate 8 mg 250 mls @ 0 mls/hr 02/29/20 13:00 03/01/20 13:50 / Dextrose/Water IVPB 250 mls INF EMELI Administration Protocol Titrate Sodium Chloride 1,000 mls @ 100 mls/hr 02/29/20 14:45 03/01/20 09:36 Normal Saline 0.9% IV 1,000 mls .Q10H EMELI Administration Ceftriaxone Sodium 1 gm/ 100 mls @ 200 mls/hr 03/01/20 09:30 03/01/20 10:01 Sodium Chloride IVPB 100 mls Q24HR EMELI Administration Insulin Human Lispro 0 units 02/11/20 15:36 03/01/20 18:07 Humalog 300 Units/3 Ml Vial SC 2 units .MILD SLIDING SCALE PRN Administration Mild Correctional Scale Insulin Human Lispro 0 units 02/11/20 15:36 02/18/20 21:42 Humalog 300 Units/3 Ml Vial SC 3 unit .BEDTIME SLIDING SC PRN Administration Bedtime Correctional Scale Lorazepam 2 mg 02/28/20 20:15 03/01/20 10:22 Lorazepam 2 Mg/Ml Vial SLOW IVP 03/29/20 20:15 2 mg Q1H PRN Administration Breakthrough agitation Metformin HCl 850 mg 02/11/20 21:00 03/01/20 09:18 Metformin 850 Mg Tab PO 850 mg BID EMELI Administration Methylprednisolone Sodium Succinate 40 mg 02/29/20 12:00 03/01/20 18:00 Methylprednisolone Sod Succ 40 Mg Vial IVP 40 mg Q6HR EMELI Administration Metoprolol Tartrate 25 mg 02/12/20 21:00 03/01/20 09:18 Metoprolol Tartrate 25 Mg Tab PO 25 mg BID EMELI Administration Pioglitazone HCl 15 mg 02/11/20 21:00 03/01/20 09:31 Pioglitazone Hcl 15 Mg Tab PO 15 mg BID EMELI Administration Propofol 1,000 mg 02/28/20 20:15 03/01/20 05:34 Propofol 1,000 Mg/100 Ml Vial IV 03/29/20 20:15 1,000 mg INF PRN Administration TO ACHIEVE GOAL RASS Protocol Sodium Chloride 10 ml 02/29/20 09:00 03/01/20 09:31 Flush - Normal Saline 10 Ml Syringe IVF 10 ml Q12HR EMELI Administration Vecuronium [place] 10 mg 02/29/20 03:31 03/01/20 15:49 Vecuronium 10 Mg Vial IV 10 mg Q1H PRN Administration PRONE - Exam General Appearance: NAD General - other findings: Intubated. Heart: RRR, no murmur, no gallops, no rubs, normal peripheral pulses Respiratory: rales (Scattered.) Gastrointestinal: soft, non-distended Extremities: no cyanosis, no clubbing, no edema Hosp A/P (1) Acute respiratory failure with hypoxia Code(s): J96.01 - ACUTE RESPIRATORY FAILURE WITH HYPOXIA Status: Acute (2) Pneumonia due to COVID-19 virus Code(s): U07.1 - COVID-19; J12.89 - OTHER VIRAL PNEUMONIA Status: Acute (3) Diabetes mellitus type 2 in nonobese Code(s): E11.9 - TYPE 2 DIABETES MELLITUS WITHOUT COMPLICATIONS Status: Chronic (4) HTN (hypertension) Code(s): I10 - ESSENTIAL (PRIMARY) HYPERTENSION Status: Chronic Qualifiers: Hypertension type: essential hypertension Qualified Code(s): I10 - Essential (primary) hypertension (5) Acute renal failure Status: Resolved (6) Sinus tachycardia Code(s): R00.0 - TACHYCARDIA, UNSPECIFIED Status: Resolved - Plan Acute hypoxic respiratory failure: Patient remains ventilated with no opportunity for weaning at this time. Pulmonology following. Prognosis is generally grim. Discussed with the patient's . COVID-19 pneumonia: Patient is status post convalescent plasma. On Solu-Medrol. Acute worsening of chronic kidney disease stage II: GFR improved but is subsequently declining. Diabetes mellitus: Continue sliding scale insulin and Accu-Cheks. Tachycardia: Sinus rhythm. Appreciate cardiology input.
[2020-03-01] MEDS: Atorvastatin Calcium 10 MG TAB PO SCH (20:44)
[2020-03-01] MEDS: Insulin Glargine 11 UNITS in Pre-Filled Syringe 1 EACH SC SCH (21:44)
[2020-03-02] MEDS: methylPREDNISolone Sod Succ 40 MG VIAL IVP SCH ×4 (00:04→17:50)
[2020-03-02 04:57] LABS: Anion Gap 15 mmol/L (10-20); BUN (Urea Nitrogen) 39 mg/dL (8.4-25.7); Calc. Creatinine Clearance 51 mL/min (70-130); Calcium 7.4 mg/dL (7.8-10.44); Carbon Dioxide 17 mmol/L (23-31); Chloride 113 mmol/L (98-107); Glucose 128 mg/dL (80-115); Potassium 4.8 mmol/L (3.5-5.1); Sodium 140 mmol/L (136-145)
[2020-03-02] MEDS: Sodium Chloride 0.9% 1,000 ML IV SCH ×2 (05:30→19:26)
[2020-03-02 05:44] LABS: Mean Corpuscular HGB CONC 30.9 g/dL (32.0-36.0); Mean Corpuscular Hemoglobin 26.8 pg (27.0-31.0); Mean Corpuscular Volume 86.9 fL (78.0-98.0); Mean Platelet Volume 8.7 fL (7.4-10.4); Platelet Count 260 thou/uL (130-400); RBC Distribution Width 14.9 % (11.5-14.5); Red Blood Cell (RBC) Count 3.72 mill/uL (4.70-6.10); White Blood Cell (WBC) Count 3.5 thou/uL (4.8-10.8)
[2020-03-02 06:28] LABS: Band 67 % (5-11); Burr Cells MODERATE= 6-15 cells (100X) (0-1/hpf); Lymphocytes 7 % (21-51); MDiff Complete? YES; Metamyelocyte 15 % (0-0); Monocytes 1 % (0-10); Myelocyte 2 % (0-0); Neutrophil 8 % (42-75); Nucleated RBC 6 % (0); Reflex for Review?? YES
[2020-03-02] MEDS: Metoprolol Tartrate 25 MG TAB PO SCH ×2 (08:33→21:38)
[2020-03-02] MEDS: Acetaminophen 325 MG TAB PO PRN (08:33)
[2020-03-02] MEDS: metFORMIN 850 MG TAB PO SCH ×2 (08:33→21:51)
[2020-03-02] MEDS: Enoxaparin Sodium 40 MG/0.4 ML SYRINGE SC SCH ×2 (08:33→21:37)
--- NOTE | 2020-03-02 08:40 | RAD ---
Chest one view HISTORY: Dyspnea. Pneumonia. Follow-up. COMPARISON: 03/01/2020. FINDINGS: Cardiac silhouette is magnified by projection. Pulmonary vasculature are likely engorged. Prominent patchy ill-defined areas of parenchymal infiltrate throughout each lung are again demonstra lynnette, partially obscuring the apex of the left hemidiaphragm. Mediastinum is midline. Tip of endotracheal catheter now overlies the mid trachea just below the leve l of the clavicular heads. Nasogastric tube unchanged in position. No evidence of pneumothorax. IMPRESSION : Endotracheal catheter in good radiographic position. Bilateral infiltrates and other findings are otherwise stable.
[2020-03-02] MEDS: Aspirin 325 MG TAB PO SCH (08:41)
[2020-03-02] MEDS: Famotidine 20 MG TAB PO SCH ×2 (08:41→21:38)
[2020-03-02] MEDS: Pioglitazone HCl 15 MG TAB PO SCH ×2 (08:45→21:38)
[2020-03-02] MEDS: cefTRIAXone\\ROCEPHIN 1 GM in Sodium Chloride 0.9% 100 ML IVPB SCH (08:45)
[2020-03-02] MEDS ORDERED: Vancomycin HCl 1.25 GM in Sodium Chloride 0.9% 250 ML 250 ML IVPB SCH (09:00)
[2020-03-02 09:02] LABS: Base Excess (BEa) -9.3 mEq/L (-2.0 to +3.0); CO2 Tension 27.4 mmHg (35.0-45.0); Calcium, Ionized (arterial) 1.08 mmol/L (1.12-1.30); Carboxyhemoglobin (COHb) 0.7 gm% (0.0-3.0); Hemoglobin (Hb) 9.5 g/dL (14.0-18.0); Potassium - ABG Lab 4.51 mmol/L (3.70-5.30); pH, Arterial 7.36 (7.35-7.45)
[2020-03-02 09:33] LABS: O2 Tension (PaO2), arterial 46.3 mmHg (> 80.0)
[2020-03-02 09:34] LABS: Puncture Site Arterial Line
--- NOTE | 2020-03-02 09:34 | PRG ---
DATE OF SERVICE: 03/02/2020 SUBJECTIVE: Josesitodavid Garrison this morning intubated on the vent. No longer hypotensive. He is off the Levophed. His temperature was 103.2. He has a new 48-hour central line and A-line put in by Cardiology for erratic cardiac arrhythmias. OBJECTIVE: VITAL SIGNS: Blood pressure 121/61, sats are 90%, respiratory rate 18. CHEST: Rhonchi, crackles. CARDIAC: Sinus tach. ABDOMEN: Soft. LABORATORY DATA: White count 3000, H and H of 10 and 32, platelet count 260. He has 8 neutrophils, 67 bands. Creatinine is 1.72, BUN is 39. X-ray shows bilateral infiltrates. ASSESSMENT: Respiratory failure, das positive pneumonia, fever, and abnormal rhythm. PLAN: Probably remove the A-line and a central line tomorrow once his blood pressure stabilizes. I have added meropenem and Zyvox to cover both Staph and gram-negative. Once again, he is not weanable. We will continue supportive care. One-half hour of critical care time. Job ID: [id number]
[2020-03-02] MEDS: MEROPENEM 1 GM/50 ML 1 GM in Premix Bag 1 BAG IVPB SCH ×2 (09:44→17:56)
[2020-03-02] MEDS ORDERED: Linezolid 600 MG in Premix Bag 1 BAG IVPB SCH (09:45)
--- NOTE | 2020-03-02 10:28 | PRG ---
DATE OF SERVICE: 03/02/2020 SUBJECTIVE: Mr. Garrison is hypotensive and tachycardic. OBJECTIVE: VITAL SIGNS: Heart rate is 130, temperature is 103. LUNGS: Clear anteriorly, laterally. CARDIAC: Tachycardic. No murmur, rub, or gallop. ABDOMEN: Soft and nontender. EXTREMITIES: The right thigh seems to be swollen, but there is no ecchymosis. No evidence of any bleeding. ASSESSMENT: 1. Recent COVID infection. 2. Fever and tachycardia. PLAN: Continue supportive care. Prognosis guarded in this gentleman. Job ID: [id number]
[2020-03-02] MEDS: Vecuronium 10 MG VIAL IV PRN (10:39)
[2020-03-02] MEDS ORDERED: MEROPENEM 1 GM/50 ML 1 GM in Premix Bag 1 BAG IVPB SCH (14:00)
[2020-03-02] MEDS: Norepinephrine 8 MG in Dextrose 5% in Water 242 ML IVPB SCH (14:25)
--- NOTE | 2020-03-02 17:34 | PDOC.HOSPP ---
- Subjective Encounter Date: 03/02/20 non-verbal - Objective Vital Signs & Weight: Vital Signs (12 hours) Temp Pulse Resp BP 03/02/20 15:00 100.2 F H 03/02/20 14:50 135 H 117/58 L 03/02/20 14:00 100.8 F H 20 03/02/20 13:00 102.0 F H 03/02/20 12:00 102.8 F H 20 03/02/20 11:00 103.5 F H 03/02/20 10:41 141 H 104/57 L 03/02/20 10:00 103.7 F H 27 H 03/02/20 09:03 103 F H 03/02/20 08:33 103.2 F H 03/02/20 08:17 139 H 121/61 03/02/20 08:00 103.0 F H 03/02/20 07:00 103.2 F H 03/02/20 05:50 20 Weight Admit Weight 176 lb 8 oz Weight 176 lb 8 oz Most Recent Monitor Data Heart Rate from ECG 132 NIBP 90/59 NIBP BP-Mean 70 Respiration from ECG 20 SpO2 89 I&O: 03/01/20 03/02/20 03/03/20 06:59 06:59 06:59 Intake Total 4295.6 1915.5 500 Output Total 945 1122 330 Balance 3350.6 793.5 170 Result Diagrams: 03/02/20 04:00 03/02/20 04:00 Additional Labs: Accuchecks 03/02/20 03/02/20 03/01/20 09:45 04:37 21:39 POC Glucose 111 H 116 H 174 H 03/01/20 18:03 POC Glucose 166 H Hospitalist ROS - Medication Medications: Active Medications Generic Name Dose Route Start Last Admin Trade Name Freq PRN Reason Stop Dose Admin Acetaminophen 650 mg 02/11/20 15:29 03/02/20 08:33 Acetaminophen 325 Mg Tab PO 650 mg Q4H PRN Administration Headache/Fever/Mild Pain (1-3) Acetaminophen 650 mg 02/11/20 15:29 02/28/20 22:35 Acetaminophen 650 Mg Suppository AL 650 mg Q4H PRN Administration Headache/Fever/Mild Pain (1-3) Albuterol Sulfate 1 puff 02/12/20 19:42 02/18/20 09:05 Albuterol 200 Puff (6.7gm Inhaler) INH 1 puff Q8H PRN Administration Wheezing Aspirin 325 mg 02/12/20 09:00 03/02/20 08:41 Aspirin 325 Mg Tab PO 325 mg DAILY EMELI Administration Atorvastatin Calcium 10 mg 02/13/20 21:00 03/01/20 20:44 Atorvastatin Calcium 10 Mg Tab PO 10 mg HS EMELI Administration Benzonatate 100 mg 02/13/20 11:28 02/24/20 08:58 Benzonatate 100 Mg Cap PO 100 mg Q6H PRN Administration Cough Enoxaparin Sodium 40 mg 02/11/20 21:00 03/02/20 08:33 Enoxaparin Sodium 40 Mg/0.4 Ml Syringe SC 40 mg 0900,2100 EMELI Administration Famotidine 20 mg 02/11/20 21:00 03/02/20 08:41 Famotidine 20 Mg Tab PO 20 mg BID EMELI Administration Guaifenesin 200 mg 02/13/20 11:28 02/14/20 21:04 Diabetic Tussin 200 Mg/10 Ml Udcup PO 200 mg Q4H PRN Administration Cough Guaifenesin/Dextromethorphan 15 ml 02/11/20 15:29 02/18/20 08:25 Guaifenesin Dm 100-10/5 Ml Udcup PO 15 ml Q4H PRN Administration Cough Amino Acids/Dextrose 2,000 mls @ 75 mls/hr 02/18/20 15:30 02/18/20 15:55 Clinimix 4.25%-5% IV 2,000 mls INF EMELI Administration Insulin Glargine 11 units/ 0.11 mls @ 0 mls/hr 02/20/20 21:00 03/01/20 21:44 Miscellaneous Medication SC 0.11 mls HS EMELI Administration Fentanyl Citrate 2,000 mcg/ 100 mls @ 0 mls/hr 02/28/20 20:15 03/01/20 21:29 Sodium Chloride IV 03/29/20 20:15 100 mls INF EMELI Administration Protocol Per Protocol Norepinephrine Bitartrate 8 mg 250 mls @ 0 mls/hr 02/29/20 13:00 03/02/20 14:25 / Dextrose/Water IVPB 250 mls INF EMELI Administration Protocol Titrate Sodium Chloride 1,000 mls @ 100 mls/hr 02/29/20 14:45 03/02/20 05:30 Normal Saline 0.9% IV 1,000 mls .Q10H EMELI Administration Meropenem 1 gm/ Device 50 mls @ 200 mls/hr 03/02/20 10:00 03/02/20 09:44 IVPB 50 mls 0200,1000,1800 EMELI Administration Insulin Human Lispro 0 units 02/11/20 15:36 03/01/20 18:07 Humalog 300 Units/3 Ml Vial SC 2 units .MILD SLIDING SCALE PRN Administration Mild Correctional Scale Insulin Human Lispro 0 units 02/11/20 15:36 02/18/20 21:42 Humalog 300 Units/3 Ml Vial SC 3 unit .BEDTIME SLIDING SC PRN Administration Bedtime Correctional Scale Lorazepam 2 mg 02/28/20 20:15 03/01/20 10:22 Lorazepam 2 Mg/Ml Vial SLOW IVP 03/29/20 20:15 2 mg Q1H PRN Administration Breakthrough agitation Metformin HCl 850 mg 02/11/20 21:00 03/02/20 08:33 Metformin 850 Mg Tab PO 850 mg BID EMELI Administration Methylprednisolone Sodium Succinate 40 mg 02/29/20 12:00 03/02/20 12:30 Methylprednisolone Sod Succ 40 Mg Vial IVP 40 mg Q6HR EMELI Administration Metoprolol Tartrate 25 mg 02/12/20 21:00 03/02/20 08:33 Metoprolol Tartrate 25 Mg Tab PO 25 mg BID EMELI Administration Pioglitazone HCl 15 mg 02/11/20 21:00 03/02/20 08:45 Pioglitazone Hcl 15 Mg Tab PO 15 mg BID EMELI Administration Propofol 1,000 mg 02/28/20 20:15 03/01/20 21:15 Propofol 1,000 Mg/100 Ml Vial IV 03/29/20 20:15 1,000 mg INF PRN Administration TO ACHIEVE GOAL RASS Protocol Sodium Chloride 10 ml 02/29/20 09:00 03/02/20 08:42 Flush - Normal Saline 10 Ml Syringe IVF 10 ml Q12HR EMELI Administration Vecuronium [place] 10 mg 02/29/20 03:31 03/02/20 10:39 Vecuronium 10 Mg Vial IV 10 mg Q1H PRN Administration PRONE - Exam General Appearance: NAD, awake alert General - other findings: Ventilated, sedated Heart: RRR, no murmur, no gallops, no rubs, normal peripheral pulses Heart - other findings: Tachycardia Respiratory: no rales (Scattered bilateral.) Respiratory - other findings: Slightly diminished diffusely. Gastrointestinal: soft, non-distended, no palpable masses Extremities: no cyanosis, no clubbing, no edema Skin: normal turgor Hosp A/P (1) Acute respiratory failure with hypoxia Code(s): J96.01 - ACUTE RESPIRATORY FAILURE WITH HYPOXIA Status: Acute (2) Pneumonia due to COVID-19 virus Code(s): U07.1 - COVID-19; J12.89 - OTHER VIRAL PNEUMONIA Status: Acute (3) Diabetes mellitus type 2 in nonobese Code(s): E11.9 - TYPE 2 DIABETES MELLITUS WITHOUT COMPLICATIONS Status: Chronic (4) HTN (hypertension) Code(s): I10 - ESSENTIAL (PRIMARY) HYPERTENSION Status: Chronic Qualifiers: Hypertension type: essential hypertension Qualified Code(s): I10 - Essential (primary) hypertension (5) Acute renal failure Status: Resolved (6) Sinus tachycardia Code(s): R00.0 - TACHYCARDIA, UNSPECIFIED Status: Resolved - Plan Acute hypoxic respiratory failure: Patient remains ventilated with no opportunity for weaning at this time. Pulmonology following. Prognosis is generally grim. Discussed with the patient's . COVID-19 pneumonia: Patient is status post convalescent plasma. On Solu-Medrol. Acute worsening of chronic kidney disease stage II: GFR improved but is subsequently declining. Diabetes mellitus: Continue sliding scale insulin and Accu-Cheks. Tachycardia: Sinus rhythm. Appreciate cardiology input. Disposition: Patient continues to require significant amount of ventilator support and is not amenable. Overall prognosis is very poor. I have discussed the situation with the patient's in the room. She understands the gravity of the situation.
[2020-03-02] MEDS ORDERED: Lidocaine 1% (PF) 30 ML VIAL ONE (17:38)
[2020-03-02] MEDS ORDERED: Lidocaine 1% w/Epinephrine 1:100K 20 ML VIAL ONE (17:38)
--- NOTE | 2020-03-02 18:58 | RAD ---
EXAM: CHEST ONE VIEW HISTORY: Chest tube placement. COMPARISON: 03/02/2020 at 1723 hours. FINDINGS: Endotracheal tube and nasogastric tubes remain in place. There has been interval placement of a right -sided thoracostomy tube with tip overlying the medial right lung base. There has been interval reexpansion of the right lung. An obvious right-sided pneumothorax is not appreciated. Cardiac silhou ette is within normal limits. Again noted are increased interstitial and parenchymal airspace opacities likely attributable to Covid pneumonia. A very small left pleural effusion is not excluded. No other interval change. IMPRESSION: 1. Interval placement of right-sided thoracostomy tube with reexpansion the right lung. A definitive right-sided pneumothorax is not delineated. 2. Endotracheal and nasogastric tubes remain in place. 3. Evidence of Covid pneumonia
--- NOTE | 2020-03-02 19:07 | CON ---
DATE OF CONSULTATION: This information was obtained from the nurse, the patient's , and his records. HISTORY OF PRESENT ILLNESS: He is a 59-year-old nonsmoking gentleman with medical problems of hypertension, diabetes mellitus, and dyslipidemia. He tested positive on February 02 for COVID after presenting with a dry cough and fever. Due to chest and abdominal pain from coughing bouts, he was admitted on the . He required intubation about either February 27 or February 28 for worsening hypoxia when it was initially felt he was making small, but steady progress. In any event, he is on significant support with 100% oxygen FiO2 and bilevel PEEP and was noted to have worsening saturations and a chest x-ray this afternoon showed a right-sided pneumothorax. PAST SURGICAL HISTORY: Negative. PHYSICAL EXAMINATION: GENERAL: On examination, although not currently on sedation, he appears to be heavily sedated. LUNGS: He has breath sounds primarily on the left, but some radiated on the right. ABDOMEN: Firm and nontender. EXTREMITIES: Warm and without edema. LABORATORY VALUES: Include a white count depressed at 3500, hemoglobin of 10. Creatinine of 1.7, slightly elevated compared to admission. The most recent albumin from about 2 weeks ago was 3.2. PLAN: At this time is for chest tube placement on the right. Job ID: [id number]
--- NOTE | 2020-03-02 19:15 | RAD ---
CHEST ONE VIEW: History: O2 levels are dropping. Comparison: 03-02-2020 FINDINGS: Very large right sided pneumothorax with minimal tension and minimal depression of the right hemidiap hragm and shift of the midline to the left. NG tube and endotracheal tubes are in position. Extensive interstitial alveolar and ground glass opacity changes throughout both lungs, evidence for very exte nsive bilateral Covid pneumonia. IMPRESSION: Very large right sided pneumothorax with some associated tension. Phone call to the CCU nursing stati on indicated that Dr. Arzola was in the room putting a chest tube in the patient for this right sided pneumothorax. This was discussed with Suyapa in the CCU. Code CR POS: RRE
[2020-03-02] MEDS: Linezolid 600 MG in Premix Bag 1 BAG IVPB SCH (21:35)
[2020-03-02] MEDS: Insulin Glargine 11 UNITS in Pre-Filled Syringe 1 EACH SC SCH (21:38)
[2020-03-02] MEDS: Atorvastatin Calcium 10 MG TAB PO SCH (21:38)
--- NOTE | 2020-03-02 22:41 | EKG ---
Test Reason : TACHY Blood Pressure : / mmHG Vent. Rate : 150 BPM Atrial Rate : 150 BPM P-R Int : 128 ms QRS Dur : 088 ms QT Int : 344 ms P-R-T Axes : 036 -39 049 degrees QTc Int : 543 ms Sinus tachycardia Left axis deviation Possible Inferior infarct , age undetermined Abnormal ECG When compared with ECG of 19-FEB-2020 20:20, QRS axis Shifted left Criteria for Anterior infarct are no longer Present Criteria for Anterolateral infarct are no longer Present Borderline criteria for Inferior infarct are now Present Confirmed by Thu AIKEN ([id number]) on 03/02/2020 10:41:05 PM Referred By: CONCHA Confirmed By:Thu AIKEN
--- NOTE | 2020-03-02 22:42 | EKG ---
Test Reason : Blood Pressure : / mmHG Vent. Rate : 123 BPM Atrial Rate : 192 BPM P-R Int : 000 ms QRS Dur : 112 ms QT Int : 334 ms P-R-T Axes : 000 222 082 degrees QTc Int : 478 ms Atrial fibrillation with rapid ventricular response Right superior axis deviation ST elevation consider anterior injury or acute infarct ACUTE [place] / STEMI Abnormal ECG When compared with ECG of 28-FEB-2020 21:53, (Unconfirmed) Atrial fibrillation has replaced Sinus rhythm Questionable change in QRS duration Confirmed by Thu AIKEN ([id number]) on 03/02/2020 10:42:31 PM Referred By: CONCHA Confirmed By:Thu AIKEN
[2020-03-03] MEDS: methylPREDNISolone Sod Succ 40 MG VIAL IVP SCH ×4 (00:55→17:38)
[2020-03-03] MEDS: Norepinephrine 8 MG in Dextrose 5% in Water 242 ML IVPB SCH ×2 (01:22→10:41)
[2020-03-03] MEDS: MEROPENEM 1 GM/50 ML 1 GM in Premix Bag 1 BAG IVPB SCH ×3 (02:24→21:09)
[2020-03-03] MEDS: Sodium Chloride 0.9% 1,000 ML IV SCH (03:28)
[2020-03-03 04:49] LABS: Anion Gap 20 mmol/L (10-20); BUN (Urea Nitrogen) 49 mg/dL (8.4-25.7); Calc. Creatinine Clearance 30 mL/min (70-130); Calcium 7.1 mg/dL (7.8-10.44); Carbon Dioxide 14 mmol/L (23-31); Chloride 110 mmol/L (98-107); Glucose 170 mg/dL (80-115); Potassium 5.7 mmol/L (3.5-5.1); Sodium 138 mmol/L (136-145)
[2020-03-03 05:30] LABS: Hemoglobin 10.2 g/dL (14.0-18.0); Mean Corpuscular HGB CONC 29.3 g/dL (32.0-36.0); Mean Corpuscular Hemoglobin 26.4 pg (27.0-31.0); Mean Platelet Volume 9.8 fL (7.4-10.4); Platelet Count 195 thou/uL (130-400); RBC Distribution Width 15.3 % (11.5-14.5); Red Blood Cell (RBC) Count 3.87 mill/uL (4.70-6.10); White Blood Cell (WBC) Count 2.5 thou/uL (4.8-10.8)
[2020-03-03 05:31] LABS: Anisocytosis SLIGHT = 6-15 cells (100X) (0-5/hpf); Band 17 % (5-11); Eosinophils 2 % (0-10); Lymphocytes 37 % (21-51); MDiff Complete? YES; Metamyelocyte 7 % (0-0); Monocytes 15 % (0-10); Myelocyte 4 % (0-0); Neutrophil 15 % (42-75); Nucleated RBC 38 % (0); Platelet Morphology Comment Appears Adequate; Reactive Lymphocytes 3 % (0-10)
[2020-03-03] MEDS: HumaLOG 300 UNITS/3 ML VIAL SC PRN ×2 (06:03→12:36)
--- NOTE | 2020-03-03 08:01 | OP ---
DATE OF PROCEDURE: 03/02/2020 INDICATIONS FOR PROCEDURE: This is a 59-year-old gentleman with a large right pneumothorax. DESCRIPTION OF PROCEDURE: The patient was prepped and draped. 1% lidocaine with epinephrine used to infiltrate the skin and about the anterior axillary line and a pathway directing posteriorly. After this had been done, incision was made. Tunnel created and the chest was entered with a clamp. A large gush of air was encountered and the 28 tube was then placed and advanced. It was connected to suction, where a large amount of air was evacuated initially, and then this tapered off. Post insertion, chest x-ray showed nice result. Job ID: [id number]
[2020-03-03 08:28] LABS: Actual Bicarbonate (HCO3a) 13.6 mEq/L (22-28); Base Excess (BEa) -15.6 mEq/L (-2.0 to +3.0); CO2 Tension 45.1 mmHg (35.0-45.0); Calcium, Ionized (arterial) 1.06 mmol/L (1.12-1.30); Carboxyhemoglobin (COHb) 0.6 gm% (0.0-3.0); Hemoglobin (Hb) 11.7 g/dL (14.0-18.0); O2 Tension (PaO2), arterial 74.3 mmHg (> 80.0); Potassium - ABG Lab 5.64 mmol/L (3.70-5.30)
[2020-03-03] MEDS: Acetaminophen 325 MG TAB PO PRN ×2 (08:30→18:29)
[2020-03-03] MEDS: Enoxaparin Sodium 40 MG/0.4 ML SYRINGE SC SCH ×2 (08:31→20:55)
[2020-03-03] MEDS: Aspirin 325 MG TAB PO SCH (08:31)
[2020-03-03] MEDS: Famotidine 20 MG TAB PO SCH (08:31)
[2020-03-03] MEDS: Metoprolol Tartrate 25 MG TAB PO SCH (08:32)
[2020-03-03] MEDS: Pioglitazone HCl 15 MG TAB PO SCH ×2 (08:42→20:54)
[2020-03-03] MEDS: Linezolid 600 MG in Premix Bag 1 BAG IVPB SCH ×2 (08:43→20:47)
--- NOTE | 2020-03-03 08:56 | PRG ---
DATE OF SERVICE: 03/03/2020 I am assuming care for Dr. Daniela Valverde. This is a patient of Dr. Chintan Irvin. SUBJECTIVE: Mr. Garrison did develop a pneumothorax yesterday. Chest tube was placed. He continues with high fevers. He is continued with tachycardia, felt to be sinus due to continued fever. The patient has been COVID positive, but is off isolation. OBJECTIVE: VITAL SIGNS: Blood pressure 108/49, pulse of 129, and temperature 101.5. He is also currently on Levophed for pressure support. Physical exam deferred due to COVID positive. PERTINENT LABORATORY DATA: Hemoglobin 10.2, hematocrit 34.8, white blood cell count 2.5, and platelet count 195. Blood gas with a pO2 of 46, saturating 79%. Creatinine of 2.93, which is up from 1.72. IMPRESSION: 1. Complications from COVID positive pneumonia. 2. Renal failure. 3. Tachycardia. 4. Pneumothorax. RECOMMENDATIONS: Mr. Garrison' prognosis appears guarded. He appears to have complications from COVID. Continue supportive care. Continue Levophed at current dose. Discontinue metoprolol. The patient's increased heart rate is secondary to tachycardia. Chest tube per [facility]. Job ID: [id number]
--- NOTE | 2020-03-03 09:23 | RAD ---
AP CHEST: HISTORY: Ventilation. CCU followup. COMPARISON: 03/02/2020. FINDINGS: ET tube, NG tube unchanged. Bilateral lung infiltrates again seen. No significant change from yeste rday. IMPRESSION: Stable chest. POS: AGW
[2020-03-03 09:28] LABS: Puncture Site Arterial Line
[2020-03-03 09:29] LABS: ALV-art Gradient 511.025 mmHg (0-20)
[2020-03-03] MEDS ORDERED: SODIUM BICARBONATE IV SCH (09:30)
[2020-03-03] MEDS ORDERED: SODIUM CHLORIDE IV SCH (09:30)
[2020-03-03] MEDS ORDERED: [UNRECOGNIZED DRUG - OTHER] IV SCH (09:30)
--- NOTE | 2020-03-03 09:47 | PDOC.PALCO ---
Palliative Care Consult - Consult Details Requesting Physician: Dr Patel/Hospitalist Reason for Consult: goals of care, advance directives assistance, family support, complex decision-making - Pertinent HPI Mr Garrison experienced onset of cough and fever, testing positive for Covid 02/03/2020. His symptoms progressed and he presented to [facility] emergency room 02/10 for evaluation and subsequent admission for medical management. Covid Pneumonia. Decline with subsequent intubation to manage airway, pressure support, steroids, abx therapy, intermittent proning. Right Pneumothorax requiring chest tube. is surrogate decision maker, Algerian speaking. - Pertinent PMH Diabetes, Hypertension, HDL - Social History Smoking Status: Never smoker Smoking: no tobacco exposure Alcohol Use: none Drug Use History: none Living Situation: - Medications MAR Reviewed: Yes - Allergies Allergies/Adverse Reactions: Allergies Allergy/AdvReac Type Severity Reaction Status Date / Time No Known Allergies Allergy Verified 02/11/20 14:38 - Subjective Sedated, pressure support. Intubated with mechanical ventilation, cooling blanket in place. Chest tube to suction. - ROS Non Response: due to endotracheal tube, due to mental status - Objective Vital Signs: Vital Signs - Most Recent Temp Pulse Resp BP Pulse Ox 101.1 F H 130 H 20 115/52 L 92 L 03/03/20 08:56 03/03/20 08:10 03/03/20 08:00 03/03/20 08:10 03/02/20 20:00 Palliative Performance Scale: 20 - Physical Exam Constitutional: encephalitic, ill appearing HEENT: moist MMs, sclera anicteric Deviation from normal: bilateral adventicious, chest tube to right Cardiovascular: no significant murmur, RRR Gastrointestinal: soft, non-tender Genitourinary: temple catheter Musculoskeletal: no cyanosis, no clubbing, no edema, diffuse muscle atrophy Deviation from normal: non responsive Skin: cap refill <2 seconds, no lesions, no rash Deviation from normal: encephalopathic - Problem List (1) Palliative care encounter Code(s): Z51.5 - ENCOUNTER FOR PALLIATIVE CARE Current Visit: Yes Status: Acute (2) Acute respiratory failure with hypoxia Code(s): J96.01 - ACUTE RESPIRATORY FAILURE WITH HYPOXIA Current Visit: Yes Status: Acute (3) Pneumonia due to COVID-19 virus Code(s): U07.1 - COVID-19; J12.89 - OTHER VIRAL PNEUMONIA Current Visit: Yes Status: Acute (4) Diabetes mellitus type 2 in nonobese Code(s): E11.9 - TYPE 2 DIABETES MELLITUS WITHOUT COMPLICATIONS Current Visit: Yes Status: Chronic (5) Acute renal failure Current Visit: Yes Status: Resolved (6) Sinus tachycardia Code(s): R00.0 - TACHYCARDIA, UNSPECIFIED Current Visit: Yes Status: Resolved - Plan/Recommendations Plan: Communictaed with Dr Thomas and primary CCU RN [facility] [place] Family meeting with patient , daughter Tamanna, sons Rodolfo and Robert. Discussed guarded prognosis and recent need for chest tube as well as declining renal function, and pressure support. Short life review. Family elected to transition to DNAR. Discussed poor prognosis and "hope for the best, but need to consider the worst". Will continue to support family and revisit goal of care. Spiritual care aware. [75] minutes spent on this encounter with >50% of the time in counseling and c oordination of care. Thank you for this very appropriate consult.
[2020-03-03] MEDS ORDERED: Meropenem 1 GM in Sodium Chloride 0.9% 100 ML IVPB SCH (10:00)
--- NOTE | 2020-03-03 10:38 | CON ---
DATE OF CONSULTATION: 03/03/20 HISTORY OF PRESENT ILLNESS: Mr. Garrison is a 59-year-old male, who was initially admitted for cough. He was found to have covid-19 test positive. Over the next several days with this hospitalization, his respiratory status worsened. In addition, he has developed complication where he has developed pneumothorax. A chest tube has been placed. We are now being consulted for his acute kidney injury. The patient currently remains unresponsive today. He remains intubated. REVIEW OF SYSTEMS: Not obtainable since the patient is unresponsive. MEDICATIONS: The patient is currently on DuoNeb, currently on amino acid infusion. Aspirin 3 to 5 mg once a day. Atorvastatin 10 mg nightly. Famotidine 20 mg p.o. b.i.d. Lovenox 40 mg subcu b.i.d. Humalog sliding scale. Zyvox 600 mg IV q.12 hours. Ativan 2 mg IV q.4 hours as needed. Meropenem 1 g IV q.8. methylprednisolone 40 mg IV q.6. Metoprolol 20 mg p.o. b.i.d. Norepinephrine drip. Propofol drip. Pioglitazone as directed. Currently on isotonic bicarbonate. PAST MEDICAL HISTORY: 1. Recent diagnosis of COVID-19 pneumonia with acute respiratory failure. 2. Hyperlipidemia. 3. Type 2 diabetes mellitus. 4. Hypertension. PAST SURGICAL HISTORY: No recent surgeries. SOCIAL HISTORY: The patient lives in the [facility]. No alcohol. No tobacco use. No IV drug abuse. He is and several children. ALLERGIES: NO KNOWN DRUG ALLERGIES. TRAUMA: None. IMMUNIZATIONS: Up to date. HOSPITALIZATIONS: Please see past medical history. FAMILY HISTORY: No family history of ESRD. PHYSICAL EXAMINATION: VITAL SIGNS: Blood pressure is 103/61, heart rate 134, respiratory rate 20, O2 saturation 99%. GENERAL: The patient is unresponsive, intubated on ventilator support. SKIN: Adequate turgor. HEENT: He has slightly pale conjunctivae. Anicteric sclerae. NECK: No neck mass. No carotid bruits. No JVD. CHEST: No deformities. LUNGS: Decreased breath sounds. Positive for chest tube. HEART: Tachycardic. No murmur. No gallops. No rubs. ABDOMEN: Globular. Soft. Nontender. EXTREMITIES: No edema. No deformities. NEUROLOGIC: Patient is sedated. Intubated on ventilator support, unresponsive. LABORATORIES: March 03, 2020; white count 2.5, hemoglobin 10.2, sodium is noted at 138, potassium 5.7, chloride 110. Carbon dioxide 14, BUN 49, creatinine 2.93, GFR 22 mL/minute, glucose 170, calcium 7.1. Further review of his serum creatinine shows the following; March 02, 2020, 1.72; February 29, 2020, 1.44; February 28, 2020, creatinine 0.71. ASSESSMENT AND PLAN: 1. Acute kidney injury-initially felt this could simply be a hemodynamically-mediated renal dysfunction. IV volume repletion is being done. The patient continues to remain aneuric. The concern is that this patient may have a superimposed acute tubular necrosis. We will review his urinalysis and urine chemistries. We will hold off any renal ultrasound for the moment with this patient. There is no indication for any emergent hemodialysis. 2. COVID-19 pneumonia-with multiorgan dysfunction. Overall, prognosis remains poor with this patient. Continuing supportive care. notified about his deteriorating condition. Agree with supportive care. Job ID: [id number] [id number]
--- NOTE | 2020-03-03 16:26 | PDOC.HOSPP ---
- Subjective Encounter Date: 03/03/20 non-verbal - Objective Vital Signs & Weight: Vital Signs (12 hours) Temp Pulse Resp BP 03/03/20 15:53 118 H 146/82 H 03/03/20 11:21 99.5 F 03/03/20 10:57 126 H 119/57 L 03/03/20 10:00 100.0 F H 24 H 03/03/20 09:00 100.0 F H 03/03/20 08:56 101.1 F H 03/03/20 08:10 130 H 115/52 L 03/03/20 08:00 101.5 F H 20 03/03/20 07:00 102.3 F H 03/03/20 06:00 101.5 F H 03/03/20 05:00 101.1 F H Weight Admit Weight 176 lb 8 oz Weight 176 lb 8 oz Most Recent Monitor Data Heart Rate from ECG 123 NIBP 110/64 NIBP BP-Mean 72 Respiration from ECG 24 SpO2 99 I&O: 03/02/20 03/03/20 03/04/20 06:59 06:59 06:59 Intake Total 1915.5 4057 150 Output Total 1122 458 4 Balance 793.5 3599 146 Result Diagrams: 03/03/20 03:35 03/03/20 03:35 Additional Labs: Accuchecks 03/03/20 03/03/20 03/02/20 12:35 03:42 21:36 POC Glucose 155 H 169 H 121 H 03/02/20 02/29/20 17:56 11:46 POC Glucose 101 H 206 H Hospitalist ROS - Medication Medications: Active Medications Generic Name Dose Route Start Last Admin Trade Name Freq PRN Reason Stop Dose Admin Acetaminophen 650 mg 02/11/20 15:29 03/03/20 08:30 Acetaminophen 325 Mg Tab PO 650 mg Q4H PRN Administration Headache/Fever/Mild Pain (1-3) Acetaminophen 650 mg 02/11/20 15:29 02/28/20 22:35 Acetaminophen 650 Mg Suppository [place] 650 mg Q4H PRN Administration Headache/Fever/Mild Pain (1-3) Albuterol Sulfate 1 puff 02/12/20 19:42 02/18/20 09:05 Albuterol 200 Puff (6.7gm Inhaler) INH 1 puff Q8H PRN Administration Wheezing Aspirin 325 mg 02/12/20 09:00 03/03/20 08:31 Aspirin 325 Mg Tab PO 325 mg DAILY EMELI Administration Atorvastatin Calcium 10 mg 02/13/20 21:00 03/02/20 21:38 Atorvastatin Calcium 10 Mg Tab PO 10 mg HS EMELI Administration Benzonatate 100 mg 02/13/20 11:28 02/24/20 08:58 Benzonatate 100 Mg Cap PO 100 mg Q6H PRN Administration Cough Enoxaparin Sodium 40 mg 02/11/20 21:00 03/03/20 08:31 Enoxaparin Sodium 40 Mg/0.4 Ml Syringe SC 40 mg 0900,2100 EMELI Administration Guaifenesin 200 mg 02/13/20 11:28 02/14/20 21:04 Diabetic Tussin 200 Mg/10 Ml Udcup PO 200 mg Q4H PRN Administration Cough Guaifenesin/Dextromethorphan 15 ml 02/11/20 15:29 02/18/20 08:25 Guaifenesin Dm 100-10/5 Ml Udcup PO 15 ml Q4H PRN Administration Cough Amino Acids/Dextrose 2,000 mls @ 75 mls/hr 02/18/20 15:30 02/18/20 15:55 Clinimix 4.25%-5% IV 2,000 mls INF EMELI Administration Insulin Glargine 11 units/ 0.11 mls @ 0 mls/hr 02/20/20 21:00 03/02/20 21:38 Miscellaneous Medication SC 0.11 mls HS EMELI Administration Fentanyl Citrate 2,000 mcg/ 100 mls @ 0 mls/hr 02/28/20 20:15 03/01/20 21:29 Sodium Chloride IV 03/29/20 20:15 100 mls INF EMELI Administration Protocol Per Protocol Norepinephrine Bitartrate 8 mg 250 mls @ 0 mls/hr 02/29/20 13:00 03/03/20 10:41 / Dextrose/Water IVPB 250 mls INF EMELI Administration Protocol Titrate Linezolid 600 mg/ Device 300 mls @ 150 mls/hr 03/02/20 21:00 03/03/20 08:43 IVPB 300 mls Q12HR EMELI Administration Meropenem 1 gm/ Device 50 mls @ 100 mls/hr 03/03/20 10:00 03/03/20 10:46 IVPB Not Given 1000,2200 [facility] Sodium Bicarbonate 100 meq/ 1,000 mls @ 100 mls/hr 03/03/20 11:15 03/03/20 12:07 Sodium Chloride IV 1,000 mls .Q10H EMELI Administration Insulin Human Lispro 0 units 02/11/20 15:36 03/03/20 12:36 Humalog 300 Units/3 Ml Vial SC 2 units .MILD SLIDING SCALE PRN Administration Mild Correctional Scale Insulin Human Lispro 0 units 02/11/20 15:36 02/18/20 21:42 Humalog 300 Units/3 Ml Vial SC 3 unit .BEDTIME SLIDING SC PRN Administration Bedtime Correctional Scale Lorazepam 2 mg 02/28/20 20:15 03/01/20 10:22 Lorazepam 2 Mg/Ml Vial SLOW IVP 03/29/20 20:15 2 mg Q1H PRN Administration Breakthrough agitation Methylprednisolone Sodium Succinate 40 mg 02/29/20 12:00 03/03/20 12:07 Methylprednisolone Sod Succ 40 Mg Vial IVP 40 mg Q6HR EMELI Administration Pioglitazone HCl 15 mg 02/11/20 21:00 03/03/20 08:42 Pioglitazone Hcl 15 Mg Tab PO 15 mg BID EMELI Administration Propofol 1,000 mg 02/28/20 20:15 03/01/20 21:15 Propofol 1,000 Mg/100 Ml Vial IV 03/29/20 20:15 1,000 mg INF PRN Administration TO ACHIEVE GOAL RASS Protocol Sodium Chloride 10 ml 02/29/20 09:00 03/03/20 08:33 Flush - Normal Saline 10 Ml Syringe IVF 10 ml Q12HR EMELI Administration Vecuronium [place] 10 mg 02/29/20 03:31 03/02/20 10:39 Vecuronium 10 Mg Vial IV 10 mg Q1H PRN Administration PRONE - Exam General Appearance: NAD General - other findings: Intubated, nonresponsive. Heart: RRR, no murmur, no gallops, no rubs, normal peripheral pulses Heart - other findings: Tachycardia Respiratory: rales (Scattered bilateral) Respiratory - other findings: Right chest tube. Gastrointestinal: soft, non-tender, non-distended, normal bowel sounds, no palpable masses, no hepatomegaly, no splenomegaly, no bruit Extremities: no cyanosis, no clubbing, no edema Neurological - other findings: No gag reflex. Nonresponsive. Hosp A/P (1) Acute respiratory failure with hypoxia Code(s): J96.01 - ACUTE RESPIRATORY FAILURE WITH HYPOXIA Status: Acute (2) Pneumonia due to COVID-19 virus Code(s): U07.1 - COVID-19; J12.89 - OTHER VIRAL PNEUMONIA Status: Acute (3) Diabetes mellitus type 2 in nonobese Code(s): E11.9 - TYPE 2 DIABETES MELLITUS WITHOUT COMPLICATIONS Status: Chronic (4) HTN (hypertension) Code(s): I10 - ESSENTIAL (PRIMARY) HYPERTENSION Status: Chronic Qualifiers: Hypertension type: essential hypertension Qualified Code(s): I10 - Essential (primary) hypertension (5) Acute renal failure Status: Resolved (6) Sinus tachycardia Code(s): R00.0 - TACHYCARDIA, UNSPECIFIED Status: Resolved (7) Bacteremia due to Pseudomonas Code(s): R78.81 - BACTEREMIA; B96.5 - PSEUDOMONAS (MALLEI) CAUSING DISEASES CLASSD ELSWHR Status: Acute - Plan Acute hypoxic respiratory failure: Patient remains ventilated with no opportunity for weaning at this time. Secondary to Covid pneumonia. Pulmonology following. As of 03/03/2020 patient remains extremely acidotic in spite of ventilation. Prognosis is generally grim. Discussed with the patient's . Spontaneous pneumothorax: Right-sided pneumothorax developed on 03/02/2020 in the evening. Right-sided chest tube in place. COVID-19 pneumonia: Patient is status post convalescent plasma. On Solu-Medrol. Pseudomonas bacteremia: Patient also has positive cultures from the urine and sputum. Should have adequate coverage with meropenem. Acute worsening of chronic kidney disease stage II: GFR improved but is subsequently declining. 03/03/2020 patient's GFR continued to decline and he became hyperkalemic. Nephrology consulted. Concerning for ATN. Hyperkalemia: Likely secondary to worsening of his renal function. Diabetes mellitus: Continue sliding scale insulin and Accu-Cheks. Tachycardia: Sinus rhythm. Appreciate cardiology input. Disposition: Patient continues to require significant amount of ventilator support and is not amenable to weaning and persistent acidosis. He has persistent tachycardia, pneumothorax, worsening renal failure, pseudomonal infection of multiple sites. Overall prognosis is very poor. On 03/03/2020 palliative care team met with the patient's family and ultimately has been converted to a DNR.
[2020-03-03 16:56] LABS: Bilirubin Negative (Negative); Blood, Urine 2+ (Negative); Clarity Turbid (Clear); Glucose, Urine (Dipstick) 100 mg/dL (Negative); Ketone, Urine Negative (Negative); Leukocyte 25 Leu/uL (Negative); Nitrite Negative (Negative); Protein, Urine (Dipstick) 100 mg/dL (Neg-Trace); Specific Gravity, Urine 1.029 (1.002-1.036); Squamous Epithelial None Seen HPF (0-3); Urobilinogen Normal mg/dL (Less than 2)
[2020-03-03 17:02] LABS: Bacteria/HPF 1+ HPF (None Seen); RBC/HPF 0-3 HPF (0-3); Yeast-Budding 2+ HPF (None Seen)
[2020-03-03 17:17] LABS: Creatinine, Urine 112.74 mg/dL (63-166)
--- NOTE | 2020-03-03 19:05 | PRG ---
DATE OF SERVICE: 03/03/2020 SUBJECTIVE: Mr. Garrison continues to deteriorate. OBJECTIVE: VITAL SIGNS: He is febrile. Respiratory rates in the 20s, blood pressure is 111/64. Chest tube placed over the weekend. LUNGS: Unchanged. HEART: Unchanged. ABDOMEN: Unchanged. LABORATORY DATA: White count is 2.5, hemoglobin 10.2, platelets 195. Sodium 138, potassium 5.7, chloride 110, bicarb 14, BUN 49, creatinine 2.93. PH today was 7.10, CO2 of 45, PO2 of 73. IMPRESSION: COVID pneumonia. Everything is going in the wrong direction. He is made a DNR today, has been the hospital since the 10 of February. I do not expect him to survive this. Job ID: [id number]
[2020-03-03] MEDS: Insulin Glargine 11 UNITS in Pre-Filled Syringe 1 EACH SC SCH (20:54)
[2020-03-03] MEDS: Atorvastatin Calcium 10 MG TAB PO SCH (20:55)
[2020-03-04] MEDS: methylPREDNISolone Sod Succ 40 MG VIAL IVP SCH ×5 (00:46→23:16)
[2020-03-04] MEDS: Norepinephrine 8 MG in Dextrose 5% in Water 242 ML IVPB SCH (03:46)
[2020-03-04 05:29] LABS: Anion Gap 23 mmol/L (10-20); BUN (Urea Nitrogen) 74 mg/dL (8.4-25.7); Calc. Creatinine Clearance 21 mL/min (70-130); Calcium 6.6 mg/dL (7.8-10.44); Carbon Dioxide 13 mmol/L (23-31); Chloride 107 mmol/L (98-107); Glucose 90 mg/dL (80-115); Potassium 5.4 mmol/L (3.5-5.1); Sodium 138 mmol/L (136-145)
[2020-03-04 05:56] LABS: Band 50 % (5-11); Burr Cells SLIGHT = 2-5 cells (100X) (0-1/hpf); Hemoglobin 9.3 g/dL (14.0-18.0); Lymphocytes 13 % (21-51); MDiff Complete? YES; Mean Corpuscular HGB CONC 29.1 g/dL (32.0-36.0); Mean Corpuscular Hemoglobin 25.8 pg (27.0-31.0); Mean Corpuscular Volume 88.4 fL (78.0-98.0); Mean Platelet Volume 10.2 fL (7.4-10.4); Metamyelocyte 7 % (0-0); Monocytes 6 % (0-10); Myelocyte 2 % (0-0); Neutrophil 22 % (42-75); Nucleated RBC 4 % (0); Platelet Count 157 thou/uL (130-400); RBC Distribution Width 15.5 % (11.5-14.5); White Blood Cell (WBC) Count 9.6 thou/uL (4.8-10.8)
[2020-03-04] MEDS: Linezolid 600 MG in Premix Bag 1 BAG IVPB SCH ×2 (08:08→21:06)
[2020-03-04] MEDS: Pioglitazone HCl 15 MG TAB PO SCH ×2 (08:09→21:06)
[2020-03-04] MEDS: Enoxaparin Sodium 40 MG/0.4 ML SYRINGE SC SCH ×2 (08:09→21:15)
[2020-03-04] MEDS: Famotidine 20 MG TAB PO SCH (08:09)
[2020-03-04] MEDS: Aspirin 325 MG TAB PO SCH (08:09)
[2020-03-04 08:59] LABS: Actual Bicarbonate (HCO3a) 13.5 mEq/L (22-28); CO2 Tension 33.3 mmHg (35.0-45.0); Hemoglobin (Hb) 9.9 g/dL (14.0-18.0); O2 Tension (PaO2), arterial 61.9 mmHg (> 80.0); Potassium - ABG Lab 5.33 mmol/L (3.70-5.30)
[2020-03-04 09:40] LABS: ALV-art Gradient 324.275 mmHg (0-20); Puncture Site Arterial Line; pH, Arterial 7.23 (7.35-7.45)
[2020-03-04] MEDS ORDERED: Furosemide 100 MG/10 ML VIAL SLOW IVP SCH (09:45)
--- NOTE | 2020-03-04 10:15 | PRG ---
DATE OF SERVICE: 03/04/2020 SUBJECTIVE: Mr. Garrison' status continues to decline. He has a chest tube placed for pneumothorax. He was COVID positive pneumonia. Heart rate continues to be elevated. He is not on pressors. OBJECTIVE: VITAL SIGNS: Blood pressure 114/63, pulse 120, respirations 20. Physical exam is deferred. PERTINENT LABORATORY DATA: Hemoglobin 9.3, hematocrit 31.8, platelet count 157. Creatinine 4.27, which is up from 2.93. IMPRESSION: 1. Complication with COVID pneumonia. 2. Tachycardia. 3. Renal failure. 4. Pneumothorax. RECOMMENDATIONS: Mr. Garrison remains tachycardic likely in response to underlying condition and comorbidities. At this point, we will continue with supportive care. Levophed has been weaned off. Metoprolol was discontinued due to concomitant use of Levophed. Once blood pressure is more stable, will be okay to slowly restart metoprolol, but again heart rate likely in response to current condition. Prognosis continues to be poor. His last echo dated 03/03/2020 with LVEF of 40% to 45%. Job ID: [id number]
[2020-03-04] MEDS: Meropenem 1 GM in Sodium Chloride 0.9% 100 ML IVPB SCH ×2 (10:21→22:42)
[2020-03-04] MEDS: Albumin 25% 25 GM/100 ML BOT IVPB SCH ×3 (10:21→23:16)
--- NOTE | 2020-03-04 10:26 | EKG ---
Test Reason : Blood Pressure : / mmHG Vent. Rate : 132 BPM Atrial Rate : 132 BPM P-R Int : 150 ms QRS Dur : 082 ms QT Int : 286 ms P-R-T Axes : 063 -33 037 degrees QTc Int : 423 ms Sinus tachycardia Left axis deviation Low voltage QRS Possible Inferior infarct , age undetermined Abnormal ECG When compared with ECG of 29-FEB-2020 11:48, (Unconfirmed) Significant changes have occurred Confirmed by Thu AIKEN ([id number]) on 03/04/2020 10:26:04 AM Referred By: NELLI Confirmed By:Thu AIKEN
--- NOTE | 2020-03-04 11:15 | PRG ---
DATE OF SERVICE: 03/04/2020 SUBJECTIVE: Mr. Garrison is a 59-year-old male, who was seen for his acute kidney injury. He was initially admitted for shortness of breath from COVID-19 pneumonia with now complications of multiorgan failure. We are seeing him for his acute kidney injury. After further evaluation, we felt that the patient most likely has a superimposed acute tubular necrosis for his acute renal failure. We will continue current isotonic bicarbonate with this patient. Lasix will be given on a p.r.n. basis. The family is undecided whether to pursue dialysis. OBJECTIVE: VITAL SIGNS: Blood pressure is 114/63, heart rate 128, respiratory rate 42, O2 saturation 99%. GENERAL: The patient is unresponsive, intubated on ventilator support. SKIN: Adequate turgor. HEENT: He has a pinkish conjunctivae. Anicteric sclerae. No neck mass. No carotid bruits. No JVD. CHEST: No deformities. LUNGS: Decreased breath sounds. HEART: Tachycardic. No murmur. No gallops. No rubs. ABDOMEN: Globular, soft, nontender. EXTREMITIES: No edema. No deformities. MEDICATIONS: On March 04, 2020 reviewed. LABORATORY DATA: On March 04, 2020, white count 9.6, hemoglobin 9.3. Sodium 138, potassium 5.4, chloride 107, carbon dioxide 13, BUN 74, creatinine 4.27, calcium 6.6. Urinalysis of March 03, 2020, showed granular casts. ASSESSMENT AND PLAN: 1. Acute kidney injury, consider superimposed acute tubular necrosis. At the same time continue to optimize hemodynamics. Currently, on isotonic bicarbonate. My bias is to add albumin infusion 25 g IV q.6 with this patient. Lasix 80 mg x1 dose will also be given. The patient is noted to be anuric. 2. No indication for any emergent hemodialysis today. 3. COVID-19 pneumonia with multiorgan dysfunction, continue supportive care. 4. Overall prognosis remains poor with this patient. Job ID: [id number] [facility]
--- NOTE | 2020-03-04 13:34 | ULT ---
RIGHT LOWER EXTREMITY VENOUS DUPLEX STUDY: 03/04/20 INDICATIONS: Right lower extremity pain and edema. Deep veins of right lower extremity evaluated with ultrasound and Doppler with color Doppler, spectra l analysis and compression. FINDINGS: The visualized common femoral vein and superficial femoral vein showed normal blood flow and compress ion. Portions are unable to be evaluated due to bandage material. The popliteal vein, greater saphenous vein and posterior tibial veins show normal flow and compressio n. IMPRESSION: No evidence of right lower extremity DVT identified. POS: AGW
--- NOTE | 2020-03-04 15:17 | PRG ---
DATE OF SERVICE: 03/04/2020 SUBJECTIVE: Mr. Garrison continues to do poorly. OBJECTIVE: VITAL SIGNS: Heart rate is 110, blood pressure 113/76, respiratory rates in the 20s, FiO2 is at 60%. We have increased his rate to 30 today. LUNGS: Clear anteriorly. HEART: Regular rhythm. ABDOMEN: Soft. EXTREMITIES: Unchanged. On exam, he has some fluid in his right thigh. His A- line has been removed. His Lovenox will be held for a day. He has bleeding from his femoral artery. LABORATORY DATA: White count is 9.6, hemoglobin 9.3 platelets 157, BUN 74, creatinine 4.27. Intake and outputs positive 3728. Urine output is only 22 mL. IMPRESSION: 1. Respiratory failure, associated with COVID pneumonia. 2. Renal failure associated with COVID pneumonia. 3. Resting tachycardia. 4. Pneumothorax, status post chest tube placement. PLAN: Ph today is still low at 7.23, increasing his rate will help. I really do not think he is going to survive this. Critical care time 30 min. Job ID: [id number] [facility]
--- NOTE | 2020-03-04 18:36 | PDOC.HOSPP ---
- Subjective Encounter Date: 03/04/20 non-verbal - Objective Vital Signs & Weight: Vital Signs (12 hours) Temp Pulse Resp BP Pulse Ox 03/04/20 18:00 30 H 03/04/20 16:00 30 H 03/04/20 14:40 110 H 113/76 03/04/20 14:00 25 H 03/04/20 12:00 99 F 25 H 03/04/20 10:47 131 H 116/54 L 97 03/04/20 10:00 24 H 03/04/20 08:06 119 H 110/64 03/04/20 08:00 99.1 F 28 H 96 Weight Admit Weight 176 lb 8 oz Weight 176 lb 8 oz Most Recent Monitor Data Heart Rate from ECG 116 NIBP 113/63 NIBP BP-Mean 73 Respiration from ECG 31 SpO2 100 I&O: 03/03/20 03/04/20 03/05/20 06:59 06:59 06:59 Intake Total 4057 3870 2030 Output Total 458 142 80 Balance 3599 3728 1950 Result Diagrams: 03/04/20 03:15 03/04/20 03:15 Additional Labs: Accuchecks 03/04/20 03/04/20 03/04/20 10:23 03:50 00:09 POC Glucose 117 H 90 119 H 03/03/20 20:51 POC Glucose 76 Hospitalist ROS - Medication Medications: Active Medications Generic Name Dose Route Start Last Admin Trade Name Freq PRN Reason Stop Dose Admin Acetaminophen 650 mg 02/11/20 15:29 03/03/20 18:29 Acetaminophen 325 Mg Tab PO 650 mg Q4H PRN Administration Headache/Fever/Mild Pain (1-3) Acetaminophen 650 mg 02/11/20 15:29 02/28/20 22:35 Acetaminophen 650 Mg Suppository [place] 650 mg Q4H PRN Administration Headache/Fever/Mild Pain (1-3) Albumin Human 25 gm 03/04/20 10:00 03/04/20 17:20 Albumin 25% 25 Gm/100 Ml Bot IVPB 03/05/20 04:01 25 gm 0400,1000,1600,2200 EMELI Administration Albuterol Sulfate 1 puff 02/12/20 19:42 02/18/20 09:05 Albuterol 200 Puff (6.7gm Inhaler) INH 1 puff Q8H PRN Administration Wheezing Aspirin 325 mg 02/12/20 09:00 03/04/20 08:09 Aspirin 325 Mg Tab PO 325 mg DAILY EMELI Administration Atorvastatin Calcium 10 mg 02/13/20 21:00 03/03/20 20:55 Atorvastatin Calcium 10 Mg Tab PO 10 mg HS EMELI Administration Benzonatate 100 mg 02/13/20 11:28 02/24/20 08:58 Benzonatate 100 Mg Cap PO 100 mg Q6H PRN Administration Cough Enoxaparin Sodium 40 mg 02/11/20 21:00 03/04/20 08:09 Enoxaparin Sodium 40 Mg/0.4 Ml Syringe SC 40 mg 0900,2100 EMELI Administration Famotidine 20 mg 03/04/20 09:00 03/04/20 08:09 Famotidine 20 Mg Tab PO 20 mg DAILY EMELI Administration Guaifenesin 200 mg 02/13/20 11:28 02/14/20 21:04 Diabetic Tussin 200 Mg/10 Ml Udcup PO 200 mg Q4H PRN Administration Cough Guaifenesin/Dextromethorphan 15 ml 02/11/20 15:29 02/18/20 08:25 Guaifenesin Dm 100-10/5 Ml Udcup PO 15 ml Q4H PRN Administration Cough Amino Acids/Dextrose 2,000 mls @ 75 mls/hr 02/18/20 15:30 02/18/20 15:55 Clinimix 4.25%-5% IV 2,000 mls INF EMELI Administration Insulin Glargine 11 units/ 0.11 mls @ 0 mls/hr 02/20/20 21:00 03/03/20 20:54 Miscellaneous Medication SC Not Given HS EMELI Fentanyl Citrate 2,000 mcg/ 100 mls @ 0 mls/hr 02/28/20 20:15 03/01/20 21:29 Sodium Chloride IV 03/29/20 20:15 100 mls INF EMELI Administration Protocol Per Protocol Norepinephrine Bitartrate 8 mg 250 mls @ 0 mls/hr 02/29/20 13:00 03/04/20 03:46 / Dextrose/Water IVPB 250 mls INF EMELI Administration Protocol Titrate Linezolid 600 mg/ Device 300 mls @ 150 mls/hr 03/02/20 21:00 03/04/20 08:08 IVPB 300 mls Q12HR EMELI Administration Sodium Bicarbonate 100 meq/ 1,000 mls @ 100 mls/hr 03/03/20 11:15 03/04/20 09:07 Sodium Chloride IV Not Given .Q10H EMELI Meropenem 1 gm/ Sodium 100 mls @ 200 mls/hr 03/04/20 10:00 03/04/20 10:21 Chloride IVPB 100 mls 1000,2200 EMELI Administration Insulin Human Lispro 0 units 02/11/20 15:36 03/03/20 12:36 Humalog 300 Units/3 Ml Vial SC 2 units .MILD SLIDING SCALE PRN Administration Mild Correctional Scale Insulin Human Lispro 0 units 02/11/20 15:36 02/18/20 21:42 Humalog 300 Units/3 Ml Vial SC 3 unit .BEDTIME SLIDING SC PRN Administration Bedtime Correctional Scale Lorazepam 2 mg 02/28/20 20:15 03/01/20 10:22 Lorazepam 2 Mg/Ml Vial SLOW IVP 03/29/20 20:15 2 mg Q1H PRN Administration Breakthrough agitation Methylprednisolone Sodium Succinate 40 mg 02/29/20 12:00 03/04/20 17:20 Methylprednisolone Sod Succ 40 Mg Vial IVP 40 mg Q6HR EMELI Administration Pioglitazone HCl 15 mg 02/11/20 21:00 03/04/20 08:09 Pioglitazone Hcl 15 Mg Tab PO 15 mg BID EMELI Administration Propofol 1,000 mg 02/28/20 20:15 03/01/20 21:15 Propofol 1,000 Mg/100 Ml Vial IV 03/29/20 20:15 1,000 mg INF PRN Administration TO ACHIEVE GOAL RASS Protocol Sodium Chloride 10 ml 02/29/20 09:00 03/04/20 08:09 Flush - Normal Saline 10 Ml Syringe IVF 10 ml Q12HR EMELI Administration Vecuronium [place] 10 mg 02/29/20 03:31 03/02/20 10:39 Vecuronium 10 Mg Vial IV 10 mg Q1H PRN Administration PRONE - Exam General - other findings: Intubated. Unresponsive yet not sedated. Heart: RRR, no murmur, no gallops, no rubs, normal peripheral pulses Heart - other findings: Tachycardia Respiratory: CTAB, no wheezes, no rales, no ronchi, normal chest expansion Respiratory - other findings: Ventilated Gastrointestinal: soft, non-distended, no palpable masses, diminished bowl sounds Extremities - other findings: Diffuse edema. Seems to be more so on LUE and RLE. Hosp A/P (1) Acute respiratory failure with hypoxia Code(s): J96.01 - ACUTE RESPIRATORY FAILURE WITH HYPOXIA Status: Acute (2) Pneumonia due to COVID-19 virus Code(s): U07.1 - COVID-19; J12.89 - OTHER VIRAL PNEUMONIA Status: Acute (3) Diabetes mellitus type 2 in nonobese Code(s): E11.9 - TYPE 2 DIABETES MELLITUS WITHOUT COMPLICATIONS Status: Chronic (4) HTN (hypertension) Code(s): I10 - ESSENTIAL (PRIMARY) HYPERTENSION Status: Chronic Qualifiers: Hypertension type: essential hypertension Qualified Code(s): I10 - Essential (primary) hypertension (5) Acute renal failure Status: Resolved (6) Sinus tachycardia Code(s): R00.0 - TACHYCARDIA, UNSPECIFIED Status: Resolved (7) Bacteremia due to Pseudomonas Code(s): R78.81 - BACTEREMIA; B96.5 - PSEUDOMONAS (MALLEI) CAUSING DISEASES CLA SSD ELSWHR Status: Acute (8) Diarrhea Code(s): R19.7 - DIARRHEA, UNSPECIFIED Status: Acute (9) Volume overload Code(s): E87.70 - FLUID OVERLOAD, UNSPECIFIED Status: Acute - Plan Acute hypoxic respiratory failure: Patient remains ventilated with no opportunity for weaning at this time. Secondary to Covid pneumonia. Pulmonology following. As of 03/03/2020 patient remains extremely acidotic in spite of ventilation. Prognosis is generally grim. Discussed with the patient's daily. Spontaneous pneumothorax: Right-sided pneumothorax developed on 03/02/2020 in the evening. Right-sided chest tube in place. COVID-19 pneumonia: Patient is status post convalescent plasma. On Solu-Medrol. Pseudomonas bacteremia: Patient also has positive cultures from the urine and sputum. Should have adequate coverage with meropenem. Acute worsening of chronic kidney disease stage II/oliguric renal failure: GFR improved but is subsequently declining. 03/03/2020 patient's GFR continued to decline and he became hyperkalemic. Nephrology consulted. Concerning for ATN. Progressive decline on 03/04/2020. Patient developing some evidence of volume overload as well. Nephrology added albumin infusions with Lasix. With initial albumin and Lasix the patient only put out about 10 cc of urine. He is very nearly anuric. Discussed with the patient's and daughter. Dialysis would be highly risky in this situation. May well not be a candidate for dialytic intervention. Hyperkalemia: Likely secondary to worsening of his renal function. Mild. Did not necessitate aggressive intervention. Diabetes mellitus: Continue sliding scale insulin and Accu-Cheks. Tachycardia: Sinus rhythm. Appreciate cardiology input. Diarrhea: Patient developed significant diarrhea on 03/04/2020. Negative C. difficile. Rectal tube placed. Disposition: Patient continues to require significant amount of ventilator support and is not amenable to weaning and persistent acidosis. He has persistent tachycardia, pneumothorax, worsening renal failure, pseudomonal infection of multiple sites. Overall prognosis is very poor. On 03/03/2020 palliative care team met with the patient's family and ultimately has been converted to a DNR.
[2020-03-04] MEDS: Insulin Glargine 11 UNITS in Pre-Filled Syringe 1 EACH SC SCH (20:57)
[2020-03-04] MEDS: HumaLOG 300 UNITS/3 ML VIAL SC PRN (20:58)
[2020-03-04] MEDS: Atorvastatin Calcium 10 MG TAB PO SCH (21:06)
[2020-03-05] MEDS: HumaLOG 300 UNITS/3 ML VIAL SC PRN ×4 (04:47→21:45)
[2020-03-05] MEDS: Albumin 25% 25 GM/100 ML BOT IVPB SCH (04:47)
[2020-03-05 04:50] LABS: Anion Gap 26 mmol/L (10-20); BUN (Urea Nitrogen) 101 mg/dL (8.4-25.7); Calc. Creatinine Clearance 17 mL/min (70-130); Carbon Dioxide 15 mmol/L (23-31); Chloride 101 mmol/L (98-107); Potassium 4.7 mmol/L (3.5-5.1); Sodium 137 mmol/L (136-145)
[2020-03-05 04:51] LABS: Calcium 6.4 mg/dL (7.8-10.44); Glucose 232 mg/dL (80-115)
[2020-03-05] MEDS: methylPREDNISolone Sod Succ 40 MG VIAL IVP SCH ×4 (05:11→21:50)
[2020-03-05 05:24] LABS: Anisocytosis SLIGHT = 6-15 cells (100X) (0-5/hpf); Band 33 % (5-11); Hemoglobin 8.2 g/dL (14.0-18.0); Lymphocytes 6 % (21-51); MDiff Complete? YES; Mean Corpuscular HGB CONC 31.7 g/dL (32.0-36.0); Mean Corpuscular Hemoglobin 27.3 pg (27.0-31.0); Mean Corpuscular Volume 86.1 fL (78.0-98.0); Mean Platelet Volume 10.9 fL (7.4-10.4); Metamyelocyte 2 % (0-0); Monocytes 2 % (0-10); Myelocyte 2 % (0-0); Neutrophil 55 % (42-75); Nucleated RBC 6 % (0); Platelet Count 111 thou/uL (130-400); Platelet Morphology Comment Appears Decreased; RBC Distribution Width 15.3 % (11.5-14.5); Red Blood Cell (RBC) Count 2.99 mill/uL (4.70-6.10); White Blood Cell (WBC) Count 10.6 thou/uL (4.8-10.8)
[2020-03-05 07:37] LABS: Actual Bicarbonate (HCO3a) 15.2 mEq/L (22-28); Base Excess (BEa) -10.6 mEq/L (-2.0 to +3.0); CO2 Tension 33.3 mmHg (35.0-45.0); Calcium, Ionized (arterial) 0.87 mmol/L (1.12-1.30); Carboxyhemoglobin (COHb) 0.9 gm% (0.0-3.0); Hemoglobin (Hb) 8.3 g/dL (14.0-18.0); Potassium - ABG Lab 4.46 mmol/L (3.70-5.30); pH, Arterial 7.28 (7.35-7.45)
[2020-03-05 07:42] LABS: O2 Tension (PaO2), arterial 53.3 mmHg (> 80.0); Puncture Site LRA
[2020-03-05 07:43] LABS: ALV-art Gradient 332.875 mmHg (0-20)
[2020-03-05] MEDS: Aspirin 325 MG TAB PO SCH (09:13)
[2020-03-05] MEDS: Pioglitazone HCl 15 MG TAB PO SCH ×2 (09:13→21:49)
[2020-03-05] MEDS: Famotidine 20 MG TAB PO SCH (09:13)
[2020-03-05] MEDS: Linezolid 600 MG in Premix Bag 1 BAG IVPB SCH ×2 (09:13→21:50)
[2020-03-05] MEDS: Enoxaparin Sodium 40 MG/0.4 ML SYRINGE SC SCH ×2 (09:14→21:49)
--- NOTE | 2020-03-05 09:22 | PRG ---
DATE OF SERVICE: 03/05/2020 SUBJECTIVE: Mr. Garrison is a 59-year-old male with COVID-19 pneumonia with multiorgan dysfunction. We are following up this patient for his acute renal failure, secondary to acute tubular necrosis. He remains anuric. The family still undecided whether to pursue any dialytic intervention. Renal function has been worsening in the last few days. He is essentially unresponsive to Lasix, but we will give another Lasix dose to see if I could get any urine output. OBJECTIVE: VITAL SIGNS: Blood pressure is 109/65, heart rate 106, respiratory rate 31, O2 saturation 99%. GENERAL: The patient is unresponsive, intubated on ventilator support. SKIN: Adequate turgor. HEENT: He has a slightly pale conjunctivae. Anicteric sclerae. No JVD. LUNGS: Decreased breath sounds. HEART: Tachycardic. No murmurs, gallops, or rubs. ABDOMEN: Globular. Soft. Nontender. EXTREMITIES: Trace edema. MEDICATIONS: March 05, 2020, was reviewed. LABORATORY DATA: March 05, 2020, white count 10.6, hemoglobin 8.2. Sodium 137, potassium 4.7, chloride 101, carbon dioxide 15, BUN 101, creatinine 5.18, glucose is 232, calcium 6.4. Urine output is less than 100 mL. ASSESSMENT AND PLAN: 1. Acute kidney injury, secondary to an oliguric acute tubular necrosis - unimproved renal function. Continue supportive care. We are awaiting for the family's final decision regarding dialytic intervention. He has a very poor prognosis, and I feel that the dialysis will not really change his survival. At the present time there is no indication for any dialytic intervention. His renal dysfunction may still stabilize and reach a plateau level without dialytic intervention. 2. COVID-19 pneumonia with multiorgan dysfunction. Continuing supportive care. Overall, prognosis remains poor with this patient. Job ID: [id number] [facility]
[2020-03-05] MEDS: Meropenem 1 GM in Sodium Chloride 0.9% 100 ML IVPB SCH (10:47)
--- NOTE | 2020-03-05 13:17 | PRG ---
DATE OF SERVICE: 03/05/2020 SUBJECTIVE: Mr. Garrison's status is unchanged. He continues to be intubated and sedated with chest tube. OBJECTIVE: VITAL SIGNS: Blood pressure 112/62, pulse 106, temperature afebrile. LUNGS: Decreased breath sounds on right versus left. HEART: Tachycardic. Regular rhythm. ABDOMEN: Soft, nontender, nondistended. EXTREMITIES: 1+ pitting edema. PERTINENT LABORATORY DATA: Hemoglobin 8.2. Creatinine 5.1, up from 4.27. IMPRESSION: 1. Complication with COVID pneumonia. 2. Spontaneous pneumothorax. 3. Tachycardia. 4. Respiratory failure. RECOMMENDATIONS: Mr. Garrison's status continues to worsen. His creatinine continues to climb. He has been off pressors and his heart rate is in the 100s. Tachycardia is secondary to current underlying condition. Survival for Mr. Garrison appears extremely low. From a CV standpoint, I do not have any further recommendations. As stated before, his prognosis appears poor. If his status changes, we will be happy to add any further recommendation will be, but we will follow peripherally. Job ID: [id number]
[2020-03-05] MEDS: Furosemide 100 MG/10 ML VIAL SLOW IVP SCH (13:54)
--- NOTE | 2020-03-05 17:54 | PDOC.HOSPP ---
- Subjective Encounter Date: 03/05/20 non-verbal Subjective: Intubated. Unresponsive. - Objective Vital Signs & Weight: Vital Signs (12 hours) Temp Pulse Resp BP Pulse Ox 03/05/20 16:00 98.5 F 37 H 03/05/20 14:36 121 H 112/69 03/05/20 14:00 30 H 03/05/20 12:00 98.1 F 32 H 03/05/20 11:06 105 H 112/71 03/05/20 10:00 30 H 03/05/20 08:00 98.2 F 34 H 98 03/05/20 07:15 102 H 123/68 03/05/20 06:00 30 H Weight Admit Weight 176 lb 8 oz Weight 176 lb 8 oz Most Recent Monitor Data Heart Rate from ECG 116 NIBP 121/67 NIBP BP-Mean 85 Respiration from ECG 30 SpO2 88 I&O: 03/04/20 03/05/20 03/06/20 06:59 06:59 06:59 Intake Total 3870 4275 570 Output Total 142 870 110 Balance 3728 3399 460 Result Diagrams: 03/05/20 03:59 03/05/20 03:59 Additional Labs: Accuchecks 03/05/20 03/05/20 03/05/20 16:03 09:54 04:01 POC Glucose 215 H 165 H 221 H 03/04/20 03/04/20 20:52 17:29 POC Glucose 195 H 147 H Hospitalist ROS - Medication Medications: Active Medications Generic Name Dose Route Start Last Admin Trade Name Freq PRN Reason Stop Dose Admin Acetaminophen 650 mg 02/11/20 15:29 03/03/20 18:29 Acetaminophen 325 Mg Tab PO 650 mg Q4H PRN Administration Headache/Fever/Mild Pain (1-3) Acetaminophen 650 mg 02/11/20 15:29 02/28/20 22:35 Acetaminophen 650 Mg Suppository PA 650 mg Q4H PRN Administration Headache/Fever/Mild Pain (1-3) Albuterol Sulfate 1 puff 02/12/20 19:42 02/18/20 09:05 Albuterol 200 Puff (6.7gm Inhaler) INH 1 puff Q8H PRN Administration Wheezing Aspirin 325 mg 02/12/20 09:00 03/05/20 09:13 Aspirin 325 Mg Tab PO 325 mg DAILY EMELI Administration Atorvastatin Calcium 10 mg 02/13/20 21:00 03/04/20 21:06 Atorvastatin Calcium 10 Mg Tab PO 10 mg HS EMELI Administration Benzonatate 100 mg 02/13/20 11:28 02/24/20 08:58 Benzonatate 100 Mg Cap PO 100 mg Q6H PRN Administration Cough Enoxaparin Sodium 40 mg 02/11/20 21:00 03/05/20 09:14 Enoxaparin Sodium 40 Mg/0.4 Ml Syringe SC Not Given 0900,2100 EMELI Famotidine 20 mg 03/04/20 09:00 03/05/20 09:13 Famotidine 20 Mg Tab PO 20 mg DAILY EMELI Administration Furosemide 80 mg 03/05/20 14:00 03/05/20 13:54 Furosemide 100 Mg/10 Ml Vial SLOW IVP 80 mg 0600,1400 EMELI Administration Guaifenesin 200 mg 02/13/20 11:28 02/14/20 21:04 Diabetic Tussin 200 Mg/10 Ml Udcup PO 200 mg Q4H PRN Administration Cough Guaifenesin/Dextromethorphan 15 ml 02/11/20 15:29 02/18/20 08:25 Guaifenesin Dm 100-10/5 Ml Udcup PO 15 ml Q4H PRN Administration Cough Amino Acids/Dextrose 2,000 mls @ 75 mls/hr 02/18/20 15:30 02/18/20 15:55 Clinimix 4.25%-5% IV 2,000 mls INF EMELI Administration Insulin Glargine 11 units/ 0.11 mls @ 0 mls/hr 02/20/20 21:00 03/04/20 20:57 Miscellaneous Medication SC 0.11 mls HS EMLEI Administration Fentanyl Citrate 2,000 mcg/ 100 mls @ 0 mls/hr 02/28/20 20:15 03/01/20 21:29 Sodium Chloride IV 03/29/20 20:15 100 mls INF EMELI Administration Protocol Per Protocol Norepinephrine Bitartrate 8 mg 250 mls @ 0 mls/hr 02/29/20 13:00 03/04/20 03:46 / Dextrose/Water IVPB 250 mls INF EMELI Administration Protocol Titrate Linezolid 600 mg/ Device 300 mls @ 150 mls/hr 03/02/20 21:00 03/05/20 09:13 IVPB 300 mls Q12HR EMELI Administration Sodium Bicarbonate 100 meq/ 1,000 mls @ 100 mls/hr 03/03/20 11:15 03/05/20 14:06 Sodium Chloride IV 1,000 mls .Q10H EMELI Administration Meropenem 1 gm/ Sodium 100 mls @ 200 mls/hr 03/04/20 10:00 03/05/20 10:47 Chloride IVPB 100 mls 1000,2200 EMELI Administration Insulin Human Lispro 0 units 02/11/20 15:36 03/05/20 16:12 Humalog 300 Units/3 Ml Vial SC 3 units .MILD SLIDING SCALE PRN Administration Mild Correctional Scale Insulin Human Lispro 0 units 02/11/20 15:36 02/18/20 21:42 Humalog 300 Units/3 Ml Vial SC 3 unit .BEDTIME SLIDING SC PRN Administration Bedtime Correctional Scale Lorazepam 2 mg 02/28/20 20:15 03/01/20 10:22 Lorazepam 2 Mg/Ml Vial SLOW IVP 03/29/20 20:15 2 mg Q1H PRN Administration Breakthrough agitation Methylprednisolone Sodium Succinate 40 mg 02/29/20 12:00 03/05/20 11:52 Methylprednisolone Sod Succ 40 Mg Vial IVP 40 mg Q6HR EMELI Administration Pioglitazone HCl 15 mg 02/11/20 21:00 03/05/20 09:13 Pioglitazone Hcl 15 Mg Tab PO 15 mg BID EMELI Administration Propofol 1,000 mg 02/28/20 20:15 03/01/20 21:15 Propofol 1,000 Mg/100 Ml Vial IV 03/29/20 20:15 1,000 mg INF PRN Administration TO ACHIEVE GOAL RASS Protocol Sodium Chloride 10 ml 02/29/20 09:00 03/05/20 09:14 Flush - Normal Saline 10 Ml Syringe IVF 10 ml Q12HR EMELI Administration Vecuronium [place] 10 mg 02/29/20 03:31 03/02/20 10:39 Vecuronium 10 Mg Vial IV 10 mg Q1H PRN Administration PRONE - Exam General Appearance: NAD, awake alert Heart: RRR, no murmur, no gallops, no rubs, normal peripheral pulses Heart - other findings: Tachycardia Respiratory: rales, tachypneic, wheezes Gastrointestinal: soft, non-tender, non-distended, normal bowel sounds, no palpable masses, no hepatomegaly, no splenomegaly, no bruit Extremities: 2+ LE edema Neurological - other findings: Unresponsive Hosp A/P (1) Acute respiratory failure with hypoxia Code(s): J96.01 - ACUTE RESPIRATORY FAILURE WITH HYPOXIA Status: Acute (2) Pneumonia due to COVID-19 virus Code(s): U07.1 - COVID-19; J12.89 - OTHER VIRAL PNEUMONIA Status: Acute (3) Diabetes mellitus type 2 in nonobese Code(s): E11.9 - TYPE 2 DIABETES MELLITUS WITHOUT COMPLICATIONS Status: ron (4) HTN (hypertension) Code(s): I10 - ESSENTIAL (PRIMARY) HYPERTENSION Status: Chronic Qualifiers: Hypertension type: essential hypertension Qualified Code(s): I10 - Essential (primary) hypertension (5) Acute renal failure Status: Resolved (6) Sinus tachycardia Code(s): R00.0 - TACHYCARDIA, UNSPECIFIED Status: Resolved (7) Bacteremia due to Pseudomonas Code(s): R78.81 - BACTEREMIA; B96.5 - PSEUDOMONAS (MALLEI) CAUSING DISEASES CLASSD ELSWHR Status: Acute (8) Diarrhea Code(s): R19.7 - DIARRHEA, UNSPECIFIED Status: Acute (9) Volume overload Code(s): E87.70 - FLUID OVERLOAD, UNSPECIFIED Status: Acute - Plan Acute hypoxic respiratory failure: Patient remains ventilated with no opportunity for weaning at this time. Secondary to Covid pneumonia. Pulmonology following. As of 03/03/2020 patient remains extremely acidotic in spite of ventilation. Prognosis is generally grim. Discussed with the patient's daily. 03/05/2020 it appears the patient is likely having some worsening volume overload and likely representing some pulmonary edema. Spontaneous pneumothorax: Right-sided pneumothorax developed on 03/02/2020 in the evening. Right-sided chest tube in place. COVID-19 pneumonia: Patient is status post convalescent plasma. On Solu-Medrol. Pseudomonas bacteremia: Developed substantial fevers. He had positive cultures from the blood, urine and sputum. Should have adequate coverage with meropenem. Acute worsening of chronic kidney disease stage II/oliguric renal failure: GFR improved but is subsequently declining. 03/03/2020 patient's GFR continued to decline and he became hyperkalemic. Nephrology consulted. Concerning for ATN. Progressive decline on 03/04/2020. Patient developing some evidence of volume overload as well. Nephrology added albumin infusions with Lasix. With initial albumin and Lasix the patient only put out about 10 cc of urine. He is very nearly anuric. Discussed with the patient's and daughter. Dialysis would be highly risky in this situation. On 03/05/2020 nephrology felt it was time to make the decision on dialysis. I discussed the situation with the patient's daughter who in turn talked to the patient's . They would like to try dialysis. They do understand that it is risky. He has had a significant amount of hemodynamic instability. Presently he is about as stable as he has been. Hyperkalemia: Likely secondary to worsening of his renal function. Mild. Did not necessitate aggressive intervention. Diabetes mellitus: Continue sliding scale insulin and Accu-Cheks. Tachycardia: Sinus rhythm. Appreciate cardiology input. Diarrhea: Patient developed significant diarrhea on 03/04/2020. Negative C. difficile. Rectal tube placed. Disposition: Patient continues to require significant amount of ventilator support and is not amenable to weaning and persistent acidosis. He has persistent tachycardia, pneumothorax, worsening renal failure, pseudomonal infection of multiple sites. Overall prognosis is very poor. On 03/03/2020 palliative care team met with the patient's family and ultimately has been converted to a DNR.
--- NOTE | 2020-03-05 21:14 | PRG ---
DATE OF SERVICE: 03/05/2020 SUBJECTIVE: Josesito Garrison remains mechanically ventilated. OBJECTIVE: VITAL SIGNS: Respiratory rate set at 30, FiO2 is 50, blood pressure is 112/67, heart rate is 108. LUNGS: Remarkable for coarse equal breath sounds. HEART: Regular rhythm. ABDOMEN: Soft. LABORATORY DATA: White count 10.6, hemoglobin 8.2, platelets 111. Sodium 137, potassium 4.7, chloride 101, bicarb 15, BUN 101, creatinine 5.18. PH 7.28, pCO2 of 33, pO2 of 53. IMPRESSION AND PLAN: 1. Respiratory failure associated with COVID pneumonia. 2. Acute renal failure. 3. Metabolic acidosis secondary to acute renal failure. 4. Do not resuscitate status. He is 23 days into this hospitalization. I thought a couple of days ago he would pass away, but he continues to survive. He has a chest tube in place and his right lung is inflated. He grew Pseudomonas out of his blood on the 3rd. He is on meropenem for that. Steroid dosing probably can be decreased a little bit. At some point in time, if he continues to survive, tracheostomy might be considered whether or not family wants him to be dialyzed. Critical care time 30 min Job ID: [id number] MTDD
[2020-03-05] MEDS ORDERED: Bacteriostatic Water 30 ML VIAL FS PRN (21:15)
[2020-03-05] MEDS: Insulin Glargine 11 UNITS in Pre-Filled Syringe 1 EACH SC SCH (21:44)
[2020-03-05] MEDS: Atorvastatin Calcium 10 MG TAB PO SCH (21:49)
[2020-03-06] MEDS: Meropenem 1 GM in Sodium Chloride 0.9% 100 ML IVPB SCH ×3 (00:28→21:14)
[2020-03-06] MEDS: HumaLOG 300 UNITS/3 ML VIAL SC PRN ×3 (04:39→16:53)
[2020-03-06 05:46] LABS: Anion Gap 27 mmol/L (10-20); Calc. Creatinine Clearance 15 mL/min (70-130); Carbon Dioxide 19 mmol/L (23-31); Chloride 97 mmol/L (98-107); Potassium 4.7 mmol/L (3.5-5.1); Sodium 138 mmol/L (136-145)
[2020-03-06 05:47] LABS: Calcium 6.2 mg/dL (7.8-10.44); Glucose 211 mg/dL (80-115)
[2020-03-06 05:58] LABS: BUN (Urea Nitrogen) 119 mg/dL (8.4-25.7)
[2020-03-06 06:15] LABS: Hemoglobin 8.6 g/dL (14.0-18.0); Mean Corpuscular HGB CONC 31.3 g/dL (32.0-36.0); Mean Corpuscular Hemoglobin 26.7 pg (27.0-31.0); Mean Corpuscular Volume 85.1 fL (78.0-98.0); Mean Platelet Volume 11.6 fL (7.4-10.4); Platelet Count 104 thou/uL (130-400); RBC Distribution Width 15.5 % (11.5-14.5)
[2020-03-06 06:18] LABS: Band 44 % (5-11); Lymphocytes 8 % (21-51); MDiff Complete? YES; Metamyelocyte 1 % (0-0); Monocytes 1 % (0-10); Myelocyte 1 % (0-0); Neutrophil 45 % (42-75); Nucleated RBC 8 % (0); Toxic Granulation SLIGHT; White Blood Cell (WBC) Count 15.1 thou/uL (4.8-10.8)
[2020-03-06] MEDS: Furosemide 100 MG/10 ML VIAL SLOW IVP SCH ×2 (06:35→14:33)
[2020-03-06 07:03] LABS: Actual Bicarbonate (HCO3a) 16.4 mEq/L (22-28); Base Excess (BEa) -8.6 mEq/L (-2.0 to +3.0); CO2 Tension 32.4 mmHg (35.0-45.0); Calcium, Ionized (arterial) 0.86 mmol/L (1.12-1.30); Carboxyhemoglobin (COHb) 0.9 gm% (0.0-3.0); Hemoglobin (Hb) 11.7 g/dL (14.0-18.0); Potassium - ABG Lab 4.25 mmol/L (3.70-5.30); pH, Arterial 7.32 (7.35-7.45)
[2020-03-06 07:31] LABS: O2 Tension (PaO2), arterial 47.9 mmHg (> 80.0)
[2020-03-06 07:32] LABS: Puncture Site RRA
[2020-03-06] MEDS: Famotidine 20 MG TAB PO SCH (09:13)
[2020-03-06] MEDS: Linezolid 600 MG in Premix Bag 1 BAG IVPB SCH ×2 (09:13→21:20)
[2020-03-06] MEDS: methylPREDNISolone Sod Succ 40 MG VIAL IVP SCH ×2 (09:13→21:22)
[2020-03-06] MEDS: Aspirin 325 MG TAB PO SCH (09:13)
[2020-03-06] MEDS: Enoxaparin Sodium 40 MG/0.4 ML SYRINGE SC SCH ×2 (09:13→21:13)
[2020-03-06] MEDS: Pioglitazone HCl 15 MG TAB PO SCH ×2 (09:14→21:22)
--- NOTE | 2020-03-06 09:40 | RAD ---
PORTABLE CHEST: INDICATION: CCU followup on ventilator. COMPARISON: 03/03/2020. FINDINGS: ET tube and NG tube remain in place. Hazy infiltrates in both mid and lower lungs again noted. Righ t chest tube is in place. There may be a tiny right apical pneumothorax. IMPRESSION: Bilateral infiltrates show evidence of mild improvement when compared to 03/03/2020. Question tiny rig ht apical pneumothorax. POS: AGW
--- NOTE | 2020-03-06 10:24 | PRG ---
DATE OF SERVICE: 03/06/2020 SUBJECTIVE: Mr. Garrison is a 59-year-old male, who was seen for his acute kidney injury secondary to acute tubular necrosis. Renal function has been progressive. So far, he remains not to be in overt volume overload and potassium is well controlled. After a long discussion with the family especially with the daughter, Jayda and they wanted to consider dialysis. I will time the dialysis when I feel that it is needed. For the moment, no indication for any dialysis today. No acute events noted last night. He has been started on Lasix 80 mg IV q.12 due to his anuria. He is not responded well with this yet. No acute events noted last night. OBJECTIVE: VITAL SIGNS: Blood pressure 117/63, heart rate 96, respiratory rate 22, O2 saturation 87%. GENERAL: Patient is unresponsive, intubated on ventilator support. SKIN: Adequate turgor. HEENT: He has slightly pale conjunctivae. Anicteric sclerae. NECK: No neck mass. No carotid bruits. No JVD. CHEST: No deformities. LUNGS: Decreased breath sounds. HEART: Normal sinus rhythm. No murmurs, gallops, or rubs. ABDOMEN: Globular, soft, nontender. No masses. EXTREMITIES: No edema. MEDICATIONS: March 06, 2020, was reviewed. LABORATORY DATA: March 06, 2020, white count 15.1, hemoglobin 8.6. Sodium 138, potassium 4.7, chloride 97, carbon dioxide 19, BUN 119, creatinine 5.82, GFR 10 mL/minute, calcium 6.2. ASSESSMENT AND PLAN: 1. Acute kidney injury secondary to acute tubular necrosis. Continued worsening of the renal function. Of note, the patient is not in overt volume overload and the potassium is within normal. We will time the dialysis. He probably will end up being dialyzed tomorrow if he still survives tonight. Again, the family is wanting to pursue dialysis, even though I did explain to them that the dialysis only supports one organ and does not change his overall clinical course. 2. Coronavirus disease 2019 pneumonia with multiorgan dysfunction. Continue supportive care. Job ID: [id number]
[2020-03-06 14:07] LABS: Hep B Surf Ag Non-Reactive S/CO (NonReactive)
[2020-03-06 14:08] LABS: HBSAg Index 0.15 S/CO (0-0.99)
--- NOTE | 2020-03-06 15:49 | PRG ---
DATE OF SERVICE: 03/06/2020 SUBJECTIVE: Mr. Garrison OBJECTIVE: VITAL SIGNS: Heart rates in the 90s, blood pressure 124/68, respiratory rate is in the 20s. LUNGS: Remarkable for equal breath sounds. HEART: Regular rhythm. ABDOMEN: Soft. LABORATORY DATA: PH 7.32, pCO2 of 32, pO2 of 47. BUN is 119, creatinine is 5.2. IMPRESSION AND PLAN: Acute renal failure on top of COVID pneumonia, probably needs dialysis, if not today, definitely within the next 24 hours. Family wants to proceed down . I have put in a consult for vascular access procedure today. We will continue to follow. Critical care time 30 min. Job ID: [id number] MTDD
--- NOTE | 2020-03-06 16:10 | PDOC.HOSPP ---
- Subjective Encounter Date: 03/06/20 non-verbal Subjective: Intubated - Objective Vital Signs & Weight: Vital Signs (12 hours) Temp Pulse Resp BP Pulse Ox 03/06/20 14:43 91 124/68 03/06/20 14:00 37 H 03/06/20 12:00 98.6 F 35 H 03/06/20 11:08 103 H 113/64 03/06/20 10:00 39 H 03/06/20 08:00 98.5 F 31 H 89 L 03/06/20 07:27 106 H 112/65 88 L 03/06/20 06:00 33 H Weight Admit Weight 176 lb 8 oz Weight 176 lb 8 oz Most Recent Monitor Data Heart Rate from ECG 106 NIBP 116/68 NIBP BP-Mean 74 Respiration from ECG 33 SpO2 88 I&O: 03/05/20 03/06/20 03/07/20 06:59 06:59 06:59 Intake Total 4269 4433 220 Output Total 870 670 50 Balance 3390 3763 170 Result Diagrams: 03/06/20 03:54 03/06/20 03:54 Additional Labs: Accuchecks 03/06/20 03/06/20 03/05/20 10:52 03:45 21:43 POC Glucose 235 H 209 H 164 H 03/05/20 16:03 POC Glucose 215 H Hospitalist ROS - Medication Medications: Active Medications Generic Name Dose Route Start Last Admin Trade Name Freq PRN Reason Stop Dose Admin Acetaminophen 650 mg 02/11/20 15:29 03/03/20 18:29 Acetaminophen 325 Mg Tab PO 650 mg Q4H PRN Administration Headache/Fever/Mild Pain (1-3) Acetaminophen 650 mg 02/11/20 15:29 02/28/20 22:35 Acetaminophen 650 Mg Suppository PA 650 mg Q4H PRN Administration Headache/Fever/Mild Pain (1-3) Albuterol Sulfate 1 puff 02/12/20 19:42 02/18/20 09:05 Albuterol 200 Puff (6.7gm Inhaler) INH 1 puff Q8H PRN Administration Wheezing Aspirin 325 mg 02/12/20 09:00 03/06/20 09:13 Aspirin 325 Mg Tab PO 325 mg DAILY EMELI Administration Atorvastatin Calcium 10 mg 02/13/20 21:00 03/05/20 21:49 Atorvastatin Calcium 10 Mg Tab PO 10 mg HS EMELI Administration Benzonatate 100 mg 02/13/20 11:28 02/24/20 08:58 Benzonatate 100 Mg Cap PO 100 mg Q6H PRN Administration Cough Enoxaparin Sodium 40 mg 02/11/20 21:00 03/06/20 09:13 Enoxaparin Sodium 40 Mg/0.4 Ml Syringe SC 40 mg 0900,2100 EMELI Administration Famotidine 20 mg 03/04/20 09:00 03/06/20 09:13 Famotidine 20 Mg Tab PO 20 mg DAILY EMELI Administration Furosemide 80 mg 03/05/20 14:00 03/06/20 14:33 Furosemide 100 Mg/10 Ml Vial SLOW IVP 80 mg 0600,1400 EMELI Administration Guaifenesin 200 mg 02/13/20 11:28 02/14/20 21:04 Diabetic Tussin 200 Mg/10 Ml Udcup PO 200 mg Q4H PRN Administration Cough Guaifenesin/Dextromethorphan 15 ml 02/11/20 15:29 02/18/20 08:25 Guaifenesin Dm 100-10/5 Ml Udcup PO 15 ml Q4H PRN Administration Cough Amino Acids/Dextrose 2,000 mls @ 75 mls/hr 02/18/20 15:30 02/18/20 15:55 Clinimix 4.25%-5% IV 2,000 mls INF EMELI Administration Insulin Glargine 11 units/ 0.11 mls @ 0 mls/hr 02/20/20 21:00 03/05/20 21:44 Miscellaneous Medication SC 0.11 mls HS EMELI Administration Fentanyl Citrate 2,000 mcg/ 100 mls @ 0 mls/hr 02/28/20 20:15 03/01/20 21:29 Sodium Chloride IV 03/29/20 20:15 100 mls INF EMELI Administration Protocol Per Protocol Norepinephrine Bitartrate 8 mg 250 mls @ 0 mls/hr 02/29/20 13:00 03/04/20 03:46 / Dextrose/Water IVPB 250 mls INF EMELI Administration Protocol Titrate Linezolid 600 mg/ Device 300 mls @ 150 mls/hr 03/02/20 21:00 03/06/20 09:13 IVPB 300 mls Q12HR EMELI Administration Sodium Bicarbonate 100 meq/ 1,000 mls @ 100 mls/hr 03/03/20 11:15 03/06/20 14:33 Sodium Chloride IV 1,000 mls .Q10H EMELI Administration Meropenem 1 gm/ Sodium 100 mls @ 200 mls/hr 03/04/20 10:00 03/06/20 10:23 Chloride IVPB 100 mls 1000,2200 EMELI Administration Insulin Human Lispro 0 units 02/11/20 15:36 03/06/20 10:54 Humalog 300 Units/3 Ml Vial SC 3 units .MILD SLIDING SCALE PRN Administration Mild Correctional Scale Insulin Human Lispro 0 units 02/11/20 15:36 02/18/20 21:42 Humalog 300 Units/3 Ml Vial SC 3 unit .BEDTIME SLIDING SC PRN Administration Bedtime Correctional Scale Lorazepam 2 mg 02/28/20 20:15 03/01/20 10:22 Lorazepam 2 Mg/Ml Vial SLOW IVP 03/29/20 20:15 2 mg Q1H PRN Administration Breakthrough agitation Methylprednisolone Sodium Succinate 40 mg 03/05/20 21:00 03/06/20 09:13 Methylprednisolone Sod Succ 40 Mg Vial IVP 40 mg Q12HR EMELI Administration Pioglitazone HCl 15 mg 02/11/20 21:00 03/06/20 09:14 Pioglitazone Hcl 15 Mg Tab PO 15 mg BID EMELI Administration Propofol 1,000 mg 02/28/20 20:15 03/01/20 21:15 Propofol 1,000 Mg/100 Ml Vial IV 03/29/20 20:15 1,000 mg INF PRN Administration TO ACHIEVE GOAL RASS Protocol Sodium Chloride 10 ml 02/29/20 09:00 03/06/20 09:14 Flush - Normal Saline 10 Ml Syringe IVF 10 ml Q12HR EMELI Administration Vecuronium [place] 10 mg 02/29/20 03:31 03/02/20 10:39 Vecuronium 10 Mg Vial IV 10 mg Q1H PRN Administration PRONE - Exam General - other findings: Intubated. Nonresponsive. Heart: RRR, no murmur, no gallops, no rubs, normal peripheral pulses Respiratory - other findings: Scattered rales. Slightly diminished on the right. Gastrointestinal: soft, non-tender, non-distended, normal bowel sounds, no palp able masses, no hepatomegaly, no splenomegaly, no bruit Extremities: 1+ LE edema Skin: normal turgor Neurological - other findings: Unresponsive Psychiatric - other findings: Unresponsive Hosp A/P (1) Acute respiratory failure with hypoxia Code(s): J96.01 - ACUTE RESPIRATORY FAILURE WITH HYPOXIA Status: Acute (2) Pneumonia due to COVID-19 virus Code(s): U07.1 - COVID-19; J12.89 - OTHER VIRAL PNEUMONIA Status: Acute (3) Diabetes mellitus type 2 in nonobese Code(s): E11.9 - TYPE 2 DIABETES MELLITUS WITHOUT COMPLICATIONS Status: Chronic (4) HTN (hypertension) Code(s): I10 - ESSENTIAL (PRIMARY) HYPERTENSION Status: Chronic Qualifiers: Hypertension type: essential hypertension Qualified Code(s): I10 - Essential (primary) hypertension (5) Acute renal failure Status: Resolved (6) Sinus tachycardia Code(s): R00.0 - TACHYCARDIA, UNSPECIFIED Status: Resolved (7) Bacteremia due to Pseudomonas Code(s): R78.81 - BACTEREMIA; B96.5 - PSEUDOMONAS (MALLEI) CAUSING DISEASES CLASSD ELSWHR Status: Acute (8) Diarrhea Code(s): R19.7 - DIARRHEA, UNSPECIFIED Status: Acute (9) Volume overload Code(s): E87.70 - FLUID OVERLOAD, UNSPECIFIED Status: Acute (10) Encephalopathy Code(s): G93.40 - ENCEPHALOPATHY, UNSPECIFIED Status: Acute - Plan Acute hypoxic respiratory failure: Patient remains ventilated with no opportunity for weaning at this time. Secondary to Covid pneumonia. Pulmonology following. As of 03/03/2020 patient remains extremely acidotic in spite of ventilation. Prognosis is generally grim. Discussed with the patient's daily. 03/05/2020 it appears the patient is likely having some worsening volume overload and likely representing some pulmonary edema. Spontaneous pneumothorax: Right-sided pneumothorax developed on 03/02/2020 in the evening. Right-sided chest tube in place. COVID-19 pneumonia: Patient is status post convalescent plasma. On Solu-Medrol. Encephalopathy: As of 03/06/2020 the most concerning feature of the patient's overall picture is his encephalopathy. Patient has not been on any sedation for an extended period. Yet he has no significant response to external stimuli and remains unconscious. Will obtain EEG to assess [employer] function. Pseudomonas bacteremia: Developed substantial fevers. He had positive cultures from the blood, urine and sputum. Should have adequate coverage with meropenem. Acute worsening of chronic kidney disease stage II/oliguric renal failure: GFR improved but is subsequently declining. 03/03/2020 patient's GFR continued to decline and he became hyperkalemic. Nephrology consulted. Concerning for ATN. Progressive decline on 03/04/2020. Patient developing some evidence of volume overload as well. Nephrology added albumin infusions with Lasix. With initial albumin and Lasix the patient only put out about 10 cc of urine. He is very nearly anuric. Discussed with the patient's and daughter. Dialysis would be highly risky in this situation. On 03/05/2020 nephrology felt it was time to make the decision on dialysis. I discussed the situation with the patient's daughter who in turn talked to the patient's . They would like to try dialysis. They do understand that it is risky. He has had a significant amount of hemodynamic instability. Presently he is about as stable as he has been. As of 03/06/2020 the patient did not have a specific indication for dialysis in spite of progressively worsening renal function and anuria. Hyperkalemia: Likely secondary to worsening of his renal function. Mild. Did not necessitate aggressive intervention. Diabetes mellitus: Continue sliding scale insulin and Accu-Cheks. Tachycardia: Sinus rhythm. Appreciate cardiology input. Diarrhea: Patient developed significant diarrhea on 03/04/2020. Negative C. difficile. Rectal tube placed. Disposition: Patient continues to require significant amount of ventilator support and is not amenable to weaning and persistent acidosis. He has persistent tachycardia, pneumothorax, worsening renal failure, pseudomonal infection of multiple sites. Seems to be very encephalopathic in spite of sedation. Essentially comatose. Concerning for brain injury. Overall prognosis is very poor. On 03/03/2020 palliative care team met with the patient's family and ultimately has been converted to a DNR.
--- NOTE | 2020-03-06 17:31 | PDOC.EEG ---
Neurology EEG Report - Report Report: This EEG was performed using 24 channel [employer] video digital EEG machine with 24 disc electrodes. This was a routine EEG recording. Background: Posterior background rhythm is not observed. Hyperventilation: Not performed Photic stimulation: No response Sleep: No stage changes observed. EEG diagnosis: Generalized irregular delta theta activity seen throughout the recording. Clinical interpretation: This EEG is consistent with moderate to severe generalized nonspecific cerebral dysfunction.
[2020-03-06] MEDS: Atorvastatin Calcium 10 MG TAB PO SCH (21:13)
[2020-03-06] MEDS: Insulin Glargine 11 UNITS in Pre-Filled Syringe 1 EACH SC SCH (21:13)
[2020-03-07 04:45] LABS: Anion Gap 26 mmol/L (10-20); Calc. Creatinine Clearance 14 mL/min (70-130); Carbon Dioxide 21 mmol/L (23-31); Chloride 94 mmol/L (98-107); Glucose 242 mg/dL (80-115); Potassium 4.5 mmol/L (3.5-5.1); Sodium 136 mmol/L (136-145)
[2020-03-07 04:51] LABS: Calcium 5.9 mg/dL (7.8-10.44)
[2020-03-07 04:59] LABS: BUN (Urea Nitrogen) 138 mg/dL (8.4-25.7)
[2020-03-07 05:17] LABS: Band 25 % (5-11); Hemoglobin 8.6 g/dL (14.0-18.0); Lymphocytes 4 % (21-51); MDiff Complete? YES; Mean Corpuscular HGB CONC 32.2 g/dL (32.0-36.0); Mean Corpuscular Hemoglobin 26.9 pg (27.0-31.0); Mean Corpuscular Volume 83.6 fL (78.0-98.0); Mean Platelet Volume 11.8 fL (7.4-10.4); Metamyelocyte 1 % (0-0); Monocytes 2 % (0-10); Myelocyte 1 % (0-0); Neutrophil 67 % (42-75); Nucleated RBC 9 % (0); Platelet Count 100 thou/uL (130-400); Platelet Morphology Comment Appears Decreased; RBC Distribution Width 15.2 % (11.5-14.5); White Blood Cell (WBC) Count 19.2 thou/uL (4.8-10.8)
--- NOTE | 2020-03-07 06:58 | PRG ---
DATE OF SERVICE: 03/07/2020 SUBJECTIVE: Mr. Garrison is a 59-year-old male, who was admitted with COVID-19 pneumonia and has multiorgan dysfunction. We are following up this patient for his acute kidney injury from [facility]. We have decided to initiate hemodialysis also as per request by the family. He is noted to be very catabolic. He is also noted to be anuric. Blood pressure was on the low side this morning. We will start albumin infusion 25 g IV q.6. We will discontinue Lasix. OBJECTIVE: VITAL SIGNS: Blood pressure is 112/59, heart rate 113, respiratory rate 29, and O2 saturation is 89%. GENERAL: The patient is unresponsive, intubated on ventilator support. SKIN: Adequate turgor. HEENT: Slightly pale conjunctivae. Anicteric sclerae. NECK: No neck mass. No carotid bruits. No JVD. CHEST: No deformities. LUNGS: Decreased breath sounds. HEART: Tachycardic. No murmur. No gallops. No rubs. ABDOMEN: Globular, soft, and nontender. No masses. EXTREMITIES: No edema. No deformities. MEDICATIONS: Of March 07, 2020, was reviewed. LABORATORY DATA: Laboratories of March 07, 2020, white count 19.2, hemoglobin 8.6. Sodium 136, potassium 4.5, chloride 94, carbon dioxide 21, BUN 138, creatinine 6.15, GFR 9 mL/minute, and calcium is 5.9. ASSESSMENT AND PLAN: 1. Acute kidney injury - secondary to acute tubular necrosis. We will initiate dialysis today. We will do a 1-to 2-hour hemodialysis as tolerated with this patient. Due to the low blood pressure, minimal fluid removal. 2. Hypocalcemia. We will adjust calcium bath with dialysis. 3. COVID-19 pneumonia with multiorgan dysfunction - continue supportive care. An EEG was done, which suggested diffuse cerebral dysfunction. Possibility of superimposed metabolic encephalopathy remains with this patient. Overall, prognosis remains poor with this patient. Job ID: [id number]
--- NOTE | 2020-03-07 07:42 | OP ---
DATE OF PROCEDURE: 03/06/2020 PREOPERATIVE DIAGNOSES: COVID illness, pneumonia, respiratory failure, ventilator, renal failure, acidosis. POSTOPERATIVE DIAGNOSES: COVID illness, pneumonia, respiratory failure, ventilator, renal failure, acidosis. PROCEDURE PERFORMED: Left femoral vein Trialysis catheter. ANESTHESIA: 1% xylocaine. Sedation, ventilator. DESCRIPTION OF PROCEDURE: With the patient at bedside in ICU, left groin was clipped, prepared with ChloraPrep and draped in routine fashion. Trocar catheter cannulated the femoral vein after anesthetizing local anesthetic throughout the area, skin, and subcutaneous tissue. Good return of venous blood obtained. J-wire threaded. Seldinger technique used to place a Trialysis catheter, removed the J-wire, securing it with 3-0 nylon suture. Each port aspirated blood and flushed with heparinized saline solution. Sterile dressing applied. Job ID: [id number]
[2020-03-07] MEDS: Albumin 25% 25 GM/100 ML BOT IVPB SCH ×3 (07:47→18:11)
[2020-03-07] MEDS: methylPREDNISolone Sod Succ 40 MG VIAL IVP SCH ×2 (08:02→21:36)
[2020-03-07] MEDS: Famotidine 20 MG TAB PO SCH (08:02)
[2020-03-07] MEDS: Enoxaparin Sodium 40 MG/0.4 ML SYRINGE SC SCH (08:02)
[2020-03-07] MEDS: Pioglitazone HCl 15 MG TAB PO SCH ×2 (08:02→21:35)
[2020-03-07] MEDS: Aspirin 325 MG TAB PO SCH (08:02)
[2020-03-07] MEDS: Furosemide 100 MG/10 ML VIAL SLOW IVP SCH (08:39)
[2020-03-07] MEDS: Linezolid 600 MG in Premix Bag 1 BAG IVPB SCH ×2 (10:46→21:36)
[2020-03-07] MEDS: Meropenem 1 GM in Sodium Chloride 0.9% 100 ML IVPB SCH ×2 (11:07→21:36)
[2020-03-07] MEDS ORDERED: Heparin 10,000 UNITS/ 10 ML VIAL ONE (12:34)
[2020-03-07] MEDS: Heparin 5,000 UNITS/ML VIAL SC SCH ×2 (14:43→21:35)
[2020-03-07] MEDS: HumaLOG 300 UNITS/3 ML VIAL SC PRN (16:23)
--- NOTE | 2020-03-07 17:33 | PDOC.HOSPP ---
- Subjective Encounter Date: 03/07/20 non-verbal - Objective Vital Signs & Weight: Vital Signs (12 hours) Temp Pulse Resp BP Pulse Ox 03/07/20 14:29 107 H 138/62 03/07/20 14:00 32 H 03/07/20 12:00 98.5 F 34 H 03/07/20 10:57 117 H 94/57 L 03/07/20 10:00 34 H 03/07/20 08:00 98.5 F 30 H 91 L 03/07/20 07:30 113 H 87/60 L Weight Admit Weight 176 lb 8 oz Weight 205 lb 13.177 oz Most Recent Monitor Data Heart Rate from ECG 108 NIBP 130/61 NIBP BP-Mean 75 Respiration from ECG 32 SpO2 95 I&O: 03/06/20 03/07/20 03/08/20 06:59 06:59 06:59 Intake Total 4433 2347 2130 Output Total 670 435 145 Balance 3763 1912 1984 Result Diagrams: 03/07/20 03:35 03/07/20 03:35 Additional Labs: Accuchecks 03/07/20 03/07/20 03/07/20 16:21 09:36 01:40 POC Glucose 220 H 111 H 215 H Hospitalist ROS - Medication Medications: Active Medications Generic Name Dose Route Start Last Admin Trade Name Juiloq PRN Reason Stop Dose Admin Acetaminophen 650 mg 02/11/20 15:29 03/03/20 18:29 Acetaminophen 325 Mg Tab PO 650 mg Q4H PRN Administration Headache/Fever/Mild Pain (1-3) Acetaminophen 650 mg 02/11/20 15:29 02/28/20 22:35 Acetaminophen [address] 650 mg Q4H PRN Administration Headache/Fever/Mild Pain (1-3) Albumin Human 25 gm 03/07/20 06:36 03/07/20 12:23 Albumin 25% 25 Gm/100 Ml Bot IVPB 03/08/20 00:37 25 gm Q6H EMELI Administration Albuterol Sulfate 1 puff 02/12/20 19:42 02/18/20 09:05 Albuterol 200 Puff (6.7gm Inhaler) INH 1 puff Q8H PRN Administration Wheezing Aspirin 325 mg 02/12/20 09:00 03/07/20 08:02 Aspirin 325 Mg Tab PO 325 mg DAILY EMELI Administration Atorvastatin Calcium 10 mg 02/13/20 21:00 03/06/20 21:13 Atorvastatin Calcium 10 Mg Tab PO 10 mg HS EMELI Administration Benzonatate 100 mg 02/13/20 11:28 02/24/20 08:58 Benzonatate 100 Mg Cap PO 100 mg Q6H PRN Administration Cough Famotidine 20 mg 03/04/20 09:00 03/07/20 08:02 Famotidine 20 Mg Tab PO 20 mg DAILY EMELI Administration Guaifenesin 200 mg 02/13/20 11:28 02/14/20 21:04 Diabetic Tussin 200 Mg/10 Ml Udcup PO 200 mg Q4H PRN Administration Cough Guaifenesin/Dextromethorphan 15 ml 02/11/20 15:29 02/18/20 08:25 Guaifenesin Dm 100-10/5 Ml Udcup PO 15 ml Q4H PRN Administration Cough Heparin Sodium (Porcine) 5,000 units 03/07/20 15:00 03/07/20 14:43 Heparin 5,000 Units/Ml Vial SC 5,000 units TID EMELI Administration Amino Acids/Dextrose 2,000 mls @ 75 mls/hr 02/18/20 15:30 02/18/20 15:55 Clinimix 4.25%-5% IV 2,000 mls INF EMELI Administration Insulin Glargine 11 units/ 0.11 mls @ 0 mls/hr 02/20/20 21:00 03/06/20 21:13 Miscellaneous Medication SC 0.11 mls HS EMELI Administration Fentanyl Citrate 2,000 mcg/ 100 mls @ 0 mls/hr 02/28/20 20:15 03/01/20 21:29 Sodium Chloride IV 03/29/20 20:15 100 mls INF EMELI Administration Protocol Per Protocol Norepinephrine Bitartrate 8 mg 250 mls @ 0 mls/hr 02/29/20 13:00 03/04/20 03:46 / Dextrose/Water IVPB 250 mls INF EMELI Administration Protocol Titrate Linezolid 600 mg/ Device 300 mls @ 150 mls/hr 03/02/20 21:00 03/07/20 10:46 IVPB 300 mls Q12HR EMELI Administration Sodium Bicarbonate 100 meq/ 1,000 mls @ 100 mls/hr 03/03/20 11:15 03/07/20 1 1:11 Sodium Chloride IV 1,000 mls .Q10H EMELI Administration Meropenem 1 gm/ Sodium 100 mls @ 200 mls/hr 03/04/20 10:00 03/07/20 11:07 Chloride IVPB 100 mls 1000,2200 EMELI Administration Insulin Human Lispro 0 units 02/11/20 15:36 03/07/20 16:23 Humalog 300 Units/3 Ml Vial SC 3 units .MILD SLIDING SCALE PRN Administration Mild Correctional Scale Insulin Human Lispro 0 units 02/11/20 15:36 02/18/20 21:42 Humalog 300 Units/3 Ml Vial SC 3 unit .BEDTIME SLIDING SC PRN Administration Bedtime Correctional Scale Lorazepam 2 mg 02/28/20 20:15 03/01/20 10:22 Lorazepam 2 Mg/Ml Vial SLOW IVP 03/29/20 20:15 2 mg Q1H PRN Administration Breakthrough agitation Methylprednisolone Sodium Succinate 40 mg 03/05/20 21:00 03/07/20 08:02 Methylprednisolone Sod Succ 40 Mg Vial IVP 40 mg Q12HR EMELI Administration Pioglitazone HCl 15 mg 02/11/20 21:00 03/07/20 08:02 Pioglitazone Hcl 15 Mg Tab PO 15 mg BID EMELI Administration Propofol 1,000 mg 02/28/20 20:15 03/01/20 21:15 Propofol 1,000 Mg/100 Ml Vial IV 03/29/20 20:15 1,000 mg INF PRN Administration TO ACHIEVE GOAL RASS Protocol Sodium Chloride 10 ml 02/29/20 09:00 03/07/20 08:04 Flush - Normal Saline 10 Ml Syringe IVF 10 ml Q12HR EMELI Administration Vecuronium [place] 10 mg 02/29/20 03:31 03/02/20 10:39 Vecuronium 10 Mg Vial IV 10 mg Q1H PRN Administration PRONE - Exam General - other findings: Intubated, unresponsive. Heart: RRR, no murmur, no gallops, no rubs, normal peripheral pulses Respiratory - other findings: Diminished with scattered bilateral rales. Gastrointestinal: soft, non-distended, no palpable masses, diminished bowl sounds Extremities: 1+ LE edema Neurological - other findings: Nonresponsive Hosp A/P (1) Acute respiratory failure with hypoxia Code(s): J96.01 - ACUTE RESPIRATORY FAILURE WITH HYPOXIA Status: Acute (2) Pneumonia due to COVID-19 virus Code(s): U07.1 - COVID-19; J12.89 - OTHER VIRAL PNEUMONIA Status: Acute (3) Diabetes mellitus type 2 in nonobese Code(s): E11.9 - TYPE 2 DIABETES MELLITUS WITHOUT COMPLICATIONS Status: Chronic (4) HTN (hypertension) Code(s): I10 - ESSENTIAL (PRIMARY) HYPERTENSION Status: Chronic Qualifiers: Hypertension type: essential hypertension Qualified Code(s): I10 - Essential (primary) hypertension (5) Acute renal failure Status: Resolved (6) Sinus tachycardia Code(s): R00.0 - TACHYCARDIA, UNSPECIFIED Status: Resolved (7) Bacteremia due to Pseudomonas Code(s): R78.81 - BACTEREMIA; B96.5 - PSEUDOMONAS (MALLEI) CAUSING DISEASES CLASSD ELSWHR Status: Acute (8) Diarrhea Code(s): R19.7 - DIARRHEA, UNSPECIFIED Status: Acute (9) Volume overload Code(s): E87.70 - FLUID OVERLOAD, UNSPECIFIED Status: Acute (10) Encephalopathy Code(s): G93.40 - ENCEPHALOPATHY, UNSPECIFIED Status: Acute - Plan Acute hypoxic respiratory failure: Patient remains ventilated with no opportunity for weaning at this time. Secondary to Covid pneumonia. Pulmonology following. As of 03/03/2020 patient remains extremely acidotic in spite of ventilation. Prognosis is generally grim. Discussed with the patient's daily. As of 03/07/2020 patient is still on the ventilator without much opportunity for weaning. May need to consider trach soon. Appears he will be on the ventilator for some time. Spontaneous pneumothorax: Right-sided pneumothorax developed on 03/02/2020 in the evening. Right-sided chest tube in place. COVID-19 pneumonia: Patient is status post convalescent plasma. On Solu-Medrol. Encephalopathy: As of 03/06/2020 the most concerning feature of the patient's overall picture is his encephalopathy. Patient has not been on any sedation for an extended period. Yet he has no significant response to external stimuli and remains unconscious. EEG on 03/06/2020 revealed diffuse slowing. Pseudomonas bacteremia: Developed substantial fevers. He had positive cultures from the blood, urine and sputum. Should have adequate coverage with meropenem. Fever resolved and he appears otherwise stable. Acute worsening of chronic kidney disease stage II/oliguric renal failure: GFR improved but is subsequently declining. 03/03/2020 patient's GFR continued to decline and he became hyperkalemic. Nephrology consulted. Concerning for ATN. Progressive decline on 03/04/2020. Patient developing some evidence of volume overload as well. Nephrology added albumin infusions with Lasix. With initial albumin and Lasix the patient only put out about 10 cc of urine. He is very nearly anuric. Discussed with the patient's and daughter. Dialysis would be highly risky in this situation. On 03/05/2020 nephrology felt it was time to make the decision on dialysis. I discussed the situation with the patient's daughter who in turn talked to the patient's . They would like to try dialysis. They do understand that it is risky. He has had a significant amount of hemodynamic instability. Presently he is about as stable as he has been. As of 03/06/2020 the patient did not have a specific indication for dialysis in spite of progressively worsening renal function and anuria. Dialysis was initiated on 03/07/2020 without significant volume removal. Hypercalcemia: Patient had progressive worsening of some hypercalcemia. This was addressed with calcium adjusted bath for dialysis on 03/07/2020. Hyperkalemia: Likely secondary to worsening of his renal function. Mild. Did not necessitate aggressive intervention. Diabetes mellitus: Continue sliding scale insulin and Accu-Cheks. Tachycardia: Sinus rhythm. Appreciate cardiology input. Diarrhea: Patient developed significant diarrhea on 03/04/2020. Negative C. difficile. Rectal tube placed. Disposition: Patient continues to require significant amount of ventilator support and is not amenable to weaning and persistent acidosis. He has persistent tachycardia, pneumothorax, worsening renal failure, pseudomonal infection of multiple sites. Seems to be very encephalopathic in spite of sedation. Essentially comatose. Concerning for brain injury but EEG on 03/06/2020 showed diffuse slowing. Overall prognosis is very poor. On 03/03/2020 palliative care team met with the patient's family and ultimately has been converted to a DNR.
--- NOTE | 2020-03-07 17:59 | PRG ---
DATE OF SERVICE: 03/07/2020 SUBJECTIVE: Mr. Garrison remains mechanically ventilated. He is being dialyzed today. He is still encephalopathic and does not respond to commands or sternal rub. He may just have encephalitis with this virus since there is no history of a cardiac arrest since he was admitted to the hospital. OBJECTIVE: VITAL SIGNS: Heart rate 107, blood pressure 138/62, respiratory rate is 30. LUNGS: Remarkable for equal breath sounds. HEART: Regular rhythm. ABDOMEN: Soft. EXTREMITIES: Without asymmetry. For some reason, his daily chest radiographs are stopped. He still has his chest tube in. LABORATORY DATA: White count is 19.2, hemoglobin 8.6, and platelets 100,000. Sodium 136, potassium 4.5, chloride 94, bicarb 21, BUN 138, creatinine 6.15. IMPRESSION: 1. Respiratory failure secondary to COVID. 2. Acute renal failure. 3. Spontaneous pneumothorax with chest tube in place. 4. He is status post placement of a temporary dialysis catheter, now being dialyzed. PLAN: Continue supportive care. I would like to believe that his encephalopathy will improve gradually. He is certainly not brain . There is no reason to do a nuclear perfusion study. An EEG will likely just show diffuse slowing. I doubt he is having seizure activity. Critical care time 30 min. Job ID: [id number] [facility]
[2020-03-07] MEDS: Atorvastatin Calcium 10 MG TAB PO SCH (21:35)
[2020-03-07] MEDS: Insulin Glargine 11 UNITS in Pre-Filled Syringe 1 EACH SC SCH (21:39)
[2020-03-08] MEDS: Albumin 25% 25 GM/100 ML BOT IVPB SCH (00:27)
[2020-03-08 04:51] LABS: Anion Gap 26 mmol/L (10-20); Calc. Creatinine Clearance 18 mL/min (70-130); Carbon Dioxide 22 mmol/L (23-31); Chloride 93 mmol/L (98-107); Glucose 231 mg/dL (80-115); Potassium 4.4 mmol/L (3.5-5.1); Sodium 137 mmol/L (136-145)
[2020-03-08] MEDS: HumaLOG 300 UNITS/3 ML VIAL SC PRN ×3 (04:57→16:34)
[2020-03-08 05:00] LABS: Calcium 5.8 mg/dL (7.8-10.44)
[2020-03-08 05:02] LABS: BUN (Urea Nitrogen) 128 mg/dL (8.4-25.7)
[2020-03-08 05:15] LABS: Band 4 % (5-11); Hemoglobin 7.3 g/dL (14.0-18.0); Lymphocytes 3 % (21-51); MDiff Complete? YES; Mean Corpuscular HGB CONC 33.7 g/dL (32.0-36.0); Mean Corpuscular Hemoglobin 27.5 pg (27.0-31.0); Mean Corpuscular Volume 81.6 fL (78.0-98.0); Mean Platelet Volume 12.2 fL (7.4-10.4); Myelocyte 1 % (0-0); Neutrophil 91 % (42-75); Nucleated RBC 11 % (0); Platelet Count 80 thou/uL (130-400); Platelet Morphology Comment Appears Decreased; RBC Distribution Width 15.2 % (11.5-14.5); RBC Morphology Normal; Reactive Lymphocytes 1 % (0-10); Red Blood Cell (RBC) Count 2.64 mill/uL (4.70-6.10)
[2020-03-08] MEDS: Famotidine 20 MG TAB PO SCH (08:48)
[2020-03-08] MEDS: Pioglitazone HCl 15 MG TAB PO SCH ×2 (08:48→21:29)
[2020-03-08] MEDS: Linezolid 600 MG in Premix Bag 1 BAG IVPB SCH ×2 (08:49→21:30)
[2020-03-08] MEDS: methylPREDNISolone Sod Succ 40 MG VIAL IVP SCH ×2 (08:49→21:29)
[2020-03-08] MEDS ORDERED: Enoxaparin Sodium 40 MG/0.4 ML SYRINGE SC SCH (09:00)
[2020-03-08] MEDS: Meropenem 1 GM in Sodium Chloride 0.9% 100 ML IVPB SCH ×2 (09:35→22:59)
--- NOTE | 2020-03-08 09:36 | RAD ---
Exam: Chest one view HISTORY:Post for distress. Intubated patient. Comparison: 03/06/2020 FINDINGS: Lines and tubes: Stable right-sided chest tube, endotracheal tube and nasogastric tube. Cardiac silhouette: Normal Aorta: Unremarkable Pulmonary vessels: Normal Costophrenic angles: Clear LUNGS: Persistent diffuse multi lobar interstitial and alveolar opacities. Pneumothorax: Slight interval increase in size of a previously identified right pneumothorax. No sign ificant cardiac mediastinal shift. Osseous abnormalities: None IMPRESSION: 1. Persistent multi lobar interstitial and alveolar opacities. Correlate for multi lobar COVID pneumo reta 2. Right-sided chest tube. Slight interval increase in size of a right-sided thorax Results study conveyed to patient's nurse, Kelly, on 03/08/2020 at 9:18 AM Code CR
--- NOTE | 2020-03-08 09:40 | PRG ---
DATE OF SERVICE: 03/08/2020 SUBJECTIVE: Mr. Garrison is a 59-year-old male, initially admitted for COVID-19 pneumonia with multiorgan dysfunction. We are following up this patient for his acute kidney injury from acute tubular necrosis. Hemodialysis has been initiated. I have scheduled him for another dialysis treatment for at least 2 hours today. Fluid removal will be done if the patient tolerates it. No acute events noted last night. OBJECTIVE: VITAL SIGNS: Blood pressure is 140/70, heart rate 114, respiratory rate 36, O2 saturation 94%. GENERAL: The patient is unresponsive, intubated on ventilator support. SKIN: Adequate turgor. HEENT: The patient has pale conjunctivae. Anicteric sclerae. NECK: No neck mass. No carotid bruits. No JVD. LUNGS: Decreased breath sounds. HEART: Tachycardic. No murmur. No gallops. No rubs. ABDOMEN: Globular. Soft, nontender. No masses. EXTREMITIES: No edema. No deformities. MEDICATIONS: Of March 08, 2020 reviewed. LABORATORY DATA: Of March 08, 2020; white count 16, hemoglobin 7.3, hematocrit 21.6. Sodium 137, potassium 4.4, chloride 93, carbon dioxide 22, BUN 128, creatinine 5.84, glucose 231, calcium 5.8. ASSESSMENT AND PLAN: 1. Acute kidney injury secondary to acute tubular necrosis-due to progressive azotemia. The patient has been initiated on dialysis. We will continue daily dialysis with this patient. Fluid removal to be done only as tolerated by the patient. 2. Hypocalcemia. We will adjust calcium bath with dialysis. 3. COVID-19 pneumonia with multiorgan failure-continuing supportive care. Overall, prognosis remains guarded with this patient. Job ID: [id number]
[2020-03-08] MEDS ORDERED: Heparin 10,000 UNITS/ 10 ML VIAL ONE (12:33)
[2020-03-08] MEDS: Lorazepam 2 MG/ML VIAL SLOW IVP PRN (14:24)
--- NOTE | 2020-03-08 17:03 | PRG ---
DATE OF SERVICE: 03/08/2020 SUBJECTIVE: Mr. Garrison is afebrile. OBJECTIVE: VITAL SIGNS: Blood pressure 105/54, FiO2 is 60%. Respiratory rates in the high 20s to low 30s. Intake and outputs positive 37. LUNGS: Remarkable for equal breath sounds. HEART: Regular rhythm. ABDOMEN: Soft. He had a generalized seizure today. He will need imaging of his brain. HIS LABORATORIES: White count 16, hemoglobin 7.3, platelets 80,000. Sodium 137, potassium 4.4, chloride 93, bicarb 22, BUN 128, creatinine 5.8. IMPRESSION: 1. Respiratory failure. 2. COVID pneumonia. 3. Acute renal failure. 4. Seizure disorder. ADDENDUM: Mr. Garrison still has a large air leak. His lung is not completely deflated. This is likely a reflection of the poor compliance of that lung and a great deal of difficulty of inflating that lung with negative 20 cm of water pressure. Job ID: [id number]
[2020-03-08] MEDS: Atorvastatin Calcium 10 MG TAB PO SCH (21:29)
[2020-03-08] MEDS: Insulin Glargine 11 UNITS in Pre-Filled Syringe 1 EACH SC SCH (21:30)
[2020-03-08] MEDS: Heparin 5,000 UNITS/ML VIAL SC SCH (23:15)
[2020-03-08] MEDS: Aspirin 325 MG TAB PO SCH (23:15)
[2020-03-09 05:03] LABS: Anion Gap 22 mmol/L (10-20); BUN (Urea Nitrogen) 122 mg/dL (8.4-25.7); Calc. Creatinine Clearance 22 mL/min (70-130); Carbon Dioxide 26 mmol/L (23-31); Chloride 94 mmol/L (98-107); Glucose 249 mg/dL (80-115); Potassium 3.5 mmol/L (3.5-5.1); Sodium 138 mmol/L (136-145)
[2020-03-09 05:24] LABS: Hemoglobin 7.5 g/dL (14.0-18.0); Lymphocytes 1 % (21-51); MDiff Complete? YES; Mean Corpuscular HGB CONC 33.5 g/dL (32.0-36.0); Mean Corpuscular Hemoglobin 27.3 pg (27.0-31.0); Mean Corpuscular Volume 81.6 fL (78.0-98.0); Mean Platelet Volume 10.9 fL (7.4-10.4); Monocytes 1 % (0-10); Neutrophil 98 % (42-75); Nucleated RBC 3 % (0); Platelet Count 64 thou/uL (130-400); Platelet Morphology Comment Appears Decreased; RBC Distribution Width 14.8 % (11.5-14.5); RBC Morphology Normal; Red Blood Cell (RBC) Count 2.76 mill/uL (4.70-6.10); White Blood Cell (WBC) Count 16.3 thou/uL (4.8-10.8)
[2020-03-09] MEDS: HumaLOG 300 UNITS/3 ML VIAL SC PRN ×2 (06:46→16:33)
[2020-03-09] MEDS ORDERED: Aspirin 325 MG TAB PO SCH (08:00)
[2020-03-09] MEDS: Linezolid 600 MG in Premix Bag 1 BAG IVPB SCH ×2 (08:02→20:42)
[2020-03-09] MEDS: Famotidine 20 MG TAB PO SCH (08:02)
[2020-03-09] MEDS: methylPREDNISolone Sod Succ 40 MG VIAL IVP SCH ×2 (08:03→20:43)
[2020-03-09] MEDS: Pioglitazone HCl 15 MG TAB PO SCH ×2 (08:18→20:43)
[2020-03-09] MEDS ORDERED: Heparin 5,000 UNITS/ML VIAL SC SCH (09:00)
[2020-03-09] MEDS: Meropenem 1 GM in Sodium Chloride 0.9% 100 ML IVPB SCH ×2 (10:26→23:17)
--- NOTE | 2020-03-09 10:41 | RAD ---
AP CHEST: Date: 03/09/2020 INDICATION: CCU follow-up. On ventilator. Right pneumothorax. COMPARISON: 03/08/2020. FINDINGS: Bilateral hazy interstitial and ground-glass type infiltrates throughout both lungs with probable sma ll effusions. Right pneumothorax does not appear significantly changed from yesterday. ET tube and NG tube unchanged. IMPRESSION: Hazy ground-glass type infiltrates throughout both lungs with right pneumothorax again noted. POS: AGW
[2020-03-09] MEDS ORDERED: Heparin 10,000 UNITS/ 10 ML VIAL ONE (12:32)
--- NOTE | 2020-03-09 14:42 | PRG ---
DATE OF SERVICE: 03/09/2020 SUBJECTIVE: Mr. Garrison is a 59-year-old male, followed up by the [facility]al Service for his acute kidney injury secondary to acute tubular necrosis. The patient received hemodialysis today. We were able to remove between 2 and 2.5 L of fluid. OBJECTIVE: VITAL SIGNS: Blood pressure dropped down at the end of treatment, but after giving back the blood, is currently 130/70. Heart rate is 102, respiratory rate 21, O2 saturation ranging from 87% to 97%. GENERAL: The patient is unresponsive, intubated on ventilator support. SKIN: Adequate turgor. HEENT: Slightly pale conjunctivae. Anicteric sclerae. NECK: No neck mass. No carotid bruits. No JVD. CHEST: No deformities. LUNGS: Decreased breath sounds. HEART: Normal sinus rhythm. No murmurs. No gallops. No rubs. ABDOMEN: Globular, soft, nontender. No masses. EXTREMITIES: No edema. No deformities. MEDICATIONS: Medications of March 09, 2020, reviewed. LABORATORY DATA: Laboratories of March 09, 2020; white count 16.3, hemoglobin 7.5. Sodium 138, potassium 3.5, chloride 94, carbon dioxide 26, BUN 122, creatinine 4.69, glucose 249, calcium 6. ASSESSMENT AND PLAN: 1. COVID-19 pneumonia-with multiorgan dysfunction-continuing supportive care. Prognosis remains guarded. 2. Acute kidney injury secondary to a superimposed acute tubular necrosis. Continuing daily hemodialysis. We will plan another 3.5 hour hemodialysis tomorrow. Fluid removal only as tolerated by the patient. 3. Anemia. P.r.n. blood transfusion. 4. Recheck CBC and basic met in a.m. Job ID: [id number]
--- NOTE | 2020-03-09 16:29 | PRG ---
DATE OF SERVICE: 03/09/2020 SUBJECTIVE: Mr. Garrison is clinically unchanged. He has not had another seizure. OBJECTIVE: VITAL SIGNS: Heart rate is 102, respiratory rates in the 20s, blood pressure 129/64, and FiO2 is 60%. LUNGS: Remarkable for equal breath sounds. HEART: Regular rhythm. ABDOMEN: Soft. He still has large air leak. LABORATORY DATA: White count 16.3, hemoglobin 7.5, and platelets 64,000. Sodium 138, potassium 3.5, chloride 94, bicarb 26, BUN 122, and creatinine 4.69. He is oozing from pretty much everywhere. All of his anticoagulants and aspirin are on hold for now. IMPRESSION: 1. COVID pneumonia. 2. Spontaneous pneumothorax with persistent large air leak, still has persistent pneumo on the right. I do not feel another chest tube is indicated. 3. Seizure yesterday. I do not feel lumbar puncture will add anything to care. I am very hesitant to discontinue suction on his chest tube, taking down from the head CT. Pretty much anything we might find on the head CT, such as a bleed or stroke, will not change our management at least at the current time. If he becomes more stable, perhaps imaging of his brain would be indicated. An EEG would not be unreasonable tomorrow. One was done on the , that showed nonspecific cerebral dysfunction, but did not show any seizure activity. Job ID: [id number]
--- NOTE | 2020-03-09 20:37 | PDOC.HOSPP ---
- Subjective Encounter Date: 03/09/20 Encounter Time: 14:30 Subjective: f/u for COVID PNA/hypoxic resp failure vent dependent with prolonged hospital stay. Receiving HD due renal failure and volume mgmt. - Objective Vital Signs & Weight: Vital Signs (12 hours) Temp Pulse Resp 03/09/20 20:00 108 H 03/09/20 18:00 30 H 03/09/20 16:00 99.0 F 34 H 03/09/20 15:07 102 H 03/09/20 14:00 30 H 03/09/20 12:00 99.2 F 30 H 03/09/20 10:32 101 H 03/09/20 10:00 30 H Weight Admit Weight 176 lb 8 oz Weight 214 lb 4.629 oz Most Recent Monitor Data Heart Rate from ECG 104 NIBP 147/66 NIBP BP-Mean 94 Respiration from ECG 30 SpO2 89 I&O: 03/08/20 03/09/20 03/10/20 06:59 06:59 06:59 Intake Total 6450 3937 1708 Output Total 770 1005 355 Balance 5680 2932 1353 Result Diagrams: 03/09/20 04:05 03/09/20 04:05 Additional Labs: Accuchecks 03/09/20 03/08/20 16:02 21:25 POC Glucose 200 H 163 H Radiology Reviewed by me: Yes (PCXR - R pneumothorax, bilat infiltrates, ETT in place) EKG Reviewed by me: Yes (Tele - sinus tachycardia) Hospitalist ROS - Medication Medications: Active Medications Generic Name Dose Route Start Last Admin Trade Name Freq PRN Reason Stop Dose Admin Acetaminophen 650 mg 02/11/20 15:29 03/03/20 18:29 Acetaminophen 325 Mg Tab PO 650 mg Q4H PRN Administration Headache/Fever/Mild Pain (1-3) Acetaminophen 650 mg 02/11/20 15:29 02/28/20 22:35 Acetaminophen 650 Mg Suppository [place] 650 mg Q4H PRN Administration Headache/Fever/Mild Pain (1-3) Albuterol Sulfate 1 puff 02/12/20 19:42 02/18/20 09:05 Albuterol 200 Puff (6.7gm Inhaler) INH 1 puff Q8H PRN Administration Wheezing Atorvastatin Calcium 10 mg 02/13/20 21:00 03/08/20 21:29 Atorvastatin Calcium 10 Mg Tab PO 10 mg HS EMELI Administration Benzonatate 100 mg 02/13/20 11:28 02/24/20 08:58 Benzonatate 100 Mg Cap PO 100 mg Q6H PRN Administration Cough Famotidine 20 mg 03/04/20 09:00 03/09/20 08:02 Famotidine 20 Mg Tab PO 20 mg DAILY EMELI Administration Guaifenesin 200 mg 02/13/20 11:28 02/14/20 21:04 Diabetic Tussin 200 Mg/10 Ml Udcup PO 200 mg Q4H PRN Administration Cough Guaifenesin/Dextromethorphan 15 ml 02/11/20 15:29 02/18/20 08:25 Guaifenesin Dm 100-10/5 Ml Udcup PO 15 ml Q4H PRN Administration Cough Amino Acids/Dextrose 2,000 mls @ 75 mls/hr 02/18/20 15:30 02/18/20 15:55 Clinimix 4.25%-5% IV 2,000 mls INF EMELI Administration Insulin Glargine 11 units/ 0.11 mls @ 0 mls/hr 02/20/20 21:00 03/08/20 21:30 Miscellaneous Medication SC 0.11 mls HS EMELI Administration Norepinephrine Bitartrate 8 mg 250 mls @ 0 mls/hr 02/29/20 13:00 03/04/20 03:46 / Dextrose/Water IVPB 250 mls INF EMELI Administration Protocol Titrate Linezolid 600 mg/ Device 300 mls @ 150 mls/hr 03/02/20 21:00 03/09/20 08:02 IVPB 300 mls Q12HR EMELI Administration Meropenem 1 gm/ Sodium 100 mls @ 200 mls/hr 03/04/20 10:00 03/09/20 10:26 Chloride IVPB 100 mls 1000,2200 EMELI Administration Insulin Human Lispro 0 units 02/11/20 15:36 03/09/20 16:33 Humalog 300 Units/3 Ml Vial SC 2 units .MILD SLIDING SCALE PRN Administration Mild Correctional Scale Insulin Human Lispro 0 units 02/11/20 15:36 02/18/20 21:42 Humalog 300 Units/3 Ml Vial SC 3 unit .BEDTIME SLIDING SC PRN Administration Bedtime Correctional Scale Methylprednisolone Sodium Succinate 40 mg 03/05/20 21:00 03/09/20 08:03 Methylprednisolone Sod Succ 40 Mg Vial IVP 40 mg Q12HR EMELI Administration Pioglitazone HCl 15 mg 02/11/20 21:00 03/09/20 08:18 Pioglitazone Hcl 15 Mg Tab PO 15 mg BID EMELI Administration Propofol 1,000 mg 02/28/20 20:15 03/01/20 21:15 Propofol 1,000 Mg/100 Ml Vial IV 03/29/20 20:15 1,000 mg INF PRN Administration TO ACHIEVE GOAL RASS Protocol Sodium Chloride 10 ml 02/29/20 09:00 03/09/20 08:03 Flush - Normal Saline 10 Ml Syringe IVF 10 ml Q12HR EMELI Administration Vecuronium [place] 10 mg 02/29/20 03:31 03/02/20 10:39 Vecuronium 10 Mg Vial IV 10 mg Q1H PRN Administration PRONE - Exam General - other findings: somnolent, mech vent, unresponsive Eye: anicteric sclera ENT: normocephalic atraumatic, no oropharyngeal lesions ENT - other findings: ETT in place Neck: supple, symmetric, no JVD, no thyromegaly, no lymphadenopathy Heart: no gallops, no rubs, normal peripheral pulses Heart - other findings: S1, S2 tachycardic Respiratory - other findings: diminished R>L, scattered coarse sounds Gastrointestinal: soft, non-tender, non-distended, normal bowel sounds, no palpable masses Extremities: no cyanosis, 1+ LE edema Skin: normal turgor Neurological - other findings: Unresponsive Psychiatric: somnolent, lethargic Hosp A/P (1) Pneumonia due to COVID-19 virus Code(s): U07.1 - COVID-19; J12.89 - OTHER VIRAL PNEUMONIA Status: Acute Plan: Continue critical pulmonary support, [facility] ventilation (2) Acute respiratory failure with hypoxia Code(s): J96.01 - ACUTE RESPIRATORY FAILURE WITH HYPOXIA Status: Acute Plan: Remains vent dependent (3) Bacteremia due to Pseudomonas Code(s): R78.81 - BACTEREMIA; B96.5 - PSEUDOMONAS (MALLEI) CAUSING DISEASES CLASSD ELSWHR Status: Acute Plan: Continue Zyvox/Meropenem (4) Diabetes mellitus type 2 in nonobese Code(s): E11.9 - TYPE 2 DIABETES MELLITUS WITHOUT COMPLICATIONS Status: Chronic (5) Acute renal failure Status: Acute Qualifiers: Acute renal failure type: with acute tubular necrosis Qualified Code(s): N17.0 - Acute kidney failure with tubular necrosis Plan: Continue HD for volume mgmt, Nephrology following - Plan continue antibiotics, healthcare social worker, respiratory therapy, DVT proph w/SCDs Consults: Palliative Care Continue critical support Continue Zyvox/Meropenem Continue Solumedrol Nutritional support with enteral TF's Continue CT due to pneumothorax on R AM lab: BMP, CBC PCXR in am
[2020-03-09] MEDS: Insulin Glargine 11 UNITS in Pre-Filled Syringe 1 EACH SC SCH (20:43)
[2020-03-09] MEDS: Atorvastatin Calcium 10 MG TAB PO SCH (20:43)
[2020-03-10 05:43] LABS: Anion Gap 19 mmol/L (10-20); BUN (Urea Nitrogen) 94 mg/dL (8.4-25.7); Calc. Creatinine Clearance 29 mL/min (70-130); Calcium 6.2 mg/dL (7.8-10.44); Carbon Dioxide 27 mmol/L (23-31); Chloride 94 mmol/L (98-107); Glucose 304 mg/dL (80-115); Potassium 3.9 mmol/L (3.5-5.1); Sodium 136 mmol/L (136-145)
[2020-03-10 05:55] LABS: Band 26 % (5-11); Hemoglobin 7.2 g/dL (14.0-18.0); Hypochromia SLIGHT = 6-15 cells (100X) (0-5/hpf); Lymphocytes 4 % (21-51); MDiff Complete? YES; Mean Corpuscular HGB CONC 32.9 g/dL (32.0-36.0); Mean Corpuscular Hemoglobin 27.1 pg (27.0-31.0); Mean Corpuscular Volume 82.4 fL (78.0-98.0); Mean Platelet Volume 9.9 fL (7.4-10.4); Monocytes 1 % (0-10); Neutrophil 69 % (42-75); Platelet Count 72 thou/uL (130-400); Platelet Morphology Comment Appears Decreased; RBC Distribution Width 14.9 % (11.5-14.5); Red Blood Cell (RBC) Count 2.65 mill/uL (4.70-6.10); White Blood Cell (WBC) Count 20.7 thou/uL (4.8-10.8)
[2020-03-10] MEDS: HumaLOG 300 UNITS/3 ML VIAL SC PRN ×5 (06:26→20:51)
--- NOTE | 2020-03-10 08:18 | PRG ---
DATE OF SERVICE: 03/10/2020 SUBJECTIVE: Mr. Garrison still has enormous air leak. OBJECTIVE: VITAL SIGNS: His blood pressure 123/63, heart rate is 104, FiO2 is at 55. LUNGS: Remarkable for equal breath sounds. HEART: Regular rhythm. ABDOMEN: Soft. EXTREMITIES: Without asymmetry. LABORATORY DATA: White count 20, hemoglobin 7.2, platelets 72,000. Sodium 136, potassium 3.9, chloride 94, bicarb 27, BUN 94, creatinine 3.7. IMPRESSION: 1. Respiratory failure secondary to COVID. 2. Spontaneous pneumothorax. 3. Acute renal failure, on dialysis. He probably should be transfused with dialysis. PLAN: Continue supportive care. He is not weanable. Critical care time 30 min. Job ID: [id number] MTDD
[2020-03-10] MEDS: methylPREDNISolone Sod Succ 40 MG VIAL IVP SCH ×2 (08:40→20:39)
[2020-03-10] MEDS: Linezolid 600 MG in Premix Bag 1 BAG IVPB SCH ×2 (08:42→20:39)
[2020-03-10] MEDS: Famotidine 20 MG TAB PO SCH (09:00)
[2020-03-10] MEDS: Pioglitazone HCl 15 MG TAB PO SCH ×2 (09:00→20:39)
--- NOTE | 2020-03-10 09:33 | RAD ---
CHEST 1 VIEW: Date: 03/10/2020 INDICATION: History of intubation. COMPARISON: Prior exam dated 03/09/2020. FINDINGS: Small right-sided pneumothorax with right-sided thoracostomy tube is not appreciably changed. Patient remains intubated with gastric catheter placement. Bilateral air space disease is stable. Osseous st ructures are unchanged. IMPRESSION: Stable exam. Right-sided pneumothorax with right-sided thoracostomy tube is stable. POS: BH
[2020-03-10] MEDS: Meropenem 1 GM in Sodium Chloride 0.9% 100 ML IVPB SCH ×2 (10:18→22:54)
[2020-03-10] MEDS: Propofol 1,000 MG/100 ML VIAL IV PRN ×2 (10:24→17:12)
[2020-03-10] MEDS ORDERED: Fentanyl BOLUS 250 ML IVPB PRN (11:45)
[2020-03-10] MEDS ORDERED: fentaNYL Citrate/PF 2,000 MCG in Sodium Chloride 0.9% 60 ML IV SCH (11:45)
--- NOTE | 2020-03-10 12:50 | PRG ---
DATE OF SERVICE: 03/10/2020 SUBJECTIVE: Mr. Garrison is a 59-year-old male, who was admitted for COVID-19 pneumonia with multiorgan failure. We are following him up for his acute kidney injury from acute tubular necrosis. He has undergone daily hemodialysis. My plan is to resume him back on a Tuesday, , Tuesday hemodialysis regimen. No acute events noted. OBJECTIVE: VITAL SIGNS: Blood pressure is 100/44, heart rate 98, respiratory rate 33, O2 saturation 95%. GENERAL: The patient is unresponsive, intubated on ventilator support. SKIN: Adequate turgor. HEENT: He has a slightly pale conjunctivae. Anicteric sclerae. No neck mass. No carotid bruits. No JVD. CHEST: No deformities. LUNGS: Decreased breath sounds. HEART: Normal sinus rhythm. No murmur. No gallops. No rubs. ABDOMEN: Globular, soft, nontender. No masses. EXTREMITIES: No edema. No deformities. MEDICATIONS: Of March 10, 2020, were reviewed. LABORATORY DATA: Laboratories of March 10, 2020: White count 20.7, hemoglobin 7.2. Sodium 136, potassium 3.9, chloride 94, carbon dioxide 27, BUN 94, creatinine 3.7, glucose 304, calcium 6.2. ASSESSMENT AND PLAN: 1. Acute kidney injury from acute tubular necrosis. Continuing dialysis regimen. We will place this patient on three times a week hemodialysis regimen with fluid removal only as tolerated. My plan is to do 3.5 hours tomorrow. 2. COVID-19 pneumonia with multiorgan dysfunction - continuing supportive care. The patient remains still unresponsive. 3. Anemia. Recheck CBC, basic metabolics in a.m. Job ID: [id number]
--- NOTE | 2020-03-10 17:41 | PDOC.HOSPP ---
- Subjective Encounter Date: 03/10/20 Encounter Time: 17:40 Subjective: f/u for COVID PNA/resp failure receiving Linezolid/Meropenem. Not weanable currently. - Objective Vital Signs & Weight: Vital Signs (12 hours) Temp Pulse Resp BP Pulse Ox 03/10/20 16:00 98.4 F 30 H 03/10/20 14:18 97 105/55 L 03/10/20 14:00 30 H 03/10/20 12:00 98.5 F 36 H 03/10/20 11:12 103 H 96/44 L 03/10/20 10:00 40 H 03/10/20 08:00 98.3 F 30 H 93 L 03/10/20 07:34 104 H 123/63 03/10/20 06:25 38 H Weight Admit Weight 176 lb 8 oz Weight 210 lb 14.4 oz Most Recent Monitor Data Heart Rate from ECG 100 NIBP 108/55 NIBP BP-Mean 63 Respiration from ECG 30 SpO2 95 I&O: 03/09/20 03/10/20 03/11/20 06:59 06:59 06:59 Intake Total 3937 2848 1083 Output Total 1005 700 325 Balance 2932 2141 758 Result Diagrams: 03/10/20 04:30 03/10/20 04:30 Additional Labs: Accuchecks 03/10/20 03/10/20 03/09/20 10:04 06:17 20:40 POC Glucose 307 H 307 H 200 H 03/09/20 03/08/20 10:14 16:31 POC Glucose 237 H 223 H Laboratory Tests 03/05/20 03/06/20 03/07/20 03:59 03:54 03:35 WBC 19.2 H Hgb 8.6 L Plt Count 100 L Neutrophils % (Manual) Band Neuts % (Manual) 33 H 44 H 25 H Anion Gap BUN Creatinine Calcium 03/08/20 03/08/20 03/09/20 03:30 03:30 04:05 WBC 16.0 H 16.3 H Hgb 7.3 L 7.5 L Plt Count 80 L 64 L Neutrophils % (Manual) 98 H Band Neuts % (Manual) 4 L Anion Gap 26 H BUN 128 H Creatinine 5.84 H Calcium 5.8 L* 03/10/20 04:30 WBC Hgb Plt Count Neutrophils % (Manual) 69 Band Neuts % (Manual) 26 H Anion Gap BUN Creatinine Calcium Radiology Reviewed by me: Yes (PCXR - R-sided pneumothorax with CT in place) EKG Reviewed by me: Yes (Tele - SR) Hospitalist ROS - Medication Medications: Active Medications Generic Name Dose Route Start Last Admin Trade Name Freq PRN Reason Stop Dose Admin Acetaminophen 650 mg 02/11/20 15:29 03/03/20 18:29 Acetaminophen 325 Mg Tab PO 650 mg Q4H PRN Administration Headache/Fever/Mild Pain (1-3) Acetaminophen 650 mg 02/11/20 15:29 02/28/20 22:35 Acetaminophen 650 Mg Suppository [place] 650 mg Q4H PRN Administration Headache/Fever/Mild Pain (1-3) Albuterol Sulfate 1 puff 02/12/20 19:42 02/18/20 09:05 Albuterol 200 Puff (6.7gm Inhaler) INH 1 puff Q8H PRN Administration Wheezing Atorvastatin Calcium 10 mg 02/13/20 21:00 03/09/20 20:43 Atorvastatin Calcium 10 Mg Tab PO 10 mg HS EMELI Administration Benzonatate 100 mg 02/13/20 11:28 02/24/20 08:58 Benzonatate 100 Mg Cap PO 100 mg Q6H PRN Administration Cough Famotidine 20 mg 03/04/20 09:00 03/10/20 09:00 Famotidine 20 Mg Tab PO 20 mg DAILY EMELI Administration Guaifenesin 200 mg 02/13/20 11:28 02/14/20 21:04 Diabetic Tussin 200 Mg/10 Ml Udcup PO 200 mg Q4H PRN Administration Cough Guaifenesin/Dextromethorphan 15 ml 02/11/20 15:29 02/18/20 08:25 Guaifenesin Dm 100-10/5 Ml Udcup PO 15 ml Q4H PRN Administration Cough Amino Acids/Dextrose 2,000 mls @ 75 mls/hr 02/18/20 15:30 02/18/20 15:55 Clinimix 4.25%-5% IV 2,000 mls INF EMELI Administration Insulin Glargine 11 units/ 0.11 mls @ 0 mls/hr 02/20/20 21:00 03/09/20 20:43 Miscellaneous Medication SC 0.11 mls HS EMELI Administration Linezolid 600 mg/ Device 300 mls @ 150 mls/hr 03/02/20 21:00 03/10/20 08:42 IVPB 300 mls Q12HR EMELI Administration Meropenem 1 gm/ Sodium 100 mls @ 200 mls/hr 03/04/20 10:00 03/10/20 10:18 Chloride IVPB 100 mls 1000,2200 EMELI Administration Insulin Human Lispro 0 units 02/11/20 15:36 03/10/20 17:08 Humalog 300 Units/3 Ml Vial SC 4 units .MILD SLIDING SCALE PRN Administration Mild Correctional Scale Insulin Human Lispro 0 units 02/11/20 15:36 02/18/20 21:42 Humalog 300 Units/3 Ml Vial SC 3 unit .BEDTIME SLIDING SC PRN Administration Bedtime Correctional Scale Methylprednisolone Sodium Succinate 40 mg 03/05/20 21:00 03/10/20 08:40 Methylprednisolone Sod Succ 40 Mg Vial IVP 40 mg Q12HR EMELI Administration Pioglitazone HCl 15 mg 02/11/20 21:00 03/10/20 09:00 Pioglitazone Hcl 15 Mg Tab PO 15 mg BID EMELI Administration Propofol 1,000 mg 02/28/20 20:15 03/10/20 17:12 Propofol 1,000 Mg/100 Ml Vial IV 03/29/20 20:15 1,000 mg INF PRN Administration TO ACHIEVE GOAL RASS Protocol Sodium Chloride 10 ml 02/29/20 09:00 03/10/20 09:00 Flush - Normal Saline 10 Ml Syringe IVF 10 ml Q12HR EMELI Administration Vecuronium [place] 10 mg 02/29/20 03:31 03/02/20 10:39 Vecuronium 10 Mg Vial IV 10 mg Q1H PRN Administration PRONE - Exam General Appearance: ill appearing General - other findings: sedate on mech vent Eye: anicteric sclera ENT: normocephalic atraumatic, no oropharyngeal lesions ENT - other findings: ETT in place Neck: supple, symmetric, no JVD, no thyromegaly, no lymphadenopathy Heart: RRR, no gallops, no rubs, normal peripheral pulses Heart - other findings: S1, S2 Respiratory: tachypneic Respiratory - other findings: diminished in bases bilat, scattered coarse sounds, R hemithorax diminished Gastrointestinal: soft, non-tender, non-distended, normal bowel sounds Extremities - other findings: 3+ edema of all extremities Neurological - other findings: sedate on mech vent Psychiatric: somnolent, lethargic Hosp A/P (1) Pneumonia due to COVID-19 virus Code(s): U07.1 - COVID-19; J12.89 - OTHER VIRAL PNEUMONIA Status: Acute Plan: Continue pulmonary support Zyvox/Meropenem/Solumedrol (2) Acute respiratory failure with hypoxia Code(s): J96.01 - ACUTE RESPIRATORY FAILURE WITH HYPOXIA Status: Acute (3) Bacteremia due to Pseudomonas Code(s): R78.81 - BACTEREMIA; B96.5 - PSEUDOMONAS (MALLEI) CAUSING DISEASES CLASSD ELSWHR Status: Acute (4) Diabetes mellitus type 2 in nonobese Code(s): E11.9 - TYPE 2 DIABETES MELLITUS WITHOUT COMPLICATIONS Status: Chronic (5) Acute renal failure Status: Acute Qualifiers: Acute renal failure type: with acute tubular necrosis Qualified Code(s): N 17.0 - Acute kidney failure with tubular necrosis - 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
[2020-03-10] MEDS: Atorvastatin Calcium 10 MG TAB PO SCH (20:39)
[2020-03-10] MEDS: Insulin Glargine 11 UNITS in Pre-Filled Syringe 1 EACH SC SCH (20:49)
[2020-03-11] MEDS: Propofol 1,000 MG/100 ML VIAL IV PRN (01:16)
[2020-03-11 05:21] LABS: Hemoglobin 5.5 g/dL (14.0-18.0)
[2020-03-11 05:33] LABS: Band 21 % (5-11); Hypochromia SLIGHT = 6-15 cells (100X) (0-5/hpf); MDiff Complete? YES; Mean Corpuscular HGB CONC 34.7 g/dL (32.0-36.0); Mean Corpuscular Hemoglobin 28.2 pg (27.0-31.0); Mean Corpuscular Volume 81.2 fL (78.0-98.0); Mean Platelet Volume 14.5 fL (7.4-10.4); Monocytes 3 % (0-10); Neutrophil 76 % (42-75); Platelet Count 62 thou/uL (130-400); Platelet Morphology Comment Appears Decreased; RBC Distribution Width 14.7 % (11.5-14.5); Red Blood Cell (RBC) Count 1.94 mill/uL (4.70-6.10); White Blood Cell (WBC) Count 18.9 thou/uL (4.8-10.8)
[2020-03-11 05:46] LABS: Anion Gap 20 mmol/L (10-20); BUN (Urea Nitrogen) 118 mg/dL (8.4-25.7); Calc. Creatinine Clearance 27 mL/min (70-130); Calcium 6.1 mg/dL (7.8-10.44); Carbon Dioxide 25 mmol/L (23-31); Chloride 94 mmol/L (98-107); Glucose 275 mg/dL (80-115); Sodium 135 mmol/L (136-145)
[2020-03-11 05:50] LABS: Hemoglobin 5.3 g/dL (14.0-18.0); Platelet Count 60 thou/uL (130-400)
[2020-03-11] MEDS: HumaLOG 300 UNITS/3 ML VIAL SC PRN (06:33)
--- NOTE | 2020-03-11 07:49 | RAD ---
EXAM: Single view of the chest HISTORY: Ventilated patient with respiratory failure COMPARISON: 03/10/2020 FINDINGS: Single view of the chest shows a normal sized cardiomediastinal silhouette. The lines and tubes are unchanged in position. There is a stable small right-sided pneumothorax. Scattered mixed alveolar/interstitial opacities are seen scattered throughout the lungs. No acute osseous abnormality . IMPRESSION: Stable exam
[2020-03-11] MEDS: Famotidine 20 MG TAB PO SCH (09:35)
[2020-03-11] MEDS: methylPREDNISolone Sod Succ 40 MG VIAL IVP SCH ×2 (09:35→21:08)
[2020-03-11] MEDS: Pioglitazone HCl 15 MG TAB PO SCH ×2 (09:35→21:08)
[2020-03-11] MEDS: MEROPENEM 1 GM/50 ML 1 GM in Premix Bag 1 BAG IVPB SCH ×2 (09:35→21:20)
--- NOTE | 2020-03-11 09:49 | PRG ---
DATE OF SERVICE: 03/11/2020 SUBJECTIVE: Mr. Garrison is a 59-year-old, male who was admitted for COVID-19 pneumonia. We are following up this patient for his acute kidney injury from acute tubular necrosis. He has now undergone hemodialysis due to progressive azotemia. Currently, he is receiving his dialysis treatment. We have ordered 2 units of packed RBC due to his anemia. No acute events noted last night. The patient remains unresponsive. OBJECTIVE: VITAL SIGNS: Blood pressure 106/49, heart rate 111, respiratory rate 28, O2 saturation 95%. GENERAL: The patient is unresponsive, intubated on ventilator support. SKIN: Adequate turgor. HEENT: Pale conjunctivae, anicteric sclerae. NECK: No neck mass. No carotid bruits. No JVD. CHEST: No deformities. LUNGS: Decreased breath sounds. HEART: Tachycardic. No murmur, no gallops, no rubs. ABDOMEN: Globular, soft, nontender. No masses. EXTREMITIES: No edema, no deformities. MEDICATIONS: From March 11, 2020, reviewed. LABORATORY DATA: From March 11, 2020; white count 18.9, hemoglobin 5.5. Sodium 135, potassium 4, chloride 94, carbon dioxide 25, BUN 118, creatinine 3.96, glucose 275, calcium 6.1. ASSESSMENT AND PLAN: 1. Acute kidney injury - secondary to acute tubular necrosis - continue supportive care. Continue 3 times a week hemodialysis. Fluid removal only as tolerated. 2. Anemia - we will transfuse 2 units of packed RBC with dialysis. 3. COVID-19 pneumonia. Continue supportive care. The patient remains unresponsive. Overall prognosis remains poor. Recheck CBC, basic met in the a.m. Job ID: [id number]
[2020-03-11 10:55] LABS: Glucose POC Confirmation 200 mg/dl (80-115)
[2020-03-11] MEDS ORDERED: Heparin 10,000 UNITS/ 10 ML VIAL ONE (12:58)
--- NOTE | 2020-03-11 16:22 | PRG ---
DATE OF SERVICE: 03/11/2020 OBJECTIVE: VITAL SIGNS: Mr. Lopezs heart rate is 106, blood pressure 102/57, respiratory rate in the 20s. LUNGS: Remarkable for coarse equal breath sounds. HEART: Regular rate and rhythm. ABDOMEN: Soft. LABORATORY DATA: White count 18.9, hemoglobin 5.3, platelets 62,000. BUN 118, creatinine 3.96. IMPRESSION AND PLAN: 1. COVID pneumonia. 2. Pneumothorax with chest tube with incomplete expansion of his lung. 3. Acute renal failure. 4. Mixed anemia, likely in part secondary to blood loss and in part secondary to chronic disease and this acute illness. He is to get transfused dialysis today. His prognosis for functional recovery is quite poor. His FiO2 requirements remain less than 60% surprisingly. Continue current care. Job ID: [id number] MTDD
--- NOTE | 2020-03-11 19:43 | PDOC.HOSPP ---
- Subjective Encounter Date: 03/11/20 Encounter Time: 18:30 Subjective: f/u for COVID PNA/resp failure receiving Linezolid/Meropenem. Hgb noted in 5 range this am receiving 2u PRBC's - Objective Vital Signs & Weight: Vital Signs (12 hours) Temp Pulse Resp BP Pulse Ox 03/11/20 18:48 115 H 03/11/20 18:00 46 H 03/11/20 16:00 98.7 F 41 H 03/11/20 14:00 30 H 03/11/20 12:00 98.0 F 40 H 03/11/20 11:34 117 H 100/63 03/11/20 10:00 45 H 03/11/20 08:00 98.3 F 36 H 95 03/11/20 07:42 110 H 91/46 L Weight Admit Weight 176 lb 8 oz Weight 214 lb 3.2 oz Most Recent Monitor Data Heart Rate from ECG 118 NIBP 120/58 NIBP BP-Mean 64 Respiration from ECG 21 SpO2 97 I&O: 03/10/20 03/11/20 03/12/20 06:59 06:59 06:59 Intake Total 2848 2524 1626 Output Total 700 990 300 Balance 2148 1534 1326 Result Diagrams: 03/11/20 05:35 03/11/20 05:00 Additional Labs: Accuchecks 03/11/20 03/11/20 03/10/20 16:24 06:27 20:37 POC Glucose 149 H 269 H 253 H Laboratory Tests 03/05/20 03/06/20 03/07/20 03:59 03:54 03:35 WBC 19.2 H Hgb 8.6 L Plt Count 100 L Neutrophils % (Manual) Band Neuts % (Manual) 33 H 44 H 25 H Anion Gap BUN Creatinine Calcium 03/08/20 03/08/20 03/09/20 03:30 03:30 04:05 WBC 16.0 H 16.3 H Hgb 7.3 L 7.5 L Plt Count 80 L 64 L Neutrophils % (Manual) 98 H Band Neuts % (Manual) 4 L Anion Gap 26 H BUN 128 H Creatinine 5.84 H Calcium 5.8 L* 03/10/20 04:30 WBC Hgb Plt Count Neutrophils % (Manual) 69 Band Neuts % (Manual) 26 H Anion Gap BUN Creatinine Calcium Radiology Reviewed by me: Yes (PCXR - R pneumothorax, bilat infiltrates) EKG Reviewed by me: Yes (Tele - SR) Hospitalist ROS - Medication Medications: Active Medications Generic Name Dose Route Start Last Admin Trade Name Freq PRN Reason Stop Dose Admin Acetaminophen 650 mg 02/11/20 15:29 03/03/20 18:29 Acetaminophen 325 Mg Tab PO 650 mg Q4H PRN Administration Headache/Fever/Mild Pain (1-3) Acetaminophen 650 mg 02/11/20 15:29 02/28/20 22:35 Acetaminophen 650 Mg Suppository [place] 650 mg Q4H PRN Administration Headache/Fever/Mild Pain (1-3) Albuterol Sulfate 1 puff 02/12/20 19:42 02/18/20 09:05 Albuterol 200 Puff (6.7gm Inhaler) INH 1 puff Q8H PRN Administration Wheezing Atorvastatin Calcium 10 mg 02/13/20 21:00 03/10/20 20:39 Atorvastatin Calcium 10 Mg Tab PO 10 mg HS EMELI Administration Benzonatate 100 mg 02/13/20 11:28 02/24/20 08:58 Benzonatate 100 Mg Cap PO 100 mg Q6H PRN Administration Cough Famotidine 20 mg 03/04/20 09:00 03/11/20 09:35 Famotidine 20 Mg Tab PO 20 mg DAILY EMELI Administration Guaifenesin 200 mg 02/13/20 11:28 02/14/20 21:04 Diabetic Tussin 200 Mg/10 Ml Udcup PO 200 mg Q4H PRN Administration Cough Guaifenesin/Dextromethorphan 15 ml 02/11/20 15:29 02/18/20 08:25 Guaifenesin Dm 100-10/5 Ml Udcup PO 15 ml Q4H PRN Administration Cough Amino Acids/Dextrose 2,000 mls @ 75 mls/hr 02/18/20 15:30 02/18/20 15:55 Clinimix 4.25%-5% IV 2,000 mls INF EMELI Administration Insulin Glargine 11 units/ 0.11 mls @ 0 mls/hr 02/20/20 21:00 03/10/20 20:49 Miscellaneous Medication SC 0.11 mls HS EMELI Administration Meropenem 1 gm/ Device 50 mls @ 100 mls/hr 03/11/20 10:00 03/11/20 09:35 IVPB 50 mls 1000,2200 EMELI Administration Insulin Human Lispro 0 units 02/11/20 15:36 03/11/20 06:33 Humalog 300 Units/3 Ml Vial SC 4 units .MILD SLIDING SCALE PRN Administration Mild Correctional Scale Insulin Human Lispro 0 units 02/11/20 15:36 03/10/20 20:51 Humalog 300 Units/3 Ml Vial SC 3 unit .BEDTIME SLIDING SC PRN Administration Bedtime Correctional Scale Methylprednisolone Sodium Succinate 40 mg 03/05/20 21:00 03/11/20 09:35 Methylprednisolone Sod Succ 40 Mg Vial IVP 40 mg Q12HR EMELI Administration Pioglitazone HCl 15 mg 02/11/20 21:00 03/11/20 09:35 Pioglitazone Hcl 15 Mg Tab PO 15 mg BID EMELI Administration Propofol 1,000 mg 02/28/20 20:15 03/11/20 01:16 Propofol 1,000 Mg/100 Ml Vial IV 03/29/20 20:15 1,000 mg INF PRN Administration TO ACHIEVE GOAL RASS Protocol Sodium Chloride 10 ml 02/29/20 09:00 03/11/20 09:35 Flush - Normal Saline 10 Ml Syringe IVF 10 ml Q12HR EMELI Administration Vecuronium [place] 10 mg 02/29/20 03:31 03/02/20 10:39 Vecuronium 10 Mg Vial IV 10 mg Q1H PRN Administration PRONE - Exam General - other findings: sedate on mech vent Eye: anicteric sclera ENT: normocephalic atraumatic, no oropharyngeal lesions Neck: supple, symmetric, no JVD, no thyromegaly, no lymphadenopathy Heart: no gallops, no rubs, normal peripheral pulses Heart - other findings: S1, S2 tachycardic Respiratory: tachypneic Respiratory - other findings: diminished in bases R>L Gastrointestinal: soft, non-tender, non-distended, normal bowel sounds, no palpable masses Extremities - other findings: 3+ edema Neurological - other findings: sedate on mech vent Psychiatric: somnolent, lethargic Hosp A/P (1) Pneumonia due to COVID-19 virus Code(s): U07.1 - COVID-19; J12.89 - OTHER VIRAL PNEUMONIA Status: Acute (2) Acute respiratory failure with hypoxia Code(s): J96.01 - ACUTE RESPIRATORY FAILURE WITH HYPOXIA Status: Acute Plan: Continue mech ventilation (3) Bacteremia due to Pseudomonas Code(s): R78.81 - BACTEREMIA; B96.5 - PSEUDOMONAS (MALLEI) CAUSING DISEASES CLASSD ELSWHR Status: Acute Plan: Continue Linezolid/Meropenem (4) Diabetes mellitus type 2 in nonobese Code(s): E11.9 - TYPE 2 DIABETES MELLITUS WITHOUT COMPLICATIONS Status: Chronic (5) Acute renal failure Status: Acute Qualifiers: Acute renal failure type: with acute tubular necrosis Qualified Code(s): N17.0 - Acute kidney failure with tubular necrosis Plan: HD 3x's/wk per Nephrology (6) Acute anemia Code(s): D64.9 - ANEMIA, UNSPECIFIED Status: Acute Plan: s/p 2u PRBC's, serial H/H, continue Pepcid - 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
[2020-03-11] MEDS: Atorvastatin Calcium 10 MG TAB PO SCH (21:08)
[2020-03-11] MEDS: Acetaminophen 325 MG TAB PO PRN (21:08)
[2020-03-11] MEDS: Insulin Glargine 11 UNITS in Pre-Filled Syringe 1 EACH SC SCH (21:08)
[2020-03-12] MEDS: HumaLOG 300 UNITS/3 ML VIAL SC PRN ×4 (06:17→21:22)
--- NOTE | 2020-03-12 07:32 | RAD ---
XR Chest 1 View Portable History: Ventilated patient Comparison: Radiograph prior day Findings: Similar appearance right thoracostomy tube and right apical pneumothorax with posterior ple ural Between the right posterior third and fourth rib interspace. This is airspace consolidation is similar. Enteric tube tip in gastric body. Impression: Similar examination the chest without enlarging right pneumothorax.
[2020-03-12 07:53] LABS: Anion Gap 17 mmol/L (10-20); BUN (Urea Nitrogen) 85 mg/dL (8.4-25.7); Calc. Creatinine Clearance 39 mL/min (70-130); Calcium 6.7 mg/dL (7.8-10.44); Carbon Dioxide 27 mmol/L (23-31); Chloride 97 mmol/L (98-107); Glucose 241 mg/dL (80-115); Potassium 3.9 mmol/L (3.5-5.1); Sodium 137 mmol/L (136-145)
[2020-03-12 08:28] LABS: Anisocytosis SLIGHT = 6-15 cells (100X) (0-5/hpf); Band 32 % (5-11); Hemoglobin 7.8 g/dL (14.0-18.0); Hypochromia SLIGHT = 6-15 cells (100X) (0-5/hpf); Lymphocytes 1 % (21-51); MDiff Complete? YES; Mean Corpuscular HGB CONC 33.4 g/dL (32.0-36.0); Mean Corpuscular Hemoglobin 27.2 pg (27.0-31.0); Mean Corpuscular Volume 81.6 fL (78.0-98.0); Mean Platelet Volume 10.6 fL (7.4-10.4); Neutrophil 67 % (42-75); Nucleated RBC 1 % (0); Platelet Count 50 thou/uL (130-400); Platelet Morphology Comment Appears Decreased; Polychromasia SLIGHT = 2-3 cells (100X) (0-2/hpf); RBC Distribution Width 18.9 % (11.5-14.5); Red Blood Cell (RBC) Count 2.85 mill/uL (4.70-6.10); White Blood Cell (WBC) Count 25.9 thou/uL (4.8-10.8)
[2020-03-12] MEDS: methylPREDNISolone Sod Succ 40 MG VIAL IVP SCH ×2 (08:56→20:55)
[2020-03-12] MEDS: Pioglitazone HCl 15 MG TAB PO SCH ×2 (09:04→20:55)
[2020-03-12] MEDS: Famotidine 20 MG TAB PO SCH (09:04)
[2020-03-12] MEDS: MEROPENEM 1 GM/50 ML 1 GM in Premix Bag 1 BAG IVPB SCH ×2 (09:04→21:04)
--- NOTE | 2020-03-12 09:55 | PRG ---
DATE OF SERVICE: 03/12/2020 SUBJECTIVE: Mr. Garrison is a 59-year-old male, who was admitted for COVID-19 pneumonia. He has had multiorgan dysfunction related to the COVID-19. We are also seeing him for his acute kidney injury secondary to an acute tubular necrosis. He is undergoing hemodialysis 3 times a week. He underwent hemodialysis yesterday and blood transfusion of 2 units was given to the patient. He is minimally responsive to verbal stimuli. OBJECTIVE: VITAL SIGNS: Blood pressure is 130/60, heart rate 100, respiratory rate 30, O2 saturation 99%. GENERAL: The patient is minimally arousable to verbal stimuli. Intubated on ventilator support. SKIN: Adequate turgor. HEENT: He has slightly pale conjunctivae. Anicteric sclerae. No neck mass. No carotid bruits. No JVD. CHEST: No deformities. LUNGS: Decreased breath sounds. CHEST: Positive for a chest tube. HEART: Normal sinus rhythm. No murmurs. No gallops. No rubs. ABDOMEN: Globular, soft, nontender. No masses. EXTREMITIES: No edema. No deformities. MEDICATIONS: Medications of March 12, 2020, were reviewed. LABORATORY DATA: Laboratories of March 12, 2020; white count 25.9, hemoglobin 7.8. Sodium 137, potassium 3.9, chloride 97, carbon dioxide 27, BUN 85, creatinine 2.75, calcium 6.7. ASSESSMENT AND PLAN: 1. Acute kidney injury - secondary to acute tubular necrosis. Continuing 3 times a week hemodialysis with fluid removal as tolerated by the patient. He is tolerating the said treatment. 2. Metabolic encephalopathy - the patient may have some minimal response to verbal stimuli. According to the nursing staff, he can follow simple commands. 3. COVID-19 pneumonia with multiorgan dysfunction - continue supportive care. Currently, on ventilator support. 4. Anemia, status post blood transfusion, improved with blood transfusion. Recheck CBC, basic metabolic in a.m. Job ID: [id number] [facility]
--- NOTE | 2020-03-12 19:32 | PDOC.HOSPP ---
- Subjective Encounter Date: 03/12/20 Encounter Time: 18:20 Subjective: f/u for COVID PNA/resp failure on mech ventilation with prolonged hospital course. Receiving Meropenem/Solumedrol. - Objective Vital Signs & Weight: Vital Signs (12 hours) Temp Pulse Resp Pulse Ox 03/12/20 19:00 99.8 F H 03/12/20 18:38 108 H 03/12/20 18:00 30 H 03/12/20 16:00 98.7 F 110 H 30 H 03/12/20 14:00 30 H 03/12/20 11:59 30 H 03/12/20 11:57 98.6 F 03/12/20 10:34 103 H 03/12/20 09:59 30 H 03/12/20 08:00 30 H 97 03/12/20 07:59 98.4 F 03/12/20 07:33 107 H Weight Admit Weight 176 lb 8 oz Weight 216 lb 6.4 oz Most Recent Monitor Data Heart Rate from ECG 114 NIBP 134/60 NIBP BP-Mean 83 Respiration from ECG 26 SpO2 92 I&O: 03/11/20 03/12/20 03/13/20 06:59 06:59 06:59 Intake Total 2524 2096 1188 Output Total 990 705 870 Balance 1534 1391 318 Result Diagrams: 03/12/20 07:17 03/12/20 07:17 Additional Labs: Accuchecks 03/12/20 03/12/20 03/12/20 16:07 10:17 06:14 POC Glucose 188 H 221 H 234 H 03/11/20 21:06 POC Glucose 144 H Laboratory Tests 03/05/20 03/06/20 03/07/20 03:59 03:54 03:35 WBC 19.2 H Hgb 8.6 L Plt Count 100 L Neutrophils % (Manual) Band Neuts % (Manual) 33 H 44 H 25 H Anion Gap BUN Creatinine Calcium 03/08/20 03/08/20 03/09/20 03:30 03:30 04:05 WBC 16.0 H 16.3 H Hgb 7.3 L 7.5 L Plt Count 80 L 64 L Neutrophils % (Manual) 98 H Band Neuts % (Manual) 4 L Anion Gap 26 H BUN 128 H Creatinine 5.84 H Calcium 5.8 L* 03/10/20 04:30 WBC Hgb Plt Count Neutrophils % (Manual) 69 Band Neuts % (Manual) 26 H Anion Gap BUN Creatinine Calcium Radiology Reviewed by me: Yes (PCXR - R-sided pneumothorax, bilat infiltrates, lines/tubes in place) EKG Reviewed by me: Yes (Tele - SR) Hospitalist ROS - Medication Medications: Active Medications Generic Name Dose Route Start Last Admin Trade Name Freq PRN Reason Stop Dose Admin Acetaminophen 650 mg 02/11/20 15:29 03/11/20 21:08 Acetaminophen 325 Mg Tab PO 650 mg Q4H PRN Administration Headache/Fever/Mild Pain (1-3) Acetaminophen 650 mg 02/11/20 15:29 02/28/20 22:35 Acetaminophen 650 Mg Suppository [place] 650 mg Q4H PRN Administration Headache/Fever/Mild Pain (1-3) Albuterol Sulfate 1 puff 02/12/20 19:42 02/18/20 09:05 Albuterol 200 Puff (6.7gm Inhaler) INH 1 puff Q8H PRN Administration Wheezing Atorvastatin Calcium 10 mg 02/13/20 21:00 03/11/20 21:08 Atorvastatin Calcium 10 Mg Tab PO 10 mg HS EMELI Administration Benzonatate 100 mg 02/13/20 11:28 02/24/20 08:58 Benzonatate 100 Mg Cap PO 100 mg Q6H PRN Administration Cough Famotidine 20 mg 03/04/20 09:00 03/12/20 09:04 Famotidine 20 Mg Tab PO Not Given DAILY EMELI Guaifenesin 200 mg 02/13/20 11:28 02/14/20 21:04 Diabetic Tussin 200 Mg/10 Ml Udcup PO 200 mg Q4H PRN Administration Cough Guaifenesin/Dextromethorphan 15 ml 02/11/20 15:29 02/18/20 08:25 Guaifenesin Dm 100-10/5 Ml Udcup PO 15 ml Q4H PRN Administration Cough Amino Acids/Dextrose 2,000 mls @ 75 mls/hr 02/18/20 15:30 02/18/20 15:55 Clinimix 4.25%-5% IV 2,000 mls INF EMELI Administration Insulin Glargine 11 units/ 0.11 mls @ 0 mls/hr 02/20/20 21:00 03/11/20 21:08 Miscellaneous Medication SC 0.11 mls HS EMELI Administration Meropenem 1 gm/ Device 50 mls @ 100 mls/hr 03/11/20 10:00 03/12/20 09:04 IVPB 50 mls 1000,2200 EMELI Administration Insulin Human Lispro 0 units 02/11/20 15:36 03/12/20 16:09 Humalog 300 Units/3 Ml Vial SC 2 units .MILD SLIDING SCALE PRN Administration Mild Correctional Scale Insulin Human Lispro 0 units 02/11/20 15:36 03/10/20 20:51 Humalog 300 Units/3 Ml Vial SC 3 unit .BEDTIME SLIDING SC PRN Administration Bedtime Correctional Scale Methylprednisolone Sodium Succinate 40 mg 03/05/20 21:00 03/12/20 08:56 Methylprednisolone Sod Succ 40 Mg Vial IVP 40 mg Q12HR EMELI Administration Pioglitazone HCl 15 mg 02/11/20 21:00 03/12/20 09:04 Pioglitazone Hcl 15 Mg Tab PO 15 mg BID EMELI Administration Propofol 1,000 mg 02/28/20 20:15 03/11/20 01:16 Propofol 1,000 Mg/100 Ml Vial IV 03/29/20 20:15 1,000 mg INF PRN Administration TO ACHIEVE GOAL RASS Protocol Sodium Chloride 10 ml 02/29/20 09:00 03/12/20 08:57 Flush - Normal Saline 10 Ml Syringe IVF 10 ml Q12HR EMELI Administration Vecuronium [place] 10 mg 02/29/20 03:31 03/02/20 10:39 Vecuronium 10 Mg Vial IV 10 mg Q1H PRN Administration PRONE - Exam General Appearance: ill appearing General - other findings: sedate on mech vent Eye: anicteric sclera ENT: normocephalic atraumatic, no oropharyngeal lesions ENT - other findings: ETT in place Neck: supple, symmetric, no JVD, no thyromegaly, no lymphadenopathy Heart: RRR, no gallops, no rubs, normal peripheral pulses Heart - other findings: S1, S2 Respiratory - other findings: diminished in bases, scattered coarse sounds Gastrointestinal: soft, non-tender, non-distended, normal bowel sounds Extremities: no cyanosis, 2+ LE edema Skin: normal turgor Neurological - other findings: sedate on mech vent Psychiatric: somnolent, lethargic Hosp A/P (1) Pneumonia due to COVID-19 virus Code(s): U07.1 - COVID-19; J12.89 - OTHER VIRAL PNEUMONIA Status: Acute Plan: Continue Meropenem/Solumedrol (2) Acute respiratory failure with hypoxia Code(s): J96.01 - ACUTE RESPIRATORY FAILURE WITH HYPOXIA Status: Acute Plan: Continue mech ventilation (3) Bacteremia due to Pseudomonas Code(s): R78.81 - BACTEREMIA; B96.5 - PSEUDOMONAS (MALLEI) CAUSING DISEASES CLASSD ELSWHR Status: Acute Plan: Continue Meropenem (4) Diabetes mellitus type 2 in nonobese Code(s): E11.9 - TYPE 2 DIABETES MELLITUS WITHOUT COMPLICATIONS Status: Chronic (5) Acute renal failure Status: Acute Qualifiers: Acute renal failure type: with acute tubular necrosis Qualified Code(s): N17.0 - Acute kidney failure with tubular necrosis Plan: Improved with HD 3x's/wk (6) Acute anemia Code(s): D64.9 - ANEMIA, UNSPECIFIED Status: Acute Plan: s/p 2u PRBC's, serial H/H - Plan continue antibiotics, social work job titles, respiratory therapy, DVT proph w/SCDs Continue critical support Continue Meropenem Continue Solumedrol Nutritional support with enteral TF's Continue CT due to pneumothorax on R Palliative care consult Code Status: DNAR AM lab: BMP, CBC PCXR in am
--- NOTE | 2020-03-12 20:54 | PRG ---
DATE OF SERVICE: 03/12/2020 SUBJECTIVE: Josesito Garrison remains ventilated. I met with the family and answered their questions. OBJECTIVE: VITAL SIGNS: He is afebrile, heart rate is 108, FiO2 is 50, blood pressure 134/60. Intake and outputs; positive 1391. LUNGS: Remarkable for equal breath sounds. HEART: Regular rate and rhythm. ABDOMEN: Soft. EXTREMITIES: Without edema, LABORATORY DATA: White count 25, hemoglobin 7.8, and platelets 50,000. Sodium 137, potassium 3.9, chloride 97, bicarb 27, BUN 85, creatinine 2.75. IMPRESSION: 1. Respiratory failure, secondary to COVID pneumonia. 2. Pneumothorax, very large air leak. I suspect he is losing 75 to 100 mL of air with every breath. 3. Acute renal failure, on dialysis. Met with family and answered their questions. If he is improving, it is an extremely slow pace. We will continue with supportive care. Job ID: [id number]
[2020-03-12] MEDS: Atorvastatin Calcium 10 MG TAB PO SCH (20:55)
[2020-03-12] MEDS: Insulin Glargine 11 UNITS in Pre-Filled Syringe 1 EACH SC SCH (22:14)
[2020-03-13] MEDS: HumaLOG 300 UNITS/3 ML VIAL SC PRN ×3 (03:12→17:47)
[2020-03-13 05:32] LABS: Anion Gap 20 mmol/L (10-20); BUN (Urea Nitrogen) 105 mg/dL (8.4-25.7); Calc. Creatinine Clearance 36 mL/min (70-130); Calcium 6.8 mg/dL (7.8-10.44); Carbon Dioxide 24 mmol/L (23-31); Chloride 98 mmol/L (98-107); Glucose 270 mg/dL (80-115); Sodium 138 mmol/L (136-145)
[2020-03-13 05:58] LABS: Band 20 % (5-11); Hemoglobin 7.4 g/dL (14.0-18.0); Hypochromia SLIGHT = 6-15 cells (100X) (0-5/hpf); Lymphocytes 2 % (21-51); MDiff Complete? YES; Mean Corpuscular HGB CONC 34.4 g/dL (32.0-36.0); Mean Corpuscular Hemoglobin 27.8 pg (27.0-31.0); Mean Corpuscular Volume 80.9 fL (78.0-98.0); Mean Platelet Volume 13.9 fL (7.4-10.4); Metamyelocyte 2 % (0-0); Monocytes 6 % (0-10); Neutrophil 70 % (42-75); Nucleated RBC 1 % (0); Platelet Count 53 thou/uL (130-400); Platelet Morphology Comment Appears Decreased; RBC Distribution Width 18.9 % (11.5-14.5); Red Blood Cell (RBC) Count 2.65 mill/uL (4.70-6.10); White Blood Cell (WBC) Count 25.2 thou/uL (4.8-10.8)
--- NOTE | 2020-03-13 08:46 | RAD ---
EXAM: Single view of the chest HISTORY: Ventilated patient with respiratory failure COMPARISON: 03/12/2020 FINDINGS: Single view of the chest shows an enlarged but stable cardiomediastinal silhouette. Lines and tubes are unchanged in position. There is a stable right apical pneumothorax. Stable multifocal scattered infiltrates are seen in the lungs. Degenerative changes are seen in the spine. IMPRESSION: Stable exam
[2020-03-13] MEDS: Famotidine 20 MG TAB PO SCH (09:15)
[2020-03-13] MEDS: Pioglitazone HCl 15 MG TAB PO SCH ×2 (09:15→21:12)
[2020-03-13] MEDS ORDERED: Fentanyl CADD 100 ML IV SCH (09:15)
[2020-03-13] MEDS: methylPREDNISolone Sod Succ 40 MG VIAL IVP SCH ×2 (09:15→21:13)
[2020-03-13] MEDS ORDERED: EPOETIN ALFA-EPBX (ESRD) 4,000 UNIT/ML VIAL SC SCH (09:30)
--- NOTE | 2020-03-13 09:56 | PRG ---
DATE OF SERVICE: 03/13/2020 SUBJECTIVE: Mr. Garrison is a 59-year-old male, who was admitted for COVID-19 pneumonia, now with multiorgan failure. We are following him up for his acute kidney injury from AT. He is currently undergoing hemodialysis. He is tolerating said treatment. No acute events noted last night. OBJECTIVE: VITAL SIGNS: Blood pressure 134/58, heart rate 111, respiratory rate 34, temperature 99.4, O2 saturation 92%. GENERAL EXAM: Patient is unresponsive, intubated on ventilator support. SKIN: Adequate turgor. HEENT: He has a slightly pale conjunctivae. Anicteric sclerae. NECK: No neck mass. No carotid bruits. No JVD. CHEST: No deformities. LUNGS: Decreased breath sounds. HEART: Normal sinus rhythm. No murmur. No gallops. No rubs. ABDOMEN: Globular, soft, nontender. No masses. EXTREMITIES: No edema. LABORATORY DATA: March 13, 2020: White count 25.2, hemoglobin 7.4. Sodium 138, potassium 4, chloride 98, carbon dioxide 24, BUN 105, creatinine 2.89, calcium 6.8. ASSESSMENT AND PLAN: 1. Anemia. Continue weekly Epogen, on p.r.n. blood transfusion. 2. Acute kidney injury from acute tubular necrosis. Currently, on maintenance hemodialysis 3 times a week. We will plan to do a 2 L fluid removal as tolerated by the patient. 3. COVID-19 pneumonia-continue supportive care. Overall, prognosis remains guarded. Job ID: [id number]
[2020-03-13] MEDS ORDERED: Heparin 10,000 UNITS/ 10 ML VIAL ONE (13:08)
[2020-03-13] MEDS: MEROPENEM 1 GM/50 ML 1 GM in Premix Bag 1 BAG IVPB SCH ×2 (14:44→21:12)
[2020-03-13] MEDS: Morphine 2 MG/ML VIAL SLOW IVP PRN (14:56)
--- NOTE | 2020-03-13 15:31 | PDOC.HOSPP ---
- Subjective Encounter Date: 03/13/20 Encounter Time: 15:30 Subjective: f/u for COVID PNA/renal failure on HD/resp failure on mech ventilation. Receiving Meropenem/Solumedrol - Objective Vital Signs & Weight: Vital Signs (12 hours) Temp Pulse Resp Pulse Ox 03/13/20 14:39 85 03/13/20 14:14 101 H 03/13/20 14:00 30 H 03/13/20 12:00 30 H 03/13/20 11:09 115 H 03/13/20 11:00 98.5 F 03/13/20 10:00 30 H 03/13/20 09:00 99.4 F 03/13/20 08:00 34 H 90 L 03/13/20 07:51 111 H 03/13/20 06:00 32 H 03/13/20 05:00 99 F 03/13/20 04:00 33 H Weight Admit Weight 176 lb 8 oz Weight 209 lb 1.6 oz Most Recent Monitor Data Heart Rate from ECG 111 NIBP 135/59 NIBP BP-Mean 88 Respiration from ECG 18 SpO2 91 I&O: 03/12/20 03/13/20 03/14/20 06:59 06:59 06:59 Intake Total 2096 2143 160 Output Total 705 1990 418 Balance 1391 153 -258 Result Diagrams: 03/13/20 04:00 03/13/20 04:00 Additional Labs: Accuchecks 03/13/20 03/13/20 03/12/20 09:44 03:09 21:20 POC Glucose 224 H 246 H 202 H 03/12/20 16:07 POC Glucose 188 H Laboratory Tests 03/05/20 03/06/20 03/07/20 03:59 03:54 03:35 WBC 19.2 H Hgb 8.6 L Plt Count 100 L Neutrophils % (Manual) Band Neuts % (Manual) 33 H 44 H 25 H Anion Gap BUN Creatinine Calcium 03/08/20 03/08/20 03/09/20 03:30 03:30 04:05 WBC 16.0 H 16.3 H Hgb 7.3 L 7.5 L Plt Count 80 L 64 L Neutrophils % (Manual) 98 H Band Neuts % (Manual) 4 L Anion Gap 26 H BUN 128 H Creatinine 5.84 H Calcium 5.8 L* 03/10/20 04:30 WBC Hgb Plt Count Neutrophils % (Manual) 69 Band Neuts % (Manual) 26 H Anion Gap BUN Creatinine Calcium Radiology Reviewed by me: Yes (PCXR - bilat infiltrates, R apical PTX, lines/tubes in position) EKG Reviewed by me: Yes (Tele - SR) Hospitalist ROS - Medication Medications: Active Medications Generic Name Dose Route Start Last Admin Trade Name Freq PRN Reason Stop Dose Admin Acetaminophen 650 mg 02/11/20 15:29 03/11/20 21:08 Acetaminophen 325 Mg Tab PO 650 mg Q4H PRN Administration Headache/Fever/Mild Pain (1-3) Acetaminophen 650 mg 02/11/20 15:29 02/28/20 22:35 Acetaminophen 650 Mg Suppository [place] 650 mg Q4H PRN Administration Headache/Fever/Mild Pain (1-3) Albuterol Sulfate 1 puff 02/12/20 19:42 02/18/20 09:05 Albuterol 200 Puff (6.7gm Inhaler) INH 1 puff Q8H PRN Administration Wheezing Atorvastatin Calcium 10 mg 02/13/20 21:00 03/12/20 20:55 Atorvastatin Calcium 10 Mg Tab PO 10 mg HS EMELI Administration Benzonatate 100 mg 02/13/20 11:28 02/24/20 08:58 Benzonatate 100 Mg Cap PO 100 mg Q6H PRN Administration Cough Epoetin [place]-epbx 7,500 unit 03/13/20 09:30 03/13/20 11:09 Epoetin [place]-Epbx (Esrd) 4,000 Unit/Ml Vial SC 7,500 unit Q7D EMELI Administration Famotidine 20 mg 03/04/20 09:00 03/13/20 09:15 Famotidine 20 Mg Tab PO 20 mg DAILY EMELI Administration Guaifenesin 200 mg 02/13/20 11:28 02/14/20 21:04 Diabetic Tussin 200 Mg/10 Ml Udcup PO 200 mg Q4H PRN Administration Cough Guaifenesin/Dextromethorphan 15 ml 02/11/20 15:29 02/18/20 08:25 Guaifenesin Dm 100-10/5 Ml Udcup PO 15 ml Q4H PRN Administration Cough Insulin Glargine 11 units/ 0.11 mls @ 0 mls/hr 12/23/20 21:00 03/12/20 22:14 Miscellaneous Medication SC 0.11 mls HS EMELI Administration Meropenem 1 gm/ Device 50 mls @ 100 mls/hr 03/11/20 10:00 03/13/20 14:44 IVPB 50 mls 1000,2200 EMELI Administration Insulin Human Lispro 0 units 02/11/20 15:36 03/13/20 09:46 Humalog 300 Units/3 Ml Vial SC 3 units .MILD SLIDING SCALE PRN Administration Mild Correctional Scale Insulin Human Lispro 0 units 02/11/20 15:36 03/13/20 03:12 Humalog 300 Units/3 Ml Vial SC 2 unit .BEDTIME SLIDING SC PRN Administration Bedtime Correctional Scale Methylprednisolone Sodium Succinate 40 mg 03/05/20 21:00 03/13/20 09:15 Methylprednisolone Sod Succ 40 Mg Vial IVP 40 mg Q12HR EMELI Administration Morphine Sulfate 2 mg 03/10/20 11:44 03/13/20 14:56 Morphine 2 Mg/Ml Vial SLOW IVP 04/09/20 11:45 2 mg Q1H PRN Administration Breakthrough Pain/Agitation Pioglitazone HCl 15 mg 02/11/20 21:00 03/13/20 09:15 Pioglitazone Hcl 15 Mg Tab PO 15 mg BID EMELI Administration Propofol 1,000 mg 02/28/20 20:15 03/11/20 01:16 Propofol 1,000 Mg/100 Ml Vial IV 03/29/20 20:15 1,000 mg INF PRN Administration TO ACHIEVE GOAL RASS Protocol Sodium Chloride 10 ml 02/29/20 09:00 03/13/20 09:15 Flush - Normal Saline 10 Ml Syringe IVF 10 ml Q12HR EMELI Administration Vecuronium [place] 10 mg 02/29/20 03:31 03/02/20 10:39 Vecuronium 10 Mg Vial IV 10 mg Q1H PRN Administration PRONE - Exam General Appearance: ill appearing General - other findings: sedate on mech vent Eye: anicteric sclera ENT: normocephalic atraumatic, no oropharyngeal lesions ENT - other findings: ETT in place Neck: supple, symmetric, no JVD, no thyromegaly, no lymphadenopathy Heart: RRR, no gallops, no rubs, normal peripheral pulses Heart - other findings: S1, S2 Respiratory - other findings: coarse sounds bilat, scattered rhonchi Gastrointestinal: soft, non-tender, non-distended, normal bowel sounds, no palpable masses Extremities: no cyanosis, no clubbing, no edema Skin: normal turgor Musculoskeletal: generalized weakness Psychiatric: somnolent, lethargic Hosp A/P (1) Pneumonia due to COVID-19 virus Code(s): U07.1 - COVID-19; J12.89 - OTHER VIRAL PNEUMONIA Status: Acute Plan: Continue Meropenem/Solumedrol/mech ventilation (2) Acute respiratory failure with hypoxia Code(s): J96.01 - ACUTE RESPIRATORY FAILURE WITH HYPOXIA Status: Acute Plan: Continue mech ventilation, likely not weanable (3) Bacteremia due to Pseudomonas Code(s): R78.81 - BACTEREMIA; B96.5 - PSEUDOMONAS (MALLEI) CAUSING DISEASES CLASSD ELSWHR Status: Acute Plan: Continue Meropenem (4) Diabetes mellitus type 2 in nonobese Code(s): E11.9 - TYPE 2 DIABETES MELLITUS WITHOUT COMPLICATIONS Status: Chronic (5) Acute renal failure Status: Acute Qualifiers: Acute renal failure type: with acute tubular necrosis Qualified Code(s): N17.0 - Acute kidney failure with tubular necrosis Plan: Slow improvement, continue HDx's/week (6) Acute anemia Code(s): D64.9 - ANEMIA, UNSPECIFIED Status: Acute Plan: s/p 2u PRBC's - Plan continue antibiotics, PT/OT, pediatric social worker, speech therapy, respiratory therapy, out of bed/ambulate Continue critical support Continue Meropenem Continue Solumedrol Nutritional support with enteral TF's Continue CT due to pneumothorax on R Palliative care consult Code Status: DNAR AM lab: BMP, CBC PCXR in am
[2020-03-13 15:37] LABS: Actual Bicarbonate (HCO3a) 28.6 mEq/L (22-28); CO2 Tension 37.3 mmHg (35.0-45.0); Calcium, Ionized (arterial) 0.98 mmol/L (1.12-1.30); Hemoglobin (Hb) 6.7 g/dL (14.0-18.0); Potassium - ABG Lab 3.27 mmol/L (3.70-5.30)
[2020-03-13 15:38] LABS: O2 Tension (PaO2), arterial 43.5 mmHg (> 80.0)
[2020-03-13 15:39] LABS: ALV-art Gradient 302.025 mmHg (0-20); Puncture Site RRA
[2020-03-13] MEDS: Lorazepam 2 MG/ML VIAL SLOW IVP PRN (17:41)
--- NOTE | 2020-03-13 18:32 | PRG ---
DATE OF SERVICE: 03/13/2020 SUBJECTIVE: Mr. Garrison still has large air leak. OBJECTIVE: VITAL SIGNS: Heart rate is 105, blood pressure 125/56, respiratory rate is 20. LUNGS: Remarkable for equal breath sounds. HEART: Regular rhythm. ABDOMEN: Soft. EXTREMITIES: Without edema. IMAGING DATA: Chest radiograph still shows a small pneumothorax on the right. Bilateral infiltrates persist. LABORATORY DATA: White count 25, hemoglobin 7.4, platelets 53. Sodium 130, potassium 4, chloride 98, bicarb 24, BUN 105, creatinine 2.89. IMPRESSION: 1. Respiratory failure. 2. Renal failure. 3. COVID-19. 4. Spontaneous pneumothorax. 5. Extreme deconditioning. He has reached a point where we probably need to make a decision about tracheostomy. I do not see him making any significant improvement, but it is also not getting significantly worse. Job ID: [id number]
[2020-03-13] MEDS: Atorvastatin Calcium 10 MG TAB PO SCH (21:12)
[2020-03-13] MEDS: Insulin Glargine 11 UNITS in Pre-Filled Syringe 1 EACH SC SCH (21:13)
[2020-03-14 04:36] LABS: Anion Gap 16 mmol/L (10-20); BUN (Urea Nitrogen) 71 mg/dL (8.4-25.7); Calc. Creatinine Clearance 55 mL/min (70-130); Calcium 6.7 mg/dL (7.8-10.44); Carbon Dioxide 27 mmol/L (23-31); Chloride 100 mmol/L (98-107); Glucose 222 mg/dL (80-115); Potassium 3.7 mmol/L (3.5-5.1); Sodium 139 mmol/L (136-145)
[2020-03-14] MEDS: HumaLOG 300 UNITS/3 ML VIAL SC PRN ×3 (04:41→17:58)
[2020-03-14 05:25] LABS: Band 29 % (5-11); Lymphocytes 1 % (21-51); MDiff Complete? YES; Mean Corpuscular HGB CONC 33.5 g/dL (32.0-36.0); Mean Corpuscular Hemoglobin 27.6 pg (27.0-31.0); Mean Corpuscular Volume 82.5 fL (78.0-98.0); Mean Platelet Volume 9.9 fL (7.4-10.4); Monocytes 3 % (0-10); Neutrophil 67 % (42-75); Platelet Count 50 thou/uL (130-400); Platelet Morphology Comment Appears Decreased; RBC Distribution Width 18.5 % (11.5-14.5); Red Blood Cell (RBC) Count 2.16 mill/uL (4.70-6.10); White Blood Cell (WBC) Count 21.1 thou/uL (4.8-10.8)
--- NOTE | 2020-03-14 08:05 | RAD ---
EXAM: CHEST ONE VIEW HISTORY: On ventilator. Follow-up evaluation. COMPARISON: 03/13/2020 FINDINGS: Endotracheal tube, nasogastric tube, and right-sided thoracostomy tube remain in place and unchanged in position. Small right apical pneumothorax persists. Persistent increased interstitial and alveolar opacities are seen diffusely throughout the lungs bilaterally which are overall stable to mi nimally improved compared to prior exam. No other interval change. IMPRESSION: Persistent diffuse and extensive interstitial and alveolar opacities without enlargement of small rig ht apical pneumothorax.
--- NOTE | 2020-03-14 09:03 | PRG ---
DATE OF SERVICE: 03/14/2020 SUBJECTIVE: Mr. Garrison is a 59-year-old male, initially admitted with COVID-19 pneumonia with multiorgan failure. We are following him up for his acute kidney injury secondary to ATN. He did undergo hemodialysis yesterday. We attempted to remove fluid removal, but the patient dropped his blood pressure. The patient is still not following commands. He does have spontaneous eye opening. OBJECTIVE: VITAL SIGNS: Blood pressure 120/52 with a heart rate of 109, respiratory rate 21, O2 saturation 96%. GENERAL: The patient is arousable, but not following commands, intubated on ventilator support. SKIN: Adequate turgor. HEENT: Pale conjunctivae. Anicteric sclerae. NECK: No neck mass. No carotid bruits. No JVD. CHEST: No deformities. LUNGS: Decreased breath sounds. HEART: Tachycardic. No murmur, no gallops, no rubs. ABDOMEN: Globular, soft, nontender. EXTREMITIES: No edema. MEDICATIONS: Medications of March 14, 2020 was reviewed. LABORATORY DATA: Laboratories of March 14, 2020; white count 21.1, hemoglobin 6, and platelet count was 67,000. Sodium 139, potassium 3.7, chloride 100, carbon dioxide 27, BUN 71, creatinine 1.9, calcium 6.7, glucose 222. ASSESSMENT/PLAN: 1. Acute kidney injury-secondary to acute tubular necrosis-stable, tolerating current hemodialysis regimen. Fluid removal only as tolerated by the patient. Please note, his creatinine is much lower at 1.9. There is no indication for any dialytic intervention. 2. Anemia. We will transfuse 2 units of packed RBC today. 3. COVID-19 pneumonia. Continuing supportive care. Please note, overall prognosis remains guarded with this patient. 4. Recheck CBC, basic metabolic profile in a.m. Job ID: [id number]
[2020-03-14] MEDS: Famotidine 20 MG TAB PO SCH (09:41)
[2020-03-14] MEDS: Pioglitazone HCl 15 MG TAB PO SCH ×2 (09:41→21:15)
[2020-03-14] MEDS: methylPREDNISolone Sod Succ 40 MG VIAL IVP SCH ×2 (09:42→20:54)
[2020-03-14] MEDS: MEROPENEM 1 GM/50 ML 1 GM in Premix Bag 1 BAG IVPB SCH ×2 (09:42→21:00)
[2020-03-14] MEDS: Lorazepam 2 MG/ML VIAL SLOW IVP PRN ×3 (10:20→23:02)
--- NOTE | 2020-03-14 14:06 | PRG ---
DATE OF SERVICE: 03/14/2020 SUBJECTIVE: Josesito Garrison remains clinically unchanged. He is afebrile. Heart rate is 98 and blood pressure 128/54. His hemoglobin dropped dramatically today, so he is receiving 2 units packed cells. He is not scheduled for dialysis today. Hopefully, he tolerates positive volume. Intakes and outputs are positive 463. Urine output was 724 mL over the last 24 hours. Lungs remarkable for equal breath sounds. Heart, regular rhythm. Abdomen is soft. Extremities without asymmetry. He will awaken and nod when his sedation is decreased. Chest radiograph still shows diffuse infiltrates consistent with COVID. His pneumothorax is actually smaller than it was at the beginning of the week and last weekend. IMPRESSION: 1. COVID pneumonia. 2. Spontaneous pneumothorax. 3. Acute renal failure. 4. Blood loss anemia. He is not on anticoagulants now and has had no external gross bleeding. PLAN: Continue supportive care. His FiO2 was turned down to 55% today. He will probably need a tracheostomy early next week. Critical care time 30 min. Job ID: [id number] MTDD
[2020-03-14 17:21] LABS: Glucose 249 mg/dL (80-115)
--- NOTE | 2020-03-14 19:36 | PDOC.HOSPP ---
- Subjective Encounter Date: 03/14/20 Encounter Time: 17:40 Subjective: f/u for COVID PNA/resp failure/CATIE receiving HD. Hgb noted decreasing and pt received 2u PRBC's. - Objective Vital Signs & Weight: Vital Signs (12 hours) Temp Pulse Resp BP Pulse Ox 03/14/20 18:47 90 147/64 H 03/14/20 18:00 21 H 03/14/20 16:00 22 H 03/14/20 15:59 98.3 F 03/14/20 14:34 97.7 F 03/14/20 14:10 99.1 F 96 03/14/20 14:00 73 21 H 03/14/20 12:00 21 H 03/14/20 11:46 96.6 F L 03/14/20 10:00 22 H 03/14/20 08:55 98.7 F 03/14/20 08:00 98.9 F 22 H 94 L 03/14/20 07:45 112 H Weight Admit Weight 176 lb 8 oz Weight 3.429 oz Most Recent Monitor Data Heart Rate from ECG 91 NIBP 152/66 NIBP BP-Mean 101 Respiration from ECG 21 SpO2 91 I&O: 03/13/20 03/14/20 03/15/20 06:59 06:59 06:59 Intake Total 2143 1567 1360 Output Total 1989 1104 888 Balance 153 463 472 Result Diagrams: 03/14/20 03:25 03/14/20 16:39 Additional Labs: Accuchecks 03/14/20 03/14/20 03/13/20 10:06 04:22 20:57 POC Glucose 226 H 208 H 164 H Laboratory Tests 03/05/20 03/06/20 03/07/20 03:59 03:54 03:35 WBC 19.2 H Hgb 8.6 L Plt Count 100 L Neutrophils % (Manual) Band Neuts % (Manual) 33 H 44 H 25 H Anion Gap BUN Creatinine Calcium 03/08/20 03/08/20 03/09/20 03:30 03:30 04:05 WBC 16.0 H 16.3 H Hgb 7.3 L 7.5 L Plt Count 80 L 64 L Neutrophils % (Manual) 98 H Band Neuts % (Manual) 4 L Anion Gap 26 H BUN 128 H Creatinine 5.84 H Calcium 5.8 L* 03/10/20 03/12/20 03/13/20 04:30 07:17 04:00 WBC 25.9 H 25.2 H Hgb 7.8 L 7.4 L Plt Count 50 L 53 L Neutrophils % (Manual) 69 Band Neuts % (Manual) 26 H Anion Gap BUN Creatinine Calcium Radiology Reviewed by me: Yes (PCXR - diffuse bilat infiltrates, R-sided pneumothorax) EKG Reviewed by me: Yes (Tele - SR) Hospitalist ROS - Medication Medications: Active Medications Generic Name Dose Route Start Last Admin Trade Name Freq PRN Reason Stop Dose Admin Acetaminophen 650 mg 02/11/20 15:29 03/11/20 21:08 Acetaminophen 325 Mg Tab PO 650 mg Q4H PRN Administration Headache/Fever/Mild Pain (1-3) Acetaminophen 650 mg 02/11/20 15:29 02/28/20 22:35 Acetaminophen 650 Mg Suppository MI 650 mg Q4H PRN Administration Headache/Fever/Mild Pain (1-3) Albuterol Sulfate 1 puff 02/12/20 19:42 02/18/20 09:05 Albuterol 200 Puff (6.7gm Inhaler) INH 1 puff Q8H PRN Administration Wheezing Atorvastatin Calcium 10 mg 02/13/20 21:00 03/13/20 21:12 Atorvastatin Calcium 10 Mg Tab PO 10 mg HS EMELI Administration Benzonatate 100 mg 02/13/20 11:28 02/24/20 08:58 Benzonatate 100 Mg Cap PO 100 mg Q6H PRN Administration Cough Epoetin Gordon-epbx 7,500 unit 03/13/20 09:30 03/13/20 11:09 Epoetin Gordon-Epbx (Esrd) 4,000 Unit/Ml Vial SC 7,500 unit Q7D EMELI Administration Famotidine 20 mg 03/04/20 09:00 03/14/20 09:41 Famotidine 20 Mg Tab PO 20 mg DAILY EMLEI Administration Guaifenesin 200 mg 02/13/20 11:28 02/14/20 21:04 Diabetic Tussin 200 Mg/10 Ml Udcup PO 200 mg Q4H PRN Administration Cough Guaifenesin/Dextromethorphan 15 ml 02/11/20 15:29 12/21/20 08:25 Guaifenesin Dm 100-10/5 Ml Udcup PO 15 ml Q4H PRN Administration Cough Insulin Glargine 11 units/ 0.11 mls @ 0 mls/hr 02/20/20 21:00 03/13/20 21:13 Miscellaneous Medication SC 0.11 mls HS EMELI Administration Meropenem 1 gm/ Device 50 mls @ 100 mls/hr 03/11/20 10:00 03/14/20 09:42 IVPB 50 mls 1000,2200 EMELI Administration Insulin Human Lispro 0 units 02/11/20 15:36 03/14/20 17:58 Humalog 300 Units/3 Ml Vial SC 3 units .MILD SLIDING SCALE PRN Administration Mild Correctional Scale Insulin Human Lispro 0 units 02/11/20 15:36 03/14/20 04:41 Humalog 300 Units/3 Ml Vial SC 2 unit .BEDTIME SLIDING SC PRN Administration Bedtime Correctional Scale Lorazepam 2 mg 03/10/20 11:45 03/14/20 17:58 Lorazepam 2 Mg/Ml Vial SLOW IVP 2 mg Q1H PRN Administration Breakthrough agitation Methylprednisolone Sodium Succinate 40 mg 03/05/20 21:00 03/14/20 09:42 Methylprednisolone Sod Succ 40 Mg Vial IVP 40 mg Q12HR EMELI Administration Morphine Sulfate 2 mg 03/10/20 11:44 03/13/20 14:56 Morphine 2 Mg/Ml Vial SLOW IVP 04/09/20 11:45 2 mg Q1H PRN Administration Breakthrough Pain/Agitation Pioglitazone HCl 15 mg 02/11/20 21:00 03/14/20 09:41 Pioglitazone Hcl 15 Mg Tab PO 15 mg BID EMELI Administration Propofol 1,000 mg 02/28/20 20:15 03/11/20 01:16 Propofol 1,000 Mg/100 Ml Vial IV 03/29/20 20:15 1,000 mg INF PRN Administration TO ACHIEVE GOAL RASS Protocol Sodium Chloride 10 ml 02/29/20 09:00 03/14/20 09:41 Flush - Normal Saline 10 Ml Syringe IVF 10 ml Q12HR EMELI Administration Vecuronium [place] 10 mg 02/29/20 03:31 03/02/20 10:39 Vecuronium 10 Mg Vial IV 10 mg Q1H PRN Administration PRONE - Exam General - other findings: sedate on mech vent Eye: anicteric sclera ENT: normocephalic atraumatic, no oropharyngeal lesions Neck: supple, symmetric, no JVD, no thyromegaly, no lymphadenopathy Heart: RRR, no gallops, no rubs, normal peripheral pulses Heart - other findings: S1, S2 Respiratory - other findings: diminished bilat Gastrointestinal: soft, non-tender, non-distended, normal bowel sounds, no pa lpable masses Extremities: no cyanosis, no clubbing, no edema Skin: normal turgor Psychiatric: somnolent, lethargic Hosp A/P (1) Pneumonia due to COVID-19 virus Code(s): U07.1 - COVID-19; J12.89 - OTHER VIRAL PNEUMONIA Status: Acute Plan: Continue Meropenem/Albuterol/Solumedrol (2) Acute respiratory failure with hypoxia Code(s): J96.01 - ACUTE RESPIRATORY FAILURE WITH HYPOXIA Status: Acute Plan: Continue mech ventilation, may need to consider trach (3) Bacteremia due to Pseudomonas Code(s): R78.81 - BACTEREMIA; B96.5 - PSEUDOMONAS (MALLEI) CAUSING DISEASES CLASSD ELSWHR Status: Acute Plan: Continue Meropenem (4) Diabetes mellitus type 2 in nonobese Code(s): E11.9 - TYPE 2 DIABETES MELLITUS WITHOUT COMPLICATIONS Status: Chronic (5) Acute renal failure Status: Acute Qualifiers: Acute renal failure type: with acute tubular necrosis Qualified Code(s): N17.0 - Acute kidney failure with tubular necrosis (6) Acute anemia Code(s): D64.9 - ANEMIA, UNSPECIFIED Status: Acute Plan: ? 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
[2020-03-14] MEDS ORDERED: Pantoprazole 40 MG VIAL IVP SCH (20:00)
[2020-03-14] MEDS: Pantoprazole 40 MG VIAL IVP SCH (20:54)
[2020-03-14] MEDS: Atorvastatin Calcium 10 MG TAB PO SCH (20:59)
[2020-03-14 21:19] LABS: Glucose 189 mg/dL (80-115)
[2020-03-14] MEDS: Insulin Glargine 11 UNITS in Pre-Filled Syringe 1 EACH SC SCH (21:21)
[2020-03-15 05:38] LABS: Anion Gap 18 mmol/L (10-20); BUN (Urea Nitrogen) 93 mg/dL (8.4-25.7); Calc. Creatinine Clearance 52 mL/min (70-130); Carbon Dioxide 26 mmol/L (23-31); Chloride 100 mmol/L (98-107); Glucose 290 mg/dL (80-115); Potassium 3.6 mmol/L (3.5-5.1); Sodium 140 mmol/L (136-145)
[2020-03-15] MEDS: HumaLOG 300 UNITS/3 ML VIAL SC PRN ×2 (05:44→17:03)
[2020-03-15 06:12] LABS: Hemoglobin 9.9 g/dL (14.0-18.0); Mean Corpuscular Hemoglobin 29.3 pg (27.0-31.0); Mean Corpuscular Volume 86.1 fL (78.0-98.0); Mean Platelet Volume 10.1 fL (7.4-10.4); Platelet Count 56 thou/uL (130-400); RBC Distribution Width 16.6 % (11.5-14.5); Red Blood Cell (RBC) Count 3.36 mill/uL (4.70-6.10); White Blood Cell (WBC) Count 22.8 thou/uL (4.8-10.8)
[2020-03-15 06:13] LABS: Band 16 % (5-11); MDiff Complete? YES; Monocytes 2 % (0-10); Neutrophil 82 % (42-75); Nucleated RBC 1 % (0); Platelet Morphology Comment Appears Decreased
[2020-03-15] MEDS: Lorazepam 2 MG/ML VIAL SLOW IVP PRN ×4 (07:30→17:47)
--- NOTE | 2020-03-15 08:55 | RAD ---
EXAM: CHEST ONE VIEW HISTORY: On ventilator. Follow-up evaluation. COMPARISON: 03/14/2020 FINDINGS: Endotracheal tube and nasogastric tubes remain in place. Right-sided thoracostomy tubes again noted i n place, but the thoracostomy tube is different in position compared to prior exam. Right apical pneumothorax has slightly enlarged when compared to prior exam. Diffuse increased an extensive airspa ce opacities are seen in the right lung similar which is secondary to crowding of the bronchovascular markings due to the pneumothorax. Increased interstitial and alveolar opacities are a lso seen on the left which are stable. IMPRESSION: 1. Interval enlargement of right apical pneumothorax compared to prior exam. Right-sided thoracostomy tube remains in place but appears to have been withdrawn compared to prior exam. 2. Extensive interstitial alveolar opacities are again seen throughout the right lung but also seen o n the left to a lesser extent. 3. Findings were discussed with nurse Lionel in the CCU on 03/15/2020 at 0852 hours.
[2020-03-15] MEDS ORDERED: Pancrelipase DR 12,000 1 CAP PER TUBE PRN (09:43)
[2020-03-15] MEDS ORDERED: Sodium Bicarbonate Tab 325 MG TAB PER TUBE PRN (09:44)
[2020-03-15] MEDS ORDERED: Heparin 10,000 UNITS/ 10 ML VIAL ONE (09:55)
--- NOTE | 2020-03-15 11:33 | PRG ---
DATE OF SERVICE: 03/15/2020 SUBJECTIVE: Mr. Garrison is a 59-year-old male, followed up by the Renal Service for his acute renal failure secondary to acute tubular necrosis. In the last 24 to 48 hours, we have noted the patient slowly picking up his urine output. He is averaging about 30 mL/h. This maybe a sign of renal recovery for the patient. His creatinine is also noted to be quite low today. He is undergoing a 3-hour hemodialysis today with fluid removal only as tolerated. My plan is to hold off dialysis after today's dialysis and observe his renal function. No acute events noted last night. The patient still remains unresponsive. OBJECTIVE: VITAL SIGNS: Blood pressure 112/68, heart rate 109, respiratory rate is 33, O2 saturation 91%. GENERAL: The patient is unresponsive, intubated on ventilator support. SKIN: Adequate turgor. HEENT: He has pinkish conjunctivae. Anicteric sclerae. No neck mass. No carotid bruits. No JVD. CHEST: No deformities. LUNGS: Decreased breath sounds. HEART: Tachycardic, regular rhythm. No murmur, no gallops, no rubs. ABDOMEN: Globular, soft, nontender, no masses. EXTREMITIES: No edema. MEDICATIONS: Of March 15, 2020, were reviewed. LABORATORY DATA: Laboratories of March 15, 2020: White count 22.8, hemoglobin 9.9. Sodium 140, potassium 3.6, chloride 100, carbon dioxide 26, BUN 93, creatinine 2.08, glucose 290, calcium 7. ASSESSMENT AND PLAN: 1. Anemia. P.r.n. blood transfusion. No evidence of GI bleed. 2. Acute kidney injury secondary to acute tubular necrosis. Stabilizing renal function. Urine output is slowly improving. Continue to observe for possible renal recovery. Fluid removal is being done only as tolerated. 3. COVID-19 pneumonia. Continue supportive care. The patient is still unresponsive. Overall prognosis remains guarded. Job ID: [id number]
--- NOTE | 2020-03-15 11:53 | PRG ---
DATE OF SERVICE: 03/15/2020 SUBJECTIVE: This patient remains on mechanical ventilation. He is currently receiving dialysis. OBJECTIVE: VITAL SIGNS: Temperature 97.1, pulse 109, blood pressure 112/60, O2 saturation 91%. HEENT: Unremarkable. NECK: No JVD. LUNGS: Clear breath sounds anteriorly bilaterally. CARDIAC: S1, S2. Tachycardic. ABDOMEN: Soft and nontender. EXTREMITIES: No edema. IMAGING: X-ray shows enlarging right pneumothorax. I thought the chest tube might have been pulled back some, but I think after inspecting into the dressing that it is actually okay. LABORATORY DATA: Sodium 140, potassium 3.6, chloride 100, CO2 of 26, BUN 93, creatinine 2.1, glucose 290. White blood cell count 22.8, hematocrit 28.9, and platelet count 56. ASSESSMENT: 1. COVID-19 pneumonia. 2. Acute hypoxic respiratory failure requiring mechanical ventilation. 3. Right pneumothorax. 4. Acute renal failure. 5. Blood loss anemia. PLAN: I would agree that he is going to need tracheostomy going forward. He is not weanable at the current time. I reviewed his medication orders and agree with current management. Job ID: [id number]
[2020-03-15] MEDS: methylPREDNISolone Sod Succ 40 MG VIAL IVP SCH ×2 (13:45→20:35)
[2020-03-15] MEDS: Pioglitazone HCl 15 MG TAB PO SCH ×2 (13:45→21:00)
[2020-03-15] MEDS: MEROPENEM 1 GM/50 ML 1 GM in Premix Bag 1 BAG IVPB SCH ×2 (13:45→21:00)
[2020-03-15] MEDS: Famotidine 20 MG TAB PO SCH (13:46)
[2020-03-15] MEDS: Morphine 2 MG/ML VIAL SLOW IVP PRN (16:46)
--- NOTE | 2020-03-15 17:52 | PDOC.HOSPP ---
- Subjective Encounter Date: 03/15/20 Encounter Time: 17:49 non-verbal Subjective: Mr. Garrison is a very unfortunate 59-year-old who has had a very prolonged hospitalization. He originally was admitted on February 102019 making today hospital day #33. He is seen with acute COVID-19 pneumonia and respiratory failure. He remains intubated today on exam. No family at the bedside today. - Objective Vital Signs & Weight: Vital Signs (12 hours) Temp Pulse Resp Pulse Ox 03/15/20 16:00 97.5 F L 20 03/15/20 15:18 98 03/15/20 14:00 20 03/15/20 12:00 97.6 F 20 03/15/20 11:45 108 H 03/15/20 09:44 20 03/15/20 08:00 97.1 F L 92 L 03/15/20 07:26 101 H 03/15/20 07:23 26 H 03/15/20 06:00 22 H Weight Admit Weight 176 lb 8 oz Weight 216 lb 14.958 oz Most Recent Monitor Data Heart Rate from ECG 101 NIBP 129/59 NIBP BP-Mean 90 Respiration from ECG 25 SpO2 89 I&O: 03/14/20 03/15/20 03/16/20 06:59 06:59 06:59 Intake Total 1567 2148 446 Output Total 1104 1668 818 Balance 463 480 -372 Result Diagrams: 03/15/20 03:15 03/15/20 03:10 Additional Labs: Accuchecks 03/15/20 03/15/20 03/15/20 17:02 13:51 10:06 POC Glucose 200 H 170 H 246 H Radiology Reviewed by me: Yes EKG Reviewed by me: Yes Hospitalist ROS - Review of Systems ROS unobtainable: due to endotracheal tube Constitutional: reports: weakness Respiratory: reports: shortness of breath Neurological: reports: weakness - Medication Medications: Active Medications Generic Name Dose Route Start Last Admin Trade Name Freq PRN Reason Stop Dose Admin Acetaminophen 650 mg 02/11/20 15:29 03/11/20 21:08 Acetaminophen 325 Mg Tab PO 650 mg Q4H PRN Administration Headache/Fever/Mild Pain (1-3) Acetaminophen 650 mg 02/11/20 15:29 02/28/20 22:35 Acetaminophen 650 Mg Suppository MI 650 mg Q4H PRN Administration Headache/Fever/Mild Pain (1-3) Albuterol Sulfate 1 puff 02/12/20 19:42 02/18/20 09:05 Albuterol 200 Puff (6.7gm Inhaler) INH 1 puff Q8H PRN Administration Wheezing Lipase/Protease/Amylase 1 cap 03/15/20 09:43 03/15/20 10:[address] 12,000 1 Cap PER TUBE 1 cap Q1HR PRN Administration FEEDING Atorvastatin Calcium 10 mg 02/13/20 21:00 03/14/20 20:59 Atorvastatin Calcium 10 Mg Tab PO 10 mg HS EMELI Administration Benzonatate 100 mg 02/13/20 11:28 02/24/20 08:58 Benzonatate 100 Mg Cap PO 100 mg Q6H PRN Administration Cough Epoetin Gordon-epbx 7,500 unit 03/13/20 09:30 03/13/20 11:09 Epoetin Gordon-Epbx (Esrd) 4,000 Unit/Ml Vial SC 7,500 unit Q7D EMELI Administration Famotidine 20 mg 03/04/20 09:00 03/15/20 13:46 Famotidine 20 Mg Tab PO 20 mg DAILY EMELI Administration Guaifenesin 200 mg 02/13/20 11:28 02/14/20 21:04 Diabetic Tussin 200 Mg/10 Ml Udcup PO 200 mg Q4H PRN Administration Cough Guaifenesin/Dextromethorphan 15 ml 02/11/20 15:29 02/18/20 08:25 Guaifenesin Dm 100-10/5 Ml Udcup PO 15 ml Q4H PRN Administration Cough Insulin Glargine 11 units/ 0.11 mls @ 0 mls/hr 02/20/20 21:00 03/14/20 21:21 Miscellaneous Medication SC 0.11 mls HS EMELI Administration Meropenem 1 gm/ Device 50 mls @ 100 mls/hr 03/11/20 10:00 03/15/20 13:45 IVPB 50 mls 1000,2200 EMELI Administration Insulin Human Lispro 0 units 02/11/20 15:36 03/15/20 17:03 Humalog 300 Units/3 Ml Vial SC 2 units .MILD SLIDING SCALE PRN Administration Mild Correctional Scale Insulin Human Lispro 0 units 02/11/20 15:36 03/14/20 04:41 Humalog 300 Units/3 Ml Vial SC 2 unit .BEDTIME SLIDING SC PRN Administration Bedtime Correctional Scale Lorazepam 2 mg 03/10/20 11:45 03/15/20 17:47 Lorazepam 2 Mg/Ml Vial SLOW IVP 2 mg Q1H PRN Administration Breakthrough agitation Methylprednisolone Sodium Succinate 40 mg 03/05/20 21:00 03/15/20 13:45 Methylprednisolone Sod Succ 40 Mg Vial IVP 40 mg Q12HR EMELI Administration Morphine Sulfate 2 mg 03/10/20 11:44 03/15/20 16:46 Morphine 2 Mg/Ml Vial SLOW IVP 04/09/20 11:45 2 mg Q1H PRN Administration Breakthrough Pain/Agitation Pantoprazole Sodium 40 mg 03/15/20 09:00 03/14/20 20:54 Pantoprazole 40 Mg Vial IVP 40 mg DAILY EMELI Administration Pioglitazone HCl 15 mg 02/11/20 21:00 03/15/20 13:45 Pioglitazone Hcl 15 Mg Tab PO 15 mg BID EMELI Administration Propofol 1,000 mg 02/28/20 20:15 03/11/20 01:16 Propofol 1,000 Mg/100 Ml Vial IV 03/29/20 20:15 1,000 mg INF PRN Administration TO ACHIEVE GOAL RASS Protocol Sodium Bicarbonate 650 mg 03/15/20 09:44 03/15/20 10:51 Sodium Bicarbonate Tab 325 Mg Tab PER TUBE 650 mg Q1HR PRN Administration ENTERAL TUBE OCCLUSION Sodium Chloride 10 ml 02/29/20 09:00 03/15/20 13:48 Flush - Normal Saline 10 Ml Syringe IVF 10 ml Q12HR EMELI Administration Vecuronium [place] 10 mg 02/29/20 03:31 03/02/20 10:39 Vecuronium 10 Mg Vial IV 10 mg Q1H PRN Administration PRONE - Exam General Appearance: ill appearing General - other findings: He is intubated and ventilated. ENT: normocephalic atraumatic, no oropharyngeal lesions Heart: RRR, no murmur, no gallops Respiratory: no rales, no ronchi, normal chest expansion, tachypneic, wheezes Gastrointestinal: soft, non-tender, non-distended Extremities: 2+ LE edema Skin: normal turgor Neurological: cranial nerve grossly intact Musculoskeletal: generalized weakness Psychiatric: not oriented, somnolent, lethargic Hosp A/P (1) Acute respiratory failure with hypoxia Code(s): J96.01 - ACUTE RESPIRATORY FAILURE WITH HYPOXIA Status: Acute Plan: The patient remains intubated and mechanically ventilated. (2) Pneumonia due to COVID-19 virus Code(s): U07.1 - COVID-19; J12.89 - OTHER VIRAL PNEUMONIA Status: Acute Plan: Continue supportive care. (3) Pseudomonas aeruginosa infection Code(s): A49.8 - OTHER BACTERIAL INFECTIONS OF UNSPECIFIED SITE Status: Acute Plan: His blood culture did grew out Pseudomonas. Continue meropenem. 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 He has been on dialysis and he is making urine. Will defer to nephrology about ongoing dialysis. - Plan old records reviewed/req, PT/OT, respiratory therapy, incentive spirometry
[2020-03-15] MEDS: Atorvastatin Calcium 10 MG TAB PO SCH (20:36)
[2020-03-15] MEDS: Insulin Glargine 11 UNITS in Pre-Filled Syringe 1 EACH SC SCH (20:48)
[2020-03-16] MEDS: Morphine 2 MG/ML VIAL SLOW IVP PRN ×2 (01:34→23:00)
[2020-03-16 04:35] LABS: Anion Gap 16 mmol/L (10-20); BUN (Urea Nitrogen) 65 mg/dL (8.4-25.7); Calc. Creatinine Clearance 74 mL/min (70-130); Calcium 7.1 mg/dL (7.8-10.44); Carbon Dioxide 28 mmol/L (23-31); Chloride 101 mmol/L (98-107); Glucose 310 mg/dL (80-115); Potassium 3.6 mmol/L (3.5-5.1); Sodium 141 mmol/L (136-145)
[2020-03-16] MEDS: HumaLOG 300 UNITS/3 ML VIAL SC PRN ×4 (04:47→20:12)
[2020-03-16 05:04] LABS: Band 12 % (5-11); Hemoglobin 9.8 g/dL (14.0-18.0); Large Platelets SLIGHT; Lymphocytes 3 % (21-51); MDiff Complete? YES; Mean Corpuscular HGB CONC 33.9 g/dL (32.0-36.0); Mean Corpuscular Hemoglobin 29.2 pg (27.0-31.0); Mean Platelet Volume 10.8 fL (7.4-10.4); Monocytes 2 % (0-10); Neutrophil 83 % (42-75); Nucleated RBC 2 % (0); Platelet Count 89 thou/uL (130-400); Platelet Morphology Comment Appears Decreased; RBC Distribution Width 16.8 % (11.5-14.5); Red Blood Cell (RBC) Count 3.35 mill/uL (4.70-6.10); White Blood Cell (WBC) Count 20.7 thou/uL (4.8-10.8)
[2020-03-16] MEDS: Famotidine 20 MG TAB PO SCH (08:14)
[2020-03-16] MEDS: Pioglitazone HCl 15 MG TAB PO SCH ×2 (08:14→20:01)
[2020-03-16] MEDS: methylPREDNISolone Sod Succ 40 MG VIAL IVP SCH ×2 (08:15→20:01)
[2020-03-16] MEDS: Pantoprazole 40 MG VIAL IVP SCH (08:15)
--- NOTE | 2020-03-16 09:14 | RAD ---
XR Chest 1 View Portable History: Ventilated patient Comparison: Radiograph prior day Findings: Right pneumothorax is not improved. Right thoracostomy is in a similar location. Endotracheal tube tip above the bhavani 3.2 cm. Enteric tube tip gastric fundus. Severe sulcation throughout the lungs. No left-sided pneumothorax. Impression: Similar examination of the chest without decreased right pneumothorax.
[2020-03-16] MEDS: Propofol 1,000 MG/100 ML VIAL IV PRN ×2 (09:42→23:01)
[2020-03-16] MEDS: MEROPENEM 1 GM/50 ML 1 GM in Premix Bag 1 BAG IVPB SCH ×2 (10:09→21:02)
--- NOTE | 2020-03-16 12:06 | PRG ---
DATE OF SERVICE: 03/16/2020 SUBJECTIVE: Mr. Garrison is a 59-year-old male, followed up for his acute kidney injury secondary to acute tubular necrosis. He has been on a regular dialysis schedule. He did undergo hemodialysis yesterday with some fluid removal. No acute events noted last night. Please note, renal function seems to be improving. He is making urine output of 30 mL/hr. OBJECTIVE: VITAL SIGNS: Blood pressure is 154/68, heart rate 94, respiratory rate 20, O2 saturation 95%. GENERAL: The patient is unresponsive, intubated on ventilator support. SKIN: Adequate turgor. HEENT: He has slightly pale conjunctivae. Anicteric sclerae. NECK: No neck mass. No carotid bruits. No JVD. CHEST: No deformities. Positive for right chest tube. LUNGS: Decreased breath sounds. HEART: Normal sinus rhythm. No murmur. No gallops. No rubs. ABDOMEN: Globular, soft, nontender. EXTREMITIES: No edema. No deformities. MEDICATIONS: Medications of March 16, 2020, reviewed. LABORATORY DATA: Laboratories of March 16, 2020; white count 20.7, hemoglobin 9.8. Sodium 141, potassium 3.6, chloride 101, carbon dioxide 28, BUN 65, creatinine 1.46, glucose 310, calcium 7.1. ASSESSMENT AND PLAN: 1. Acute kidney injury secondary to acute tubular necrosis. Stabilizing renal function. The patient has received regular dialysis at least 3 times a week. His urine output is slowly improving. He may be having some recovery from his acute tubular necrosis. Continue to observe. Dialysis only if needed. 2. Right pneumothorax - currently on chest tube. Stable. 3. COVID-19 pneumonia with multiorgan dysfunction - continue supportive care. The plan is to consider for tracheostomy placement next week. Overall prognosis remains guarded. Job ID: [id number]
--- NOTE | 2020-03-16 12:59 | PRG ---
DATE OF SERVICE: 03/16/2020 SUBJECTIVE: Mr. Garrison had a big desaturation in his O2 sats today. I think it was from his chest tube getting kinked off. Once that was identified and unkinked, his O2 sats improved precipitously. He remains on mechanical ventilation. His x-ray today showed a fairly substantial pneumothorax on the right, but I think that was a product of the chest tube being kinked. OBJECTIVE: VITAL SIGNS: Temperature is 97.5, pulse 96, blood pressure 144/60, O2 saturation 92%. HEENT: Unremarkable. NECK: No JVD. LUNGS: Clear. CARDIAC: S1 and S2, regular. ABDOMEN: Soft. EXTREMITIES: Edematous. LABORATORY DATA: White blood cell count 20, hematocrit 28.8, and platelet count 89. Sodium 141, potassium 3.6, chloride 101, CO2 of 28, BUN 65, creatinine 1.5, glucose 310. ASSESSMENT: 1. COVID-19 pneumonia. 2. Right pneumothorax. 3. Acute respiratory failure requiring mechanical ventilation. 4. Acute renal failure. 5. Blood loss anemia. PLAN: 1. Continue mechanical ventilation on present settings. 2. Monitor renal function. Above encompasses 30 minutes of critical care time. Job ID: [id number]
--- NOTE | 2020-03-16 14:24 | PDOC.HOSPP ---
- Subjective Encounter Date: 03/16/20 Encounter Time: 14:23 non-verbal Subjective: Mr. Garrison remains on mechanical ventilation. A chest tube is in place for a pneumothorax. We appreciate nephrology for the ongoing help with dialysis. - Objective Vital Signs & Weight: Vital Signs (12 hours) Temp Pulse Resp BP 03/16/20 12:00 97.7 F 21 H 03/16/20 10:42 94 154/68 H 03/16/20 10:00 21 H 03/16/20 08:00 97.5 F L 23 H 03/16/20 07:28 92 128/60 03/16/20 06:00 21 H 03/16/20 04:00 97.8 F 20 Weight Admit Weight 176 lb 8 oz Weight 214 lb 15.211 oz Most Recent Monitor Data Heart Rate from ECG 98 NIBP 145/71 NIBP BP-Mean 86 Respiration from ECG 21 SpO2 97 I&O: 03/15/20 03/16/20 03/17/20 06:59 06:59 06:59 Intake Total 2148 1164 90 Output Total 1668 1385 305 Balance 480 -221 -215 Result Diagrams: 03/16/20 03:30 03/16/20 03:30 Additional Labs: Accuchecks 03/16/20 03/16/20 03/15/20 10:14 04:42 20:45 POC Glucose 294 H 267 H 247 H 03/15/20 17:02 POC Glucose 200 H Radiology Reviewed by me: Yes EKG Reviewed by me: Yes Hospitalist ROS - Review of Systems ROS unobtainable: due to endotracheal tube Respiratory: reports: shortness of breath, wheezing Neurological: reports: weakness - Medication Medications: Active Medications Generic Name Dose Route Start Last Admin Trade Name Freq PRN Reason Stop Dose Admin Acetaminophen 650 mg 02/11/20 15:29 03/11/20 21:08 Acetaminophen 325 Mg Tab PO 650 mg Q4H PRN Administration Headache/Fever/Mild Pain (1-3) Acetaminophen 650 mg 02/11/20 15:29 02/28/20 22:35 Acetaminophen 650 Mg Suppository [place] 650 mg Q4H PRN Administration Headache/Fever/Mild Pain (1-3) Albuterol Sulfate 1 puff 02/12/20 19:42 02/18/20 09:05 Albuterol 200 Puff (6.7gm Inhaler) INH 1 puff Q8H PRN Administration Wheezing Lipase/Protease/Amylase 1 cap 03/15/20 09:43 03/15/20 10:[address] 12,000 1 Cap PER TUBE 1 cap Q1HR PRN Administration FEEDING Atorvastatin Calcium 10 mg 02/13/20 21:00 03/15/20 20:36 Atorvastatin Calcium 10 Mg Tab PO 10 mg HS EMELI Administration Benzonatate 100 mg 02/13/20 11:28 02/24/20 08:58 Benzonatate 100 Mg Cap PO 100 mg Q6H PRN Administration Cough Epoetin Gordon-epbx 7,500 unit 03/13/20 09:30 03/13/20 11:09 Epoetin Gordon-Epbx (Esrd) 4,000 Unit/Ml Vial SC 7,500 unit Q7D EMELI Administration Famotidine 20 mg 03/04/20 09:00 03/16/20 08:14 Famotidine 20 Mg Tab PO Not Given DAILY EMELI Guaifenesin 200 mg 02/13/20 11:28 02/14/20 21:04 Diabetic Tussin 200 Mg/10 Ml Udcup PO 200 mg Q4H PRN Administration Cough Guaifenesin/Dextromethorphan 15 ml 02/11/20 15:29 02/18/20 08:25 Guaifenesin Dm 100-10/5 Ml Udcup PO 15 ml Q4H PRN Administration Cough Insulin Glargine 11 units/ 0.11 mls @ 0 mls/hr 02/20/20 21:00 03/15/20 20:48 Miscellaneous Medication SC 0.11 mls HS EMELI Administration Meropenem 1 gm/ Device 50 mls @ 100 mls/hr 03/11/20 10:00 03/16/20 10:09 IVPB 50 mls 1000,2200 EMELI Administration Insulin Human Lispro 0 units 02/11/20 15:36 03/16/20 10:18 Humalog 300 Units/3 Ml Vial SC 4 units .MILD SLIDING SCALE PRN Administration Mild Correctional Scale Insulin Human Lispro 0 units 02/11/20 15:36 03/14/20 04:41 Humalog 300 Units/3 Ml Vial SC 2 unit .BEDTIME SLIDING SC PRN Administration Bedtime Correctional Scale Lorazepam 2 mg 03/10/20 11:45 03/15/20 17:47 Lorazepam 2 Mg/Ml Vial SLOW IVP 2 mg Q1H PRN Administration Breakthrough agitation Methylprednisolone Sodium Succinate 40 mg 03/05/20 21:00 03/16/20 08:15 Methylprednisolone Sod Succ 40 Mg Vial IVP 40 mg Q12HR EMELI Administration Morphine Sulfate 2 mg 03/10/20 11:44 03/16/20 01:34 Morphine 2 Mg/Ml Vial SLOW IVP 04/09/20 11:45 2 mg Q1H PRN Administration Breakthrough Pain/Agitation Pantoprazole Sodium 40 mg 03/15/20 09:00 03/16/20 08:15 Pantoprazole 40 Mg Vial IVP 40 mg DAILY EMELI Administration Pioglitazone HCl 15 mg 02/11/20 21:00 03/16/20 08:14 Pioglitazone Hcl 15 Mg Tab PO 15 mg BID EMELI Administration Propofol 1,000 mg 02/28/20 20:15 03/16/20 09:42 Propofol 1,000 Mg/100 Ml Vial IV 03/29/20 20:15 1,000 mg INF PRN Administration TO ACHIEVE GOAL RASS Protocol Sodium Bicarbonate 650 mg 03/15/20 09:44 03/15/20 10:51 Sodium Bicarbonate Tab 325 Mg Tab PER TUBE 650 mg Q1HR PRN Administration ENTERAL TUBE OCCLUSION Sodium Chloride 10 ml 02/29/20 09:00 03/16/20 08:16 Flush - Normal Saline 10 Ml Syringe IVF 10 ml Q12HR EMELI Administration Vecuronium [place] 10 mg 02/29/20 03:31 03/02/20 10:39 Vecuronium 10 Mg Vial IV 10 mg Q1H PRN Administration PRONE - Exam General Appearance: NAD, ill appearing Eye: PERRL, anicteric sclera ENT: normocephalic atraumatic, no oropharyngeal lesions Neck: supple, symmetric, no JVD, no thyromegaly Heart: RRR, no murmur, no gallops, no rubs Respiratory: no wheezes, normal chest expansion, normal percussion, rales, wheezes Gastrointestinal: soft, non-tender, non-distended, normal bowel sounds, no guarding, no rigidity Extremities: 2+ LE edema Musculoskeletal: generalized weakness Psychiatric: not oriented, somnolent, lethargic Hosp A/P (1) Acute respiratory failure with hypoxia Code(s): J96.01 - ACUTE RESPIRATORY FAILURE WITH HYPOXIA Status: Acute Plan: He remains intubated and mechanically ventilated. He is likely looking towards tracheostomy very soon. (2) Pneumonia due to COVID-19 virus Code(s): U07.1 - COVID-19; J12.89 - OTHER VIRAL PNEUMONIA Status: Acute (3) Pseudomonas aeruginosa infection Code(s): A49.8 - OTHER BACTERIAL INFECTIONS OF UNSPECIFIED SITE Status: Acute Plan: Continue meropenem. (4) Acute renal failure Status: Acute Qualifiers: Acute renal failure type: with acute tubular necrosis Qualified Code(s): N17.0 - Acute kidney failure with tubular necrosis Plan: His renal function appears to be in recovery. He has had a couple sessions of dialysis. - Plan old records reviewed/req, PT/OT, respiratory therapy, incentive spirometry
[2020-03-16] MEDS: Atorvastatin Calcium 10 MG TAB PO SCH (20:01)
[2020-03-16] MEDS: Insulin Glargine 11 UNITS in Pre-Filled Syringe 1 EACH SC SCH (20:02)
[2020-03-17] MEDS: HumaLOG 300 UNITS/3 ML VIAL SC PRN ×4 (04:46→21:53)
[2020-03-17 04:56] LABS: Anion Gap 16 mmol/L (10-20); BUN (Urea Nitrogen) 72 mg/dL (8.4-25.7); Calc. Creatinine Clearance 72 mL/min (70-130); Calcium 7.2 mg/dL (7.8-10.44); Carbon Dioxide 28 mmol/L (23-31); Chloride 102 mmol/L (98-107); Glucose 324 mg/dL (80-115); Potassium 3.5 mmol/L (3.5-5.1); Sodium 142 mmol/L (136-145)
[2020-03-17 05:34] LABS: Band 11 % (5-11); Hemoglobin 9.6 g/dL (14.0-18.0); Lymphocytes 2 % (21-51); MDiff Complete? YES; Mean Corpuscular HGB CONC 33.5 g/dL (32.0-36.0); Mean Corpuscular Hemoglobin 29.4 pg (27.0-31.0); Mean Corpuscular Volume 87.7 fL (78.0-98.0); Mean Platelet Volume 11.5 fL (7.4-10.4); Monocytes 2 % (0-10); Neutrophil 85 % (42-75); Nucleated RBC 1 % (0); Platelet Count 127 thou/uL (130-400); RBC Distribution Width 16.9 % (11.5-14.5); Red Blood Cell (RBC) Count 3.27 mill/uL (4.70-6.10); White Blood Cell (WBC) Count 19.7 thou/uL (4.8-10.8)
[2020-03-17] MEDS: Propofol 1,000 MG/100 ML VIAL IV PRN ×4 (05:46→21:50)
--- NOTE | 2020-03-17 09:11 | RAD ---
CHEST 1 VIEW: Date: 03/17/2020 HISTORY: Pneumonia. Ventilated patient. COMPARISON: Prior day. FINDINGS: The right-sided pneumothorax is slightly decreased in size with apical pleural line at the right post erior third/fourth interspace. Thoracostomy tube is in a similar location. No left-sided pneumothorax. No significant pneumomediastinum. Endotracheal tube tip in good position. Enteric tube tip in gastric fundus. IMPRESSION: Slight interval size decrease right apical pneumothorax. POS: [facility]
[2020-03-17] MEDS: Famotidine 20 MG TAB PO SCH (09:35)
--- NOTE | 2020-03-17 09:57 | PRG ---
DATE OF SERVICE: 03/17/2020 SUBJECTIVE: Mr. Garrison is a 59-year-old male, who was initially admitted for COVID-19 pneumonia with complication of multiple-organ dysfunction. He is currently in acute respiratory failure, currently intubated. We are following him up for his acute renal failure from acute tubular necrosis. He has been undergoing regular dialysis. I have noted in the last few days that the renal function seems to be improving and he started making urine output. We are placing dialysis on hold for the moment and observe recovery of his renal function. No acute events noted last night. OBJECTIVE: VITAL SIGNS: Blood pressure is 98/55, heart rate is 71, O2 sat is 100%. GENERAL: The patient is unresponsive, intubated, on ventilator support. SKIN: Adequate turgor. HEENT: He has slightly pale conjunctivae. Anicteric sclerae. NECK: No neck mass. No carotid bruits. No JVD. CHEST: No deformities. Positive for right chest tube. LUNGS: Decreased breath sounds. No wheezing. HEART: Normal sinus rhythm. No murmur, no gallops, no rubs. ABDOMEN: Globular, soft, nontender. No masses. EXTREMITIES: No edema. MEDICATIONS: Medications of March 17, 2020, were reviewed. LABORATORY DATA: Laboratories of March 17, 2020, white count 19.7, hemoglobin 9.6. Sodium 142, potassium 3.5, chloride 102, carbon dioxide 28, BUN 72, creatinine 1.48, glucose 324, calcium is 7.2. ASSESSMENT AND PLAN: 1. Acute kidney injury from acute tubular necrosis, stabilizing renal function. He has made about 1.3 L of urine output in the last 24 hours. We are currently holding dialysis. Observe for possible renal recovery. 2. Anemia, p.r.n. blood transfusion. 3. COVID-19 pneumonia with multiple-organ dysfunction. Continue supportive care. The patient is still unresponsive. Consideration for an acute tracheostomy is being considered. We will recheck CBC and basic metabolic in the a.m. Job ID: [id number]
[2020-03-17] MEDS: Pantoprazole 40 MG VIAL IVP SCH (10:01)
[2020-03-17] MEDS: methylPREDNISolone Sod Succ 40 MG VIAL IVP SCH ×2 (10:01→21:47)
[2020-03-17] MEDS: Pioglitazone HCl 15 MG TAB PO SCH ×2 (10:01→21:50)
[2020-03-17] MEDS: MEROPENEM 1 GM/50 ML 1 GM in Premix Bag 1 BAG IVPB SCH ×2 (10:02→22:47)
[2020-03-17] MEDS: Lorazepam 2 MG/ML VIAL SLOW IVP PRN (11:05)
[2020-03-17] MEDS: Morphine 2 MG/ML VIAL SLOW IVP PRN (11:19)
--- NOTE | 2020-03-17 16:22 | PDOC.HOSPP ---
- Subjective Encounter Date: 03/17/20 Encounter Time: 16:20 non-verbal Subjective: Patient remains intubated. No appreciable changes per nursing staff. - Objective Vital Signs & Weight: Vital Signs (12 hours) Temp Pulse Resp Pulse Ox 03/17/20 14:45 70 03/17/20 14:00 24 H 03/17/20 12:13 99 03/17/20 12:00 96.6 F L 23 H 03/17/20 10:00 26 H 03/17/20 08:11 71 03/17/20 08:00 96.9 F L 20 03/17/20 07:53 88 03/17/20 07:32 100 03/17/20 06:00 21 H Weight Admit Weight 176 lb 8 oz Weight 209 lb 10.554 oz Most Recent Monitor Data Heart Rate from ECG 105 NIBP 117/61 NIBP BP-Mean 71 Respiration from ECG 28 SpO2 98 I&O: 03/16/20 03/17/20 03/18/20 06:59 06:59 06:59 Intake Total 1164 1437 140 Output Total 1385 1820 406 Balance -221 -383 -266 Result Diagrams: 03/17/20 03:25 03/17/20 03:25 Additional Labs: Accuchecks 03/17/20 03/17/20 03/16/20 10:43 04:46 20:11 POC Glucose 263 H 302 H 265 H 03/16/20 16:18 POC Glucose 280 H Radiology Reviewed by me: Yes EKG Reviewed by me: Yes Hospitalist ROS - Review of Systems ROS unobtainable: due to endotracheal tube Constitutional: reports: weakness, malaise Respiratory: reports: shortness of breath Neurological: reports: weakness - Medication Medications: Active Medications Generic Name Dose Route Start Last Admin Trade Name Freq PRN Reason Stop Dose Admin Acetaminophen 650 mg 02/11/20 15:29 03/11/20 21:08 Acetaminophen 325 Mg Tab PO 650 mg Q4H PRN Administration Headache/Fever/Mild Pain (1-3) Acetaminophen 650 mg 02/11/20 15:29 02/28/20 22:35 Acetaminophen [address] 650 mg Q4H PRN Administration Headache/Fever/Mild Pain (1-3) Albuterol Sulfate 1 puff 02/12/20 19:42 02/18/20 09:05 Albuterol 200 Puff (6.7gm Inhaler) INH 1 puff Q8H PRN Administration Wheezing Lipase/Protease/Amylase 1 cap 03/15/20 09:43 03/15/20 10:[address] 12,000 1 Cap PER TUBE 1 cap Q1HR PRN Administration FEEDING Atorvastatin Calcium 10 mg 02/13/20 21:00 03/16/20 20:01 Atorvastatin Calcium 10 Mg Tab PO 10 mg HS EMELI Administration Benzonatate 100 mg 02/13/20 11:28 02/24/20 08:58 Benzonatate 100 Mg Cap PO 100 mg Q6H PRN Administration Cough Epoetin Gordon-epbx 7,500 unit 03/13/20 09:30 03/13/20 11:09 Epoetin Gordon-Epbx (Esrd) 4,000 Unit/Ml Vial SC 7,500 unit Q7D EMELI Administration Guaifenesin 200 mg 02/13/20 11:28 02/14/20 21:04 Diabetic Tussin 200 Mg/10 Ml Udcup PO 200 mg Q4H PRN Administration Cough Guaifenesin/Dextromethorphan 15 ml 02/11/20 15:29 02/18/20 08:25 Guaifenesin Dm 100-10/5 Ml Udcup PO 15 ml Q4H PRN Administration Cough Insulin Glargine 11 units/ 0.11 mls @ 0 mls/hr 02/20/20 21:00 03/16/20 20:02 Miscellaneous Medication SC 0.11 mls HS EMELI Administration Meropenem 1 gm/ Device 50 mls @ 100 mls/hr 03/11/20 10:00 03/17/20 10:02 IVPB 50 mls 1000,2200 EMELI Administration Insulin Human Lispro 0 units 02/11/20 15:36 03/14/20 04:41 Humalog 300 Units/3 Ml Vial SC 2 unit .BEDTIME SLIDING SC PRN Administration Bedtime Correctional Scale Insulin Human Lispro 0 units 03/17/20 10:00 03/17/20 10:45 Humalog 300 Units/3 Ml Vial SC 6 units .MODERATE SLIDING SC PRN Administration MODERATE SLIDING SCALE Protocol Lorazepam 2 mg 03/10/20 11:45 03/17/20 11:05 Lorazepam 2 Mg/Ml Vial SLOW IVP 2 mg Q1H PRN Administration Breakthrough agitation Methylprednisolone Sodium Succinate 40 mg 03/05/20 21:00 03/17/20 10:01 Methylprednisolone Sod Succ 40 Mg Vial IVP 40 mg Q12HR EMELI Administration Morphine Sulfate 2 mg 03/10/20 11:44 03/17/20 11:19 Morphine 2 Mg/Ml Vial SLOW IVP 04/09/20 11:45 2 mg Q1H PRN Administration Breakthrough Pain/Agitation Pantoprazole Sodium 40 mg 03/15/20 09:00 03/17/20 10:01 Pantoprazole 40 Mg Vial IVP 40 mg DAILY EMELI Administration Pioglitazone HCl 15 mg 02/11/20 21:00 03/17/20 10:01 Pioglitazone Hcl 15 Mg Tab PO 15 mg BID EMELI Administration Propofol 1,000 mg 02/28/20 20:15 03/17/20 12:37 Propofol 1,000 Mg/100 Ml Vial IV 03/29/20 20:15 1,000 mg INF PRN Administration TO ACHIEVE GOAL RASS Protocol Sodium Bicarbonate 650 mg 03/15/20 09:44 03/15/20 10:51 Sodium Bicarbonate Tab 325 Mg Tab PER TUBE 650 mg Q1HR PRN Administration ENTERAL TUBE OCCLUSION Sodium Chloride 10 ml 02/29/20 09:00 03/17/20 10:04 Flush - Normal Saline 10 Ml Syringe IVF 10 ml Q12HR EMELI Administration Vecuronium [place] 10 mg 02/29/20 03:31 03/02/20 10:39 Vecuronium 10 Mg Vial IV 10 mg Q1H PRN Administration PRONE - Exam General Appearance: NAD, ill appearing Eye: PERRL, anicteric sclera ENT: normocephalic atraumatic, no oropharyngeal lesions Neck: supple, symmetric, no JVD, no thyromegaly, no lymphadenopathy Heart: RRR, no murmur, no gallops, no rubs, normal peripheral pulses Respiratory: CTAB, no wheezes, no rales, no ronchi, normal chest expansion Gastrointestinal: soft, non-tender, non-distended Musculoskeletal: generalized weakness Psychiatric: not oriented, somnolent, lethargic Hosp A/P (1) Acute respiratory failure with hypoxia Code(s): J96.01 - ACUTE RESPIRATORY FAILURE WITH HYPOXIA Status: Acute (2) Pneumonia due to COVID-19 virus Code(s): U07.1 - COVID-19; J12.89 - OTHER VIRAL PNEUMONIA Status: Acute (3) Pseudomonas aeruginosa infection Code(s): A49.8 - OTHER BACTERIAL INFECTIONS OF UNSPECIFIED SITE Status: Acute (4) Acute renal failure Status: Acute Qualifiers: Acute renal failure type: with acute tubular necrosis Qualified Code(s): N17.0 - Acute kidney failure with tubular necrosis - Plan old records reviewed/req, temple catheter, PT/OT, incentive spirometry Consults: Palliative Care 03/17/2020. The patient remains essentially the same. He will continue on the ventilator and I will defer to the critical care team about weaning down. His prognosis does not appear to be good.
--- NOTE | 2020-03-17 17:14 | PRG ---
DATE OF SERVICE: 03/17/2020 SUBJECTIVE: Mr. Garrison remains mechanically ventilated. His air leak looks smaller looking at his Pleur-evac. His hemodynamics have been stable. He is still not awake. OBJECTIVE: VITAL SIGNS: Blood pressure is 117/61, heart rate 105, respiratory rates in the 20s. LUNGS: Clear and distant. HEART: Regular rhythm. ABDOMEN: Soft. EXTREMITIES: Without asymmetry or edema. LABORATORY DATA: White count 19.7, hemoglobin 9.6, and platelets 127,000. Electrolytes are normal. BUN 72, creatinine 1.48. Glucoses are between 250 and 300. IMPRESSION AND PLAN: Respiratory failure associated with COVID pneumonia complicated by a spontaneous pneumothorax number two status post one generalized seizure a week ago. We did the image his brain because of the very large air leak. I was afraid he would code gone downstairs. The gas exchanges improved. His air leak appears to be smaller and I suspect we will be able to safely take him down for CT scan in the morning. At this point, if there is evidence of a big thrombotic cerebrovascular accident or bleed, then it would be time to stop given that he has been in the hospital a month now. Family does not want to withdraw support. The next step would be a tracheostomy and placement in the . Minimal in a long-term acute care hospital if feasible. We will continue supportive care. Critical care time 30 min. Job ID: [id number] MTDD
[2020-03-17] MEDS: Insulin Glargine 11 UNITS in Pre-Filled Syringe 1 EACH SC SCH (21:46)
[2020-03-17] MEDS: Atorvastatin Calcium 10 MG TAB PO SCH (21:50)
[2020-03-18] MEDS: Propofol 1,000 MG/100 ML VIAL IV PRN ×2 (01:55→05:56)
[2020-03-18 05:08] LABS: Anion Gap 16 mmol/L (10-20); BUN (Urea Nitrogen) 87 mg/dL (8.4-25.7); Calc. Creatinine Clearance 74 mL/min (70-130); Calcium 7.3 mg/dL (7.8-10.44); Carbon Dioxide 28 mmol/L (23-31); Chloride 102 mmol/L (98-107); Glucose 295 mg/dL (80-115); Potassium 3.4 mmol/L (3.5-5.1); Sodium 143 mmol/L (136-145)
[2020-03-18] MEDS: HumaLOG 300 UNITS/3 ML VIAL SC PRN ×4 (05:10→20:04)
[2020-03-18 05:49] LABS: Band 16 % (5-11); Lymphocytes 2 % (21-51); MDiff Complete? YES; Monocytes 1 % (0-10); Neutrophil 81 % (42-75)
[2020-03-18 05:50] LABS: Hemoglobin 9.4 g/dL (14.0-18.0); Mean Corpuscular HGB CONC 33.1 g/dL (32.0-36.0); Mean Corpuscular Hemoglobin 29.1 pg (27.0-31.0); Platelet Count 142 thou/uL (130-400); RBC Distribution Width 17.2 % (11.5-14.5); Red Blood Cell (RBC) Count 3.23 mill/uL (4.70-6.10); White Blood Cell (WBC) Count 13.4 thou/uL (4.8-10.8)
[2020-03-18] MEDS: Morphine 2 MG/ML VIAL SLOW IVP PRN ×2 (05:56→21:35)
--- NOTE | 2020-03-18 08:06 | RAD ---
XR Chest 1 View Portable History: Ventilated patient Comparison: Radiograph prior day Findings: No significant improvement of the right-sided pneumothorax. The right apical pleural line i s at the right fourth/fifth posterior rib interspace, slightly increased in size. Endotracheal tube tip at the clavicular level. Enteric tube tip gastric fundus. Airspace opacities are similar. Thoracostomy tube in the right is similar. Impression: Slight interval size increase right apical pneumothorax.
--- NOTE | 2020-03-18 09:08 | PRG ---
DATE OF SERVICE: 03/18/20 SUBJECTIVE: Mr. Garrison is a 59-year-old male with acute kidney injury from acute tubular necrosis. He has been on hemodialysis in the last several weeks. However, renal function is slowly improving. For that reason, we placed the dialysis on hold. Creatinine today was noted at 1.41 mg%. In addition, urine output in the last 24 hours was noted at 1.2 L. No acute events noted last night. OBJECTIVE: VITAL SIGNS: Blood pressure 119/70, heart rate 98, respiratory rate 26, O2 saturation 92%. GENERAL: The patient is unresponsive, intubated on ventilator support. SKIN: Adequate turgor. HEENT: He has slightly pale conjunctivae. Anicteric sclerae. NECK: No neck mass. No carotid bruits. No JVD. CHEST: No deformities. LUNGS: Decreased breath sounds. HEART: Normal sinus rhythm. No murmur. No gallops. No rubs. ABDOMEN: Globular, soft, nontender. No masses. EXTREMITIES: No edema. No deformities. MEDICATIONS: Medications of March 18, 2020 was reviewed. LABORATORY DATA: Laboratories of March 18, 2020; white count 13.4, hemoglobin 9.4. Sodium 143, potassium 3.4, chloride 102, carbon dioxide 28, BUN 87, creatinine 1.41, glucose 295, calcium 7.3. ASSESSMENT AND PLAN: 1. Acute kidney injury secondary to acute tubular necrosis-continue to hold dialysis. The patient is noted to be diuresing. Creatinine is noted to be stable at 1.4. We will re-evaluate again in a.m. for any need for dialysis. 2. Anemia. Continuing weekly Epogen and p.r.n. blood transfusion. 3. COVID-19 pneumonia with multiorgan involvement-continue supportive care. Mentation is still unchanged. The patient is unresponsive to verbal stimuli. Overall, prognosis remains guarded. Recheck CBC and basic met in a.m. Job ID: [id number] MTDD
[2020-03-18] MEDS: Pioglitazone HCl 15 MG TAB PO SCH ×2 (09:15→20:03)
[2020-03-18] MEDS: Pantoprazole 40 MG VIAL IVP SCH (09:15)
[2020-03-18] MEDS: MEROPENEM 1 GM/50 ML 1 GM in Premix Bag 1 BAG IVPB SCH ×2 (09:15→21:29)
[2020-03-18] MEDS: methylPREDNISolone Sod Succ 40 MG VIAL IVP SCH ×2 (09:15→20:03)
--- NOTE | 2020-03-18 10:00 | CT ---
CT Brain WO Con History: Altered mental status Comparison: None. Findings: No acute hemorrhage or infarct. No midline shift or mass effect. Ventricular size and extra -axial CSF spaces are normal. Calvarium is intact. Mild mucosal thickening and air-fluid levels within the sphenoid sinuses and rig ht posterior ethmoids. Extensive fluid filling of both mastoids. Impression: No acute intracranial abnormality.
[2020-03-18 13:18] VITALS: BMI 33.6
--- NOTE | 2020-03-18 14:56 | CCLSPC ---
INDICATION FOR PROCEDURE: A 59-year-old patient who required a central line placement due to poor IV access, who is requiring pressor support and also has had severe hypotension. We will need to monitor the blood pressure. PROCEDURE IN DETAIL: His right groin was prepped and draped in a sterile fashion. The venous line was placed first with a triple-lumen without difficulties or complications. Next was an arterial line which was placed using percutaneous access. They both were sutured into place. There was no complications or difficulties encountered for both the central line placement and also the arterial catheter. Job ID: [id number]
--- NOTE | 2020-03-18 15:27 | PDOC.HOSPP ---
- Subjective Encounter Date: 03/18/20 Encounter Time: 15:21 Subjective: MR. Garrison remains on mechanical ventilation. We will continue current management plan. Will defer to the critical care team about any further plans. - Objective Vital Signs & Weight: Vital Signs (12 hours) Temp Pulse Resp 03/18/20 15:15 113 H 03/18/20 14:00 22 H 03/18/20 12:00 96.0 F L 34 H 03/18/20 10:52 93 03/18/20 10:00 32 H 03/18/20 08:00 96.3 F L 23 H 03/18/20 07:03 100 03/18/20 06:00 33 H 03/18/20 04:00 97.6 F 24 H Weight Admit Weight 176 lb 8 oz Weight 208 lb 5.389 oz Most Recent Monitor Data Heart Rate from ECG 112 NIBP 143/79 NIBP BP-Mean 103 Respiration from ECG 31 SpO2 95 I&O: 03/17/20 03/18/20 03/19/20 06:59 06:59 06:59 Intake Total 1437 1899 161 Output Total 1820 1584 615 Balance -383 315 -454 Result Diagrams: 03/18/20 03:50 03/18/20 03:50 Additional Labs: Accuchecks 03/18/20 03/17/20 03/17/20 10:32 21:52 17:16 POC Glucose 282 H 246 H 278 H Radiology Reviewed by me: Yes EKG Reviewed by me: Yes Hospitalist ROS - Review of Systems ROS unobtainable: due to mental status Constitutional: reports: weakness, malaise Neurological: reports: weakness - Medication Medications: Active Medications Generic Name Dose Route Start Last Admin Trade Name Freq PRN Reason Stop Dose Admin Acetaminophen 650 mg 02/11/20 15:29 03/11/20 21:08 Acetaminophen 325 Mg Tab PO 650 mg Q4H PRN Administration Headache/Fever/Mild Pain (1-3) Acetaminophen 650 mg 02/11/20 15:29 02/28/20 22:35 Acetaminophen 650 Mg Suppository [place] 650 mg Q4H PRN Administration Headache/Fever/Mild Pain (1-3) Albuterol Sulfate 1 puff 02/12/20 19:42 02/18/20 09:05 Albuterol 200 Puff (6.7gm Inhaler) INH 1 puff Q8H PRN Administration Wheezing Lipase/Protease/Amylase 1 cap 03/15/20 09:43 03/15/20 10:[address] 12,000 1 Cap PER TUBE 1 cap Q1HR PRN Administration FEEDING Atorvastatin Calcium 10 mg 02/13/20 21:00 03/17/20 21:50 Atorvastatin Calcium 10 Mg Tab PO 10 mg HS EMELI Administration Benzonatate 100 mg 02/13/20 11:28 02/24/20 08:58 Benzonatate 100 Mg Cap PO 100 mg Q6H PRN Administration Cough Epoetin Gordon-epbx 7,500 unit 03/13/20 09:30 03/13/20 11:09 Epoetin Gordon-Epbx (Esrd) 4,000 Unit/Ml Vial SC 7,500 unit Q7D EMELI Administration Guaifenesin 200 mg 02/13/20 11:28 02/14/20 21:04 Diabetic Tussin 200 Mg/10 Ml Udcup PO 200 mg Q4H PRN Administration Cough Guaifenesin/Dextromethorphan 15 ml 02/11/20 15:29 02/18/20 08:25 Guaifenesin Dm 100-10/5 Ml Udcup PO 15 ml Q4H PRN Administration Cough Insulin Glargine 11 units/ 0.11 mls @ 0 mls/hr 02/20/20 21:00 03/17/20 21:46 Miscellaneous Medication SC 0.11 mls HS EMELI Administration Meropenem 1 gm/ Device 50 mls @ 100 mls/hr 03/11/20 10:00 03/18/20 09:15 IVPB 50 mls 1000,2200 EMELI Administration Insulin Human Lispro 0 units 02/11/20 15:36 03/18/20 05:10 Humalog 300 Units/3 Ml Vial SC 3 unit .BEDTIME SLIDING SC PRN Administration Bedtime Correctional Scale Insulin Human Lispro 0 units 03/17/20 10:00 03/18/20 10:37 Humalog 300 Units/3 Ml Vial SC 6 units .MODERATE SLIDING SC PRN Administration MODERATE SLIDING SCALE Protocol Lorazepam 2 mg 03/10/20 11:45 03/17/20 11:05 Lorazepam 2 Mg/Ml Vial SLOW IVP 2 mg Q1H PRN Administration Breakthrough agitation Methylprednisolone Sodium Succinate 40 mg 03/05/20 21:00 03/18/20 09:15 Methylprednisolone Sod Succ 40 Mg Vial IVP 40 mg Q12HR EMELI Administration Morphine Sulfate 2 mg 03/10/20 11:44 03/18/20 05:56 Morphine 2 Mg/Ml Vial SLOW IVP 04/09/20 11:45 2 mg Q1H PRN Administration Breakthrough Pain/Agitation Pantoprazole Sodium 40 mg 03/15/20 09:00 03/18/20 09:15 Pantoprazole 40 Mg Vial IVP 40 mg DAILY EMELI Administration Pioglitazone HCl 15 mg 02/11/20 21:00 03/18/20 09:15 Pioglitazone Hcl 15 Mg Tab PO 15 mg BID EMELI Administration Propofol 1,000 mg 02/28/20 20:15 03/18/20 05:56 Propofol 1,000 Mg/100 Ml Vial IV 03/29/20 20:15 1,000 mg INF PRN Administration TO ACHIEVE GOAL RASS Protocol Sodium Bicarbonate 650 mg 03/15/20 09:44 03/15/20 10:51 Sodium Bicarbonate Tab 325 Mg Tab PER TUBE 650 mg Q1HR PRN Administration ENTERAL TUBE OCCLUSION Sodium Chloride 10 ml 02/29/20 09:00 03/18/20 09:15 Flush - Normal Saline 10 Ml Syringe IVF 10 ml Q12HR EMELI Administration Vecuronium [place] 10 mg 02/29/20 03:31 03/02/20 10:39 Vecuronium 10 Mg Vial IV 10 mg Q1H PRN Administration PRONE - Exam General Appearance: NAD, ill appearing Eye: PERRL ENT: normocephalic atraumatic, no oropharyngeal lesions Neck: supple, symmetric, no JVD, no thyromegaly Heart: RRR, no murmur, no gallops, no rubs, normal peripheral pulses Respiratory: CTAB, no wheezes, no rales, no ronchi, normal chest expansion Gastrointestinal: soft, non-tender, non-distended, normal bowel sounds, no palpable masses Neurological: cranial nerve grossly intact, normal sensation to touch Psychiatric: not oriented, somnolent, lethargic Hosp A/P (1) Acute respiratory failure with hypoxia Code(s): J96.01 - ACUTE RESPIRATORY FAILURE WITH HYPOXIA Status: Acute (2) Pneumonia due to COVID-19 virus Code(s): U07.1 - COVID-19; J12.89 - OTHER VIRAL PNEUMONIA Status: Acute (3) Pseudomonas aeruginosa infection Code(s): A49.8 - OTHER BACTERIAL INFECTIONS OF UNSPECIFIED SITE Status: Acute (4) Acute renal failure Status: Acute Qualifiers: Acute renal failure type: with acute tubular necrosis Qualified Code(s): N17.0 - Acute kidney failure with tubular necrosis - Plan PT/OT, respiratory therapy, incentive spirometry 03/17/2020. The patient remains essentially the same. He will continue on the ventilator and I will defer to the critical care team about weaning down. His prognosis does not appear to be good. 03/18/2020. Mr. Garrison remains hospitalized and on ventilator. He has respiratory failure secondary to COVID-19 pneumonia. He is not weanable at this time. Today is day #8 on meropenem. We will likely recheck his culture here in a day or so. His antibiotic hopefully should hopefully be de-escalated pretty soon.
--- NOTE | 2020-03-18 15:31 | PRG ---
DATE OF SERVICE: 03/18/2020 SUBJECTIVE: Josesito Garrison went down for a head CT today because he had a seizure a week ago. He is finally felt to be stable enough to go down for CT. He has had no recurrence of this seizure activity. His CT did not show any evidence of a bleed or a thrombotic event. He continues to have an air leak, which is not surprising diffuse infiltrates on his chest x-ray. It is debatable whether a 2nd chest tube would be helpful. OBJECTIVE: LUNGS: Remarkable for equal breath sounds. HEART: Regular rhythm. ABDOMEN: Soft. LABORATORY DATA: White count 13.4, hemoglobin 9.4, and platelets 142. Sodium 143, potassium 3.4, chloride 102, bicarb 28, BUN 87, creatinine 1.41. IMPRESSION: 1. COVID pneumonia. 2. Spontaneous pneumothorax. 3. Acute renal failure with some recovery of renal function. 4. Anemia of chronic disease acute illness. Tracheostomy will be the next step with PEG placement. Critical care time 30 min. Job ID: [id number] MTDD
[2020-03-18] MEDS: Insulin Glargine 11 UNITS in Pre-Filled Syringe 1 EACH SC SCH (20:03)
[2020-03-18] MEDS: Atorvastatin Calcium 10 MG TAB PO SCH (20:03)
[2020-03-19] MEDS: Morphine 2 MG/ML VIAL SLOW IVP PRN ×3 (03:01→07:39)
[2020-03-19] MEDS: HumaLOG 300 UNITS/3 ML VIAL SC PRN (05:15)
[2020-03-19 05:29] LABS: Anion Gap 16 mmol/L (10-20); BUN (Urea Nitrogen) 89 mg/dL (8.4-25.7); Calc. Creatinine Clearance 84 mL/min (70-130); Calcium 7.7 mg/dL (7.8-10.44); Carbon Dioxide 28 mmol/L (23-31); Chloride 104 mmol/L (98-107); Glucose 186 mg/dL (80-115); Potassium 3.1 mmol/L (3.5-5.1); Sodium 145 mmol/L (136-145)
[2020-03-19 06:55] LABS: Hemoglobin 9.3 g/dL (14.0-18.0); Mean Corpuscular HGB CONC 32.5 g/dL (32.0-36.0); Mean Corpuscular Hemoglobin 29.1 pg (27.0-31.0); Mean Corpuscular Volume 89.4 fL (78.0-98.0); Mean Platelet Volume 10.3 fL (7.4-10.4); Platelet Count 105 thou/uL (130-400); RBC Distribution Width 17.3 % (11.5-14.5); Red Blood Cell (RBC) Count 3.19 mill/uL (4.70-6.10)
[2020-03-19] MEDS ORDERED: Haloperidol Lactate 5 MG/ML VIAL IM PRN (06:55)
[2020-03-19 06:58] LABS: Band 68 % (5-11); Lymphocytes 6 % (21-51); MDiff Complete? YES; Metamyelocyte 4 % (0-0); Monocytes 3 % (0-10); Neutrophil 19 % (42-75); Nucleated RBC 10 % (0); Platelet Morphology Comment Appears Decreased; Reflex for Review?? YES; Schistocytes SLIGHT = 2-5 cells (100X) (0-1/hpf)
[2020-03-19] MEDS: Pantoprazole 40 MG VIAL IVP SCH (07:37)
[2020-03-19] MEDS: Pioglitazone HCl 15 MG TAB PO SCH ×2 (07:38→22:32)
[2020-03-19] MEDS: Micafungin 100 MG in Sodium Chloride 0.9% 100 ML IVPB SCH (08:26)
[2020-03-19] MEDS: MEROPENEM 1 GM/50 ML 1 GM in Premix Bag 1 BAG IVPB SCH ×2 (08:26→22:29)
--- NOTE | 2020-03-19 08:42 | RAD ---
PORTABLE CHEST: INDICATION: CCU followup. Ventilator followup and pneumonia followup. Right chest tube. COMPARISON: 03/18/2020. FINDINGS: ET tube and NG tube unchanged. The right chest tube is again noted. The right pneumothorax does not appear significantly changed from yesterday. Diffuse interstitial no active disease hazy alveolar infiltrate again seen throughout both lung field s. No interval change. IMPRESSION: No acute interval change. The right pneumothorax appears stable. POS: OFF
[2020-03-19] MEDS ORDERED: Potassium Chloride 40 MEQ in Premix Bag 1 BAG IVPB SCH (09:15)
[2020-03-19] MEDS: Vancomycin 1 GM in Premix Bag 1 BAG IVPB SCH ×2 (09:17→22:28)
[2020-03-19] MEDS: methylPREDNISolone Sod Succ 40 MG VIAL IVP SCH (09:17)
--- NOTE | 2020-03-19 09:19 | PRG ---
DATE OF SERVICE: 03/19/2020 SUBJECTIVE: Mr. Garrison is a 59-year-old male who was seen by the Renal Service for his acute kidney injury from [facility]. He did undergo hemodialysis. During the last several days, we have held off the dialysis due to the fact that the renal function is much improved. He is also diuresing. He made 1.5 L of urine output in the last 24 hours. Creatinine is noted at 1.24 mg%. He also was initially admitted for COVID-19 pneumonia with multiple organ involvement. He remains unresponsive. OBJECTIVE: VITAL SIGNS: Blood pressure is 106/51, heart rate is 129, respiratory rate 21, and O2 saturation 91%. GENERAL: The patient is intubated, unresponsive on vent support. SKIN: Adequate turgor. HEENT: Slightly pale conjunctivae. Anicteric sclerae. NECK: No neck mass. No carotid bruits. No JVD. CHEST: No deformities. LUNGS: Decreased breath sounds. HEART: Tachycardic. No murmur. No gallops. No rubs. ABDOMEN: Globular, soft. EXTREMITIES: No edema. MEDICATIONS: Medications of March 19, 2020, reviewed. LABORATORY DATA: Laboratories of March 19, 2020; white count , hemoglobin is 9.3, hematocrit 28.5, sodium 145, potassium 3.1, chloride 104, carbon dioxide 28, BUN 89, creatinine 1.24, glucose 186, and calcium 7.7. ASSESSMENT AND PLAN: 1. Leukopenia-we will continue to observe. This is sudden drop from yesterday where it was 13.1. 2. Acute kidney injury from acute tubular necrosis, much recovered renal function, we have discontinued hemodialysis. Creatinine is noted at 1.24 with adequate urine output. There is no indication for any dialytic intervention. 3. Anemia, on weekly Epogen. 4. COVID-19 pneumonia with multiorgan dysfunction-continuing supportive care. 5. Mild hypokalemia, p.r.n. potassium replacement. Overall prognosis still remains poor. Job ID: [id number]
[2020-03-19] MEDS: Norepinephrine 8 MG/0.9% NS 250 ML IVPB SCH (09:41)
--- NOTE | 2020-03-19 10:55 | RAD ---
EXAM: XR Knee Lt 4 View STANDARD PROVIDED CLINICAL HISTORY: Swelling FINDINGS: There is no evidence for fracture or other acute osseous abnormality. Alignment appears anatomic. Nayeli nt spaces appear preserved. No evidence for significant knee joint effusion. No soft tissue gas is evident. IMPRESSION: No evidence for an acute osseous abnormality. If there is persistent clinical concern, conservative m anagement and follow-up imaging advised.
--- NOTE | 2020-03-19 10:56 | RAD ---
EXAM: XR Knee Rt 4 View STANDARD PROVIDED CLINICAL HISTORY: Swelling FINDINGS: There is no evidence for fracture or other acute osseous abnormality. Alignment appears anatomic. Nayeli nt spaces appear preserved. No significant knee joint effusion is evident. No evidence for soft tissue gas. IMPRESSION: No evidence for an acute osseous abnormality. If there is persistent clinical concern, conservative m anagement and follow-up imaging advised.
[2020-03-19 12:23] LABS: CRP (Inflammatory) 26.97 mg/dL (= or < 0.5); Uric Acid 5.5 mg/dL (3.5-7.2)
[2020-03-19 15:03] LABS: Lactic Acid 2.6 mmol/L (0.5-2.2)
--- NOTE | 2020-03-19 17:23 | PRG ---
DATE OF SERVICE: 03/19/2020 SUBJECTIVE: Josesito Garrison developed neutropenia with a very large left shift this morning. His platelets decreased. He became hemodynamically less stable and required an increase in his FiO2. It is felt that he has some nosocomial bacterial process going on. His steroid dosing has been decreased. Broader antimicrobial coverage was added to cover for staph and fungal pathogens. He was already on meropenem. OBJECTIVE: VITAL SIGNS: Blood pressure currently is 101/49, heart rate is 120, FiO2 is 80%. LUNGS: Otherwise unchanged. HEART: Otherwise unchanged. ABDOMEN: Otherwise unchanged. LABORATORY DATA: Chest x-ray still shows a small pneumothorax, still has a large air leak. Potassium is 3.1, BUN is 89, and creatinine 1.24. Intake and output were negative 674. IMPRESSION: Nosocomial infectious process, leading to a left shift and hemodynamics, respiratory decompensation. His trach and PEG will have to go on for now. Hopefully, we will stabilize setback. The family was notified. Critical care time 30 min. Job ID: [id number] MTDD
--- NOTE | 2020-03-19 18:20 | PDOC.HOSPP ---
- Subjective Encounter Date: 03/19/20 Encounter Time: 18:18 non-verbal Subjective: I met with the patient's family today at the bedside. Patient appears to be getting septic. His white count dropped precipitously with shift. He also has lactic acidosis elevated. He has been re-cultured. His antibiotic has been expanded. Initial plan for trach and PEG is now on hold pending further stabili zation. I spoke with the daughter and the today at the bedside. - Objective Vital Signs & Weight: Vital Signs (12 hours) Temp Pulse Resp Pulse Ox 03/19/20 17:55 22 H 03/19/20 16:00 21 H 03/19/20 15:14 126 H 03/19/20 14:00 21 H 03/19/20 12:00 22 H 03/19/20 11:35 129 H 03/19/20 10:00 22 H 03/19/20 08:00 20 03/19/20 07:44 86 L 03/19/20 07:30 130 H 03/19/20 07:00 97.6 F Weight Admit Weight 176 lb 8 oz Weight 210 lb 12.191 oz Most Recent Monitor Data Heart Rate from ECG 123 NIBP 106/54 NIBP BP-Mean 71 Respiration from ECG 32 SpO2 94 I&O: 03/18/20 03/19/20 03/20/20 06:59 06:59 06:59 Intake Total 1899 1340.9 861 Output Total 1584 2015 315 Balance 315 -674.1 546 Result Diagrams: 03/19/20 03:07 03/19/20 03:07 Additional Labs: Accuchecks 03/19/20 03/19/20 03/18/20 16:39 05:16 20:02 POC Glucose 164 H 174 H 222 H Radiology Reviewed by me: Yes EKG Reviewed by me: Yes Hospitalist ROS - Review of Systems ROS unobtainable: due to endotracheal tube Constitutional: reports: weakness, malaise Respiratory: reports: shortness of breath, SOB with excertion Neurological: reports: weakness - Medication Medications: Active Medications Generic Name Dose Route Start Last Admin Trade Name Freq PRN Reason Stop Dose Admin Acetaminophen 650 mg 02/11/20 15:29 03/11/20 21:08 Acetaminophen 325 Mg Tab PO 650 mg Q4H PRN Administration Headache/Fever/Mild Pain (1-3) Acetaminophen 650 mg 02/11/20 15:29 02/28/20 22:35 Acetaminophen 650 Mg Suppository MD 650 mg Q4H PRN Administration Headache/Fever/Mild Pain (1-3) Albuterol Sulfate 1 puff 02/12/20 19:42 02/18/20 09:05 Albuterol 200 Puff (6.7gm Inhaler) INH 1 puff Q8H PRN Administration Wheezing Lipase/Protease/Amylase 1 cap 03/15/20 09:43 03/15/20 10:[address] 12,000 1 Cap PER TUBE 1 cap Q1HR PRN Administration FEEDING Atorvastatin Calcium 10 mg 02/13/20 21:00 03/18/20 20:03 Atorvastatin Calcium 10 Mg Tab PO 10 mg HS EMELI Administration Benzonatate 100 mg 02/13/20 11:28 02/24/20 08:58 Benzonatate 100 Mg Cap PO 100 mg Q6H PRN Administration Cough Epoetin Gordon-epbx 7,500 unit 03/13/20 09:30 03/13/20 11:09 Epoetin Gordon-Epbx (Esrd) 4,000 Unit/Ml Vial SC 7,500 unit Q7D EMELI Administration Guaifenesin 200 mg 02/13/20 11:28 02/14/20 21:04 Diabetic Tussin 200 Mg/10 Ml Udcup PO 200 mg Q4H PRN Administration Cough Guaifenesin/Dextromethorphan 15 ml 02/11/20 15:29 02/18/20 08:25 Guaifenesin Dm 100-10/5 Ml Udcup PO 15 ml Q4H PRN Administration Cough Insulin Glargine 11 units/ 0.11 mls @ 0 mls/hr 02/20/20 21:00 03/18/20 20:03 Miscellaneous Medication SC 0.11 mls HS EMELI Administration Norepinephrine Bitartrate 250 mls @ 0 mls/hr 03/10/20 14:45 03/19/20 09:41 Levophed IVPB 250 mls INF EMELI Administration Protocol Titrate Meropenem 1 gm/ Device 50 mls @ 100 mls/hr 03/11/20 10:00 03/19/20 08:26 IVPB 50 mls 1000,2200 EMELI Administration Vancomycin HCl 1 gm/ Device 200 mls @ 200 mls/hr 03/19/20 09:00 03/19/20 09:17 IVPB 200 mls 0900,2100 EMELI Administration Micafungin Sodium 100 mg/ 100 mls @ 100 mls/hr 03/19/20 07:15 03/19/20 08:26 Sodium Chloride IVPB 100 mls Q24H EMELI Administration Insulin Human Lispro 0 units 02/11/20 15:36 03/18/20 05:10 Humalog 300 Units/3 Ml Vial SC 3 unit .BEDTIME SLIDING SC PRN Administration Bedtime Correctional Scale Insulin Human Lispro 0 units 03/17/20 10:00 03/19/20 05:15 Humalog 300 Units/3 Ml Vial SC 2 units .MODERATE SLIDING SC PRN Administration MODERATE SLIDING SCALE Protocol Lorazepam 2 mg 03/10/20 11:45 03/17/20 11:05 Lorazepam 2 Mg/Ml Vial SLOW IVP 2 mg Q1H PRN Administration Breakthrough agitation Methylprednisolone Sodium Succinate 20 mg 03/19/20 09:00 03/19/20 09:17 Methylprednisolone Sod Succ 40 Mg Vial IVP 20 mg DAILY EMELI Administration Morphine Sulfate 2 mg 03/10/20 11:44 03/19/20 07:39 Morphine 2 Mg/Ml Vial SLOW IVP 04/09/20 11:45 2 mg Q1H PRN Administration Breakthrough Pain/Agitation Pantoprazole Sodium 40 mg 03/15/20 09:00 03/19/20 07:37 Pantoprazole 40 Mg Vial IVP 40 mg DAILY EMELI Administration Pioglitazone HCl 15 mg 02/11/20 21:00 03/19/20 07:38 Pioglitazone Hcl 15 Mg Tab PO Not Given BID EMELI Propofol 1,000 mg 02/28/20 20:15 03/18/20 05:56 Propofol 1,000 Mg/100 Ml Vial IV 03/29/20 20:15 1,000 mg INF PRN Administration TO ACHIEVE GOAL RASS Protocol Sodium Bicarbonate 650 mg 03/15/20 09:44 03/15/20 10:51 Sodium Bicarbonate Tab 325 Mg Tab PER TUBE 650 mg Q1HR PRN Administration ENTERAL TUBE OCCLUSION Sodium Chloride 10 ml 02/29/20 09:00 03/19/20 07:38 Flush - Normal Saline 10 Ml Syringe IVF 10 ml Q12HR EMELI Administration Vecuronium [place] 10 mg 02/29/20 03:31 03/02/20 10:39 Vecuronium 10 Mg Vial IV 10 mg Q1H PRN Administration PRONE - Exam General Appearance: NAD, ill appearing Eye: PERRL, anicteric sclera ENT: normocephalic atraumatic, no oropharyngeal lesions, moist mucosa Neck: supple, symmetric, no JVD, no thyromegaly, no lymphadenopathy Heart: RRR, no murmur, no gallops, no rubs, normal peripheral pulses Respiratory: CTAB, no wheezes, no rales, no ronchi, normal chest expansion Gastrointestinal: soft, non-tender, non-distended, normal bowel sounds Psychiatric: not oriented, somnolent, lethargic Hosp A/P (1) Acute respiratory failure with hypoxia Code(s): J96.01 - ACUTE RESPIRATORY FAILURE WITH HYPOXIA Status: Acute (2) Pneumonia due to COVID-19 virus Code(s): U07.1 - COVID-19; J12.89 - OTHER VIRAL PNEUMONIA Status: Acute (3) Pseudomonas aeruginosa infection Code(s): A49.8 - OTHER BACTERIAL INFECTIONS OF UNSPECIFIED SITE Status: Acute (4) Acute renal failure Status: Acute Qualifiers: Acute renal failure type: with acute tubular necrosis Qualified Code(s): N17.0 - Acute kidney failure with tubular necrosis - Plan continue antibiotics, PT/OT, respiratory therapy, incentive spirometry 03/17/2020. The patient remains essentially the same. He will continue on the ventilator and I will defer to the critical care team about weaning down. His prognosis does not appear to be good. 03/18/2020. Mr. Garrison remains hospitalized and on ventilator. He has respiratory failure secondary to COVID-19 pneumonia. He is not weanable at this time. Today is day #8 on meropenem. We will likely recheck his culture here in a day or so. His antibiotic hopefully should hopefully be de-escalated pretty soon. 03/19/2020. Mr. Garrison appears to be developing some form of sepsis. His white count decreased dramatically with a left shift. He has some bands as well. Lactic acidosis is elevated. We have repeated his blood cultures. His antibiotic has been expanded. Initial plan for trach and PEG is now on hold pending further stabilization. His prognosis remains guarded.
[2020-03-19] MEDS: Insulin Glargine 11 UNITS in Pre-Filled Syringe 1 EACH SC SCH ×2 (22:32→22:44)
[2020-03-19] MEDS: Atorvastatin Calcium 10 MG TAB PO SCH (22:32)
[2020-03-20] MEDS: Norepinephrine 8 MG/0.9% NS 250 ML IVPB SCH ×2 (02:00→05:59)
[2020-03-20] MEDS ORDERED: Phenylephrine 10 MG/NS 250 ML 10 MG in Premix Bag 1 BAG IVPB SCH (03:45)
[2020-03-20] MEDS: Phenylephrine 40 MG in Sodium Chloride 0.9% 250 ML 250 ML IVPB SCH ×2 (04:39→08:36)
[2020-03-20 06:20] LABS: Anion Gap 15 mmol/L (10-20); BUN (Urea Nitrogen) 103 mg/dL (8.4-25.7); Calc. Creatinine Clearance 84 mL/min (70-130); Calcium 7.2 mg/dL (7.8-10.44); Carbon Dioxide 27 mmol/L (23-31); Chloride 107 mmol/L (98-107); Potassium 3.7 mmol/L (3.5-5.1); Sodium 145 mmol/L (136-145)
[2020-03-20 06:39] LABS: Glucose 47 mg/dL (80-115)
[2020-03-20 06:53] LABS: Hemoglobin 8.5 g/dL (14.0-18.0); Mean Corpuscular HGB CONC 31.6 g/dL (32.0-36.0); Mean Corpuscular Volume 94.9 fL (78.0-98.0); Mean Platelet Volume 13.1 fL (7.4-10.4); Platelet Count 27 thou/uL (130-400); RBC Distribution Width 16.9 % (11.5-14.5); Red Blood Cell (RBC) Count 2.84 mill/uL (4.70-6.10); White Blood Cell (WBC) Count 0.7 thou/uL (4.8-10.8)
[2020-03-20 07:33] VITALS: BP 86/34
[2020-03-20 07:44] LABS: Band 16 % (5-11); Bite Cells SLIGHT = 2-5 cells (100X) (0-1/hpf); Eosinophils 4 % (0-10); Lymphocytes 28 % (21-51); MDiff Complete? YES; Metamyelocyte 4 % (0-0); Monocytes 12 % (0-10); Myelocyte 4 % (0-0); Neutrophil 32 % (42-75); Nucleated RBC 20 % (0); Platelet Morphology Comment Appears Decreased; Polychromasia SLIGHT = 2-3 cells (100X) (0-2/hpf); Spherocytes SLIGHT = 1-5 cells (100X) (None Seen); Vacuoles SLIGHT
[2020-03-20] MEDS ORDERED: Dextrose 5 %-0.45 % NaCl 1,000 ML IV SCH (08:15)
--- NOTE | 2020-03-20 08:16 | RAD ---
Exam: Chest one view HISTORY:Follow-up pneumothorax. Respiratory distress. Ventilated patient. Comparison: 03/19/2020 FINDINGS: Lines and tubes: Redemonstration of endotracheal tube, nasogastric tube and right-sided chest tube. Cardiac silhouette: Normal Aorta: Unremarkable Pulmonary vessels: Normal Costophrenic angles: Clear LUNGS: Redemonstration of multifocal interstitial and alveolar infiltrates. Pneumothorax: Small right apical pneumothorax does remain. Osseous abnormalities: None IMPRESSION: 1. Stable multi lobar COVID pneumonia 2. Small right apical pneumothorax.
[2020-03-20] MEDS: Micafungin 100 MG in Sodium Chloride 0.9% 100 ML IVPB SCH (08:21)
[2020-03-20] MEDS: MEROPENEM 1 GM/50 ML 1 GM in Premix Bag 1 BAG IVPB SCH (08:27)
--- NOTE | 2020-03-20 08:27 | PRG ---
DATE OF SERVICE: 03/20/2020 35 minutes of critical care time. SUBJECTIVE: The patient remains on mechanical ventilation through a tracheostomy. There has been no improvement in the last 24 hours. OBJECTIVE: VITAL SIGNS: Temperature is 98, pulse 132, blood pressure 126/47. He is on Levophed at 30 mcg/minute. Phenylephrine 170 mcg/minute. GENERAL: He is obtunded. HEENT: Remarkable for periorbital edema. NECK: Trach in good position. LUNGS: Coarse breath sounds. CARDIOVASCULAR: S1 and S2. Tachycardic. ABDOMEN: Soft and nontender. EXTREMITIES: Edematous throughout. IMAGING STUDIES: His chest x-ray shows bilateral infiltrates. He has an air leak to his right pleural vac. LABORATORY DATA: White blood cell count 0.7, hemoglobin 8.5, hematocrit 27.0, and platelet count 27. Sodium 145, potassium 3.7, chloride 107, CO2 of 27, BUN 103, creatinine 1.2, glucose 47. ASSESSMENT: 1. COVID-19 pneumonia. 2. Acute respiratory failure requiring mechanical ventilation. 3. Neutropenia, thrombocytopenia. 4. Hemodynamic shock. PLAN: His odds of getting better at this point are close to zero. His long-acting insulin will be stopped secondary to developing hypoglycemia. The Actos also needs to be stopped. He will continue on corticosteroids. I will go ahead and add some D5 IV fluids given the fact he is not tolerating tube feeds at this time. He is not actively bleeding, but he may require a platelet transfusion at some point. He has maxed out on vasopressors. The family has been notified of the patient's poor functional status. Job ID: [id number]
[2020-03-20] MEDS: Pantoprazole 40 MG VIAL IVP SCH (08:29)
[2020-03-20] MEDS: Vancomycin 1 GM in Premix Bag 1 BAG IVPB SCH (08:29)
[2020-03-20] MEDS: methylPREDNISolone Sod Succ 40 MG VIAL IVP SCH (08:29)
[2020-03-20 08:44] VITALS: TEMP 98
[2020-03-20] MEDS ORDERED: TBO-Filgrastim 300 MCG/0.5 ML VIAL SC SCH (09:00)
[2020-03-20] MEDS ORDERED: Morphine 4 MG/ML VIAL SLOW IVP PRN (10:32)
[2020-03-20] MEDS ORDERED: Lorazepam 2 MG/ML VIAL SLOW IVP PRN (10:36)
--- NOTE | 2020-03-20 10:39 | PDOC.PALPN ---
Palliative Progress Note - Subjective Remains with mechanical ventilation via trach, full pressure support. Non responsive, chest tubes. Continue decline despite aggressive measures and max support. - Objective Vital Signs: Vital Signs - Most Recent Temp Pulse Resp BP Pulse Ox 98 F 128 H 25 H 86/34 L 96 03/20/20 08:00 03/20/20 07:31 03/20/20 10:00 03/20/20 07:31 03/20/20 08:00 - Physical Exam Constitutional: encephalitic, ill appearing HEENT: moist MMs Respiratory: diminished lung sound Deviation from normal: bilaterally adventicious Cardiovascular: RRR Gastrointestinal: soft, non-tender, no distention Genitourinary: temple catheter Musculoskeletal: no cyanosis, edema present, diffuse muscle atrophy Skin: fragile Deviation from normal: encephalopathic, obtunded - Assessment (1) Palliative care encounter Code(s): Z51.5 - ENCOUNTER FOR PALLIATIVE CARE Status: Acute (2) Acute respiratory failure with hypoxia Code(s): J96.01 - ACUTE RESPIRATORY FAILURE WITH HYPOXIA Status: Acute (3) Pneumonia due to COVID-19 virus Code(s): U07.1 - COVID-19; J12.89 - OTHER VIRAL PNEUMONIA Status: Acute (4) Diabetes mellitus type 2 in nonobese Code(s): E11.9 - TYPE 2 DIABETES MELLITUS WITHOUT COMPLICATIONS Status: Chronic (5) Acute renal failure Status: Acute Qualifiers: Acute renal failure type: with acute tubular necrosis Qualified Code(s): N17.0 - Acute kidney failure with tubular necrosis - Plan Plan: Family meeting. Further revisited poor prognosis, lack of meaningful recovery despite all aggressive measures and treatments. Agreeable for transition of care, compassionate extubation and comfort measures. Comfort medications ordered, discussed with primary RN Dr Barker and Dr Solis aware Spiritual Care involved. Emotional support offered to family. Answered questions related to illness [35] minutes spent on this encounter with >50% of the time in counseling and coordination of care. - ROS Non Response: due to endotracheal tube, due to mental status
--- NOTE | 2020-03-20 16:01 | PDOC.DS.DS ---
Provider - Provider Date of Admission: 02/11/20 13:03 Date of Discharge: 03/20/20 Admitting Provider: Herber Patel DO Consultations: Nephrology, Neurology, Pulmonary Primary Care Physician: Unknown Course - Hospital Course Hospital Course: This is a case of an unfortunate 59-year-old who presented to the hospital on February 102019 due to having worsening respiratory failure. He was diagnosed with COVID-19 pneumonia about a week prior to this hospitalization. He was placed in the hospital for further stabilization. He received the s upportive care for the COVID-19 virus pneumonia. Unfortunately his respiratory status worsened and he ended up being placed on a ventilator. He developed acute kidney injury shortly afterwards and needed a couple sessions of dialysis. He had Pseudomonas grew out from his blood and he required IV antibiotics. He had gram negatives septicemia secondary to Pseudomonas. Unfortunately despite all heroic measures the patient was not wean able from a ventilator. Today the family elected to do compassionate extubation and he was transitioned to hospice from where he surrounded by family. Resuscitation Status: 03/03/20 12:58 Resuscitation Status Routine Co-Sign Provider: Resuscitation Status: DNAR: NO Resuscitation Discussed with: Additional comments: three children of patient and spouse agree to transition to DNAR - Labs Lab Results: 03/20/20 05:00 03/20/20 05:00 Abnormal Lab Results - Last 48 hrs 03/19/20 03:07: Potassium 3.1 L, BUN 89 H, Calcium 7.7 L 03/19/20 03:07: WBC 2.0 L, RBC 3.19 L, Hgb 9.3 L, Hct 28.5 L, RDW 17.3 H, Plt Count 105 L, Neutrophils % (Manual) 19 L, Band Neuts % (Manual) 68 H, Lymphocytes % (Manual) 6 L, Nucleated RBCs # (Man) 10 H, Plt Morphology Comment Appears Decreased L 03/19/20 11:43: C-Reactive Protein 26.97 H 03/19/20 11:43: Lactic Acid 2.6 H 03/19/20 11:43: ESR Westergren 41 H 03/19/20 14:32: Lactic Acid 2.6 H 03/20/20 05:00: BUN 103 H, Calcium 7.2 L 03/20/20 05:00: WBC 0.7 L*, RBC 2.84 L, Hgb 8.5 L, Hct 27.0 L, MCHC 31.6 L, RDW 16.9 H, Plt Count 27 L*, MPV 13.1 H, Neutrophils % (Manual) 32 L, Band Neuts % (Manual) 16 H, Monocytes % (Manual) 12 H, Myelocytes % 4 H, Nucleated RBCs # (Ma n) 20 H, Plt Morphology Comment Appears Decreased L Microbiology - Entire Visit 03/19/20 07:24 Central Line - Right Common Femoral Vein Blood Culture - Preliminary Pseudomonas aeruginosa 03/19/20 07:24 Venous blood - Right Hand Blood Culture - Preliminary Gram Negative Nicolas 03/02/20 08:37 Venous blood - Right Hand Blood Culture - Final NO GROWTH IN 5 DAYS 03/02/20 08:05 Urine temple catheter Urine Culture - Final Pseudomonas aeruginosa 03/02/20 08:36 Venous blood - Right Arm Blood Culture - Final Pseudomonas aeruginosa 03/02/20 08:00 Tracheal - Aspirate Respiratory Culture - Final Pseudomonas aeruginosa 03/04/20 09:01 Stool C. difficile GDH Antigen & Toxins - Final 02/17/20 16:30 Sputum Respiratory Culture - Final 02/11/20 10:10 Venous blood - Left Hand Blood Culture - Final NO GROWTH IN 5 DAYS 02/11/20 10:07 Venous blood - Right Arm Blood Culture - Final NO GROWTH IN 5 DAYS - Physical Exam Vitals: Vital Signs (12 hours) Temp Pulse Resp BP Pulse Ox 03/20/20 10:00 25 H 03/20/20 08:00 98 F 20 96 03/20/20 07:31 128 H 86/34 L 03/20/20 06:00 98.0 F 03/20/20 05:58 20 03/20/20 05:00 98.1 F 03/20/20 04:00 98.0 F 20 Weight Admit Weight 176 lb 8 oz Weight 216 lb 11.43 oz Most Recent Monitor Data Heart Rate from ECG 121 NIBP 72/36 NIBP BP-Mean 44 Respiration from ECG 21 SpO2 79 Physical Exam: The patient was seen and examined on the day of discharge. Problem - Problem (1) Acute respiratory failure with hypoxia Code(s): J96.01 - ACUTE RESPIRATORY FAILURE WITH HYPOXIA Status: Acute (2) Pneumonia due to COVID-19 virus Code(s): U07.1 - COVID-19; J12.89 - OTHER VIRAL PNEUMONIA Status: Acute (3) Pseudomonas aeruginosa infection Code(s): A49.8 - OTHER BACTERIAL INFECTIONS OF UNSPECIFIED SITE Status: Acute (4) Acute renal failure Status: Acute Qualifiers: Acute renal failure type: with acute tubular necrosis Qualified Code(s): N17.0 - Acute kidney failure with tubular necrosis Plan - Discharge Medications Home Medications: Medication Instructions Recorded Confirmed Type Aspirin 325 mg PO DAILY 02/11/20 02/11/20 History Lisinopril 10 mg PO DAILY 02/11/20 02/11/20 History Pioglitazone HCl/metFORMIN HCl 15 - 850 mg PO BID 02/11/20 02/11/20 History [Pioglitazone-Metformin 15-850] Simvastatin 20 mg PO HS 02/11/20 02/11/20 History Allergies: No Known Allergies Allergy (Verified 02/11/20 14:38) - Discharge Instructions Therapies:: Not Applicable Equipment/Supplies:: Not Applicable - Follow up Plan Referrals: Unknown,Unknown [Primary Care Provider] - Disposition: Quality - Care Measures CORE MEASURES:: N/A
--- NOTE | 2020-03-24 04:36 | PQF ---
CLINICAL DOCUMENTATION CLARIFICATION FORM: Dear : Kenny Huang Date / Time: 03/24/20 04:35 Please exercise your independent, professional judgment in responding to the clarification form. Clinical indicators are provided on the bottom of this form for your review Based on the clinical indicators on admit, can you determine if sepsis was present at the time of admission or developed after admission? Diagnosis: Sepsis Present on Admission (POA): [x ] Yes [ ] No [ ] Unable to determine If sepsis is present on admission, can you please clarify if: [ ] sepsis is due to Covid19 infection [ x ] sepsis is not due to Covid19 infection [ ] Unable to determine Physician Signature: Date/Time: For continuity of documentation, please document condition throughout progress notes and discharge summary. Thank You. To be completed by CDI/Coding staff for physician review: Present Clinical Indicators - Signs / Symptoms / Labs Results and Location in Medical Record [x] He has gram negative septicemia secondary to Pseudomonas DS 03/20 [x] Developed CATIE DS 03/20 [x] Chest Xray: multi lobar Covid PNA Chest xray 03/20 [x] Patient appears to be getting septic PN 03/19 [x] Lactic acidosis PN 03/19 [x] not oriented,somnolent PN 03/19 [x] Acute respiratory failure PN 03/19 [x] appears to be developing some form of sepsis PN 03/19 [x] Although sepsis and SIRS considered, no evidence of overt sepsis at this time ED notes 02/10 [x] Temp=98.9 Jamos=894 UQ=039/55 Respi=32 Vital Signs 02/10 [x] WBC=9.0 Lactic=3.6 Laboratory 02/10 [x] Blood culture: Pseudomonas aeruginosa Laboratory 03/19 Present Risk Factors Results and Location in Medical Record [x] 59 years old male DS 03/20 [x] Covid19 PNA PN 03/19 [x] DM ED notes 02/10 Present Treatments Results and Location in Medical Record [x] Mechanical ventilation DS 03/20 [x] Azithromycin 500mg IV MAR 02/10 [x] IVF MAR 02/10 [x] Remdesivir 200mg IV MAY 09 [x] Zosyn 3.375gm IV MAY 09 [x] Vancomycin 1gm IV MAY 09 [x] Cefepime 2gm IV MAY 09 [x] Levophed 8mg IV APR 28 [x] Rocephin 1gm IV APR 28 [x] Pulmonology Consult Consult 02/19 CDS/Vice President Tax Signature:Cony Sears Phone #: [phone] Date/Time:03/24/20 This is a permanent part of the Medical Record [facility]
== END 2020-03-20 01:30 | disposition expired | DRG 870 ==
LOC: ERS 09:40 → 2SW 13:03 → CCU 02-19 22:37 → IMCU/EMU 02-21 17:45 → CCU 02-28 20:53
PROVIDERS: ADMIT Family Medicine; ATTEND Hospitalist
PROC: XW033E5 Introduction of Remdesivir Anti-infective into Peripheral Vein, Percutaneous Approach, New Technology Group 5 (ICD-10-PCS; principal; 2020-02-11)
PROC: XW13325 Transfusion of Convalescent Plasma (Nonautologous) into Peripheral Vein, Percutaneous Approach, New Technology Group 5 (ICD-10-PCS; 2020-02-17)
PROC: 5A09557 Assistance with Respiratory Ventilation, Greater than 96 Consecutive Hours, Continuous Positive Airway Pressure (ICD-10-PCS; 2020-02-20)
PROC: 5A1955Z Respiratory Ventilation, Greater than 96 Consecutive Hours (ICD-10-PCS; 2020-02-28)
PROC: 0BH17EZ Insertion of Endotracheal Airway into Trachea, Via Natural or Artificial Opening (ICD-10-PCS; 2020-02-28)
PROC: 3E033XZ Introduction of Vasopressor into Peripheral Vein, Percutaneous Approach (ICD-10-PCS; 2020-02-29)
PROC: 0W9930Z Drainage of Right Pleural Cavity with Drainage Device, Percutaneous Approach (ICD-10-PCS; 2020-03-03)
PROC: 04HY32Z Insertion of Monitoring Device into Lower Artery, Percutaneous Approach (ICD-10-PCS; 2020-03-06)
PROC: 5A1D70Z Performance of Urinary Filtration, Intermittent, Less than 6 Hours Per Day (ICD-10-PCS; 2020-03-07)
PROC: 30233N1 Transfusion of Nonautologous Red Blood Cells into Peripheral Vein, Percutaneous Approach (ICD-10-PCS; 2020-03-11)
PROC: 06HY33Z Insertion of Infusion Device into Lower Vein, Percutaneous Approach (ICD-10-PCS; 2020-03-19)
PROC: 04HK33Z Insertion of Infusion Device into Right Femoral Artery, Percutaneous Approach (ICD-10-PCS; 2020-03-19)
DX: A41.52 Sepsis due to Pseudomonas (principal); U07.1 COVID-19; J12.82 Pneumonia due to coronavirus disease 2019; J96.01 Acute respiratory failure with hypoxia; N17.0 Acute kidney failure with tubular necrosis; G93.41 Metabolic encephalopathy; E87.1 Hypo-osmolality and hyponatremia; E46 Unspecified protein-calorie malnutrition; J93.83 Other pneumothorax; E87.2 Acidosis; Z51.5 Encounter for palliative care; Z66 Do not resuscitate; E78.00 Pure hypercholesterolemia, unspecified; E78.5 Hyperlipidemia, unspecified; E86.0 Dehydration; E87.5 Hyperkalemia; E87.6 Hypokalemia; E83.39 Other disorders of phosphorus metabolism; I12.9 Hypertensive chronic kidney disease with stage 1 through stage 4 chronic kidney disease, or unspecified chronic kidney disease; E11.22 Type 2 diabetes mellitus with diabetic chronic kidney disease; N18.2 Chronic kidney disease, stage 2 (mild); D63.1 Anemia in chronic kidney disease; E83.51 Hypocalcemia; G40.909 Epilepsy, unspecified, not intractable, without status epilepticus; R57.8 Other shock; D70.9 Neutropenia, unspecified; D47.3 Essential (hemorrhagic) thrombocythemia; E11.649 Type 2 diabetes mellitus with hypoglycemia without coma; Z79.84 Long term (current) use of oral hypoglycemic drugs; Z79.82 Long term (current) use of aspirin; Z79.899 Other long term (current) drug therapy; Z68.35 Body mass index [BMI] 35.0-35.9, adult
CPT/HCPCS: 36415; 36416; 36430; 36600; 70450; 71045; 80048; 80053; 80076; 80202; 81001; 82570; 82728; 82805; 83605; 83735; 83880; 84100; 84300; 84484; 84550; 85025; 85027; 85060; 85379; 85652; 86140; 86850; 86900; 86901; 87040; 87070; 87077; 87086; 87149; 87186; 87205; 87324; 87340; 87449; 90935; 93005; 93010; 93306; 94002; 94003; 94660; 94760; 94799; 95712; 95816; 95819; 95957; 96365; 96375; A4217; C9113; G0257; J0456; J0692; J0696; J1100; J1642; J1644; J1650; J1815; J1940; J2020; J2060; J2185; J2248; J2270; J2370; J2543; J2704; J2920; J3010; J3370; J3480; J3490; J7050; J7070; J8540; P9016; P9017; P9047; Q5105